=== PATIENT | male | born 1940 | race Caucasian/White ===

== ENCOUNTER 2019-07-12 07:34 | Inpatient (IN) ==
[2019-07-12] MEDS ORDERED: MoRPHine SULFATE 2 MG/ML CARP IV PRN (07:50)
[2019-07-12] MEDS ORDERED: SODIUM CHLORIDE 0.9% 1000ML 1,000 ML IV SCH (08:00)
--- NOTE | 2019-07-12 08:15 | XRay Report ---
SINGLE VIEW CHEST CLINICAL HISTORY: Fall. Hip pain. FINDINGS: An AP, portable, semierect chest radiograph is compared to study dated 10/28/2011. The exam ination is degraded by portable technique, apical lordotic positioning, and patient rotation. The p atient is status post midline sternotomy. The heart is enlarged and there is atherosclerotic calcific ation of the thoracic aorta. There is mild to moderate vascular congestion. Trace pleural effusions a re noted and there is bibasilar atelectasis. No pneumothorax is seen. The skeletal structures are ost eopenic. The bony thorax is grossly intact. IMPRESSION: 1. Cardiomegaly with mild pulmonary vascular congestion. 2. There are trace pleural effusions. Electronically signed by: Bradley Albert M.D. 07/12/2019 8:14 AM
[2019-07-12 08:16] LABS: Basophils # (auto) 0.02 K/uL (0-0.2); Basophils % (auto) 0.2 %; Eosinophils # (auto) 0.23 K/uL (0-0.5); Eosinophils % (auto) 2.5 %; Hematocrit (blood only) 38.7 % (42-52); Hemoglobin 12.8 g/dL (14.0-18.0); Immature Granulocytes # (auto) 0.02 K/uL (0.00-0.02); Immature Granulocytes % (auto) 0.2 %; Lymphocytes # (auto) 1.44 K/uL (1.2-3.4); Mean Corpuscular Hgb Conc 33.1 g/dL (32-36); Mean Corpuscular Volume 90.6 fL (80-100); Mean Platelet Volume 11.7 fL (7.4-10.4); Monocytes # (auto) 0.98 K/uL (0.11-0.59); Monocytes % (auto) 10.9 %; Neutrophils # (auto) 6.33 K/uL (1.4-6.5); Neutrophils % (auto) 70.2 %; Platelet Count 139 K/uL (130-400); RDW Standard Deviation 46.7 fL (36.4-46.3); Red Blood Count 4.27 M/uL (4.7-6.1); White Blood Count 9.02 K/uL (4.8-10.8)
--- NOTE | 2019-07-12 08:16 | XRay Report ---
XR hip LT min 2V CLINICAL HISTORY: Left hip pain status post trauma COMPARISON: None. DISCUSSION: The examination is somewhat limited from a technical standpoint. No fractures or dislocat ions are visualized. IMPRESSION: No fractures or dislocations identified. Electronically signed by: Ravindra Petty M.D. 07/12/2019 8:15 AM
[2019-07-12 08:27] LABS: INR 2.3 (0.9-1.1); Partial Thromboplastin Ratio 1.6; Partial Thromboplastin Time 42.6 Seconds (21.0-31.0); Prothrombin Time 22.5 Seconds (9.0-12.0)
[2019-07-12 08:29] LABS: BUN Creatinine Ratio 12.2 (10-20); Calcium 8.7 mg/dl (8.5-10.1); Creatinine Clr Calc Pharmacy 65.4 ml/min; Est GFR (African American) 74.1; Potassium 3.7 mmol/L (3.5-5.1)
[2019-07-12 08:36] LABS: Appearance Urine Clear (Clear); Bilirubin Urine Negative (Negative); Blood Urine Negative (Negative); Color Urine Dark Yellow; Glucose Urine UA Negative (Negative); Ketones Urine Trace (Negative); Leukocyte Esterase Urine Negative (Negative); Nitrite Urine Negative (Negative); Protein Urine Negative (Negative); Specific Gravity Urine 1.025 (1.000-1.030); Urobilinogen Urine Negative (Negative)
--- NOTE | 2019-07-12 09:38 | XRay Report ---
LEFT KNEE 2 VIEWS CLINICAL HISTORY: Fall with left leg pain. FINDINGS: AP and crosstable lateral views of the left knee are obtained. No prior studies are availab le for comparison at the time of dictation. The skeletal structures are osteopenic. There is a minima lly distracted spiral fracture through the distal shaft and metaphysis of the left femur. There is mi ld overriding of the fragments. The distal fragment is distracted medially by 1.2 cm, and dorsally by 0.5 cm. Fracture extends to the femoral component of a left knee arthroplasty. The proximal tibia an d fibula appear intact. There has been undersurface remodeling of the patella. Soft tissue edema is p resent around the fracture, and there is a joint effusion. Advanced atherosclerotic calcification is noted in the popliteal artery. IMPRESSION: 1. There is a mildly distracted and overriding spiral fracture through the distal femoral shaft and m etaphysis as above. This extends to the femoral component of a left knee arthroplasty. 2. No additional fracture is seen. 3. Joint effusion and soft tissue edema. Electronically signed by: Bradley Albert M.D. 07/12/2019 9:37 AM
--- NOTE | 2019-07-12 09:55 | Emergency Department Note ---
Entered by Genoveva Sexton acting as a scribe for Saulo Ivan DO History of Present Illness General Chief complaint: Fall Time Seen by Provider: 07/12/19 07:46 Source: patient and family History of Present Illness Provider complaint: fall Onset (ago): hour(s) (1.5) Pain Consistency: + other (episode) Maximum Pain Intensity: 10 Quality: + other (fall) Associated symptoms: + denies other symptoms (hitting head, neck pain, back pain) and + other (fell backwards and heard a snap, has been falling a lot recently) Treatments prior to arrival: NSAID (Tylenol) The patient is a 78 year old male who presents to the ED with complaints of an episode of a fall that occurred 1.5 hours ago. The patients son states that he has been falling a lot recently. The patient states that he fell backwards during this encounter but denies hitting his head. The patient also denies neck pain and back pain. The patient notes that he heard a snap when he fell. The patient states that he took Tylenol prior to arrival. Home Medications Home Medications Medication Instructions Recorded Confirmed Type acetaminophen [Tylenol Extra 500 mg PO QAM 07/12/19 07/12/19 History Strength] aspirin 81 mg PO QAM 07/12/19 07/12/19 History atorvastatin 80 mg PO DAILY 07/12/19 07/12/19 History clonazepam 0.5 mg PO DAILY 07/12/19 07/12/19 History fluticasone propion-salmeterol 1 inh INHALATION BID 07/12/19 07/12/19 History [Wixela Inhub] fluticasone propionate [Flonase 2 spray INTRANASAL DAILY 07/12/19 07/12/19 History Allergy Relief] furosemide 40 mg PO Q2D 07/12/19 07/12/19 History isosorbide mononitrate 30 mg PO DAILY 07/12/19 07/12/19 History levothyroxine 150 mcg PO QAM 07/12/19 07/12/19 History metoprolol succinate 200 mg PO DAILY 07/12/19 07/12/19 History npbnlxjo-eyh-GD-lycopen-lutein 1 tab PO QAM 07/12/19 07/12/19 History [Centrum Silver] nitroglycerin [Nitrostat] 0.4 mg SUBLINGUAL UD 07/12/19 07/12/19 History omeprazole 40 mg PO QAM 07/12/19 07/12/19 History ramipril 10 mg PO DAILY 07/12/19 07/12/19 History trazodone 50 mg PO HS 07/12/19 07/12/19 History warfarin 2.5 mg PO DAILY 07/12/19 07/12/19 History Allergies Allergy/AdvReac Type Severity Reaction Status Date / Time atorvastatin Allergy Unknown Unknown Verified 07/12/19 07:51 iodine Allergy Unknown CONTRAST Verified 07/12/19 07:51 MEDIA ALLERGY NOTED adhesive AdvReac Unknown Verified 07/12/19 07:51 Past Med/Surg History Medical History Frequent falls Social History Preferred Language: Citizen Of [place] Feels Safe at Home: Yes Smoking Status: Former smoker Review of Systems See HPI for pertinent positives & negatives. and A total of 10 systems reviewed and were otherwise negative Physical Exam Vital Signs Vital Signs - 24 hr 07/12/19 07:40 07/12/19 08:26 07/12/19 08:30 Temperature 37.1 C Temperature Source Oral Sepsis Recent Fever Within 48 Hours No Sepsis New/Unexplained Change in Mental Status No Sepsis Action Taken by Nursing No Action Required Pulse Rate 65 67 69 Pulse Rate from SpO2 Sensor 68 69 Pulse Rhythm Regular Pulse Strength Normal Respiratory Rate 20 18 15 Respiratory Effort / Characteristics Non-Labored Spontaneous Respiratory Depth Normal Respiratory Pattern Regular Blood Pressure 147/85 H 135/66 129/69 Blood Pressure Mean 105 89 89 Blood Pressure Position Sitting Pulse Oximetry 94 94 95 Oxygen Delivery Method Room Air 07/12/19 08:40 07/12/19 08:50 07/12/19 09:00 Temperature Temperature Source Sepsis Recent Fever Within 48 Hours Sepsis New/Unexplained Change in Mental Status Sepsis Action Taken by Nursing Pulse Rate 70 68 71 Pulse Rate from SpO2 Sensor 70 68 71 Pulse Rhythm Pulse Strength Respiratory Rate 19 17 14 Respiratory Effort / Characteristics Respiratory Depth Respiratory Pattern Blood Pressure 132/69 Blood Pressure Mean 90 Blood Pressure Position Pulse Oximetry 92 97 93 Oxygen Delivery Method 07/12/19 09:10 Temperature Temperature Source Sepsis Recent Fever Within 48 Hours Sepsis New/Unexplained Change in Mental Status Sepsis Action Taken by Nursing Pulse Rate 74 Pulse Rate from SpO2 Sensor 75 Pulse Rhythm Pulse Strength Respiratory Rate 14 Respiratory Effort / Characteristics Respiratory Depth Respiratory Pattern Blood Pressure Blood Pressure Mean Blood Pressure Position Pulse Oximetry 94 Oxygen Delivery Method CONSTITUTIONAL/VITAL SIGNS: Reviewed / noted above. GENERAL: Non-toxic in appearance. INTEGUMENTARY: Warm, dry, and [place]. HEAD: Normocephalic. EYES: without scleral icterus or trauma. ENT/OROPHARYNX: clear and moist. LYMPHADENOPATHY/NECK: Is supple without lymphadenopathy or meningismus. RESPIRATORY: Lungs clear and equal. CARDIOVASCULAR: Regular rate and rhythm. GI/ABDOMEN: Soft and nontender. No organomegaly or pulsatile mass. No rebound or guarding. Normal bowel sounds. EXTREMITIES: Warm and well perfused. BACK: No CVA tenderness. NEUROLOGICAL: Intact without focal deficits. PSYCHIATRIC: normal affect. MUSCULOSKELETAL: Shortening of left leg. Tenderness of left hip. Normally developed with good muscle tone. Course 0747: Past medical records reviewed. The patient was evaluated in room A10. A complete history and physical exam was performed. 0854: I reevaluated the patient and updated him on the test results. The patient states that he is still in pain so we will do a femur CT. 0940: I updated the patient on the test results. 0946: I discussed the patient's case with Kami Ribera PA-C. She will evaluate the patient for further management. Consultations Consultation #1: I discussed the patient's case with Kami Ribera PA-C. She will evaluate the patient for further management. Time: 09:46 Administered Medications Sodium Chloride (Nss 1000ml) 1,000 mls @ 150 mls/hr IV .[id number] FOR[facility]LY [facility], 1928–1983 Stop: 07/12/19 14:39 Last Admin: 07/12/19 08:05 Dose: 150 mls/hr Documented by: [id number] Morphine Sulfate (Morphine Sulfate) 2 mg IV Q1H PRN PRN Reason: Moderate Pain (Rating 3,4,5,6) Stop: 07/26/19 07:49 Last Admin: 07/12/19 08:12 Dose: 2 mg Documented by: [id number] Medical Decision Making Differential Diagnosis Differential includes close head injury, intracranial bleed, facial trauma, cervical spine trauma, chest and thoracic trauma, abdominal and intra-abdominal trauma, spine neurologic trauma, extremity trauma. Medical Records Attestation: I reviewed the patient's medical records. Home Medications Current Medication List: was personally reviewed by me Laboratory Data Attestation: I reviewed the patient's lab results. Result diagrams: 07/12/19 08:01 07/12/19 08:01 Lab Results 07/12/19 07/12/19 07/12/19 Range/Units 08:01 08:01 08:01 WBC 9.02 (4.8-10.8) K/uL RBC 4.27 L (4.7-6.1) M/uL Hgb 12.8 L (14.0-18.0) g/dL Hct 38.7 L (42-52) % MCV 90.6 (80-100) fL MCH 30.0 (25-34) pg MCHC 33.1 (32-36) g/dL RDW Std Deviation 46.7 H (36.4-46.3) fL RDW Coeff of Cory 14.0 (11.5-14.5) % Plt Count 139 (130-400) K/uL MPV 11.7 H (7.4-10.4) fL Immature Gran % (Auto) 0.2 % Neut % (Auto) 70.2 % Lymph % (Auto) 16.0 % [place] % (Auto) 10.9 % Eos % (Auto) 2.5 % Baso % (Auto) 0.2 % Immature Gran # (Auto) 0.02 (0.00-0.02) K/uL Neut # (Auto) 6.33 (1.4-6.5) K/uL Lymph # (Auto) 1.44 (1.2-3.4) K/uL [place] # (Auto) 0.98 H (0.11-0.59) K/uL Eos # (Auto) 0.23 (0-0.5) K/uL Baso # (Auto) 0.02 (0-0.2) K/uL PT 22.5 H (9.0-12.0) Seconds INR 2.3 H (0.9-1.1) APTT 42.6 H (21.0-31.0) Seconds PTT Ratio 1.6 Sodium 142 (136-145) mmol/L Potassium 3.7 (3.5-5.1) mmol/L Chloride 107 (98-107) mmol/L Carbon Dioxide 29 (21-32) mmol/L Anion Gap 6.0 (3-11) BUN 13 (7-18) mg/dl Creatinine 1.10 (0.6-1.4) mg/dl Est Cr Clr Drug Dosing 65.4 ml/min Est GFR ( Amer) 74.1 Est GFR (Non-Af Amer) 64.0 BUN/Creatinine Ratio 12.2 (10-20) Glucose 129 H (70-99) mg/dl Calcium 8.7 (8.5-10.1) mg/dl Urine Color Urine Appearance (Clear) Urine pH (4.5-7.5) Ur Specific [place] (1.000-1.030) Urine Protein (Negative) Urine Glucose (UA) (Negative) Urine Ketones (Negative) Urine Blood (Negative) Urine Nitrite (Negative) Urine Bilirubin (Negative) Urine Urobilinogen (Negative) Ur Leukocyte Esterase (Negative) Blood Type Antibody Screen 07/12/19 07/12/19 Range/Units 08:01 08:28 WBC (4.8-10.8) K/uL RBC (4.7-6.1) M/uL Hgb (14.0-18.0) g/dL Hct (42-52) % MCV (80-100) fL MCH (25-34) pg MCHC (32-36) g/dL RDW Std Deviation (36.4-46.3) fL RDW Coeff of Cory (11.5-14.5) % Plt Count (130-400) K/uL MPV (7.4-10.4) fL Immature Gran % (Auto) % Neut % (Auto) % Lymph % (Auto) % [place] % (Auto) % Eos % (Auto) % Baso % (Auto) % Immature Gran # (Auto) (0.00-0.02) K/uL Neut # (Auto) (1.4-6.5) K/uL Lymph # (Auto) (1.2-3.4) K/uL [place] # (Auto) (0.11-0.59) K/uL Eos # (Auto) (0-0.5) K/uL Baso # (Auto) (0-0.2) K/uL PT (9.0-12.0) Seconds INR (0.9-1.1) APTT (21.0-31.0) Seconds PTT Ratio Sodium (136-145) mmol/L Potassium (3.5-5.1) mmol/L Chloride (98-107) mmol/L Carbon Dioxide (21-32) mmol/L Anion Gap (3-11) BUN (7-18) mg/dl Creatinine (0.6-1.4) mg/dl Est Cr Clr Drug Dosing ml/min Est GFR ( Amer) Est GFR (Non-Af Amer) BUN/Creatinine Ratio (10-20) Glucose (70-99) mg/dl Calcium (8.5-10.1) mg/dl Urine Color Dark Yellow Urine Appearance Clear (Clear) Urine pH 5.0 (4.5-7.5) Ur Specific [place] 1.025 (1.000-1.030) Urine Protein Negative (Negative) Urine Glucose (UA) Negative (Negative) Urine Ketones Trace H (Negative) Urine Blood Negative (Negative) Urine Nitrite Negative (Negative) Urine Bilirubin Negative (Negative) Urine Urobilinogen Negative (Negative) Ur Leukocyte Esterase Negative (Negative) Blood Type A Positive Antibody Screen NEGATIVE Imaging Data Radiologist's Impression: Radiology results as stated below per my review and the radiologist's interpretation: SINGLE VIEW CHEST CLINICAL HISTORY: Fall. Hip pain. FINDINGS: An AP, portable, semierect chest radiograph is compared to study dated 10/28/2011. The examination is degraded by portable technique, apical lordotic positioning, and patient rotation. The patient is status post midline st ernotomy. The heart is enlarged and there is atherosclerotic calcification of the thoracic aorta. There is mild to moderate vascular congestion. Trace pleural effusions are noted and there is bibasilar atelectasis. No pneumothorax is seen. The skeletal structures are osteopenic. The bony thorax is grossly intact. IMPRESSION: 1. Cardiomegaly with mild pulmonary vascular congestion. 2. There are trace pleural effusions. Electronically signed by: Bradley Albert M.D. 07/12/2019 8:14 AM XR hip LT min 2V CLINICAL HISTORY: Left hip pain status post trauma COMPARISON: None. DISCUSSION: The examination is somewhat limited from a technical standpoint. No fractures or dislocations are visualized. IMPRESSION: No fractures or dislocations identified. Electronically signed by: Ravindra Petty M.D. 07/12/2019 8:15 AM LEFT KNEE 2 VIEWS CLINICAL HISTORY: Fall with left leg pain. FINDINGS: AP and crosstable lateral views of the left knee are obtained. No prior studies are available for comparison at the time of dictation. The skeletal structures are osteopenic. There is a minimally distracted spiral f racture through the distal shaft and metaphysis of the left femur. There is mild overriding of the fragments. The distal fragment is distracted medially by 1.2 cm, and dorsally by 0.5 cm. Fracture extends to the femoral component of a left knee arthroplasty. The proximal tibia and fibula appear intact. There has been undersurface remodeling of the patella. Soft tissue edema is present around the fracture, and there is a joint effusion. Advanced atherosclerotic calcification is noted in the popliteal artery. IMPRESSION: 1. There is a mildly distracted and overriding spiral fracture through the distal femoral shaft and metaphysis as above. This extends to the femoral component of a left knee arthroplasty. 2. No additional fracture is seen. 3. Joint effusion and soft tissue edema. Electronically signed by: Bradley Albert M.D. 07/12/2019 9:37 AM ECG Data Attestation: I personally reviewed and interpreted this ECG as follows: Indication: other (femur fracture) Rate (beats per minute): 70 Rhythm: normal sinus Findings: no PAC, no PVC, no ST elevation and no ectopy Blood Pressure Blood Pressure Findings: Elevated blood pressure Blood Pressure Disposition: further management by hospitalist HEATHER Gaspar This is a 78-year-old male who presents to the ED with a chief complaint of left leg pain after a fall. He originally complained of pain in the left hip but on exam his pain seems to be lower towards his left knee. The patient denies striking his head or headaches. He is on Coumadin. The patient has had bilate ral knee replacements by Dr. Mckeon in the past. His fall occurred at 6 AM. His blood pressure is slightly elevated. Without movement, his pain is tolerable. His physical exam reveals some tenderness to palpation of the left hip and discomfort in the left knee area with movement. There is also noted to be some mild crepitus. The patient has no complaints of pain elsewhere. No headache, no chest pains, no shortness of breath. No other extremity injuries on exam or complaint. X-ray of the pelvis and knee reveal a spiral fracture of the distal femur on the left. CBC is normal. INR is 2.3. Complete metabolic panel was unremarkable. EKG shows a sinus rhythm at a rate of 70. Urine did not show infection. I spoke with Dr. Capone about the patient. The patient will be seen by medicine services for his medical issues and orthopedics will plan on fixing the femur. The patient will be admitted to the hospital by the [facility]. Impression & Plan Femur fracture, Fall, Elevated INR The scribe's documentation has been prepared under my direction and personally reviewed by me in its entirety. I confirm that the note above accurately reflects all work, treatment, procedures, and medical decision making performed by me.
--- NOTE | 2019-07-12 11:28 | History & Physical Report ---
Date of Service July 12, 2019 Assessment & Plan (1) Fall: (2) Femur fracture: Pt is 78 y/o M with PMH HTN, dyslipidemia, CAD s/p CABG x5 in 2001, ischemic cardiomyopathy, h/o DVT on chronic Coumadin, CKD III, obesity, prediabetes, COPD, ascending aortic dilation, sleep apnea, hypothyroidism, chronic back pain, presented to ER with complaint of fall and left leg pain occurred prior to arrival. Mechanical fall when attempting to put socks on this morning. In ER vitals stable. L KNEE XRAY: There is a mildly distracted and overriding spiral fracture through the distal femoral shaft and metaphysis as above. This extends to the femoral component of a left knee arthroplasty. Joint effusion and soft tissue edema. -In ER pt given morphine 2mg IV, NSS at 150ml/hr -Moderate cardiac surgical risk with hx CAD, ischemic cardiomyopathy, also with hx COPD, obesity. Pt without acute CP or SOB. No acute EKG changes -Pain control with oxycodone, morphine prn -Ortho consult -Spoke with ortho industrial/organizational psychologist and recommended posterior long leg splint and if pt could not tolerate recommended immobilizer to left leg. Ortho placed order. Also recommended Vitamin K and reports if INR 1.5 or less will consider taking pt to OR this weekend or if pt wants surgery to be completed by Dr Hawkins he is in OR on monday. -Will make pt NPO tonight in case INR decreases -SCD to uninjured leg (3) History of DVT (deep vein thrombosis): H/O RLE DVT in 2010 and on Coumadin INR: 2.3 today. Pt Reports took Coumadin this morning -Hold Coumadin -Vitamin K 5mg po -Monitor INR (4) Ischemic cardiomyopathy: (5) CAD (coronary artery disease): S/P CABG x 5 reported in 2001 Echo on 02/22/19 with improved EF. EF: 55%, mild aortic regurgitation, aortic root 4.5 cm which is stable from previous study CXR: Cardiomegaly with mild pulmonary vascular congestion. There are trace pleural effusions. Pt without acute CP or SOB. No acute EKG changes. Clinically pt appears euvolemic -Continue aspirin, metoprolol, statin, isosorbide -Will continue Lasix every other day dosing tomorrow and monitor fluid status (6) HTN (hypertension): Stable -Continue metoprolol, ramipril -Would consider holding ramipril morning of planned surgical procedure (7) Prediabetes: A1c: 6.0 on 03/06/2019 Diet-controlled -Diabetic diet, monitor BSG's -NovoLog sliding scale per protocol (8) COPD (chronic obstructive pulmonary disease): Reports chronic SOB/wheezing with ambulating approx 50 feet and uses home Combivent inhaler 1-2 times a day -Continue home inhalers -Duoneb prn SOB/wheezing (9) Dyslipidemia: -Continue statin (10) IRLANDA (obstructive sleep apnea): -CPAP with 2L oxygen HS (11) Hypothyroidism: TSH: 0.8 in 02/2019 -Continue levothyroxine (12) Obesity: BMI: 37.9 -Would recommend lifestyle modifications (13) GERD (gastroesophageal reflux disease): -Continue PPI DVT Prophylaxis -SCDs Full Code as per discussion with pt, however reports would not want maintained on life support if poor prognosis Follows with Dr Gtz for routine care Pt was seen and care coordinated with Dr Carlin. See addendum History of Present Illness Chief Complaint: Fall, Left leg pain Primary Care Provider: Terrence Gtz, DO Pt is 78 y/o M with PMH HTN, dyslipidemia, CAD s/p CABG x5 in 2001, ischemic cardiomyopathy, h/o DVT on chronic Coumadin, CKD III, obesity, prediabetes, COPD, ascending aortic dilation, sleep apnea, hypothyroidism, chronic back pain, presented to ER with complaint of fall and left leg pain. Patient states was tr kristel to put on his socks this morning when he fell over onto his left leg and reports felt a pop and had instant pain. Patient denies hitting head, LOC, dizziness, denies CP or SOB prior to fall. Denies any other known injuries from fall. Reports taking Tylenol prior to ER arrival. Patient with history bilateral TKA by Dr. Hawkins around year 2004. Reports chronic back pain and denies any increased pain since fall. Patient reports history unstable gait and reports had a fall last week while working outside. Denies any injuries with previous fall. Patient with history of DVT to right leg in 2010 and has been on Coumadin since. Patient reports chronic shortness of breath and wheezing with ambulating approximately 50 feet. Patient denies any recent chest pain denies any chest pain on exertion. Patient denies any increased lower extremity edema. Denies history of TIA/stroke. Denies fever/chills, diaphoresis, N/V/D/C, WIN, dizziness, syncope, vision changes, neck pain, CP, SOB, orthopnea, palpitations, cough, sore throat, choking, otalgia, rhinorrhea, abdominal pain, leg/foot paresthesias, weakness, rashes, urinary symptoms. Allergies Allergy/AdvReac Type Severity Reaction Status Date / Time atorvastatin Allergy Unknown Unknown Verified 07/12/19 07:51 iodine Allergy Unknown CONTRAST Verified 07/12/19 07:51 MEDIA ALLERGY NOTED adhesive AdvReac Unknown Verified 07/12/19 07:51 Home Medications Home Medications Medication Instructions Recorded Confirmed Type acetaminophen [Tylenol Extra 500 mg PO QAM 07/12/19 07/12/19 History Strength] aspirin 81 mg PO QAM 07/12/19 07/12/19 History atorvastatin 80 mg PO DAILY 07/12/19 07/12/19 History clonazepam 0.5 mg PO DAILY 07/12/19 07/12/19 History fluticasone propion-salmeterol 1 inh INHALATION BID 07/12/19 07/12/19 History [Wixela Inhub] fluticasone propionate [Flonase 2 spray INTRANASAL DAILY 07/12/19 07/12/19 History Allergy Relief] furosemide 40 mg PO Q2D 07/12/19 07/12/19 History isosorbide mononitrate 30 mg PO DAILY 07/12/19 07/12/19 History levothyroxine 150 mcg PO QAM 07/12/19 07/12/19 History metoprolol succinate 200 mg PO DAILY 07/12/19 07/12/19 History jvqvppeh-vuc-FZ-lycopen-lutein 1 tab PO QAM 07/12/19 07/12/19 History [Centrum Silver] nitroglycerin [Nitrostat] 0.4 mg SUBLINGUAL UD 07/12/19 07/12/19 History omeprazole 40 mg PO QAM 07/12/19 07/12/19 History ramipril 10 mg PO DAILY 07/12/19 07/12/19 History trazodone 50 mg PO HS 07/12/19 07/12/19 History warfarin 2.5 mg PO DAILY 07/12/19 07/12/19 History Past Med/Surg History Medical History History of DVT (deep vein thrombosis) (Chronic) Hypothyroidism (Chronic) CAD (coronary artery disease) (Chronic) Ischemic cardiomyopathy (Chronic) Obesity (Chronic) IRLANDA (obstructive sleep apnea) (Chronic) Prediabetes (Chronic) HTN (hypertension) (Chronic) GERD (gastroesophageal reflux disease) (Chronic) Dyslipidemia (Chronic) COPD (chronic obstructive pulmonary disease) (Chronic) CKD (chronic kidney disease), stage III (Chronic) Frequent falls Surgical History History of coronary artery bypass graft (Chronic) History of total knee arthroplasty (Chronic) Social History Preferred Language: Sammarinese Feels Safe at Home: Yes Smoking Status: Former smoker Hx Alcohol Use: Yes Alcohol Intake Frequency: Rarely Hx Substance Use: No Review of Systems Review of Systems: All systems reviewed & are unremarkable except as noted in HPI & below Physical Exam Physical Exam: General: no acute distress, obese Head: normocephalic, atraumatic Eyes: PERRL, EOM's intact, conjunctiva non-injected, anicteric ENT: normal inspection external ears, nose, mucous membranes moist Neck: supple, trachea midline, non-tender Lungs: clear, no respiratory distress, no wheezing/rhonchi/rales CV: RRR, no murmur, no pretibial edema Abd: normal BS, soft, protuberant, non-tender Ext: no calf tenderness, L leg: +edema to thigh and knee, +tenderness to palpation distal thigh and anterior knee, no ROM attempted, sensation to light touch intact, able to wiggle toes, palpable pedal pulse Neuro: A&O x 3, no focal deficits noted, normal affect Skin: warm, dry Results & Data Vital Signs (Past 12 Hours) Vital Signs Temp Pulse Resp BP Pulse Ox 07/12/19 10:50 77 15 93 07/12/19 10:40 75 19 96 07/12/19 10:30 71 16 105/67 96 07/12/19 10:20 80 19 96 07/12/19 10:10 78 18 95 07/12/19 10:00 73 16 113/62 95 07/12/19 09:50 75 20 96 07/12/19 09:40 77 21 96 07/12/19 09:34 79 17 111/68 97 07/12/19 09:33 77 16 97 07/12/19 09:10 74 14 94 07/12/19 09:00 71 14 132/69 93 07/12/19 08:50 68 17 97 07/12/19 08:40 70 19 92 07/12/19 08:30 69 15 129/69 95 07/12/19 08:26 67 18 135/66 94 07/12/19 07:40 37.1 C 65 20 147/85 H 94 Laboratory Results Short CBC 07/12/19 Range/Units 08:01 WBC 9.02 (4.8-10.8) K/uL Hgb 12.8 L (14.0-18.0) g/dL Hct 38.7 L (42-52) % Plt Count 139 (130-400) K/uL BMP 07/12/19 08:01 Sodium 142 Potassium 3.7 Chloride 107 Carbon Dioxide 29 BUN 13 Creatinine 1.10 Glucose 129 H Calcium 8.7 Urine 07/12/19 Range/Units 08:28 Urine Color Dark Yellow Urine Appearance Clear (Clear) Urine pH 5.0 (4.5-7.5) Ur Specific [place] 1.025 (1.000-1.030) Urine Protein Negative (Negative) Urine Glucose (UA) Negative (Negative) Diagnostic Findings KNEE XRAY: IMPRESSION: 1. There is a mildly distracted and overriding spiral fracture through the distal femoral shaft and metaphysis as above. This extends to the femoral component of a left knee arthroplasty. 2. No additional fracture is seen. 3. Joint effusion and soft tissue edema. HIP XRAY: IMPRESSION: No fractures or dislocations identified. CXR: IMPRESSION: 1. Cardiomegaly with mild pulmonary vascular congestion. 2. There are trace pleural effusions. ECG Rate (beats per minute): 71 Rhythm: sinus rhythm Findings: + T-wave inversion (Inferior) Additional Comments: T wave inversion inferior leads seen on prior EKG in 2010 Code Status & VTE Plan VTE Prophylaxis Plan VTE Prophylaxis will be ordered: Yes Supervising Physician Co-Signing Physician Notes I, Dr. Ganesh Carlin, have seen and examined the patient with physician teacher's assistant and agree with the assessment and plan and would like to comment This is a patient with acute left femoral spiral fracture On X ray: There is a mildly distracted and overriding spiral fracture through the distal femoral shaft and metaphysis as above. This extends to the femoral component of a left knee arthroplasty. On exam: General; no acute distress Heart: regular rate Lungs: clear to auscultation bilaterally, no wheezing Abdomen: soft, nontender, bowel sounds present, truncal obesity Extremities: right leg in SCDs, left leg in splint, able to move the feet and toes bilaterally Patient is anticoagulated on Coumadin at home with INR of 2.3. Given that orthopedic service may eventually need to operate, would hold off further Coumadin. Orthopedics recommending giving vitamin K and 5 mg oral to be ordered for 07/12/19. Aspirin 81 mg as per home dose medication may be okay for now but would not place patient on chemical DVT prophylaxis while awaiting for surgery. Patient may have SCDs placed on unaffected right leg. Would avoid any SCD placement on left leg. Would have patient on bed rest in the meanwhile. Further orthopedic recommendations appreciated Obesity with BMI 37.9 Agree with other assessment and plan of medical issues as documented by physician teacher's assistant My colleague Dr. Gaspar will be following the patient starting on 07/13/19 (1) Femur fracture Encounter type: initial encounter Femur location: unspecified portion of femur Fracture morphology: unspecified fracture morphology Fracture type: closed Laterality: left Qualified Code(s): S72.92XA - Unspecified fracture of left femur, initial encounter for closed fracture (2) Fall Encounter type: initial encounter Qualified Code(s): W19.XXXA - Unspecified fall, initial encounter
[2019-07-12] MEDS ORDERED: BISACODYL 10 MG SUPP PR PRN (12:07)
[2019-07-12] MEDS ORDERED: MAGNESIUM HYDROXIDE SUSP 30 ML UDC PO PRN (12:07)
[2019-07-12] MEDS ORDERED: NITROGLYCERIN SL 0.4 MG/TAB TAB SL PRN (12:07)
[2019-07-12] MEDS ORDERED: NALOXONE HCL 0.4 MG/1 ML VIAL/CARP IV PRN (12:07)
[2019-07-12] MEDS ORDERED: PHYTONADIONE 5 MG TAB PO STA (12:31)
[2019-07-12] MEDS ORDERED: ONDANSETRON INJ 2 MG/ML 2 ML VIAL IV PRN (12:31)
[2019-07-12] MEDS ORDERED: CARBOHYDRATES FOR HYPOGLYCEMIA PO PRN (12:35)
[2019-07-12] MEDS ORDERED: GLUCOSE 10 TABS/TUBE PO PRN (12:35)
[2019-07-12] MEDS ORDERED: GLUCOSE 40% GEL 15 GM TUBE PO PRN (12:35)
[2019-07-12] MEDS ORDERED: GLUCAGON FOR INJ 1 MG VIAL SQ PRN (12:35)
[2019-07-12] MEDS ORDERED: DEXTROSE 50% 50 ML SYRINGE IV PRN (12:35)
[2019-07-12] MEDS ORDERED: ALBUT/IPRATROP 3MG/0.5MG NEB 3 ML VIAL NEB PRN (12:41)
--- NOTE | 2019-07-12 12:42 | Orthopedic Consultation ---
Date of Consultation July 12, 2019 Assessment & Plan (1) Femur fracture: Spiral fracture left distal femur. Patient is currently on Coumadin and INR was above 2. This will need to be brought down to 1.5 or less for surgery and likely around 1.2 or 1.3 for spinal anesthesia if needed. Patient will likely require ORIF with plate and screw device. Patient initially requesting Dr. Hawkins to do the surgery if possible. He states that if he is not available then the physician on-call, Dr. Capone, can do the surgery. Plan for OR when INR is acceptable and patient remains medically stable. Supervising Physician Co-Signing Physician Notes Patient was seen and examined. I agree with JOSE Bowman's assessment as above. He has a left periprosthetic femur fracture that will require ORIF his current INR is 2.3. Will need to let this trending down until we can safely do his surgery, preferably in the range of 1.3-1.4. He has swelling in his thigh, but no evidence of compartment syndrome. Motor and sensory function is intact distally, and he is resting comfortably in the knee immobilizer. He was consented for surgery today. We will plan for surgery as soon as his INR allows. History of Present Illness Reason for Consultation: Left distal femur fracture Attending Physician: Astrid Gaspar MD History of Present Illness Patient is a 78-year-old white male known to our practice. He is status post bilateral total knee [place] [address] Hawkins. Patient states that he was trying to put on his socks and ended up losing his balance and falling onto his left side. He had immediate pain in his left thigh and hip. He was unable to ambulate. He denies loss of consciousness. He denies chest pain, shortness of breath, lightheadedness prior to falling. He was brought to the emergency room and x-rays were taken. It was found that he had a distal spiral fracture of the femur on the left side. [facility] the patient and asked us to take care of his femur fracture. Patient is currently sitting up in bed eating lunch. He looks comfortable. He has no other complaints at this time other than discomfort in his left lower extremity. Allergies Allergy/AdvReac Type Severity Reaction Status Date / Time atorvastatin Allergy Unknown Unknown Verified 07/12/19 07:51 iodine Allergy Unknown CONTRAST Verified 07/12/19 07:51 MEDIA ALLERGY NOTED adhesive AdvReac Unknown Verified 07/12/19 07:51 Home Medications Home Medications Medication Instructions Recorded Confirmed Type acetaminophen [Tylenol Extra 500 mg PO QAM 07/12/19 07/12/19 History Strength] aspirin 81 mg PO QAM 07/12/19 07/12/19 History atorvastatin 80 mg PO DAILY 07/12/19 07/12/19 History clonazepam 0.5 mg PO DAILY 07/12/19 07/12/19 History fluticasone propion-salmeterol 1 inh INHALATION BID 07/12/19 07/12/19 History [Wixela Inhub] fluticasone propionate [Flonase 2 spray INTRANASAL DAILY 07/12/19 07/12/19 History Allergy Relief] furosemide 40 mg PO Q2D 07/12/19 07/12/19 History isosorbide mononitrate 30 mg PO DAILY 07/12/19 07/12/19 History levothyroxine 150 mcg PO QAM 07/12/19 07/12/19 History metoprolol succinate 200 mg PO DAILY 07/12/19 07/12/19 History pldunxeq-baj-BX-lycopen-lutein 1 tab PO QAM 07/12/19 07/12/19 History [Centrum Silver] nitroglycerin [Nitrostat] 0.4 mg SUBLINGUAL UD 07/12/19 07/12/19 History omeprazole 40 mg PO QAM 07/12/19 07/12/19 History ramipril 10 mg PO DAILY 07/12/19 07/12/19 History trazodone 50 mg PO HS 07/12/19 07/12/19 History warfarin 2.5 mg PO DAILY 07/12/19 07/12/19 History Patient History Medical History History of DVT (deep vein thrombosis) (Chronic) Hypothyroidism (Chronic) CAD (coronary artery disease) (Chronic) Ischemic cardiomyopathy (Chronic) Obesity (Chronic) IRLANDA (obstructive sleep apnea) (Chronic) Prediabetes (Chronic) HTN (hypertension) (Chronic) GERD (gastroesophageal reflux disease) (Chronic) Dyslipidemia (Chronic) COPD (chronic obstructive pulmonary disease) (Chronic) CKD (chronic kidney disease), stage III (Chronic) Frequent falls Surgical History History of coronary artery bypass graft (Chronic) History of total knee arthroplasty (Chronic) Social History Preferred Language: Tamazight Communication Ability: Effective Print Production Coordinator Required: No Beliefs That Will Affect Care: None Current Living Situation: Family Current Living Situation Comment: grandson lives with him Other Information That Helps Us Care for You: Yes Feels Safe at Home: Yes Smoking Status: Former smoker Tobacco Type: cigars ; Do You Dip or Chew Tobacco: No ; Second Hand Exposure: No ; Tobacco Cessation Education Requested by Patient: No Hx Alcohol Use: Yes Alcohol type: hard liquor Alcohol Intake Frequency: Rarely Hx Substance Use: No Physical Exam Physical Exam: Focusing exam in his left lower extremity, immobilizer is loosened on the left knee and he has noted swelling of the left thigh. The knee is nontender to palpation at this time. No attempts are done at range of motion due to fracture of the knee or hip. He does point to his lateral hip and buttock and stating he was having some discomfort. No abrasions noted at this time. He denies any pain of the left ankle or toes and has good range of motion of the left ankle and toes at this time. Sensation is intact. Capillary refill is less than 2 seconds. Right lower extremity is unaffected and he has good range of motion of the hip knee and ankle. Distal pulses are equal bi laterally. Upper extremities are unaffected and he has good range of motion at the shoulders, elbows, and wrists. Pulses are equal bilaterally of the upper extremities. Denies any neck pain at this time. Denies thoracic or lumbar pain. No gross motor or sensory loss seen at this time other than due to fracture. Results & Data Vital Signs (Past 12 Hours) Vital Signs Temp Pulse Pulse Resp BP BP Pulse Ox 07/12/19 12:06 37 C 78 18 138/72 97 07/12/19 10:50 77 15 93 07/12/19 10:40 75 19 96 07/12/19 10:30 71 16 105/67 96 07/12/19 10:20 80 19 96 07/12/19 10:10 78 18 95 07/12/19 10:00 73 16 113/62 95 07/12/19 09:50 75 20 96 07/12/19 09:40 77 21 96 07/12/19 09:34 79 17 111/68 97 07/12/19 09:33 77 16 97 07/12/19 09:10 74 14 94 07/12/19 09:00 71 14 132/69 93 07/12/19 08:50 68 17 97 07/12/19 08:40 70 19 92 07/12/19 08:30 69 15 129/69 95 07/12/19 08:26 67 18 135/66 94 07/12/19 07:40 37.1 C 65 20 147/85 H 94 Diagnostic Findings [place] [phone] XRay Report Patient: ALIA JOSHUAAdmit Date: 07/12/19 MR#: [id number]: [id number] [facility] Acct ID:[id number]: Date: 1940[facility] Zip: [place] [address] Age: 78Location: ED Sex: M Room/Bed: Att Phy:Diagnosis: FALL Aranza Phy: Terrence Gtz, DOService Date: 07/12/19 Fam Phy:Interpreting Phy: Bradley Albert MD Admit Phy: Ordering Phy: Saulo Ivan D.O. cc: ~ LEFT KNEE 2 VIEWS CLINICAL HISTORY: Fall with left leg pain. FINDINGS: AP and crosstable lateral views of the left knee are obtained. No prior studies are available for comparison at the time of dictation. The skeletal structures are osteopenic. There is a minimally distracted spiral fracture through the distal shaft and metaphysis of the left femur. There is mild overriding of the fragments. The distal fragment is distracted medially by 1.2 cm, and dorsally by 0.5 cm. Fracture extends to the femoral component of a left knee arthroplasty. The proximal tibia and fibula appear intact. There has been undersurface remodeling of the patella. Soft tissue edema is present around the fracture, and there is a joint effusion. Advanced atherosclerotic calcification is noted in the popliteal artery. IMPRESSION: 1. There is a mildly distracted and overriding spiral fracture through the distal femoral shaft and metaphysis as above. This extends to the femoral component of a left knee arthroplasty. 2. No additional fracture is seen. 3. Joint effusion and soft tissue edema. (1) Femur fracture Encounter type: initial encounter Femur location: unspecified portion of femur Fracture morphology: unspecified fracture morphology Fracture type: closed Laterality: left Qualified Code(s): S72.92XA - Unspecified fracture of left femur, initial encounter for closed fracture
[2019-07-12] MEDS: INSULIN ASPART 100 UNITS/ML 3 ML PEN SC SCH ×3 (14:18→21:56)
[2019-07-12] MEDS: ACETAMINOPHEN 325 MG TAB PO PRN (19:38)
[2019-07-12] MEDS: OXYCODONE HCL IR 5 MG TAB (IMMEDIATE RELEASE) PO PRN (19:38)
[2019-07-12] MEDS: DOCUSATE SODIUM/SENNA 50/8.6MG TAB PO SCH (21:31)
[2019-07-12] MEDS: TRAZODONE HCL 50 MG TAB PO SCH (21:31)
[2019-07-12] MEDS: FLUTICASONE/SALMETEROL 250/50 (ADVAIR) 14 PUFF/1 INHALER INH SCH (21:31)
[2019-07-13] MEDS: LEVOTHYROXINE SODIUM 150 MCG TABLET PO SCH (05:23)
[2019-07-13] MEDS ORDERED: CEFAZOLIN 2000MG 2,000 MG/15 ML SYR IV SCH (06:00)
[2019-07-13 06:22] LABS: Hematocrit (blood only) 35.9 % (42-52); Hemoglobin 11.8 g/dL (14.0-18.0); Mean Corpuscular Hemoglobin 29.7 pg (25-34); Mean Corpuscular Hgb Conc 32.9 g/dL (32-36); Mean Corpuscular Volume 90.4 fL (80-100); Mean Platelet Volume 11.3 fL (7.4-10.4); Platelet Count 129 K/uL (130-400); RDW Coefficient of Variation 13.8 % (11.5-14.5); RDW Standard Deviation 46.2 fL (36.4-46.3); Red Blood Count 3.97 M/uL (4.7-6.1); White Blood Count 8.44 K/uL (4.8-10.8)
[2019-07-13 06:32] LABS: INR 1.7 (0.9-1.1); Prothrombin Time 16.6 Seconds (9.0-12.0)
[2019-07-13 06:45] LABS: BUN Creatinine Ratio 12.5 (10-20); Calcium 8.7 mg/dl (8.5-10.1); Creatinine Clr Calc Pharmacy 57.3 ml/min; Est GFR (African American) 68.1; Est GFR (Non-African American) 58.8; Potassium 3.7 mmol/L (3.5-5.1)
[2019-07-13] MEDS: OXYCODONE HCL IR 5 MG TAB (IMMEDIATE RELEASE) PO PRN ×2 (07:38→17:12)
[2019-07-13] MEDS: ACETAMINOPHEN 325 MG TAB PO PRN ×2 (07:38→17:11)
[2019-07-13] MEDS: INSULIN ASPART 100 UNITS/ML 3 ML PEN SC SCH ×4 (08:40→21:00)
[2019-07-13] MEDS: FLUTICASONE/SALMETEROL 250/50 (ADVAIR) 14 PUFF/1 INHALER INH SCH ×2 (09:04→21:17)
[2019-07-13] MEDS: FLUTICASONE PROPIONATE NA SPR 16 GM BTL NAE SCH (09:05)
[2019-07-13] MEDS: ASPIRIN 81 MG ECTAB PO SCH (09:05)
[2019-07-13] MEDS: ISOSORBIDE MONO EXTENDED REL 30 MG TABCR PO SCH (09:06)
[2019-07-13] MEDS: FUROSEMIDE 40 MG TAB PO SCH (09:07)
[2019-07-13] MEDS: clonazePAM 0.5 MG TAB PO SCH (09:07)
[2019-07-13] MEDS: METOPROLOL SUCC 50MG EXT REL TAB PO SCH (09:08)
[2019-07-13] MEDS: PANTOprazole 40 MG TAB PO SCH (09:08)
[2019-07-13] MEDS: ATORVASTATIN 40 MG TAB PO SCH (09:08)
[2019-07-13] MEDS: MULTIVITAMIN TAB PO SCH (09:08)
[2019-07-13] MEDS: ENALAPRIL MALEATE 10 MG TAB PO SCH (09:09)
--- NOTE | 2019-07-13 09:21 | Orthopedic Progress Note ---
Date of Service July 13, 2019 Assessment & Plan (1) Femur fracture: left TKA Left distal femur fracture Awaiting INR (currently 1.7) to be less than 1.5 to proceed with surgery for left ORIF distal femur fracture. Will plan to keep NPO tonight for possible surgery in the a.m. Supervising Physician Co-Signing Physician Notes Patient was seen and examined this morning. I agree with JOSE Skinner's assessment and plan above. His thigh is still swollen, but no evidence of compartment syndrome. He is resting comfortably and has well-controlled pain. His INR came down surprisingly fast, and is currently at 1.7. I anticipate he might be ready for surgery tomorrow. I had a discussion with him today, and he stated that he would prefer to wait for surgery until Monday. His son is working tomorrow, but is off on Monday, and both the patient and his son really want him to be present on the day of surgery. He would also prefer that Dr. Hawkins fix the fracture, as Dr. Hwakins had previously done his knee replacement. We will therefore hold off on surgery planning for now, and shoot for surgery on Monday. I told him to let us know right away if he changes his mind and wants it done tomorrow. Subjective patient resting comfortably in bed, eating breakfast He notes very mild pain. Denies CP, SOB Physical Exam Physical Exam: Toes mobile, NVI. Calves soft, non tender. Results & Data Vital Signs (Past 12 Hours) Vital Signs Temp Pulse Pulse Pulse Resp BP BP 07/13/19 07:09 36.8 C 95 H 18 146/78 H 07/13/19 02:26 36.9 C 94 H 16 132/71 07/12/19 23:09 37.4 C 95 H 16 121/68 07/12/19 23:01 100 H 16 Pulse Ox 07/13/19 07:09 94 07/13/19 02:26 93 07/12/19 23:09 95 07/12/19 23:01 96 (1) Femur fracture Encounter type: initial encounter Femur location: unspecified portion of femur Fracture morphology: unspecified fracture morphology Fracture type: closed Laterality: left Qualified Code(s): S72.92XA - Unspecified fracture of left femur, initial encounter for closed fracture
--- NOTE | 2019-07-13 15:21 | Hospitalist Progress Note ---
Date of Service July 13, 2019 Assessment & Plan (1) Fall: (2) Femur fracture: Brought to the ER after mechanical fall L KNEE XRAY showed mildly distracted and overriding spiral fracture through the distal femoral shaft and metaphysis Ortho on board plan for surgical to proceed with left ORIF distal femur fracture. Continue leg splint for now to keep LLE stable As per patient and family at bedside, before the LLE fracture, he was able to walk his steep drive way with no distress He denies any episodes of chest pain or SOB Has a functional capacity with a METS greater than 4 as per family before the injury EKG showed no ischemic changes Coumadin has been on hold, waiting for INR to be less than 1.5 to procced for surgery Pt without acute CP or SOB. No acute EKG changes Pain control with oxycodone, morphine prn Moderate cardiac surgical risk with hx CAD, ischemic cardiomyopathy, also with hx COPD, obesity. Currently asymptomatic. Stable to proceed with the procedure Pt is waiting for decision from his son if to proceed with the procedure for tomorrow or Monday Will make NPO after midnight (3) History of DVT (deep vein thrombosis): H/O RLE DVT in 2010 and on Coumadin Continue to hold coumadin INR 1.7 today Continue monitor PT/INR (4) Ischemic cardiomyopathy: (5) CAD (coronary artery disease): S/P CABG x 5 reported in 2001 Echo on 02/22/19 with improved EF. EF: 55%, mild aortic regurgitation, aortic root 4.5 cm which is stable from previous study CXR: Cardiomegaly with mild pulmonary vascular congestion. There are trace pleural effusions. Continue aspirin, metoprolol, statin, isosorbide and lasix every other day (6) HTN (hypertension): Stable On metoprolol, ramipril Monitor BP (7) Prediabetes: A1c: 6.0 on 03/06/2019 Diet-controlled On NovoLog sliding scale per protocol Stable (8) COPD (chronic obstructive pulmonary disease): Continue home inhalers Duoneb prn SOB/wheezing Stable (9) Dyslipidemia: Continue statin (10) IRLANDA (obstructive sleep apnea): CPAP with 2L oxygen HS (11) Hypothyroidism: TSH: 0.8 in 02/2019 Continue levothyroxine (12) Obesity: BMI: 37.9 Counseling on lifestyle modifications (13) GERD (gastroesophageal reflux disease): Continue PPI DVT Prophylaxis SCDs (Anticipate surgical procedure CODE STATUS Full Code Subjective Pt was seen and examined Lying in bed with no distress watching the football game Pt said that he feels fine He said that pain is stable now, but whenever he moves his LLE is worsening Patient said that the he is waiting on his son decision rather to do the surgery tomorrow or Monday He said that his son will be off on Monday Denies any chest pain, palpitation, dizziness and SOB Physical Exam Physical Exam: General- No acute distress Head- atraumatic Eyes- PERRL, EOMI, ENT- oropharynx clear Neck- supple, no JVD Lungs- clear to auscultation Heart- regular rhythm; no murmur Abdomen- normal bowel sounds, soft, nontender Extremities- no calf tenderness, + LLE tenderness Neuro- alert, oriented x 3; PERRL, EOMI; no facial palsy; no dysarthria Skin- warm & dry Results & Data Vital Signs (Past 12 Hours) Vital Signs Temp Pulse Resp BP Pulse Ox 07/13/19 15:03 36.7 C 90 18 100/60 92 07/13/19 07:09 36.8 C 95 H 18 146/78 H 94 (1) Femur fracture Encounter type: initial encounter Femur location: unspecified portion of femur Fracture morphology: unspecified fracture morphology Fracture type: closed Laterality: left Qualified Code(s): S72.92XA - Unspecified fracture of left femur, initial encounter for closed fracture (2) Fall Encounter type: initial encounter Qualified Code(s): W19.XXXA - Unspecified fall, initial encounter
[2019-07-13] MEDS: TRAZODONE HCL 50 MG TAB PO SCH (21:15)
[2019-07-13] MEDS: DOCUSATE SODIUM/SENNA 50/8.6MG TAB PO SCH (21:15)
[2019-07-14] MEDS: LEVOTHYROXINE SODIUM 150 MCG TABLET PO SCH (06:57)
[2019-07-14] MEDS: OXYCODONE HCL IR 5 MG TAB (IMMEDIATE RELEASE) PO PRN ×2 (07:17→12:36)
[2019-07-14 07:24] LABS: INR 1.2 (0.9-1.1); Prothrombin Time 11.8 Seconds (9.0-12.0)
--- NOTE | 2019-07-14 07:46 | Orthopedic Progress Note ---
Date of Service July 14, 2019 Assessment & Plan (1) Femur fracture: He has a left periprosthetic distal femur fracture above a total knee arthroplasty. This will require surgical intervention. His INR came down to an acceptable range for surgery, and I again offered him ORIF of this fracture today. However, he declined, again stating that he would prefer to wait until tomorrow when his son can come and be with him. He again would also prefer that Dr. Hawkins do his surgery since Dr. Hawkins did his knee replacement a few years ago. We will make him n.p.o. after midnight, and get him set up for surgery tomorrow. Subjective He is resting comfortably this morning. No acute events overnight. He again desires to wait for surgery until tomorrow so his son can be here. He also would prefer Dr. Hawkins do his surgery since he did his total knee replacement a few years ago. Physical Exam Physical Exam: Right thigh is still swollen, but appears improved since yesterday. Compartments are soft and compressible. Motor and sensory function is intact distally. Foot is warm and well-perfused. Knee immobilizer is in place. No open wounds. Results & Data Vital Signs (Past 12 Hours) Vital Signs Temp Pulse Pulse Resp BP Pulse Ox 07/14/19 00:59 87 16 94 07/13/19 23:33 37.5 C 91 H 16 108/66 94 07/13/19 22:13 82 18 93 INR now 1.2 (down from 1.7 yesterday) (1) Femur fracture Encounter type: initial encounter Femur location: unspecified portion of femur Fracture morphology: unspecified fracture morphology Fracture type: closed Laterality: left Qualified Code(s): S72.92XA - Unspecified fracture of left femur, initial encounter for closed fracture
[2019-07-14] MEDS: ACETAMINOPHEN 325 MG TAB PO PRN ×2 (08:11→12:36)
[2019-07-14] MEDS: INSULIN ASPART 100 UNITS/ML 3 ML PEN SC SCH ×4 (08:41→22:22)
[2019-07-14] MEDS: ASPIRIN 81 MG ECTAB PO SCH (08:43)
[2019-07-14] MEDS: ISOSORBIDE MONO EXTENDED REL 30 MG TABCR PO SCH (08:43)
[2019-07-14] MEDS: FLUTICASONE PROPIONATE NA SPR 16 GM BTL NAE SCH (08:43)
[2019-07-14] MEDS: FLUTICASONE/SALMETEROL 250/50 (ADVAIR) 14 PUFF/1 INHALER INH SCH ×2 (08:43→22:21)
[2019-07-14] MEDS: PANTOprazole 40 MG TAB PO SCH (08:44)
[2019-07-14] MEDS: MULTIVITAMIN TAB PO SCH (08:44)
[2019-07-14] MEDS: ATORVASTATIN 40 MG TAB PO SCH (08:45)
[2019-07-14] MEDS: METOPROLOL SUCC 50MG EXT REL TAB PO SCH (08:45)
[2019-07-14] MEDS: ENALAPRIL MALEATE 10 MG TAB PO SCH (08:45)
[2019-07-14] MEDS: clonazePAM 0.5 MG TAB PO SCH (08:52)
--- NOTE | 2019-07-14 16:30 | Hospitalist Progress Note ---
Date of Service July 14, 2019 Assessment & Plan (1) Fall: (2) Femur fracture: Brought to the ER after mechanical fall L KNEE XRAY showed mildly distracted and overriding spiral fracture through the distal femoral shaft and metaphysis Ortho on board plan for surgical to proceed with left ORIF distal femur fracture. Continue leg splint for now to keep LLE stable As per patient and family at bedside, before the LLE fracture, he was able to walk his steep drive way with no distress He denies any episodes of chest pain or SOB Has a functional capacity with a METS greater than 4 as per family before the injury EKG showed no ischemic changes Coumadin has been on hold, waiting for INR to be less than 1.5 to procced for surgery Pt without acute CP or SOB. No acute EKG changes Pain control with oxycodone, morphine prn Moderate cardiac surgical risk with hx CAD, ischemic cardiomyopathy, also with hx COPD, obesity. Currently asymptomatic. Stable to proceed with the procedure He refused to get the procedure done today. He wants to get it done tomorrow since his son will be off from work tomorrow so that his son can be there for the procedure Also He wants Dr. Hawkins to do the procedure Will make NPO after midnight Plan for ORIF of this fracture Tomorrow (3) History of DVT (deep vein thrombosis): H/O RLE DVT in 2010 and on Coumadin Continue to hold coumadin INR 1.2 today Continue monitor PT/INR (4) Ischemic cardiomyopathy: (5) CAD (coronary artery disease): S/P CABG x 5 reported in 2001 Echo on 02/22/19 with improved EF. EF: 55%, mild aortic regurgitation, aortic root 4.5 cm which is stable from previous study CXR: Cardiomegaly with mild pulmonary vascular congestion. There are trace pleural effusions. Continue aspirin, metoprolol, statin, isosorbide and lasix every other day (6) HTN (hypertension): Stable On metoprolol, ramipril Monitor BP (7) Prediabetes: A1c: 6.0 on 03/06/2019 Diet-controlled On NovoLog sliding scale per protocol Stable (8) COPD (chronic obstructive pulmonary disease): Continue home inhalers Duoneb prn SOB/wheezing Stable (9) Dyslipidemia: Continue statin (10) IRLANDA (obstructive sleep apnea): CPAP with 2L oxygen HS (11) Hypothyroidism: TSH: 0.8 in 02/2019 Continue levothyroxine (12) Obesity: BMI: 37.9 Counseling on lifestyle modifications (13) GERD (gastroesophageal reflux disease): Continue PPI DVT Prophylaxis SCDs (Anticipate surgical procedure tomorrow) If procedure continue to delay, will start on heparin subq for DVT px CODE STATUS Full Code Subjective Pt was seen and examined Lying in bed with no distress watching football game He said that he only has pain when moving his leg Denies any chest pain, palpitation and SOB Physical Exam Physical Exam: General- No acute distress Head- atraumatic Eyes- PERRL, EOMI, ENT- oropharynx clear Neck- supple, no JVD Lungs- clear to auscultation Heart- regular rhythm; no murmur Abdomen- normal bowel sounds, soft, nontender Extremities- no calf tenderness, + LLE tenderness Neuro- alert, oriented x 3; PERRL, EOMI; no facial palsy; no dysarthria Skin- warm & dry Results & Data Vital Signs (Past 12 Hours) Vital Signs Temp Pulse Resp BP BP Pulse Ox 07/14/19 15:00 36.9 C 96 H 18 114/84 93 07/14/19 08:37 36.4 C L 60 15 113/55 L 96 07/14/19 07:28 37.0 C 96 H 18 131/77 95 (1) Femur fracture Encounter type: initial encounter Femur location: unspecified portion of femur Fracture morphology: unspecified fracture morphology Fracture type: closed Laterality: left Qualified Code(s): S72.92XA - Unspecified fracture of left femur, initial encounter for closed fracture (2) Fall Encounter type: initial encounter Qualified Code(s): W19.XXXA - Unspecified fall, initial encounter
[2019-07-14] MEDS: TRAZODONE HCL 50 MG TAB PO SCH (22:21)
[2019-07-14] MEDS: DOCUSATE SODIUM/SENNA 50/8.6MG TAB PO SCH (22:22)
[2019-07-15] MEDS: INSULIN ASPART 100 UNITS/ML 3 ML PEN SC SCH ×4 (06:16→22:15)
[2019-07-15] MEDS: LEVOTHYROXINE SODIUM 150 MCG TABLET PO SCH (06:17)
[2019-07-15] MEDS: ISOSORBIDE MONO EXTENDED REL 30 MG TABCR PO SCH (08:31)
[2019-07-15] MEDS: clonazePAM 0.5 MG TAB PO SCH (08:31)
[2019-07-15] MEDS: ASPIRIN 81 MG ECTAB PO SCH (08:31)
[2019-07-15] MEDS: METOPROLOL SUCC 50MG EXT REL TAB PO SCH (08:32)
[2019-07-15] MEDS: FUROSEMIDE 40 MG TAB PO SCH (08:32)
[2019-07-15] MEDS: ATORVASTATIN 40 MG TAB PO SCH (08:32)
[2019-07-15] MEDS: PANTOprazole 40 MG TAB PO SCH (08:32)
[2019-07-15] MEDS: MULTIVITAMIN TAB PO SCH (08:32)
[2019-07-15] MEDS: ENALAPRIL MALEATE 10 MG TAB PO SCH (08:32)
[2019-07-15] MEDS: MoRPHine SULFATE 2 MG/ML CARP IV PRN (08:55)
[2019-07-15] MEDS: FLUTICASONE PROPIONATE NA SPR 16 GM BTL NAE SCH (08:58)
[2019-07-15] MEDS: FLUTICASONE/SALMETEROL 250/50 (ADVAIR) 14 PUFF/1 INHALER INH SCH ×2 (08:58→21:56)
--- NOTE | 2019-07-15 09:58 | Orthopedic Progress Note ---
Date of Service July 15, 2019 Assessment & Plan (1) Femur fracture: Left distal periarticular femur fracture. INR has dropped down to 1.2. Recheck hemoglobin. Planning for ORIF of the left femur fracture today. Subjective Hospital day 3. Patient with distal periprosthetic femur fracture. Patient requesting who is here today. No new complaints from the patient other than he is having a little bit of shoulder pain this morning which he feels was due to sleeping in the same position last night. Denies any shortness of breath, chest pain, lightheadedness. Denies calf pain. Physical Exam Physical Exam: No overt changes. Swelling remains in the left thigh. Calves are soft and nontender. Patient relates a burning pain in the right calf secondary to previous DVT years ago that he has had since that time. This has not worsened since his admission. Good range of motion of the left ankle and toes. Sensation is intact. Capillary refill is less than 2 seconds. Results & Data Vital Signs (Past 12 Hours) Vital Signs Temp Pulse Pulse Pulse Resp BP BP 07/15/19 07:38 36.9 C 90 18 106/65 07/14/19 23:14 36.9 C 86 16 111/66 07/14/19 22:32 86 20 Pulse Ox 07/15/19 07:38 95 07/14/19 23:14 93 07/14/19 22:32 96 (1) Femur fracture Encounter type: initial encounter Femur location: unspecified portion of femur Fracture morphology: unspecified fracture morphology Fracture type: closed Laterality: left Qualified Code(s): S72.92XA - Unspecified fracture of left femur, initial encounter for closed fracture
[2019-07-15 10:25] LABS: INR 1.1 (0.9-1.1); Prothrombin Time 11.6 Seconds (9.0-12.0)
[2019-07-15 10:30] LABS: Basophils # (auto) 0.04 K/uL (0-0.2); Basophils % (auto) 0.4 %; Eosinophils # (auto) 0.16 K/uL (0-0.5); Eosinophils % (auto) 1.8 %; Hematocrit (blood only) 34.4 % (42-52); Hemoglobin 11.2 g/dL (14.0-18.0); Immature Granulocytes # (auto) 0.04 K/uL (0.00-0.02); Immature Granulocytes % (auto) 0.4 %; Lymphocytes # (auto) 1.86 K/uL (1.2-3.4); Lymphocytes % (auto) 20.6 %; Mean Corpuscular Hemoglobin 29.2 pg (25-34); Mean Corpuscular Hgb Conc 32.6 g/dL (32-36); Mean Corpuscular Volume 89.6 fL (80-100); Mean Platelet Volume 11.4 fL (7.4-10.4); Monocytes # (auto) 1.26 K/uL (0.11-0.59); Neutrophils # (auto) 5.67 K/uL (1.4-6.5); Neutrophils % (auto) 62.8 %; Platelet Count 150 K/uL (130-400); RDW Coefficient of Variation 13.9 % (11.5-14.5); RDW Standard Deviation 45.3 fL (36.4-46.3); Red Blood Count 3.84 M/uL (4.7-6.1); White Blood Count 9.03 K/uL (4.8-10.8)
--- NOTE | 2019-07-15 12:18 | Hospitalist Progress Note ---
Date of Service July 15, 2019 Assessment & Plan (1) Fall: (2) Femur fracture: Brought to the ER after mechanical fall L KNEE XRAY showed mildly distracted and overriding spiral fracture through the distal femoral shaft and metaphysis Ortho on board plan for surgical to proceed with left ORIF distal femur fracture. Continue leg splint for now to keep LLE stable As per patient and family at bedside, before the LLE fracture, he was able to walk his steep drive way with no distress He denies any episodes of chest pain or SOB Has a functional capacity with a METS greater than 4 as per family before the injury EKG showed no ischemic changes Coumadin has been on hold, waiting for INR to be less than 1.5 to procced for surgery Pt without acute CP or SOB. No acute EKG changes Pain control with oxycodone, morphine prn Moderate cardiac surgical risk with hx CAD, ischemic cardiomyopathy, also with hx COPD, obesity. Currently asymptomatic. Stable to proceed with the procedure He refused to get the procedure done today. He wants to get it done tomorrow since his son will be off from work tomorrow so that his son can be there for the procedure Also He wants Dr. Hawkins to do the procedure Plan for ORIF of this fracture today Keep NPO for now (3) History of DVT (deep vein thrombosis): H/O RLE DVT in 2010 and on Coumadin Continue to hold coumadin INR 1.2 today Continue monitor PT/INR (4) Ischemic cardiomyopathy: (5) CAD (coronary artery disease): S/P CABG x 5 reported in 2001 Echo on 02/22/19 with improved EF. EF: 55%, mild aortic regurgitation, aortic root 4.5 cm which is stable from previous study CXR: Cardiomegaly with mild pulmonary vascular congestion. There are trace pleural effusions. Continue aspirin, metoprolol, statin, isosorbide and lasix every other day (6) HTN (hypertension): Stable On metoprolol, ramipril Monitor BP (7) Prediabetes: A1c: 6.0 on 03/06/2019 Diet-controlled On NovoLog sliding scale per protocol Stable (8) COPD (chronic obstructive pulmonary disease): Continue home inhalers Duoneb prn SOB/wheezing Stable (9) Dyslipidemia: Continue statin (10) IRLANDA (obstructive sleep apnea): CPAP with 2L oxygen HS (11) Hypothyroidism: TSH: 0.8 in 02/2019 Continue levothyroxine (12) Obesity: BMI: 37.9 Counseling on lifestyle modifications (13) GERD (gastroesophageal reflux disease): Continue PPI DVT Prophylaxis SCDs (Anticipate surgical procedure tomorrow) If procedure continue to delay, will start on heparin subq for DVT px CODE STATUS Full Code Subjective Pt was seen and examined. Lying in bed with no distress. Pt said he feels fine He said that he is hungry since he has been NPO for the procedure Denies any chest pain, palpitation, dizziness and SOB Physical Exam Physical Exam: General- No acute distress Head- atraumatic Eyes- PERRL, EOMI, ENT- oropharynx clear Neck- supple, no JVD Lungs- clear to auscultation Heart- regular rhythm; no murmur Abdomen- normal bowel sounds, soft, nontender Extremities- no calf tenderness, + LLE tenderness Neuro- alert, oriented x 3; PERRL, EOMI; no facial palsy; no dysarthria Skin- warm & dry Results & Data Vital Signs (Past 12 Hours) Vital Signs Temp Pulse Resp BP Pulse Ox 07/15/19 07:38 36.9 C 90 18 106/65 95 (1) Femur fracture Encounter type: initial encounter Femur location: unspecified portion of femur Fracture morphology: unspecified fracture morphology Fracture type: closed Laterality: left Qualified Code(s): S72.92XA - Unspecified fracture of left femur, initial encounter for closed fracture (2) Fall Encounter type: initial encounter Qualified Code(s): W19.XXXA - Unspecified fall, initial encounter
--- NOTE | 2019-07-15 13:02 | Anesthesiology Consultation ---
Date of Service July 15, 2019 Assessment & Plan (1) Encounter for pre-operative examination: Chart Review Chart Review: Acceptable Risk for Surgery Consults Requested none ASA ASA4 Proposed Anesthesia Anesthesia Type: General Anesthesia Line Insertion: Arterial line Risk / Benefits Reviewed With: PT / POA / Parent / Guardian, Accepts Plan and Informed Consent Obtained History Surgery Operation Date: 07/15/19 07:05 Proposed Procedures p Left Open Reduction Internal Fixation Periprosthetic Femur Fracture - Steven Hawkins MD Height/Weight Height: 5 ft 5 in Weight: 103.9 kg Allergies Allergy/AdvReac Type Severity Reaction Status Date / Time atorvastatin Allergy Unknown Unknown Verified 07/12/19 07:51 iodine Allergy Unknown CONTRAST Verified 07/12/19 07:51 MEDIA ALLERGY NOTED adhesive AdvReac Unknown Verified 07/12/19 07:51 Medications Home Medications Medication Instructions Recorded Confirmed Last Taken acetaminophen [Tylenol Extra 500 mg PO QAM 07/12/19 07/12/19 07/12/19 Strength] aspirin 81 mg PO QAM 07/12/19 07/12/19 07/12/19 atorvastatin 80 mg PO DAILY 07/12/19 07/12/19 Unknown clonazepam 0.5 mg PO DAILY 07/12/19 07/12/19 Unknown fluticasone propion-salmeterol 1 inh INHALATION BID 07/12/19 07/12/19 07/12/19 [Wixela Inhub] fluticasone propionate [Flonase 2 spray INTRANASAL DAILY 07/12/19 07/12/19 Unknown Allergy Relief] furosemide 40 mg PO Q2D 07/12/19 07/12/19 Unknown isosorbide mononitrate 30 mg PO DAILY 07/12/19 07/12/19 Unknown levothyroxine 150 mcg PO QAM 07/12/19 07/12/19 07/12/19 metoprolol succinate 200 mg PO DAILY 07/12/19 07/12/19 Unknown [id number]-ND-lycopen-lutein 1 tab PO QAM 07/12/19 07/12/19 07/12/19 [Centrum Silver] nitroglycerin [Nitrostat] 0.4 mg SUBLINGUAL UD 07/12/19 07/12/19 Unknown omeprazole 40 mg PO QAM 07/12/19 07/12/19 07/12/19 ramipril 10 mg PO DAILY 07/12/19 07/12/19 Unknown trazodone 50 mg PO HS 07/12/19 07/12/19 07/11/19 warfarin 2.5 mg PO DAILY 07/12/19 07/12/19 07/12/19 Active Medications Generic Name Dose Route Start Last Admin Trade Name Freq PRN Reason Stop Dose Admin Acetaminophen 650 mg 07/12/19 12:07 07/14/19 12:36 Tylenol PO 08/11/19 12:06 650 mg Q4H PRN Administration pain/fever Aspirin 81 mg 07/13/19 09:00 07/15/19 08:31 Ecotrin Ectab PO 08/12/19 08:59 Not Given QAM [facility] Atorvastatin Calcium 80 mg 07/13/19 09:00 07/15/19 08:32 Lipitor PO 08/12/19 08:59 Not Given DAILY ALIREZA Clonazepam 0.5 mg 07/13/19 09:00 07/15/19 08:31 Klonopin PO 08/12/19 08:59 Not Given DAILY [facility] Enalapril Maleate 40 mg 07/13/19 09:00 07/15/19 08:32 Vasotec PO 08/12/19 08:59 Not Given DAILY [facility] Fluticasone Propionate 2 sprays 07/13/19 09:00 07/15/19 08:58 Flonase BENITEZ 08/12/19 08:59 2 sprays DAILY [facility] Administration Furosemide 40 mg 07/13/19 09:00 07/15/19 08:32 Lasix PO 08/12/19 08:59 Not Given Q2D [facility] Insulin Aspart 0 units 07/15/19 06:00 07/15/19 12:30 Novolog Flexpen SC 08/14/19 05:59 Not Given Q6 [facility] Isosorbide Mononitrate 30 mg 07/13/19 09:00 07/15/19 08:31 Imdur Extended Rel PO 08/12/19 08:59 Not Given DAILY [facility] Levothyroxine Sodium 150 mcg 07/13/19 06:30 07/15/19 06:17 Synthroid PO 08/12/19 [facility]oprol[facility] Succinate 200 mg 07/13/19 09:00 07/15/19 08:32 Toprol Xl PO 08/12/19 08:59 Not Given DAILY ALIREZA Morphine Sulfate 2 mg 07/12/19 12:07 07/15/19 08:55 Morphine Sulfate IV 07/26/19 12:06 2 mg Q3H PRN Administration MODERATE Pain (Scale 4,5,6) Multivitamins 1 tab 07/13/19 09:00 07/15/19 08:32 Multivitamin Tab PO 08/12/19 08:59 Not Given QAM ALIREZA Oxycodone HCl 5 mg 07/12/19 12:07 07/14/19 12:36 Roxicodone Immediate Rel PO 07/26/19 12:06 5 mg Q6H PRN Administration MODERATE Pain (Scale 4,5,6) Pantoprazole Sodium 40 mg 07/13/19 09:00 07/15/19 08:32 Protonix PO 08/12/19 08:59 Not Given DAILY ALIREZA Fluticasone/Salmeterol 1 puffs 07/12/19 21:00 07/15/19 08:58 Advair Diskus 250/50 INH 08/11/19 20:59 1 puffs BID ALIREZA Administration Senna/Docusate Sodium 2 tab 07/12/19 21:00 07/14/19 22:22 Senokot S PO 08/11/19 20:59 2 tab HS ALIREZA Administration Trazodone HCl 50 mg 07/12/19 21:00 07/14/19 22:21 Desyrel PO 08/11/19 20:59 50 mg HS ALIREZA Administration NPO Date Last Intake of Fluids: 07/15/19 Time Last Intake of Fluids: 00:00 Date Last Intake of Solids: 07/15/19 Time Last Intake of Solids: 00:00 Past Medical History Medical History History of DVT (deep vein thrombosis) (Chronic) Hypothyroidism (Chronic) CAD (coronary artery disease) (Chronic) Ischemic cardiomyopathy (Chronic) Obesity (Chronic) IRLANDA (obstructive sleep apnea) (Chronic) Prediabetes (Chronic) HTN (hypertension) (Chronic) GERD (gastroesophageal reflux disease) (Chronic) Dyslipidemia (Chronic) COPD (chronic obstructive pulmonary disease) (Chronic) CKD (chronic kidney disease), stage III (Chronic) Frequent falls Exercise / Class Metabolic Activity III < 4 Walking/Shop/Light housework Past Surgical History Surgical History History of coronary artery bypass graft (Chronic) History of total knee arthroplasty (Chronic) Past Anesthesia History No Hx of Anesthesia Complications and No Family Hx of Anesthesia Complications History of PONV No Hx of PONV and No Hx of Motion Sickness Social History Smoking Status: Former smoker tobacco type: cigars Do You Dip or Chew Tobacco: No Hx Alcohol Use: Yes Alcohol type: hard liquor Alcohol Intake Frequency Comment: a shot of whiskey every day in the winter Hx Substance Use: No Physical Exam Vital Signs Last Vital Signs Temp 98.8 F 07/15/19 13:20 Pulse 104 H 07/15/19 13:20 Resp 20 07/15/19 13:20 BP 115/77 07/15/19 13:20 Pulse Ox 97 07/15/19 13:20 ENMT Mouth: + edentulous Thyromental Distance: > or= 3.5 Finger Breadths Mallampati Class: III Neck normal visual inspection Respiratory normal respiratory effort Auscultation: + diminished lung sounds Cardiovascular Rate/Rhythm: regular rate and regular rhythm Testing Laboratory Results 07/15/19 10:05 07/13/19 05:52 PT 11.6 Seconds (9.0-12.0) 07/15/19 10:03 INR 1.1 (0.9-1.1) 07/15/19 10:03 APTT 42.6 Seconds (21.0-31.0) H 07/12/19 08:01 Urine Color Dark Yellow 07/12/19 08:28 Urine Appearance Clear (Clear) 07/12/19 08:28 Urine pH 5.0 (4.5-7.5) 07/12/19 08:28 Ur Specific Banner 1.025 (1.000-1.030) 07/12/19 08:28 Urine Protein Negative (Negative) 07/12/19 08:28 Urine Glucose (UA) Negative (Negative) 07/12/19 08:28 Urine Ketones Trace (Negative) H 07/12/19 08:28 Urine Nitrite Negative (Negative) 07/12/19 08:28 Ur Leukocyte Esterase Negative (Negative) 07/12/19 08:28 Blood Type A Positive 07/12/19 08:01 Antibody Screen NEGATIVE 07/12/19 08:01 09/16/19 09/16/19 12:21 06:02 POC Glucose 106 H 102 H Electrocardiogram Date: 07/12/19 Normal sinus rhythm, rate 71 bpm T wave abnormality, consider inferior ischemia Abnormal ECG When compared with ECG of 28-OCT-2011 11:04, Premature ventricular complexes are no longer Present Vent. rate has decreased BY 51 BPM Borderline criteria for Inferior infarct are no longer Present Confirmed by Neil Pendleton ([id number]) on 07/12/2019 9:38:58 PM Chest X-Ray Date: 07/12/19 IMPRESSION: 1. Cardiomegaly with mild pulmonary vascular congestion. 2. There are trace pleural effusions. Echocardiogram Date: 02/22/19 EF: 55-59% LV wall thickness is mildly increased Base inferior wall is hypokinetic Regional LV wall motion is otherwise normal LA mildly enlarged Grade 1 diastolic dysfunction Mild AV sclerosis Mild AV regurgitation Aortic root is mildly enlarged, 4.5 cm Ascending aorta is moderately enlarged, 4.7 cm
[2019-07-15] MEDS ORDERED: ePHEDrine sulfate 50 MG/ML AMP IV PRN (13:35)
[2019-07-15] MEDS ORDERED: SODIUM CHLORIDE 0.9% 250 ML IV PRN (13:35)
[2019-07-15] MEDS ORDERED: ONDANSETRON INJ 2 MG/ML 2 ML VIAL IV PRN ×2 (13:35→20:12)
[2019-07-15] MEDS ORDERED: ATROPINE SULFATE 0.1 MG/ML 10ML SYR IV PRN (13:35)
[2019-07-15] MEDS ORDERED: LIDOCAINE HCL 2% MPF (LOCAL) 5 ML VIAL INFIL ONE (13:38)
[2019-07-15] MEDS ORDERED: CEFAZOLIN 2000MG 2,000 MG/15 ML SYR IV ONE (13:45)
[2019-07-15] MEDS ORDERED: BACITRACIN INJ 50,000 UNIT VIAL ONE (13:46)
[2019-07-15] MEDS ORDERED: CEFAZOLIN 2,000 MG/15 ML IV PUSH IV ONE (13:47)
[2019-07-15] MEDS ORDERED: LARYING-O-JET KIT (LTA) ONE (13:49)
[2019-07-15] MEDS ORDERED: GLYCOPYRROLATE 0.2 MG/ML VIAL ONE (13:49)
[2019-07-15] MEDS ORDERED: ROCURONIUM BROMIDE 10 MG/ML 5 ML VIAL ONE ×4 (13:49→16:58)
[2019-07-15] MEDS ORDERED: LIDOCAINE HCL 2% 2 ML VIAL/AMP(20MG/ML) INFIL ONE (13:49)
[2019-07-15] MEDS ORDERED: NEOSTIGMINE METHYLSULFATE 5 MG/5 ML SYR ONE (13:49)
[2019-07-15] MEDS ORDERED: PROPOFOL IV EMULSION 10 MG/ML 20 ML VIAL IV ONE (13:49)
[2019-07-15] MEDS ORDERED: ONDANSETRON INJ 2 MG/ML 2 ML VIAL ONE (13:49)
[2019-07-15] MEDS ORDERED: PHENYLEPHRINE 100MCG/ML 5ML SYR ONE ×2 (13:49→17:04)
[2019-07-15] MEDS ORDERED: DEXAMETHASONE SOD INJ 4 MG/ML VIAL ONE (13:49)
[2019-07-15] MEDS ORDERED: ePHEDrine sulfate 50 MG/ML SYR ONE (13:49)
[2019-07-15] MEDS ORDERED: fentaNYL citrate 100 MCG/2 ML VIAL ONE ×2 (13:50→19:38)
[2019-07-15] MEDS ORDERED: MIDAZOLAM HCL 1 MG/ML 2ML VIAL ONE (13:50)
[2019-07-15] MEDS ORDERED: ALBUMIN HUMAN 5% 12.5 GM/250 ML VIAL IV ONE (15:27)
[2019-07-15] MEDS ORDERED: HYDROmorphone INJ 2 MG/ML SYR/VIAL ONE (15:48)
[2019-07-15] MEDS ORDERED: LABETALOL HCL IV 5 MG/ML 20ML IV ONE (16:12)
[2019-07-15] MEDS ORDERED: PHENYLEPHRINE HCL 10 MG/ML VIAL ONE (17:59)
[2019-07-15 19:18] LABS: iSTAT Creatinine 0.9 mg/dl (0.6-1.3); iSTAT Hemoglobin 10.5 g/dl (14.0-18.0); iSTAT Ionized Calcium 1.13 mmol/l (1.12-1.32); iSTAT Potassium 4.5 mEq/L (3.3-5.0)
--- NOTE | 2019-07-15 19:27 | Fluoroscopy Report ---
FL femur LT 2V CLINICAL HISTORY: LT ORIF PERIPROSTHETIC FEMUR FX COMPARISON STUDY: 06/11/2019 FLUOROSCOPY TIME: 21 seconds. NUMBER OF FLUOROSCOPIC IMAGES: 8 FINDINGS: There are postsurgical changes of a total left knee arthroplasty. The periprosthetic fractu re has been fixated with a metallic plate and multiple transverse screws. There is also an additional screw which traverses the fracture. IMPRESSION: Intraoperative fluoroscopic spot images demonstrating an internally fixated periprosthet ic fracture of the distal left femur Electronically signed by: Ravindra Petty M.D. 07/15/2019 7:25 PM
--- NOTE | 2019-07-15 19:32 | Post Operative Brief Note ---
Immediate Post Op Note v1 Date of Surgery July 15, 2019 Pre & Post Diagnosis Operation Date: 07/15/19 07:05 Pre-Op Diagnosis: LEFT SHARI-PROSTHETIC SPIRAL FEMUR FRACTURE, Post-Op Diagnosis: LEFT SHARI-PROSTHETIC SPIRAL FEMUR FRACTURE, Procedure Operation Date: 07/15/19 07:05 Actual Procedures p Left Open Reduction Internal Fixation Periprosthetic Femur Fracture(Left) - Steven Hawkins MD Surgeon Steven Hawkins MD Nutrition Tech Robert GARCIA Estimated Blood Loss 550 Findings Consistent with Post-Op Diagnosis Drains Hemovac Drain (dual ) Anesthesia Type General Complications none Disposition Accompanied Patient To Recovery: No Disposition: Recovery Room Overlapping Procedure I was immediately available: during the entire case.
[2019-07-15] MEDS: fentaNYL citrate 100 MCG/2 ML VIAL IV PRN ×4 (19:39→19:54)
--- NOTE | 2019-07-15 19:54 | Anesthesiology Progress Note ---
Date of Service July 15, 2019 Anesthesia Post Procedure Vital Signs Vital Signs: Temp Pulse Pulse Pulse Pulse Resp BP 07/15/19 19:50 110 H 18 07/15/19 19:40 110 H 18 07/15/19 19:32 37.0 C 112 H 16 07/15/19 13:20 37.1 C 104 H 20 115/77 07/15/19 07:38 36.9 C 90 18 106/65 07/14/19 23:14 36.9 C 86 16 07/14/19 22:32 86 20 BP Pulse Ox 07/15/19 19:50 162/80 H 94 07/15/19 19:40 142/86 H 96 07/15/19 19:32 138/91 100 07/15/19 13:20 97 07/15/19 07:38 95 07/14/19 23:14 111/66 93 07/14/19 22:32 96 Pain Intensity Left Leg: Pain Intensity: 4 Transfer of Care Handoff Completed per policy Notes Mental Status: alert / awake / arousable and participated in evaluation Patient Amnestic to Procedure: Yes Nausea / Vomiting: adequately controlled Pain: adequately controlled Airway Patency, RR, SpO2: stable & adequate BP & HR: stable & adequate Hydration State: stable & adequate Anesthetic Complications: no major complications apparent
[2019-07-15] MEDS ORDERED: BISACODYL 10 MG SUPP PR PRN (20:12)
[2019-07-15] MEDS ORDERED: MAGNESIUM HYDROXIDE SUSP 30 ML UDC PO PRN (20:12)
[2019-07-15] MEDS ORDERED: METOCLOPRAMIDE HCL INJ 5 MG/ML 2 ML VIAL IV PRN (20:12)
[2019-07-15] MEDS ORDERED: NALOXONE HCL 0.4 MG/1 ML VIAL/CARP IV PRN (20:12)
[2019-07-15] MEDS ORDERED: SODIUM CHLORIDE 0.9% 1000ML 1,000 ML IV SCH (21:00)
[2019-07-15] MEDS ORDERED: Nursing to Pharmacy Communication ONE (21:08)
[2019-07-15] MEDS: SENNA 8.6 MG TAB PO SCH (21:56)
[2019-07-15] MEDS: DOCUSATE SODIUM 100 MG CAP PO SCH (21:56)
[2019-07-15] MEDS: TRAZODONE HCL 50 MG TAB PO SCH (21:56)
--- NOTE | 2019-07-15 22:15 | Operative Report ---
DATE OF OPERATION: 07/15/2019 INDICATION FOR PROCEDURE: The patient is a 78-year-old male who was on anticoagulants. He slipped, fell and fractured his left femur. He had a history of total knee replacement years ago by myself. Total knee replacement was on the ipsilateral left leg. He has a well-fixed, well-aligned knee replacement. He has a long spiral periprosthetic fracture with substantial shortening with lateral displacement of the shaft fracture with regard to the knee. He had his anticoagulants reversed. Now, he is cleared for surgery. PREOPERATIVE DIAGNOSIS: Periprosthetic femur fracture, metaphysis and diaphysis, spiral type fracture proximal to a well-fixed left total knee replacement. POSTOPERATIVE DIAGNOSIS: Periprosthetic femur fracture, metaphysis and diaphysis, spiral type fracture proximal to a well-fixed left total knee replacement. PROCEDURE: Open reduction and internal fixation, left periprosthetic femur fracture with Synthes locking plate fixation. SURGEON: Steven Hawkins M.D. LACE PINNER: Robert Amezquita PA-C ANESTHESIA: General. DRAINS: Two Hemovac. COMPLICATIONS: None. ESTIMATED BLOOD LOSS: 550 mL. OPERATIVE PROCEDURE: The patient was taken to the operating room, anesthetized under general anesthetic, transferred to the operating room table, placed supine on the operating room table. The knee immobilizer was removed. He had a large thigh clearly with internal bleeding from the Coumadin and substantial fracture of the femur. He had no open wounds. There was some moderate ecchymosis. The opposite lower extremity was well padded. The patient already had a catheter in place. He was placed on the operating room table, so we could use fluoroscopy during the procedure as necessary. His left lower extremity was prepped up to the hip area. We used DuraPrep. His fracture was approached through a lateral approach starting at the IT band, at Gerdy tubercle extending along the thigh about [address] up the thigh with a long lateral incision. Skin was incised sharply and subcutaneous bleeders were cauterized. We did use Aquamantis and regular electrocautery. The IT band was split down from Gerdy tubercle up the lateral thigh through the fascia joanne. The hematoma was evacuated. The vastus lateralis was reflected and a subvastus type approach reflecting anteriorly off the femur in the fracture. The spike of the lateral fracture was way distal down to the metal of the joint. It looks like there was further displacement from the initial x-rays with days waiting for him to have surgery reversing his anticoagulants. The lateral spike was identified and then we freed up some of the periosteum off the spike, so we could reduce it to the distal femur and the prosthetic. We noted that the spike distally was right at the level of the flange of the prosthesis anteriorly. It just went under the flange by about 3-4 mm where the fracture actually initiated. The distal fragment had the prosthesis in place and there was a posterior spike that spiralled posteriorly and went very proximal as well. It was difficult to reduce the fracture despite him being muscle relaxed. We used several bone holding clamps to help reduce the fracture, levered the fracture fragments in place with Eller elevator and rotated the femur and knee area distally in an externally rotated fashion and the proximal femur internally to set the spiral together, placed clamps and placed using both a [place] clamp and a lion-jaw type clamp and then lagged the shaft fracture to the distal fracture fragment from anterior superior to posterior inferior through a small percutaneous stab wound penetrating the anterior quad. We were able to visualize the drilling and placing the screw laterally, but the angle was such that we needed to place this percutaneously. Accomplished this lag screw, then we chose plate to transfix the fracture. Carefully loosened the clamps while the plate was placed on and the fracture was rotationally unstable despite lagging this with some loss of reduction with rotation. We had to re-reduce when the plate was replaced over the femur and the [place] clamps were placed around the plate as well as the lion-jaw around the distal fracture fragment to hold the reduction. With the plate in place appropriately viewed on AP and lateral views by fluoroscopy and the reduction satisfactory, a 10.0 plate was transfixed, first setting the proximal end of the plate with a 4.5-mm cortical screw with bicortical fixation. Then, distally the 7.3 cannulated central screw was placed into the metaphysis just above the metal of the prosthesis. After assessing this fluoroscopically, we went ahead and placed the 6 distal cannulated 5-mm locking screws and then placed the 4 more cortical screws lagging the spiral in different angles and 5 locking screws to lock the plate to the shaft. The fixation was stable. One of the cortical screws thread loosened, then we exchanged it for a locking screw. The wound was copiously irrigated. Two Hemovac drains were placed deep. The fascia joanne and IT band were closed with [id number] #1 Vicryl sutures. The subcutaneous tissue was closed with interrupted 2-0 Vicryl sutures. Skin was closed with cale and sterile dressings were applied, double Pipo wrap and a knee immobilizer. JOSE Nuñez was my television production assistant and functioned as television production assistant for the entire procedure. He assisted in traction, manipulation, placement of some of the retractors and assisted in the reduction. He also assisted in the closure of the IT band and fascia joanne and the subcutaneous tissues and skin closure and will participate in postoperative care of the patient. I attest to the content of the Intraoperative Record and any orders documented therein. Any exceptions are noted below. FOSTER
[2019-07-15] MEDS: CEFAZOLIN 2000MG 2,000 MG/15 ML SYR IV SCH (23:09)
[2019-07-16] MEDS: LEVOTHYROXINE SODIUM 150 MCG TABLET PO SCH (06:11)
[2019-07-16] MEDS: OXYCODONE HCL IR 5 MG TAB (IMMEDIATE RELEASE) PO PRN ×3 (06:21→21:55)
[2019-07-16] MEDS: ACETAMINOPHEN 325 MG TAB PO PRN ×2 (06:22→16:15)
[2019-07-16 07:07] LABS: Hematocrit (blood only) 28.1 % (42-52); Hemoglobin 9.4 g/dL (14.0-18.0); Mean Corpuscular Hemoglobin 30.1 pg (25-34); Mean Corpuscular Hgb Conc 33.5 g/dL (32-36); Mean Corpuscular Volume 90.1 fL (80-100); Mean Platelet Volume 10.7 fL (7.4-10.4); Platelet Count 188 K/uL (130-400); RDW Coefficient of Variation 13.8 % (11.5-14.5); RDW Standard Deviation 46.1 fL (36.4-46.3); Red Blood Count 3.12 M/uL (4.7-6.1); White Blood Count 13.25 K/uL (4.8-10.8)
--- NOTE | 2019-07-16 07:32 | Anesthesiology Progress Note ---
Date of Service July 16, 2019 Anesthesia Post Procedure Vital Signs Vital Signs: Temp Pulse Pulse Pulse Resp BP BP 07/16/19 03:53 37.0 C 106 H 16 152/68 H 07/15/19 23:15 36.9 C 108 H 16 138/76 07/15/19 22:30 36.7 C 99 H 18 145/71 H 07/15/19 21:12 36.9 C 99 H 16 144/80 H 07/15/19 20:45 36.8 C 94 H 18 152/94 H 07/15/19 20:15 37.0 C 97 H 18 147/73 H 07/15/19 20:00 36.7 C 96 H 18 162/85 H 07/15/19 19:50 110 H 18 162/80 H 07/15/19 19:40 110 H 18 142/86 H 07/15/19 19:32 37.0 C 112 H 16 138/91 07/15/19 13:20 37.1 C 104 H 20 115/77 07/15/19 07:38 36.9 C 90 18 106/65 Pulse Ox 07/16/19 03:53 94 07/15/19 23:15 92 07/15/19 22:30 96 07/15/19 21:12 98 07/15/19 20:45 98 07/15/19 20:15 96 07/15/19 20:00 96 07/15/19 19:50 94 07/15/19 19:40 96 07/15/19 19:32 100 07/15/19 13:20 97 07/15/19 07:38 95 Pain Intensity Left Leg: Pain Intensity: 4 Notes Mental Status: alert / awake / arousable and participated in evaluation Nausea / Vomiting: adequately controlled Pain: adequately controlled Airway Patency, RR, SpO2: stable & adequate BP & HR: stable & adequate Hydration State: stable & adequate
[2019-07-16 07:47] LABS: BUN Creatinine Ratio 22.1 (10-20); Calcium 8.1 mg/dl (8.5-10.1); Creatinine Clr Calc Pharmacy 81.4 ml/min; Est GFR (African American) 97.7; Est GFR (Non-African American) 84.3; Potassium 4.2 mmol/L (3.5-5.1)
[2019-07-16] MEDS: ATORVASTATIN 40 MG TAB PO SCH (08:00)
[2019-07-16] MEDS: ISOSORBIDE MONO EXTENDED REL 30 MG TABCR PO SCH (08:01)
[2019-07-16] MEDS: ENALAPRIL MALEATE 10 MG TAB PO SCH (08:01)
[2019-07-16] MEDS: METOPROLOL SUCC 50MG EXT REL TAB PO SCH (08:01)
[2019-07-16] MEDS: MULTIVITAMIN TAB PO SCH (08:02)
[2019-07-16] MEDS: PANTOprazole 40 MG TAB PO SCH (08:02)
[2019-07-16] MEDS: FLUTICASONE/SALMETEROL 250/50 (ADVAIR) 14 PUFF/1 INHALER INH SCH ×2 (08:03→20:37)
[2019-07-16] MEDS: ASPIRIN 81 MG ECTAB PO SCH (08:03)
[2019-07-16] MEDS: DOCUSATE SODIUM 100 MG CAP PO SCH ×2 (08:03→20:37)
[2019-07-16] MEDS: FLUTICASONE PROPIONATE NA SPR 16 GM BTL NAE SCH (08:04)
[2019-07-16] MEDS: clonazePAM 0.5 MG TAB PO SCH (08:06)
[2019-07-16] MEDS: CEFAZOLIN 2000MG 2,000 MG/15 ML SYR IV SCH (08:06)
[2019-07-16] MEDS: INSULIN ASPART 100 UNITS/ML 3 ML PEN SC SCH ×4 (09:08→21:21)
--- NOTE | 2019-07-16 11:20 | Orthopedic Progress Note ---
Date of Service July 16, 2019 Assessment & Plan (1) Periprosthetic fracture of shaft of femur: Postop day 1 status post ORIF left distal periprosthetic femur fracture Acute blood loss anemia secondary to fracture and ORIF. Begin PT and OT protocols today. Nonweightbearing left lower extremity. DVT prophylaxis-patient was restarted on his warfarin and is on 1 daily aspirin, Lovenox 40 mg subcu daily. Pain management as written DC planning-patient will likely need a rehab facility post discharge. Plan for dressing change tomorrow. Follow hemoglobin for now. Subjective Postop day 1 status post ORIF left distal periprosthetic femur fracture Patient is lying in bed awake and alert. He states that he is having pain in the left lower extremity at this point in time. He is worried about getting up with physical therapy. He states that he has not had any chest pain. He states he is mildly short of breath which is normal for him and his history of asthma but it has not worsened. Denies lightheadedness. No other complaints at this time. Physical Exam Physical Exam: Dressings are clean, dry, and intact. Calves are soft nontende r. Left thigh is swollen but is soft. He is able to move his left ankle and toes well. He states that sensation is fully intact. 75 cc from the latest shift on his Hemovac. Results & Data Vital Signs (Past 12 Hours) Vital Signs Temp Pulse Pulse Resp BP Pulse Ox 07/16/19 11:04 36.8 C 101 H 15 122/80 91 07/16/19 07:31 36.9 C 103 H 15 110/70 93 07/16/19 03:53 37.0 C 106 H 16 152/68 H 94 Laboratory Results Laboratory Results WBC 13.25 K/uL (4.8-10.8) H 07/16/19 06:44 RBC 3.12 M/uL (4.7-6.1) L 07/16/19 06:44 Hgb 9.4 g/dL (14.0-18.0) L 07/16/19 06:44 POC Hgb 10.5 g/dl (14.0-18.0) L 07/15/19 18:06 Hct 28.1 % (42-52) L 07/16/19 06:44 POC Hct 31 % (42-52) L 07/15/19 18:06 MCV 90.1 fL (80-100) 07/16/19 06:44 MCH 30.1 pg (25-34) 07/16/19 06:44 MCHC 33.5 g/dL (32-36) 07/16/19 06:44 RDW Std Deviation 46.1 fL (36.4-46.3) 07/16/19 06:44 RDW Coeff of Cory 13.8 % (11.5-14.5) 07/16/19 06:44 Plt Count 188 K/uL (130-400) 07/16/19 06:44 MPV 10.7 fL (7.4-10.4) H 07/16/19 06:44 Immature Gran % (Auto) 0.4 % 07/15/19 10:05 Neut % (Auto) 62.8 % 07/15/19 10:05 Lymph % (Auto) 20.6 % 07/15/19 10:05 Kay % (Auto) 14.0 % 07/15/19 10:05 Eos % (Auto) 1.8 % 07/15/19 10:05 Baso % (Auto) 0.4 % 07/15/19 10:05 Immature Gran # (Auto) 0.04 K/uL (0.00-0.02) H 07/15/19 10:05 Neut # (Auto) 5.67 K/uL (1.4-6.5) 07/15/19 10:05 Lymph # (Auto) 1.86 K/uL (1.2-3.4) 07/15/19 10:05 Kay # (Auto) 1.26 K/uL (0.11-0.59) H 07/15/19 10:05 Eos # (Auto) 0.16 K/uL (0-0.5) 07/15/19 10:05 Baso # (Auto) 0.04 K/uL (0-0.2) 07/15/19 10:05 PT 11.6 Seconds (9.0-12.0) 07/15/19 10:03 INR 1.1 (0.9-1.1) 07/15/19 10:03 APTT 42.6 Seconds (21.0-31.0) H 07/12/19 08:01 PTT Ratio 1.6 07/12/19 08:01 POC Sodium 136 mEq/L (135-144) 07/15/19 18:06 Sodium 139 mmol/L (136-145) 07/16/19 06:44 POC Potassium 4.5 mEq/L (3.3-5.0) 07/15/19 18:06 Potassium 4.2 mmol/L (3.5-5.1) 07/16/19 06:44 POC Chloride 101 mEq/L (101-112) 07/15/19 18:06 Chloride 104 mmol/L (98-107) 07/16/19 06:44 Carbon Dioxide 28 mmol/L (21-32) 07/16/19 06:44 POC Total CO2 23 mEq/l (24-31) L 07/15/19 18:06 Anion Gap 7.0 (3-11) 07/16/19 06:44 POC Anion Gap 17.0 mmol/L (16-25) 07/15/19 18:06 POC BUN 20 mg/dl (7-18) H 07/15/19 18:06 BUN 18 mg/dl (7-18) 07/16/19 06:44 Creatinine 0.83 mg/dl (0.6-1.4) 07/16/19 06:44 POC Creatinine 0.9 mg/dl (0.6-1.3) 07/15/19 18:06 Est Cr Clr Drug Dosing 81.4 ml/min 07/16/19 06:44 Est GFR ( Amer) 97.7 07/16/19 06:44 Est GFR (Non-Af Amer) 84.3 07/16/19 06:44 BUN/Creatinine Ratio 22.1 (10-20) H 07/16/19 06:44 Glucose 117 mg/dl (70-99) H 07/16/19 06:44 POC Glucose 147 (70-99) H 07/16/19 08:06 POC Glucose (other) 143 mg/dl (70-99) H 07/15/19 18:06 Calcium 8.1 mg/dl (8.5-10.1) L 07/16/19 06:44 POC Ioniz Calcium Damir 1.13 mmol/l (1.12-1.32) 07/15/19 18:06 Urine Color Dark Yellow 07/12/19 08:28 Urine Appearance Clear (Clear) 07/12/19 08:28 Urine pH 5.0 (4.5-7.5) 07/12/19 08:28 Ur Specific [place] 1.025 (1.000-1.030) 07/12/19 08:28 Urine Protein Negative (Negative) 07/12/19 08:28 Urine Glucose (UA) Negative (Negative) 07/12/19 08:28 Urine Ketones Trace (Negative) H 07/12/19 08:28 Urine Blood Negative (Negative) 07/12/19 08:28 Urine Nitrite Negative (Negative) 07/12/19 08:28 Urine Bilirubin Negative (Negative) 07/12/19 08:28 Urine Urobilinogen Negative (Negative) 07/12/19 08:28 Ur Leukocyte Esterase Negative (Negative) 07/12/19 08:28 Blood Type A Positive 07/15/19 13:51 Antibody Screen NEGATIVE 07/15/19 13:51 Crossmatch See Detail 07/15/19 13:51
[2019-07-16] MEDS: MoRPHine SULFATE 2 MG/ML CARP IV PRN (12:02)
[2019-07-16] MEDS ORDERED: WARFARIN SOD 2.5 MG TAB PO SCH (16:00)
[2019-07-16] MEDS ORDERED: COUGH DROP (SUGAR FREE) LOZ 24 LOZ/1 BOX BUCCAL PRN (16:21)
[2019-07-16] MEDS ORDERED: ENOXAPARIN INJ 40 MG/0.4 ML SYR SQ SCH ×2 (19:00)
--- NOTE | 2019-07-16 20:01 | Hospitalist Progress Note ---
Date of Service July 16, 2019 Assessment & Plan (1) Fall: (2) Femur fracture: Brought to the ER after mechanical fall L KNEE XRAY showed mildly distracted and overriding spiral fracture through the distal femoral shaft and metaphysis Ortho on board plan for surgical to proceed with left ORIF distal femur fracture. Continue leg splint for now to keep LLE stable As per patient and family at bedside, before the LLE fracture, he was able to walk his steep drive way with no distress He denies any episodes of chest pain or SOB Has a functional capacity with a METS greater than 4 as per family before the injury EKG showed no ischemic changes Coumadin has been on hold, waiting for INR to be less than 1.5 to procced for surgery Pt without acute CP or SOB. No acute EKG changes Pain control with oxycodone, morphine prn Moderate cardiac surgical risk with hx CAD, ischemic cardiomyopathy, also with hx COPD, obesity. Currently asymptomatic. Stable to proceed with the procedure He refused to get the procedure done today. He wants to get it done tomorrow since his son will be off from work tomorrow so that his son can be there for the procedure Also He wants Dr. Hawkins to do the procedure 07/16 S/P Open reduction and internal fixation, left periprosthetic femur fracture with Synthes locking plate fixation by dr. Hawkins No postop complication Nonweightbearing left lower extremity. Incentive spirometry Pain control PT/OT Will need inpatient rehab (3) Acute blood loss anemia: Due to recent orthopedic procedure Hgb dropped to 9.4 Monitor CBC (4) History of DVT (deep vein thrombosis): H/O RLE DVT in 2010 and on Coumadin Continue was on hold, resumed Continue monitor PT/INR (5) Ischemic cardiomyopathy: (6) CAD (coronary artery disease): S/P CABG x 5 reported in 2001 Echo on 02/22/19 with improved EF. EF: 55%, mild aortic regurgitation, aortic root 4.5 cm which is stable from previous study CXR: Cardiomegaly with mild pulmonary vascular congestion. There are trace pleural effusions. Continue aspirin, metoprolol, statin, isosorbide and lasix every other day (7) HTN (hypertension): Stable On metoprolol, ramipril Monitor BP (8) Prediabetes: A1c: 6.0 on 03/06/2019 Diet-controlled On NovoLog sliding scale per protocol Stable (9) COPD (chronic obstructive pulmonary disease): Continue home inhalers Duoneb prn SOB/wheezing Stable (10) Dyslipidemia: Continue statin (11) IRLANDA (obstructive sleep apnea): CPAP with 2L oxygen HS (12) Hypothyroidism: TSH: 0.8 in 02/2019 Continue levothyroxine (13) Obesity: BMI: 37.9 Counseling on lifestyle modifications (14) GERD (gastroesophageal reflux disease): Continue PPI DVT Prophylaxis SCDs Coumadin resumed CODE STATUS Full Code Subjective Pt was seen and examined Lying in bed with no distress Pt said that he feels ok Denies any chest pain, palpitation and SOB Physical Exam Physical Exam: General- No acute distress Head- atraumatic Eyes- PERRL, EOMI, ENT- oropharynx clear Neck- supple, no JVD Lungs- clear to auscultation Heart- regular rhythm; no murmur Abdomen- normal bowel sounds, soft, nontender Extremities- no calf tenderness, + LLE tenderness Neuro- alert, oriented x 3; PERRL, EOMI; no facial palsy; no dysarthria Skin- warm & dry Results & Data Vital Signs (Past 12 Hours) Vital Signs Temp Pulse Pulse Resp BP Pulse Ox 07/16/19 15:46 37.4 C 100 H 19 89/55 L 93 07/16/19 15:19 92 07/16/19 11:04 36.8 C 101 H 15 122/80 91 (1) Fall Encounter type: initial encounter Qualified Code(s): W19.XXXA - Unspecified fall, initial encounter (2) Femur fracture Encounter type: initial encounter Femur location: unspecified portion of femur Fracture morphology: unspecified fracture morphology Fracture type: closed Laterality: left Qualified Code(s): S72.92XA - Unspecified fracture of left femur, initial encounter for closed fracture
[2019-07-16] MEDS: TRAZODONE HCL 50 MG TAB PO SCH (20:37)
[2019-07-16] MEDS: SENNA 8.6 MG TAB PO SCH (20:37)
[2019-07-17] MEDS: LEVOTHYROXINE SODIUM 150 MCG TABLET PO SCH (06:03)
[2019-07-17] MEDS: OXYCODONE HCL IR 5 MG TAB (IMMEDIATE RELEASE) PO PRN ×2 (07:15→14:02)
[2019-07-17 07:33] LABS: Hematocrit (blood only) 25.5 % (42-52); Hemoglobin 8.2 g/dL (14.0-18.0); Mean Corpuscular Hemoglobin 29.1 pg (25-34); Mean Corpuscular Hgb Conc 32.2 g/dL (32-36); Mean Corpuscular Volume 90.4 fL (80-100); Mean Platelet Volume 10.3 fL (7.4-10.4); Nucleated RBC # (auto) 0.02 K/uL (0-0); Nucleated RBC % (auto) 0.1 %; Platelet Count 222 K/uL (130-400); RDW Standard Deviation 46.3 fL (36.4-46.3); Red Blood Count 2.82 M/uL (4.7-6.1); White Blood Count 11.36 K/uL (4.8-10.8)
--- NOTE | 2019-07-17 08:30 | Orthopedic Progress Note ---
Date of Service July 17, 2019 Assessment & Plan (1) Periprosthetic fracture of shaft of femur: Postop day 2 status post ORIF left distal periprosthetic femur fracture Acute blood loss anemia secondary to fracture and ORIF. HGB 8.2- As per medicine. Nonweightbearing left lower extremity with brace locked at zero. DVT prophylaxis-patient was restarted on his warfarin and is on 1 daily aspirin, Lovenox 40 mg subcu daily. Pain management as written. Monitor INR, can likely stop Lovenox when therapeutic, as per medicine. DC planning-patient will likely need a rehab facility post discharge, states he thinks [facility]. Second drain pulled by me this AM with no difficulty or complication, dressings changed. Subjective POD #2 Lying in bed with no distress Pt said that he feels ok Denies any chest pain, palpitation and SOB Some left leg pain. Nurses unable to pull one of the drains this AM. Physical Exam Physical Exam: Left leg incision c/d/i, no drainage, no erythema. Toes and ankle mobile. [place] brace in tact. No calf tenderness. A&Ox3. Results & Data Vital Signs (Past 12 Hours) Vital Signs Temp Pulse Pulse Resp BP Pulse Ox 07/17/19 07:28 37.0 C 95 H 16 100/61 95 07/16/19 23:05 37.4 C 93 H 20 100/61 96 07/16/19 21:26 97 H 18 93/54 L 94
[2019-07-17] MEDS: PANTOprazole 40 MG TAB PO SCH (08:48)
[2019-07-17] MEDS: DOCUSATE SODIUM 100 MG CAP PO SCH (08:48)
[2019-07-17] MEDS: ATORVASTATIN 40 MG TAB PO SCH (08:48)
[2019-07-17] MEDS: ISOSORBIDE MONO EXTENDED REL 30 MG TABCR PO SCH (08:48)
[2019-07-17] MEDS: MULTIVITAMIN TAB PO SCH (08:48)
[2019-07-17] MEDS: ASPIRIN 81 MG ECTAB PO SCH (08:49)
[2019-07-17] MEDS: FLUTICASONE PROPIONATE NA SPR 16 GM BTL NAE SCH (08:49)
[2019-07-17] MEDS: FLUTICASONE/SALMETEROL 250/50 (ADVAIR) 14 PUFF/1 INHALER INH SCH (08:49)
[2019-07-17] MEDS: clonazePAM 0.5 MG TAB PO SCH (08:51)
[2019-07-17] MEDS: METOPROLOL SUCC 50MG EXT REL TAB PO SCH (08:52)
[2019-07-17] MEDS: INSULIN ASPART 100 UNITS/ML 3 ML PEN SC SCH ×2 (08:56→13:04)
--- NOTE | 2019-07-17 11:17 | Hospitalist Progress Note ---
Date of Service July 17, 2019 Assessment & Plan (1) Fall: Mechanical fall Present on Admission?: Yes (2) Femur fracture: L KNEE XRAY showed mildly distracted and overriding spiral fracture through the distal femoral shaft and metaphysis Has a functional capacity with a METS greater than 4 as per family before the injury EKG showed no ischemic changes Pt without acute CP or SOB. No acute EKG changes Pain control with oxycodone, morphine prn Appreciate Ortho input and recommendation 07/16 :S/P Open reduction and internal fixation, left periprosthetic femur fracture with Synthes locking plate fixation by dr. Hawkins POD #2::Nonweightbearing left lower extremity with brace locked at zero. Cleared by Ortho to be discharged Has been getting PT and OT Medically stable to be discharged today to rehab (3) Acute blood loss anemia: Due to recent orthopedic procedure Hgb dropped to 9.4 and today is 8.2 Does not require any blood transfusion and does not have any symptoms (4) History of DVT (deep vein thrombosis): H/O RLE DVT in 2010 and on Coumadin Continue was on hold, resumed Continue monitor PT/I Will check INR today and continue Lovenox and Coumadin until INR is therapeutic (5) Ischemic cardiomyopathy: (6) CAD (coronary artery disease): S/P CABG x 5 reported in 2001 Echo on 02/22/19 with improved EF. EF: 55%, mild aortic regurgitation, aortic root 4.5 cm which is stable from previous study CXR: Cardiomegaly with mild pulmonary vascular congestion. There are trace pleural effusions. Continue aspirin, metoprolol, statin, isosorbide and lasix every other day No acute cardiac symptoms (7) HTN (hypertension): Stable On metoprolol, ramipril Monitor BP (8) Prediabetes: A1c: 6.0 on 03/06/2019 Diet-controlled On NovoLog sliding scale per protocol Stable (9) COPD (chronic obstructive pulmonary disease): Continue home inhalers Duoneb prn SOB/wheezing Stable (10) Dyslipidemia: Continue statin (11) IRLANDA (obstructive sleep apnea): CPAP with 2L oxygen HS (12) Hypothyroidism: TSH: 0.8 in 02/2019 Continue levothyroxine (13) Obesity: BMI: 37.9 Counseling on lifestyle modifications (14) GERD (gastroesophageal reflux disease): Continue PPI DVT Prophylaxis SCDs Coumadin resumed CODE STATUS Full Code Will be discharged today Subjective 07/17 Patient was seen and examined in medical floor He has been complaining of pain in the left hip He denies any other symptoms of shortness of breath, chest pain, palpitation, abdominal pain, nausea and/or vomiting Has been getting physical therapy Remains medically stable to be discharged today Review of Systems Review of Systems: All systems reviewed and are unremarkable except as mentioned Musculoskeletal: + joint pain (Left hip pain status post surgery) Neurologic: + generalized weakness Physical Exam Physical Exam: Lying in bed comfortably Constitutional: well developed, well nourished and + obese; no acute distress Eyes: PERRL, conjunctivae normal, anicteric sclerae ENMT: external ear and nose normal, oropharynx normal Mouth: + edentulous Mallampati Class: III Neck: normal visual inspection Respiratory: normal respiratory effort Auscultation: + diminished lung sounds Cardiovascular: Rate/Rhythm: regular rate and regular rhythm Gastrointestinal (Abdomen): Inspection/Auscultation: abdomen normal to inspection and + abdomen distended Percussion/Palpation: abdomen soft; abdomen nontender Neurologic: moves all extremities Lymphatic: no cervical or axillary lymphadenopathy Results & Data Vital Signs (Past 12 Hours) Vital Signs Temp Pulse Resp BP Pulse Ox 07/17/19 07:28 37.0 C 95 H 16 100/61 95 Laboratory Results Short CBC 07/17/19 Range/Units 07:14 WBC 11.36 H (4.8-10.8) K/uL Hgb 8.2 L (14.0-18.0) g/dL Hct 25.5 L (42-52) % Plt Count 222 (130-400) K/uL Medications Administered Current Inpatient Medications Acetaminophen (Tylenol) 650 mg PO Q4H PRN PRN Reason: pain/fever Stop: 08/11/19 12:06 Last Admin: 07/16/19 16:15 Dose: 650 mg Documented by: Albuterol (Duoneb) 3 ml NEB Q4R PRN PRN Reason: Shortness Of Breath Or Wheezing Stop: 08/11/19 14:59 Aspirin (Ecotrin Ectab) 81 mg PO QAM [facility] Stop: 08/12/19 08:59 Last Admin: 07/17/19 08:49 Dose: 81 mg Documented by: Atorvastatin Calcium (Lipitor) 80 mg PO DAILY [facility] Stop: 08/12/19 08:59 Last Admin: 07/17/19 08:48 Dose: 80 mg Documented by: Bisacodyl (Dulcolax) [address] DAILY PRN PRN Reason: Constipation Stop: 08/14/19 20:11 Clonazepam (Klonopin) 0.5 mg PO DAILY [facility] Stop: 08/12/19 08:59 Last Admin: 07/17/19 08:51 Dose: 0.5 mg Documented by: Dextrose (Dextrose 50%) 25 - 50 ml IV UD PRN; Protocol PRN Reason: Hypoglycemia Protocol Stop: 08/11/19 12:34 Docusate Sodium (Colace) 100 mg PO BID [facility] Stop: 08/14/19 20:59 Last Admin: 07/17/19 08:48 Dose: 100 mg Documented by: Enalapril Maleate (Vasotec) 40 mg PO DAILY [facility] Stop: 08/12/19 08:59 Last Admin: 07/16/19 08:01 Dose: 40 mg Documented by: Enoxaparin Sodium (Lovenox) 40 mg SQ Q24H [facility] Stop: 08/15/19 18:59 Last Admin: 07/16/19 20:37 Dose: 40 mg Documented by: Fluticasone Propionate (Flonase) 2 sprays BENITEZ DAILY [facility] Stop: 08/12/19 08:59 Last Admin: 07/17/19 08:49 Dose: 2 sprays Documented by: Furosemide (Lasix) 40 mg PO Q2D [facility] Stop: 08/12/19 08:59 Last Admin: 07/15/19 08:32 Dose: Not Given Documented by: Glucagon (Glucagen) 1 mg SQ UD PRN; Protocol PRN Reason: Hypoglycemia Protocol Stop: 08/11/19 12:34 Glucose (Glucose 40%) 15 - 30 gm PO UD PRN; Protocol PRN Reason: Hypoglycemia Protocol Stop: 08/11/19 12:34 Glucose (Dex4 Glucose) 4 - 8 tabs PO UD PRN; Protocol PRN Reason: Hypoglycemia Protocol Stop: 08/11/19 12:34 Sodium Chloride (Nss) 250 mls @ 15 mls/hr IV .[id number] PRN PRN Reason: For Transfusion Stop: 08/14/19 13:34 Insulin Aspart (Novolog Flexpen) 0 units SC ACHS [facility] Stop: 08/14/19 20:59 Last Admin: 07/17/19 08:56 Dose: Not Given Documented by: Isosorbide Mononitrate (Imdur Extended Rel) 30 mg PO DAILY [facility] Stop: 08/12/19 08:59 Last Admin: 07/17/19 08:48 Dose: 30 mg Documented by: Levothyroxine Sodium (Synthroid) 150 mcg PO DAILYBB [facility] Stop: 08/12/19 06:29 Last Admin: 07/17/19 06:03 Dose: 150 mcg Documented by: Magnesium Hydroxide (Milk Of Magnesia) 30 ml PO Q6H PRN PRN Reason: Constipation Stop: 08/14/19 20:11 Menthol (Nice) 1 fransisca BUCCAL UD PRN PRN Reason: Sore Throat Stop: 08/15/19 16:20 Last Admin: 07/16/19 16:47 Dose: 1 fransisca Documented by: Metoclopramide HCl (Reglan) 10 mg IV Q6H PRN PRN Reason: Nausea And Vomiting Stop: 08/14/19 20:11 Metoprolol Succinate (Toprol Xl) 200 mg PO DAILY [facility] Stop: 08/12/19 08:59 Last Admin: 07/17/19 08:52 Dose: Not Given Documented by: Miscellaneous (Carbohydrates For Hypoglycemia) 15 - 30 gm PO UD PRN PRN Reason: Hypoglycemia Treatment Stop: 08/11/19 12:34 Morphine Sulfate (Morphine Sulfate) 2 mg IV Q3H PRN PRN Reason: MODERATE Pain (Scale 4,5,6) Stop: 07/26/19 12:06 Last Admin: 07/16/19 12:02 Dose: 2 mg Documented by: Multivitamins (Multivitamin Tab) 1 tab PO QAM [facility] Stop: 08/15/19 08:59 Last Admin: 07/17/19 08:48 Dose: 1 tab Documented by: Naloxone HCl (Narcan) 0.1 mg IV Q5M PRN PRN Reason: Oversedation/Resp Depression Stop: 08/14/19 20:11 Nitroglycerin (Nitrostat) 0.4 mg SL UD PRN PRN Reason: CHEST PAIN Stop: 08/11/19 12:06 Ondansetron HCl (Zofran) 4 mg IV Q6H PRN PRN Reason: Nausea And Vomiting Stop: 10/16/19 20:11 Oxycodone HCl (Roxicodone Immediate Rel) 5 mg PO Q6H PRN PRN Reason: MODERATE Pain (Scale 4,5,6) Stop: 07/26/19 12:06 Last Admin: 07/17/19 07:15 Dose: 5 mg Documented by: Pantoprazole Sodium (Protonix) 40 mg PO DAILY [facility] Stop: 08/12/19 08:59 Last Admin: 07/17/19 08:48 Dose: 40 mg Documented by: Fluticasone/Salmeterol (Advair Diskus 250/50) 1 puffs INH BID [facility] Stop: 08/11/19 20:59 Last Admin: 07/17/19 08:49 Dose: 1 puffs Documented by: Sennosides (Senokot) 17.2 mg PO HS [facility] Stop: 08/14/19 20:59 Last Admin: 07/16/19 20:37 Dose: 17.2 mg Documented by: Trazodone HCl (Desyrel) 50 mg PO [facility] Stop: 08/11/19 20:59 Last Admin: 07/16/19 20:37 Dose: 50 mg Documented by: Warfarin Sodium (Coumadin) 2.5 mg PO DAILY@1600 [facility] Stop: 08/15/19 15:59 Last Admin: 07/16/19 16:16 Dose: 2.5 mg Documented by: (1) Fall Encounter type: initial encounter Qualified Code(s): W19.XXXA - Unspecified fall, initial encounter (2) Femur fracture Encounter type: initial encounter Femur location: unspecified portion of femur Fracture morphology: unspecified fracture morphology Fracture type: closed Laterality: left Qualified Code(s): S72.92XA - Unspecified fracture of left femur, initial encounter for closed fracture
[2019-07-17 11:59] LABS: INR 1.4 (0.9-1.1); Prothrombin Time 13.6 Seconds (9.0-12.0)
--- NOTE | 2019-07-18 07:16 | Discharge Summary ---
Date of Service July 18, 2019 Admission HPI Per Admitting Provider Pt is 78 y/o M with PMH HTN, dyslipidemia, CAD s/p CABG x5 in 2001, ischemic cardiomyopathy, h/o DVT on chronic Coumadin, CKD III, obesity, prediabetes, COPD, ascending aortic dilation, sleep apnea, hypothyroidism, chronic back pain, presented to ER with complaint of fall and left leg pain. Patient states was trying to put on his socks this morning when he fell over onto his left leg and reports felt a pop and had instant pain. Patient denies hitting head, LOC, dizziness, denies CP or SOB prior to fall. Denies any other known injuries from fall. Reports taking Tylenol prior to ER arrival. Patient with history bilateral TKA by Dr. Hawkins around year 2004. Reports chronic back pain and denies any increased pain since fall. Patient reports history unstable gait and reports had a fall last week while working outside. Denies any injuries with previous fall. Patient with history of DVT to right leg in 2010 and has been on Coumadin since. Patient reports chronic shortness of breath and wheezing with ambulating approximately 50 feet. Patient denies any recent chest pain denies any chest pain on exertion. Patient denies any increased lower extremity edema. Denies history of TIA/stroke. Denies fever/chills, diaphoresis, N/V/D/C, WIN, dizziness, syncope, vision changes, neck pain, CP, SOB, orthopnea, palpitations, cough, sore throat, choking, otalgia, rhinorrhea, abdominal pain, leg/foot pare sthesias, weakness, rashes, urinary symptoms. Admission Exam Per Admitting Provider Physical Exam: General: no acute distress, obese Head: normocephalic, atraumatic Eyes: PERRL, EOM's intact, conjunctiva non-injected, anicteric ENT: normal inspection external ears, nose, mucous membranes moist Neck: supple, trachea midline, non-tender Lungs: clear, no respiratory distress, no wheezing/rhonchi/rales CV: RRR, no murmur, no pretibial edema Abd: normal BS, soft, protuberant, non-tender Ext: no calf tenderness, L leg: +edema to thigh and knee, +tenderness to palpation distal thigh and anterior knee, no ROM attempted, sensation to light touch intact, able to wiggle toes, palpable pedal pulse Neuro: A&O x 3, no focal deficits noted, normal affect Skin: warm, dry Principal Diagnosis Left femur fracture secondary to mechanical fall status post ORIF, acute blood loss anemia, history of DVT, ischemic cardiomyopathy, hypertension, COPD Discharge Exam Constitutional well developed, well nourished and + obese; no acute distress Eyes PERRL, conjunctivae normal, anicteric sclerae ENMT external ear and nose normal, oropharynx normal Mouth: + edentulous Mallampati Class: III Neck normal visual inspection Respiratory normal respiratory effort Auscultation: + diminished lung sounds Cardiovascular Rate/Rhythm: regular rate and regular rhythm Gastrointestinal (Abdomen) Inspection/Auscultation: abdomen normal to inspection and + abdomen distended Percussion/Palpation: abdomen soft; abdomen nontender Neurologic moves all extremities Lymphatic no cervical or axillary lymphadenopathy Discharge Data Allergies Allergy/AdvReac Type Severity Reaction Status Date / Time atorvastatin Allergy Unknown Unknown Verified 07/12/19 07:51 iodine Allergy Unknown CONTRAST Verified 07/12/19 07:51 MEDIA ALLERGY NOTED adhesive AdvReac Unknown Verified 07/12/19 07:51 Consultations 07/12/19 12:07 Consult Anesthesiology Routine Consult Case Management - Discharge Planning Routine Consult Orthopedic Surgery Routine 07/15/19 20:12 Consult Case Management - Discharge Planning Routine Procedures Performed Operation Date: 07/15/19 07:05 Actual Procedures p Left Open Reduction Internal Fixation Periprosthetic Femur Fracture(Left) - Steven Hawkins MD Ordered Studies 07/15/19 13:00 US guide vascular access Stat 07/15/19 14:00 FL femur LT 2V Routine FL fluoroscopy <1hr Routine Hospital Course (1) Fall: Mechanical fall (2) Femur fracture: L KNEE XRAY showed mildly distracted and overriding spiral fracture through the distal femoral shaft and metaphysis Has a functional capacity with a METS greater than 4 as per family before the injury EKG showed no ischemic changes Pt without acute CP or SOB. No acute EKG changes Pain control with oxycodone, morphine prn Appreciate Ortho input and recommendation 07/16 :S/P Open reduction and internal fixation, left periprosthetic femur fracture with Synthes locking plate fixation by dr. Hawkins POD #2::Nonweightbearing left lower extremity with brace locked at zero. Cleared by Ortho to be discharged Has been getting PT and OT Medically stable to be discharged today to rehab (3) Acute blood loss anemia: Due to recent orthopedic procedure Hgb dropped to 9.4 and today is 8.2 Does not require any blood transfusion and does not have any symptoms (4) History of DVT (deep vein thrombosis): H/O RLE DVT in 2010 and on Coumadin Continue was on hold, resumed Continue monitor PT/I Will check INR today and continue Lovenox and Coumadin until INR is therapeutic (5) Ischemic cardiomyopathy: (6) CAD (coronary artery disease): S/P CABG x 5 reported in 2001 Echo on 02/22/19 with improved EF. EF: 55%, mild aortic regurgitation, aortic root 4.5 cm which is stable from previous study CXR: Cardiomegaly with mild pulmonary vascular congestion. There are trace pleural effusions. Continue aspirin, metoprolol, statin, isosorbide and lasix every other day No acute cardiac symptoms (7) HTN (hypertension): Stable On metoprolol, ramipril Monitor BP (8) Prediabetes: A1c: 6.0 on 03/06/2019 Diet-controlled On NovoLog sliding scale per protocol Stable (9) COPD (chronic obstructive pulmonary disease): Continue home inhalers Duoneb prn SOB/wheezing Stable (10) Dyslipidemia: Continue statin (11) IRLANDA (obstructive sleep apnea): CPAP with 2L oxygen HS (12) Hypothyroidism: TSH: 0.8 in 02/2019 Continue levothyroxine (13) Obesity: BMI: 37.9 Counseling on lifestyle modifications (14) GERD (gastroesophageal reflux disease): Continue PPI DVT Prophylaxis SCDs Coumadin resumed CODE STATUS Full Code Will be discharged today Total Time Total Time Spent Total Time Spent (In Minutes): 35 minutes Total Time Includes: Examination of the Patient, Discharge Planning, Medication Reconciliation and Communication With Other Providers Discharge Plan Discharge Items Patient Disposition: Transfer Inpatient Rehab Fac Reason For Visit: FEMUR FRACTURE Discharge Diagnosis: Left femur fracture secondary to mechanical fall status post ORIF, acute blood loss anemia, history of DVT, ischemic cardiomyopathy, hypertension, COPD Condition on Discharge: Good Activity: Resume your previous activity Non-emergency contact: Primary Care Provider Call non-emergency contact if: you have any medication questions and your symptoms worsen Follow-up/Referrals: Terrence Gtz DO [Primary Care Provider] - 07/24/19 10:55 am Diet: Carb Consistent or DM2 and Heart Healthy Addtl Attending Provider Instructions: Please take precaution to avoid fall. Continue physical therapy Will need to check INR daily and discontinue Lovenox when the INR is therapeutic that is 2-3 Pending Studies at Discharge: No Stand-Alone Forms: My [facility] Standard Media Index, Opioid Pain Management Skilled Items Patient informed of condition?: Yes DNR: No Discharge Level of Care: Skilled Communicable Disease: No Discharge Prognosis: Stable Lines: None Urinary Catheter: No Medications and DC Order Prescriptions: New enoxaparin 40 mg/0.4 mL Syringe 40 mg subcut Q24H 3 Days Qty: 3 RF: 0 oxycodone 5 mg Tablet 5 mg PO Q6H PRN (Reason: pain) 3 Days Qty: 10 RF: 0 Continued aspirin 81 mg Tablet,Delayed Release (Dr/Ec) 81 mg PO QAM RF: 0 furosemide 40 mg tablet 40 mg PO Q2D RF: 0 fluticasone propion-salmeterol [Wixela Inhub] 250-50 mcg/dose blister with device 1 inh inhalation BID RF: 0 atorvastatin 80 mg tablet 80 mg PO DAILY RF: 0 trazodone 50 mg tablet 50 mg PO HS RF: 0 metoprolol succinate 200 mg tablet extended release 24 hr 200 mg PO DAILY RF: 0 isosorbide mononitrate 30 mg tablet extended release 24 hr 30 mg PO DAILY RF: 0 clonazepam 0.5 mg tablet 0.5 mg PO DAILY RF: 0 omeprazole 40 mg capsule,delayed release(DR/EC) 40 mg PO QAM RF: 0 acetaminophen [Tylenol Extra Strength] 500 mg Tablet 500 mg PO QAM RF: 0 levothyroxine 150 mcg tablet 150 mcg PO QAM RF: 0 nitroglycerin [Nitrostat] 0.4 mg Tablet, Sublingual 0.4 mg sublingual UD RF: 0 ramipril 10 mg capsule 10 mg PO DAILY RF: 0 Centrum Silver 0.4-300-250 mg-mcg-mcg Tablet 1 tab PO QAM RF: 0 fluticasone propionate [Flonase Allergy Relief] 50 mcg/actuation [place],Suspension 2 spray INTRANASAL DAILY RF: 0 warfarin 2.5 mg tablet 2.5 mg PO DAILY RF: 0 Discharge Orders: Discharge Order (Routine); Ordered 07/17/19 Ordered By: Ernie Weber/Other Patient Handouts: Fx Femur ORIF Admission Data Admit Date/Time: 07/12/19 12:03 Attending Provider: Ernie Foss Admit Provider: Astrid Gaspar Primary Care Provider: Terrence Gtz Other Providers: Mart Beltran ; René Capone ; Astrid Gaspar ; [facility] Other Interventions: Discharge Summary Assessment (RN) Last Done: 07/17/19 13:24 DC Date/Time DO NOT enter until pt leaves facility: 07/17/19 16:36
== END 2019-07-17 16:36 | DRG 481 ==
LOC: ED 07:34 → 3W 11:39 → SUATTDRO 12:03 → 3W 12:03

== ENCOUNTER 2021-07-14 11:20 | Inpatient (IN) ==
--- NOTE | 2021-07-14 12:13 | Emergency Department Note ---
Impression & Plan COVID-19, Hypoxia, Cellulitis of right leg ED Provider Note Provider: Oniel Infante MD DATE OF SERVICE: 07/14/2021 CHIEF COMPLAINT: Cough, shortness of breath HISTORY OF PRESENT ILLNESS: Patient is a 80-year-old gentleman history of DVT, CAD with bypass, stay with CPAP at night, hypertension, GERD, CKD, COPD presenting referred from [facility] today after presenting there for evaluation for possible Covid. Lives with her grandson is evidently positive for Covid. Patient was evidently found to be hypoxic and febrile there and presents here today via ambulance. Patient states he has had a chronic 6 months cough has been persistent. States a little bit of fatigue and some pain and slight swelling of his right leg. He reports this has been a bit of an ongoing issue. Denies significant nausea, vomiting, diarrhea, abdominal pain. Denies significant chest pain to me. Patient is quite hard of hearing and it is difficult to get a clear history from him at times. He denies any significant trauma. There were reports that the patient seemed a little bit off at the clinic today and that he parked his car there by driving over the curb. REVIEW OF SYSTEMS: A total of 10 review of systems was obtained and negative except as stated above in the HPI. PAST MEDICAL HISTORY: As noted above MEDICATIONS: Reviewed home medications includes Coumadin SOCIAL HISTORY: Former smoker, not on home oxygen, lives with grandson PHYSICAL EXAM: GENERAL: alert and oriented in no acute distress on stretcher although not the best historian and very hard of hearing Head: normocephalic and atraumatic EYES: No injection, discharge or icterus. PERRL NECK: Trachea midline. Supple. ENT: Mucous membranes pink and moist. LUNGS: Airway patent. No retractions without tachypnea with some expiratory wheeze HEART: Regular tachycardic rate and rhythm. No chest wall tenderness ABDOMEN: Soft and non-tender, without guarding or rebound. SKIN: Acyanotic, warm, dry, without rashes EXTREMITIES: Without swelling, tenderness or deformity except for 2+ edema of the right lower extremity with some occasional areas of erythema here. The few small blisters are noted without large wound otherwise. 1+ DP pulse on the right. NEUROLOGICAL: No focal deficits. No aphasia. No facial droop or slurred speech. Normal strength and tone in the extremities. Sensation to gross touch normal. Patient however is a poor historian and difficulty to clear history from. EK bpm sinus tachycardia. No PVC or PAC. No acute ST segment elevation with some inferior lateral T wave inversions. QTC 435. CONTINUOUS CARDIAC MONITORING: was ordered and showed a heart rate of 90s to 110s bpm in sinus rhythm to sinus tachycardia Patient's laboratory studies and imaging reviewed. Differential includes Infection, dehydration, metabolic abnormality, hypo/hyperglycemia, electrolyte disturbance, anemia, hypoxia, cardiac sources, intracerebral event, toxicologic, neurologic, as well as other pathologies. IMPRESSION/MEDICAL DECISION MAKING: Patient presents reportedly exposed to Covid with hypoxia and fevers. States he took some Tylenol this morning. Not febrile upon arrival here reportedly in the outpatient clinic. Oxygen saturations on room air are in the high 80s. Not normally on oxygen. Placed on some supplemental oxygen. IV dexamethasone ordered. Some evidence of some erythema and some swelling of the right leg. Is on Coumadin and INR was checked. If therapeutic this lowers the risk of acute DVT or PE. EKG and troponin were sent. Basic blood work, lactate, and cultures. Patient with a fairly benign abdomen on exam. No focal neurological deficit this time although the patient is quite hard of hearing. Her son reports that he may be acting a bit often question at this more related to his underlying illness. Low suspicion at this time for acute stroke or intracranial bleed. There is no evidence significant trauma on the patient. Blood work here shows INR is therapeutic at 2.7. No severe electrolyte abnormality. Stable renal function. Slight AST elevation but normal ALT and total bilirubin. proBNP is not significantly elevated. Lactate is normal. Chest x-ray questions left basilar consolidation as well as some pulmonary edema. Did apparently give the patient a dose of steroids given concern for possible Covid and hypoxia as well as with his underlying history of COPD. Covered here with ceftriaxone given concern for possible basilar pneumonia on the x-ray as well as some concern for possible cellulitis in the right lower leg. Considered obtaining a CT of the chest for further evaluation of lung parenchyma as well as a CT of the head given some question of a little bit of confusion. Patient on reevaluation of her states he does not want this and signed claustrophobic. Patient appears to be moving all extremities and I doubt a significant intracranial abnormality at this time. He states that he often drives poorly and hits curbs. This is not new for him he reports. Given the fact that he is refusing the scans and will not pursue at this point. Also question how well he will do laying flat for the scan with his respiratory status. Patient was agreeable to stay. The hospitalist team was contacted and aware of the above. DIAGNOSIS: COVID-19, hypoxia, right lower extremity cellulitis DISPOSITION: Hospitalist will evaluate Patient was agreeable with this plan. Past Med/Surg History Medical History (Updated 07/14/21 @ 15:38 by Oniel Infante M.D.) CAD (coronary artery disease) CKD (chronic kidney disease), stage III COPD (chronic obstructive pulmonary disease) Dyslipidemia Frequent falls GERD (gastroesophageal reflux disease) History of DVT (deep vein thrombosis) HTN (hypertension) Hypothyroidism Ischemic cardiomyopathy Obesity IRLANDA (obstructive sleep apnea) Prediabetes Surgical History History of coronary artery bypass graft History of total knee arthroplasty Social History Smoking Status: Never smoker Second Hand Exposure: No; Hx Alcohol Use: Yes Alcohol type: hard liquor Hx Substance Use: No Preferred Language: Welsh Communication Ability: Effective Coating Technician Required: No Beliefs That Will Affect Care: None Current Living Situation: Family Current Living Situation Comment: grandson lives with him Feels Safe at Home: Yes Assistive Devices: Brace/Splint/Immobilizer Allergies Allergies Allergy/AdvReac Type Severity Reaction Status Date / Time atorvastatin Allergy Unknown Unknown Verified 07/14/21 14:07 iodine Allergy Unknown CONTRAST Verified 07/14/21 14:07 MEDIA ALLERGY NOTED adhesive AdvReac Unknown Verified 07/14/21 14:07 Home Meds Home Medications Medication Instructions Recorded Confirmed acetaminophen 500 mg tablet 500 mg PO QAM 07/12/19 07/14/21 (Tylenol Extra Strength) aspirin 81 mg tablet,delayed 81 mg PO QAM 07/12/19 07/14/21 release clonazepam 0.5 mg tablet 0.5 mg PO BID 07/12/19 07/14/21 fluticasone 250 mcg-salmeterol 50 1 inh INHALATION BID 07/12/19 07/14/21 mcg/dose blistr powdr for inhalation (Wixela Inhub) fluticasone propionate 50 2 spray INTRANASAL DAILY PRN 07/12/19 07/14/21 mcg/actuation nasal spray,suspension (Flonase Allergy Relief) furosemide 40 mg tablet 40 mg PO Q2D 07/12/19 07/14/21 isosorbide mononitrate 30 mg 30 mg PO DAILY 07/12/19 07/14/21 tablet,extended release 24 hr levothyroxine 150 mcg tablet 150 mcg PO QAM 07/12/19 07/14/21 [id number] acid 0.4 1 tab PO QAM 07/12/19 07/14/21 mg-lycopene 300 mcg-lutein 250 mcg tablet (Centrum Silver) nitroglycerin 0.4 mg sublingual 0.4 mg SUBLINGUAL UD 07/12/19 07/14/21 tablet (Nitrostat) omeprazole 40 mg capsule,delayed 40 mg PO QAM 07/12/19 07/14/21 release trazodone 50 mg tablet 50 mg PO HS 07/12/19 07/14/21 warfarin 2.5 mg tablet 2.5 mg PO .DAILY.OR.ASDIRECTED 07/12/19 07/14/21 lisinopril 5 mg tablet 5 mg PO DAILY 07/14/21 07/14/21 metoprolol succinate 50 mg 150 mg PO DAILY 07/14/21 07/14/21 tablet,extended release 24 hr rosuvastatin 40 mg tablet 40 mg PO DAILY 07/14/21 07/14/21 Results & Data (ED) Vital Signs Vital Signs - 24 hr 07/14/21 11:25 07/14/21 12:43 07/14/21 13:27 Temperature 37.6 C Temperature Source Oral Pulse Rate 101 H 104 H 104 H Pulse Rate from SpO2 Sensor 99 H 104 H Respiratory Rate 23 24 21 Respiratory Effort / Characteristics Non-Labored Respiratory Depth Normal Blood Pressure 110/58 L 110/51 L 118/86 Blood Pressure Mean 75 70 96 Blood Pressure Position Lying Pulse Oximetry 88 L 88 L 97 Oxygen Delivery Method Room Air Sepsis Recent Fever Within 48 Hours Yes Sepsis New/Unexplained Change in Mental Status No Sepsis Action Taken by Nursing MD Previously Notified 07/14/21 13:30 07/14/21 13:45 07/14/21 14:06 Temperature Temperature Source Pulse Rate 101 H 110 H 109 H Pulse Rate from SpO2 Sensor 101 H 108 H Respiratory Rate 22 29 H 27 H Respiratory Effort / Characteristics Respiratory Depth Blood Pressure 113/69 106/66 Blood Pressure Mean 83 79 Blood Pressure Position Pulse Oximetry 99 100 Oxygen Delivery Method Sepsis Recent Fever Within 48 Hours Sepsis New/Unexplained Change in Mental Status Sepsis Action Taken by Nursing 07/14/21 14:10 07/14/21 14:30 07/14/21 14:46 Temperature Temperature Source Pulse Rate 106 H 102 H 101 H Pulse Rate from SpO2 Sensor 106 H 99 H 100 H Respiratory Rate 27 H 26 H 21 Respiratory Effort / Characteristics Respiratory Depth Blood Pressure 130/78 118/84 Blood Pressure Mean 95 95 Blood Pressure Position Pulse Oximetry 98 96 91 Oxygen Delivery Method Sepsis Recent Fever Within 48 Hours Sepsis New/Unexplained Change in Mental Status Sepsis Action Taken by Nursing 07/14/21 15:00 Temperature Temperature Source Pulse Rate 97 H Pulse Rate from SpO2 Sensor Respiratory Rate 31 H Respiratory Effort / Characteristics Respiratory Depth Blood Pressure 132/75 Blood Pressure Mean 94 Blood Pressure Position Pulse Oximetry Oxygen Delivery Method Sepsis Recent Fever Within 48 Hours Sepsis New/Unexplained Change in Mental Status Sepsis Action Taken by Nursing Laboratory Data Result diagrams: 07/14/21 12:25 07/14/21 12:05 Lab Results 07/14/21 07/14/21 07/14/21 Range/Units 12:05 12:05 12:05 WBC (4.8-10.8) K/uL RBC (4.7-6.1) M/uL Hgb (14.0-18.0) g/dL Hct (42-52) % MCV (80-100) fL MCH (25-34) pg MCHC (32-36) g/dL RDW Std Deviation (36.4-46.3) fL RDW Coeff of Cory (11.5-14.5) % Plt Count (130-400) K/uL MPV (7.4-10.4) fL Immature Gran % (Auto) % Neut % (Auto) % Lymph % (Auto) % [place] % (Auto) % Eos % (Auto) % Baso % (Auto) % Neut # (Auto) (1.4-6.5) K/uL Lymph # (Auto) (1.2-3.4) K/uL [place] # (Auto) (0.11-0.59) K/uL Eos # (Auto) (0-0.5) K/uL Baso # (Auto) (0-0.2) K/uL Immature Gran # (Auto) (0.00-0.02) K/uL Platelet Estimate (Normal) PT 25.4 H (9.0-12.0) Seconds INR 2.7 H (0.9-1.1) Sodium 142 (136-145) mmol/L Potassium 3.7 (3.5-5.1) mmol/L Chloride 105 (98-107) mmol/L Carbon Dioxide 33 H (21-32) mmol/L Anion Gap 4.0 (3-11) BUN 19 H (7-18) mg/dl Creatinine 1.17 (0.6-1.4) mg/dl Est Cr Clr Drug Dosing Not Reportable Est GFR ( Amer) 67.8 ml/min Est GFR (Non-Af Amer) 58.5 ml/min BUN/Creatinine Ratio 16.0 (10-20) Glucose 103 H (70-99) mg/dl Lactate (0.4-2.0) mmol/L Calcium 8.2 L (8.5-10.1) mg/dl Total Bilirubin 0.4 (0.2-1) mg/dl AST 64 H (15-37) U/L ALT 50 (12-78) U/L Alkaline Phosphatase 92 (45-117) U/L Troponin I 0.042 (0-0.045) ng/ml C-Reactive Protein 5.46 H (0-0.29) mg/dl NT-Pro-B Natriuret Pep 578 (0-1800) pg/ml Total Protein 6.5 (6.4-8.2) gm/dl Albumin 2.9 L (3.4-5.0) gm/dl Globulin 3.6 (2.5-4.0) gm/dl Albumin/Globulin Ratio 0.8 L (0.9-2) Procalcitonin 0.12 (0-0.5) ng/ml Anaplasma Smear Lyme Disease IgG Ab (Negative) Lyme Disease IgM Ab (Negative) COVID-19 Eval Order SARS-CoV-2 (PCR) (Negative) 07/14/21 07/14/21 07/14/21 Range/Units 12:05 12:05 12:05 WBC (4.8-10.8) K/uL RBC (4.7-6.1) M/uL Hgb (14.0-18.0) g/dL Hct (42-52) % MCV (80-100) fL MCH (25-34) pg MCHC (32-36) g/dL RDW Std Deviation (36.4-46.3) fL RDW Coeff of Cory (11.5-14.5) % Plt Count (130-400) K/uL MPV (7.4-10.4) fL Immature Gran % (Auto) % Neut % (Auto) % Lymph % (Auto) % [place] % (Auto) % Eos % (Auto) % Baso % (Auto) % Neut # (Auto) (1.4-6.5) K/uL Lymph # (Auto) (1.2-3.4) K/uL [place] # (Auto) (0.11-0.59) K/uL Eos # (Auto) (0-0.5) K/uL Baso # (Auto) (0-0.2) K/uL Immature Gran # (Auto) (0.00-0.02) K/uL Platelet Estimate (Normal) PT (9.0-12.0) Seconds INR (0.9-1.1) Sodium (136-145) mmol/L Potassium (3.5-5.1) mmol/L Chloride (98-107) mmol/L Carbon Dioxide (21-32) mmol/L Anion Gap (3-11) BUN (7-18) mg/dl Creatinine (0.6-1.4) mg/dl Est Cr Clr Drug Dosing Est GFR ( Amer) ml/min Est GFR (Non-Af Amer) ml/min BUN/Creatinine Ratio (10-20) Glucose (70-99) mg/dl Lactate 1.0 (0.4-2.0) mmol/L Calcium (8.5-10.1) mg/dl Total Bilirubin (0.2-1) mg/dl AST (15-37) U/L ALT (12-78) U/L Alkaline Phosphatase (45-117) U/L Troponin I (0-0.045) ng/ml C-Reactive Protein (0-0.29) mg/dl NT-Pro-B Natriuret Pep (0-1800) pg/ml Total Protein (6.4-8.2) gm/dl Albumin (3.4-5.0) gm/dl Globulin (2.5-4.0) gm/dl Albumin/Globulin Ratio (0.9-2) Procalcitonin (0-0.5) ng/ml Anaplasma Smear Lyme Disease IgG Ab (Negative) Lyme Disease IgM Ab (Negative) COVID-19 Eval [address] Covid[address] at [facility] SARS-CoV-2 (PCR) POSITIVE A* (Negative) 07/14/21 07/14/21 Range/Units 12:05 12:25 WBC 3.83 L (4.8-10.8) K/uL RBC 4.15 L (4.7-6.1) M/uL Hgb 12.0 L (14.0-18.0) g/dL Hct 38.3 L (42-52) % MCV 92.3 (80-100) fL MCH 28.9 (25-34) pg MCHC 31.3 L (32-36) g/dL RDW Std Deviation 50.1 H (36.4-46.3) fL RDW Coeff of Cory 14.7 H (11.5-14.5) % Plt Count 99 L (130-400) K/uL MPV 11.8 H (7.4-10.4) fL Immature Gran % (Auto) 0.3 % Neut % (Auto) 48.7 % Lymph % (Auto) 29.0 % [place] % (Auto) 20.4 % Eos % (Auto) 1.3 % Baso % (Auto) 0.3 % Neut # (Auto) 1.87 (1.4-6.5) K/uL Lymph # (Auto) 1.11 L (1.2-3.4) K/uL [place] # (Auto) 0.78 H (0.11-0.59) K/uL Eos # (Auto) 0.05 (0-0.5) K/uL Baso # (Auto) 0.01 (0-0.2) K/uL Immature Gran # (Auto) 0.01 (0.00-0.02) K/uL Platelet Estimate Decreased L (Normal) PT (9.0-12.0) Seconds INR (0.9-1.1) Sodium (136-145) mmol/L Potassium (3.5-5.1) mmol/L Chloride (98-107) mmol/L Carbon Dioxide (21-32) mmol/L Anion Gap (3-11) BUN (7-18) mg/dl Creatinine (0.6-1.4) mg/dl Est Cr Clr Drug Dosing Est GFR ( Amer) ml/min Est GFR (Non-Af Amer) ml/min BUN/Creatinine Ratio (10-20) Glucose (70-99) mg/dl Lactate (0.4-2.0) mmol/L Calcium (8.5-10.1) mg/dl Total Bilirubin (0.2-1) mg/dl AST (15-37) U/L ALT (12-78) U/L Alkaline Phosphatase (45-117) U/L Troponin I (0-0.045) ng/ml C-Reactive Protein (0-0.29) mg/dl NT-Pro-B Natriuret Pep (0-1800) pg/ml Total Protein (6.4-8.2) gm/dl Albumin (3.4-5.0) gm/dl Globulin (2.5-4.0) gm/dl Albumin/Globulin Ratio (0.9-2) Procalcitonin (0-0.5) ng/ml Anaplasma Smear See Comment Lyme Disease IgG Ab Negative (Negative) Lyme Disease IgM Ab Negative (Negative) COVID-19 Eval Order SARS-CoV-2 (PCR) (Negative) Administered Medications Discontinued Medications Dexamethasone Sodium Phosphate (DexamethasonePf 10 Mg/Ml Vial) 10 mg IV NOW ONE Stop: 07/14/21 12:22 Last Admin: 07/14/21 13:31 Dose: 10 mg Documented by: [id number] Ceftriaxone Sodium (Rocephin) 2,000 mg in 70 mls @ 140 mls/hr IV NOW STA Stop: 07/14/21 13:33 Last Infusion: 07/14/21 14:03 Dose: 0 mls/hr Documented by: [id number] Admin: 07/14/21 13:31 Dose: 140 mls/hr Documented by: [id number] Imaging Data Radiologist's Impression: Chest X-Ray 07/14/21 12:02 XR chest 1V portable CLINICAL HISTORY: Fever, sob, hypoxia COMPARISON STUDY: Chest radiograph July 18, 2019. FINDINGS: Median sternotomy wires are noted. Lung volumes are diminished. This is unchanged. There is no pneumothorax thorax or pleural effusion. There is pulmonary vascular congestion. Mild left basilar opacity is present. There is no lobar consolidation. Cardiomegaly is unchanged. IMPRESSION: 1. Cardiomegaly with pulmonary vascular congestion. 2. Left basilar opacity which favors an infectious process. Radiographic follow- up is recommended to ensure resolution. ACT 112: Negative or not required by law. Electronically signed by: Teddy Ly M.D. 07/14/2021 12:24 PM Discharge Plan Visit Data Chief Complaint: Illness Stated Complaint: ILLNESS ED Provider: Oniel Infante Discharge Problem: COVID-19, Hypoxia, Cellulitis of right leg Patient Disposition: Being Evaluated by Hospitalist Forms Stand Alone Forms: My [facility] Prescriptions Prescriptions: No Action aspirin 81 mg Tablet,Delayed Release (Dr/Ec) 81 mg PO QAM RF: 0 furosemide 40 mg tablet 40 mg PO Q2D RF: 0 fluticasone propion-salmeterol [Wixela Inhub] 250-50 mcg/dose blister with device 1 inh inhalation BID RF: 0 trazodone 50 mg tablet 50 mg PO HS RF: 0 isosorbide mononitrate 30 mg tablet extended release 24 hr 30 mg PO DAILY RF: 0 clonazepam 0.5 mg tablet 0.5 mg PO BID RF: 0 omeprazole 40 mg capsule,delayed release(DR/EC) 40 mg PO QAM RF: 0 acetaminophen [Tylenol Extra Strength] 500 mg Tablet 500 mg PO QAM RF: 0 levothyroxine 150 mcg tablet 150 mcg PO QAM RF: 0 nitroglycerin [Nitrostat] 0.4 mg Tablet, Sublingual 0.4 mg sublingual UD RF: 0 Centrum Silver 0.4-300-250 mg-mcg-mcg Tablet 1 tab PO QAM RF: 0 fluticasone propionate [Flonase Allergy Relief] 50 mcg/actuation [place],Suspension 2 spray INTRANASAL DAILY PRN (Reason: Allergy Symptoms) RF: 0 warfarin 2.5 mg tablet 2.5 mg PO .DAILY.OR.ASDIRECTED RF: 0 metoprolol succinate 50 mg tablet extended release 24 hr 150 mg PO DAILY RF: 0 lisinopril 5 mg tablet 5 mg PO DAILY RF: 0 rosuvastatin 40 mg tablet 40 mg PO DAILY RF: 0 Referrals Referrals: [facility] [Non-Staff] -
[2021-07-14] MEDS ORDERED: dexAMETHasone**PF** 10 MG/ML VIAL IV ONE (12:21)
--- NOTE | 2021-07-14 12:25 | XRay Report ---
XR chest 1V portable CLINICAL HISTORY: Fever, sob, hypoxia COMPARISON STUDY: Chest radiograph July 18, 2019. FINDINGS: Median sternotomy wires are noted. Lung volumes are diminished. This is unchanged. There is no pneumothorax thorax or pleural effusion. There is pulmonary vascular congestion. Mild left basila r opacity is present. There is no lobar consolidation. Cardiomegaly is unchanged. IMPRESSION: 1. Cardiomegaly with pulmonary vascular congestion. 2. Left basilar opacity which favors an infectious process. Radiographic follow-up is recommended to ensure resolution. ACT 112: Negative or not required by law. Electronically signed by: Teddy Ly M.D. 07/14/2021 12:24 PM
[2021-07-14 12:31] LABS: INR 2.7 (0.9-1.1); Prothrombin Time 25.4 Seconds (9.0-12.0)
[2021-07-14 12:39] LABS: Alanine Aminotransferase 50 U/L (12-78); Albumin Globulin Ratio 0.8 (0.9-2); Albumin Level 2.9 gm/dl (3.4-5.0); Alkaline Phosphatase 92 U/L (45-117); Aspartate Aminotransferase 64 U/L (15-37); Bilirubin,Total 0.4 mg/dl (0.2-1); Blood Urea Nitrogen 19 mg/dl (7-18); C Reactive Protein 5.46 mg/dl (0-0.29); Calcium 8.2 mg/dl (8.5-10.1); Carbon Dioxide 33 mmol/L (21-32); Chloride 105 mmol/L (98-107); Est GFR (African American) 67.8 ml/min; Est GFR (Non-African American) 58.5 ml/min; Globulin 3.6 gm/dl (2.5-4.0); Glucose 103 mg/dl (70-99); NT Pro B Type Natriuretic Pept 578 pg/ml (0-1800); Potassium 3.7 mmol/L (3.5-5.1); Sodium 142 mmol/L (136-145); Total Protein 6.5 gm/dl (6.4-8.2); Troponin I 0.042 ng/ml (0-0.045)
[2021-07-14] MEDS ORDERED: cefTRIAXone SODIUM 2,000 MG/70 ML BAG IV STA (13:04)
[2021-07-14 13:08] LABS: Basophils # (auto) 0.01 K/uL (0-0.2); Basophils % (auto) 0.3 %; Eosinophils # (auto) 0.05 K/uL (0-0.5); Eosinophils % (auto) 1.3 %; Hematocrit (blood only) 38.3 % (42-52); Immature Granulocytes # (auto) 0.01 K/uL (0.00-0.02); Immature Granulocytes % (auto) 0.3 %; Lymphocytes # (auto) 1.11 K/uL (1.2-3.4); Mean Corpuscular Hemoglobin 28.9 pg (25-34); Mean Corpuscular Hgb Conc 31.3 g/dL (32-36); Mean Corpuscular Volume 92.3 fL (80-100); Mean Platelet Volume 11.8 fL (7.4-10.4); Monocytes # (auto) 0.78 K/uL (0.11-0.59); Monocytes % (auto) 20.4 %; Neutrophils # (auto) 1.87 K/uL (1.4-6.5); Neutrophils % (auto) 48.7 %; Platelet Count 99 K/uL (130-400); Platelet Estimate Decreased (Normal); RDW Coefficient of Variation 14.7 % (11.5-14.5); RDW Standard Deviation 50.1 fL (36.4-46.3); Red Blood Count 4.15 M/uL (4.7-6.1); White Blood Count 3.83 K/uL (4.8-10.8)
[2021-07-14 14:20] LABS: Lyme Ab IgG w/WB Rflx Negative (Negative); Lyme Ab IgM w/WB Rflx Negative (Negative)
--- NOTE | 2021-07-14 14:53 | History & Physical Report ---
Date of Service July 14, 2021 Assessment & Plan (1) Pneumonia due to COVID-19 virus: Plan: Patient living with family member also Covid positive presents after 1 week of symptoms with worsening dyspnea and hypoxia. Started on steroids in the ER. No evidence of sepsis. We will continue dexamethasone 6 mg IV daily and start him on a course of remdesivir daily. Will trend CRP early. Other chronic medical problems appear stable. (2) COPD (chronic obstructive pulmonary disease): Plan: No active wheezing, patient on fluticasone salmeterol at home. Continue him on Breo here daily. Oxygen supplementation per #1 (3) CAD (coronary artery disease): Plan: Status post CABG in 2004, chronic disease that appears stable with no chest pain. EKG without evidence of acute ischemia.Troponin is negative. Follows with [facility] cardiology. Has a history of ischemic cardiomyopathy however ejection fraction is now preserved per last echocardiogram. Patient appears compensated on exam for volume status. Continue medical therapy per home regimen with Imdur, lisinopril, Toprol-XL, Crestor. (4) Hypothyroidism: Plan: Chronic, continue home levothyroxine. (5) IRLANDA (obstructive sleep apnea): Plan: Sees [facility] pulmonology for IRLANDA with CPAP machine at home. Prior note in April 2021 reports panicking with fullface mask use. We can try CPAP nightly in the hospital. Patient reports being on a setting of 8 cm of water and per notes he gets nocturnal oxygen with 3.5 L/min. (6) CKD (chronic kidney disease), stage III: Plan: Chronic, stable and at goal. (7) Obesity: (8) terminal carman current use of anticoagulant: Plan: Therapeutic on chronic warfarin (9) DVT prophylaxis: Plan: Warfarin Full code as discussed with patient on admission Disposition-to Covid unit with close monitoring Cinthia Mckinley DO [facility] hospitalist History of Present Illness Chief Complaint: covid like illness x 1 week Primary Care Provider: Terrence Gtz DO 80 yo M presents via EMS transfer from clinic. He presented to the [facility] febrile with a temp 102F, cough, phlegm production, hypoxia. He was also agitated and was observed to drive over the curb in the parking lot outside of the clinic. His grandson who lives with him tested positive for covid 1 week ago. Patient reports his symptoms have also been ongoing for one week. He denies any headache, fevers, chills, diarrhea, nausea vomiting, chest pain or other symptoms. He is a confirmed full code. He denies tobacco use but does report nightly liquor, approximately 1 drink per night. Allergies Allergy/AdvReac Type Severity Reaction Status Date / Time atorvastatin Allergy Unknown Unknown Verified 07/14/21 14:07 iodine Allergy Unknown CONTRAST Verified 07/14/21 14:07 MEDIA ALLERGY NOTED adhesive AdvReac Unknown Verified 07/14/21 14:07 Home Medications Medication Instructions Recorded Confirmed Type acetaminophen 500 mg tablet 500 mg PO QAM 07/12/19 07/14/21 History (Tylenol Extra Strength) aspirin 81 mg tablet,delayed 81 mg PO QAM 07/12/19 07/14/21 History release clonazepam 0.5 mg tablet 0.5 mg PO BID PRN 07/12/19 07/14/21 History fluticasone 250 mcg-salmeterol 50 1 inh INHALATION BID 07/12/19 07/14/21 History mcg/dose blistr powdr for inhalation (Wixela Inhub) fluticasone propionate 50 2 spray INTRANASAL DAILY PRN 07/12/19 07/14/21 History mcg/actuation nasal spray,suspension (Flonase Allergy Relief) furosemide 40 mg tablet 40 mg PO Q2D 07/12/19 07/14/21 History isosorbide mononitrate 30 mg 30 mg PO DAILY 07/12/19 07/14/21 History tablet,extended release 24 hr levothyroxine 150 mcg tablet 150 mcg PO QAM 07/12/19 07/14/21 History lnppoevl-buf-onemm acid 0.4 1 tab PO QAM 07/12/19 07/14/21 History mg-lycopene 300 mcg-lutein 250 mcg tablet (Centrum Silver) nitroglycerin 0.4 mg sublingual 0.4 mg SUBLINGUAL UD 07/12/19 07/14/21 History tablet (Nitrostat) omeprazole 40 mg capsule,delayed 40 mg PO QAM 07/12/19 07/14/21 History release trazodone 50 mg tablet 50 mg PO HS 07/12/19 07/14/21 History warfarin 2.5 mg tablet 2.5 mg PO DAILY 07/12/19 07/14/21 History cholecalciferol (vitamin D3) 50 50 mcg PO DAILY 07/14/21 07/14/21 History mcg (2,000 unit) tablet lisinopril 5 mg tablet 5 mg PO DAILY 07/14/21 07/14/21 History metoprolol succinate 50 mg 150 mg PO DAILY 07/14/21 07/14/21 History tablet,extended release 24 hr rosuvastatin 40 mg tablet 40 mg PO DAILY 07/14/21 07/14/21 History Past Med/Surg History Medical History CAD (coronary artery disease) 2005 - CABG Chronic anticoagulation CKD (chronic kidney disease), stage III COPD (chronic obstructive pulmonary disease) Dyslipidemia Frequent falls GERD (gastroesophageal reflux disease) History of DVT (deep vein thrombosis) HTN (hypertension) Hypothyroidism Ischemic cardiomyopathy Obesity IRLANDA (obstructive sleep apnea) Periprosthetic fracture of shaft of femur Prediabetes Surgical History History of coronary artery bypass graft History of total knee arthroplasty Family History Other Family history non-contributory Social History Smoking Status: Former smoker Second Hand Exposure: No; Hx Alcohol Use: Yes Alcohol type: hard liquor Hx Substance Use: No Preferred Language: Yi Communication Ability: Effective Deputy [employer] Required: No Beliefs That Will Affect Care: None Current Living Situation: Family Current Living Situation Comment: grandson lives with him Other Information That Helps Us Care for You: No Feels Safe at Home: Yes Safety Concerns: Feels Safe At This Time Assistive Devices: Oxygen - Continuous Review of Systems Review of Systems: At least ten systems were reviewed and negative except as indicated in HPI above. Physical Exam Physical Exam: CONSTITUTIONAL: obese, vitals as above, generally ill-appear ing, weak, NAD EYES: PERRL, normal conjunctivae, no scleral icterus ENT: external ear and nose normal, oropharynx clear, MMM NECK: trachea midline RESPIRATORY: coarse breath sounds throughout all lung jain. normal respiratory effort CARDIOVASCULAR: regular rate and rhythm, S1 and 2 heard without murmurs, gallops or rubs, no JVD, no peripheral edema GASTROINTESTINAL: soft, protuberant, nontender, no guarding MUSCULOSKELETAL: Generalized weakness, cannot sit up in bed on his own, head is normocephalic and atraumatic SKIN: warm and dry NEUROLOGIC: CN 2-12 grossly intact, normal cognition, normal speech, no tremor, [employer] [place] [facility]: alert cooperative and oriented to person, place and time. Results & Data Results & Data ([facility]) Vital Signs (Past 12 Hours) Vital Signs Temp Pulse Resp BP Pulse Ox 07/14/21 12:43 37.6 C 104 H 24 110/51 L 88 L 07/14/21 11:25 101 H 23 110/58 L 88 L Laboratory Results Short CBC 07/14/21 Range/Units 12:25 WBC 3.83 L (4.8-10.8) K/uL Hgb 12.0 L (14.0-18.0) g/dL Hct 38.3 L (42-52) % Plt Count 99 L (130-400) K/uL BMP 07/14/21 12:05 Sodium 142 Potassium 3.7 Chloride 105 Carbon Dioxide 33 H BUN 19 H Creatinine 1.17 Glucose 103 H Calcium 8.2 L Cardiac Enzymes 07/14/21 Range/Units 12:05 Troponin I 0.042 (0-0.045) ng/ml Liver Function 07/14/21 Range/Units 12:05 Total Bilirubin 0.4 (0.2-1) mg/dl AST 64 H (15-37) U/L ALT 50 (12-78) U/L Alkaline Phosphatase 92 (45-117) U/L Albumin 2.9 L (3.4-5.0) gm/dl Urine 07/14/21 Range/Units Unknown Urine Color Dark Yellow Urine Appearance Cloudy A (Clear) Urine pH 5.0 (4.5-7.5) Ur Specific [place] 1.029 (1.000-1.030) Urine Protein 2+ H (Negative) Urine Glucose (UA) Negative (Negative) Medications Administered Current Inpatient Medications Acetaminophen (Acetaminophen 325 Mg Tab) 650 mg PO Q4H PRN PRN Reason: Pain or Fever Stop: 08/13/21 16:09 Al Hydrox/Mg Hydrox/Simethicone (Aluminum/Magnesium Susp 30 Ml Udc) 15 ml PO Q4H PRN PRN Reason: Dyspepsia Stop: 08/13/21 16:09 Aspirin (Aspirin 81 Mg Ectab) 81 mg PO QAM [facility] Stop: 08/14/21 08:59 Clonazepam (Clonazepam 0.5 Mg Tab) 0.5 mg PO BID PRN PRN Reason: Anxiety Stop: 08/13/21 16:32 Fluticasone/Vilanterol (Fluticasone/Vilanterol 100/25mcg 14 Puffs/Inhaler) 1 puffs INH DAILY [facility]; Protocol Stop: 08/14/21 08:59 Remdesivir 100 mg/ Sodium (Chloride) 250 mls @ 250 mls/hr IV Q24H [facility]; Protocol Stop: 07/18/21 12:59 Dexamethasone 6 mg/ Syringe 1.5 mls @ 1 mls/min IV DAILY [facility] Stop: 07/25/21 08:59 Isosorbide Mononitrate (Isosorbide [place] Extended Rel 30 Mg Tabcr) 30 mg PO DAILY [facility] Stop: 08/14/21 08:59 Levothyroxine Sodium (Levothyroxine Sodium 150 Mcg Tablet) 150 mcg PO DAILYBB [facility] Stop: 08/14/21 06:29 Lisinopril (Lisinopril 5 Mg Tab) 5 mg PO DAILY [facility] Stop: 08/14/21 08:59 Magnesium Hydroxide (Magnesium Hydroxide Susp 30 Ml Udc) 30 ml PO Q12H PRN PRN Reason: Constipation Stop: 08/13/21 16:09 Metoprolol Succinate (Metoprolol Succ 50mg Ext Rel Tab) 150 mg PO DAILY [facility] Stop: 08/14/21 08:59 Ondansetron HCl (Ondansetron Inj 2 Mg/Ml 2 Ml Vial) 4 mg IV Q6H PRN PRN Reason: Nausea Stop: 08/13/21 16:09 Pantoprazole Sodium (Pantoprazole 40 Mg Tab) 40 mg PO QAM [facility]; Protocol Stop: 08/14/21 08:59 Polyethylene Glycol (Polyethylene (Miralax) 17 Gm Pack) 17 gm PO DAILY PRN PRN Reason: Constipation Stop: 08/13/21 16:09 Rosuvastatin Calcium (Rosuvastatin Calcium 20 Mg Tab) 40 mg PO DAILY [facility] Stop: 08/14/21 08:59 Sodium Chloride (Sodium Chloride 0.9% 10ml Flush) 30 ml IV Q24H [facility] Stop: 07/18/21 16:46 Last Admin: 07/14/21 20:33 Dose: 30 ml Documented by: Trazodone HCl (Trazodone Hcl 50 Mg Tab) 50 mg PO HS PRN PRN Reason: insomina Stop: 08/13/21 20:59 Vitamin D (Cholecalciferol 1,000 Units 25 Mcg Tab) 2,000 units PO DAILY [facility] Stop: 08/14/21 08:59 Warfarin Sodium (Warfarin Sod 2.5 Mg Tab) 2.5 mg PO DAILY@1600 [facility] Stop: 08/14/21 15:59 Code Status & VTE Plan VTE Prophylaxis Plan VTE Prophylaxis will be ordered: Yes
[2021-07-14] MEDS ORDERED: ONDANSETRON INJ 2 MG/ML 2 ML VIAL IV PRN (16:10)
[2021-07-14] MEDS ORDERED: ALUMINUM/MAGNESIUM SUSP 30 ML UDC PO PRN (16:10)
[2021-07-14] MEDS ORDERED: MAGNESIUM HYDROXIDE SUSP 30 ML UDC PO PRN (16:10)
[2021-07-14] MEDS ORDERED: ACETAMINOPHEN 325 MG TAB PO PRN (16:10)
[2021-07-14] MEDS ORDERED: POLYETHYLENE (MIRALAX) 17 GM PACK PO PRN (16:10)
[2021-07-14] MEDS ORDERED: REMDESIVIR 200 MG in SODIUM CHLORIDE 0.9% 210 ML IV STA (16:35)
[2021-07-14] MEDS ORDERED: FUROSEMIDE 40 MG TAB PO SCH (17:00)
[2021-07-14 17:27] LABS: Appearance Urine Cloudy (Clear); Bacteria Urine Automated Negative (Negative); Bilirubin Urine Negative (Negative); Blood Urine Trace (Negative); Color Urine Dark Yellow; Epithelial Cell Urine Auto >30 /lpf (0-5); Glucose Urine UA Negative (Negative); Ketones Urine Trace (Negative); Leukocyte Esterase Urine Trace (Negative); Nitrite Urine Negative (Negative); Protein Urine 2+ (Negative); Specific Gravity Urine 1.029 (1.000-1.030); Urobilinogen Urine Negative (Negative)
[2021-07-14] MEDS ORDERED: FUROSEMIDE 40 MG/4 ML VIAL IV ONE (17:46)
[2021-07-14] MEDS: SODIUM CHLORIDE 0.9% 10ML FLUSH IV SCH (20:33)
[2021-07-15] MEDS: LEVOTHYROXINE SODIUM 150 MCG TABLET PO SCH (05:11)
[2021-07-15 07:01] LABS: Hematocrit (blood only) 44.2 % (42-52); Hemoglobin 13.7 g/dL (14.0-18.0); Mean Corpuscular Hemoglobin 29.7 pg (25-34); Mean Corpuscular Volume 95.7 fL (80-100); Mean Platelet Volume 11.6 fL (7.4-10.4); Platelet Count 113 K/uL (130-400); RDW Coefficient of Variation 14.7 % (11.5-14.5); RDW Standard Deviation 51.8 fL (36.4-46.3); Red Blood Count 4.62 M/uL (4.7-6.1); White Blood Count 4.17 K/uL (4.8-10.8)
[2021-07-15 07:09] LABS: Prothrombin Time 28.2 Seconds (9.0-12.0)
[2021-07-15 07:34] LABS: Albumin Level 2.8 gm/dl (3.4-5.0); BUN Creatinine Ratio 18.2 (10-20); Calcium 8.2 mg/dl (8.5-10.1); Creatinine Clr Calc Pharmacy 53.7 ml/min; Est GFR (African American) 66.5 ml/min; Est GFR (Non-African American) 57.3 ml/min; Magnesium 2.1 mg/dl (1.8-2.4)
[2021-07-15 07:37] LABS: Albumin Globulin Ratio 0.7 (0.9-2); Bilirubin,Total 0.3 mg/dl (0.2-1); Total Protein 6.8 gm/dl (6.4-8.2)
[2021-07-15] MEDS: ISOSORBIDE MONO EXTENDED REL 30 MG TABCR PO SCH (08:07)
[2021-07-15] MEDS: METOPROLOL SUCC 50MG EXT REL TAB PO SCH (08:07)
[2021-07-15] MEDS: ROSUVASTATIN CALCIUM 20 MG TAB PO SCH (08:08)
[2021-07-15] MEDS: lisinopril 5 MG TAB PO SCH (08:08)
[2021-07-15] MEDS: FLUTICASONE/VILANTEROL 100/25MCG 14 PUFFS/INHALER INH SCH (08:09)
[2021-07-15] MEDS: ASPIRIN 81 MG ECTAB PO SCH (08:09)
[2021-07-15] MEDS: PANTOprazole 40 MG TAB PO SCH (08:09)
[2021-07-15] MEDS: dexAMETHasone 6 MG in SYRINGE 0 ML IV SCH (08:10)
[2021-07-15] MEDS: CHOLECALCIFEROL 1,000 UNITS 25 MCG TAB PO SCH (08:10)
[2021-07-15] MEDS: REMDESIVIR 100 MG in SODIUM CHLORIDE 0.9% 230 ML IV SCH (12:10)
[2021-07-15] MEDS: ALBUT/IPRATROP 3MG/0.5MG NEB 3 ML VIAL NEB SCH ×2 (14:23→19:19)
[2021-07-15] MEDS: WARFARIN SOD 2.5 MG TAB PO SCH (15:48)
[2021-07-15] MEDS: SODIUM CHLORIDE 0.9% 10ML FLUSH IV SCH (15:52)
--- NOTE | 2021-07-15 18:03 | Hospitalist Progress Note ---
Date of Service July 15, 2021 Assessment & Plan (1) Pneumonia due to COVID-19 virus: Plan: Patient living with family member also Covid positive presents after 1 week of symptoms with worsening dyspnea and hypoxia. Started on steroids in the ER. No evidence of sepsis. Cont dexamethasone and remdesivir daily (2) COPD exacerbation: Plan: Wheezing began on lung exam today. patient on fluticasone salmeterol at home. Continue him on Breo here daily. Oxygen supplementation per #1. Added scheduled bronchodilator therapy which he thinks is helping. (3) CAD (coronary artery disease): Plan: Status post CABG in 2004, chronic disease that appears stable with no chest pain. EKG without evidence of acute ischemia.Troponin is negative. Follows with [facility] cardiology. Has a history of ischemic cardiomyopathy however ejection fraction is now preserved per last echocardiogram. Patient appears compensated on exam for volume status. Continue medical therapy per home regimen with Imdur, lisinopril, Toprol-XL, Crestor. (4) Hypothyroidism: Plan: Chronic, continue home levothyroxine. (5) IRLANDA (obstructive sleep apnea): Plan: Sees [facility] pulmonology for IRLANDA with CPAP machine at home. Prior note in April 2021 reports panicking with fullface mask use. We can try CPAP nightly in the hospital. Patient reports being on a setting of 8 cm of water and per notes he gets nocturnal oxygen with 3.5 L/min. (6) CKD (chronic kidney disease), stage III: Plan: Chronic, stable and at goal. (7) Obesity: (8) intermediate current use of anticoagulant: Plan: Therapeutic on chronic warfarin (9) DVT prophylaxis: Plan: Warfarin Full code as discussed with patient on admission Disposition-[facility] with [facility] Ad[facility] and Anticipated Discharge Date Admission Date: July 14, 2021 Subjective 80 yo M admitted with covid pneumonia slightly increased oxygen needs overnight junky cough present states"I dont think I'm going to make it" concerned about moving rooms and if the new room is nice no chest pain, SOB, fever or other concerns Review of Systems Review of Systems: All systems were reviewed and negative except as indicated in HPI above. Physical Exam Physical Exam: CONSTITUTIONAL: obese, vitals as above, weak, NAD EYES: normal conjunctivae, no scleral icterus ENT: external ear and nose normal, oropharynx clear, MMM NECK: trachea midline RESPIRATORY: coarse breath sounds throughout all lung jain. +wheezing at bases, normal respiratory effort CARDIOVASCULAR: regular rate and rhythm, S1 and 2 heard without murmurs, gallops or rubs, no JVD, no peripheral edema GASTROINTESTINAL: soft, protuberant, nontender, no guarding MUSCULOSKELETAL: Generalized weakness, cannot sit up in bed on his own, head is normocephalic and atraumatic SKIN: warm and dry NEUROLOGIC: CN 2-12 grossly intact, normal cognition, normal speech, no tremor, [place] [facility]: alert cooperative and oriented to person, place and time. Results & Data Results & Data ([facility]) Vital Signs (Past 12 Hours) Vital Signs Temp Pulse Pulse Pulse Resp BP BP 07/15/21 17:17 82 07/15/21 16:33 36.8 C 88 22 99/62 L 07/15/21 15:45 37 C 91 H 21 120/73 07/15/21 14:25 80 20 07/15/21 11:11 37.1 C 93 H 22 102/58 L 07/15/21 08:03 36.8 C 98 H 22 147/72 H 07/15/21 07:32 86 Pulse Ox 07/15/21 17:17 07/15/21 16:33 94 07/15/21 15:45 94 07/15/21 14:25 96 07/15/21 11:11 96 07/15/21 08:03 91 07/15/21 07:32 Laboratory Results Short CBC 07/15/21 Range/Units 06:32 WBC 4.17 L (4.8-10.8) K/uL Hgb 13.7 L (14.0-18.0) g/dL Hct 44.2 (42-52) % Plt Count 113 L (130-400) K/uL BMP 07/15/21 06:32 Sodium 142 Potassium 4.0 Chloride 105 Carbon Dioxide 35 H BUN 22 H Creatinine 1.19 Glucose 124 H Calcium 8.2 L Liver Function 07/15/21 Range/Units 06:32 Total Bilirubin 0.3 (0.2-1) mg/dl AST 60 H (15-37) U/L ALT 52 (12-78) U/L Alkaline Phosphatase 93 (45-117) U/L Albumin 2.8 L (3.4-5.0) gm/dl Medications Administered Current Inpatient Medications Acetaminophen (Acetaminophen 325 Mg Tab) 650 mg PO Q4H PRN PRN Reason: Pain or Fever Stop: 08/13/21 16:09 Al Hydrox/Mg Hydrox/Simethicone (Aluminum/Magnesium Susp 30 Ml Udc) 15 ml PO Q4H PRN PRN Reason: Dyspepsia Stop: 08/13/21 16:09 Albuterol (Albut/Ipratrop 3mg/0.5mg Neb 3 Ml Vial) 3 ml NEB QIDR [facility] Stop: 08/14/21 14:59 Last Admin: 07/15/21 14:23 Dose: 3 ml Documented by: Aspirin (Aspirin 81 Mg Ectab) 81 mg PO QAM [facility] Stop: 08/14/21 08:59 Last Admin: 07/15/21 08:09 Dose: 81 mg Documented by: Clonazepam (Clonazepam 0.5 Mg Tab) 0.5 mg PO BID PRN PRN Reason: Anxiety Stop: 08/13/21 16:32 Fluticasone/Vilanterol (Fluticasone/Vilanterol 100/25mcg 14 Puffs/Inhaler) 1 puffs INH DAILY [facility]; Protocol Stop: 08/14/21 08:59 Last Admin: 07/15/21 08:09 Dose: 1 puffs Documented by: Remdesivir 100 mg/ Sodium (Chloride) 250 mls @ 250 mls/hr IV Q24H [facility]; Protocol Stop: 07/18/21 12:59 Last Infusion: 07/15/21 13:19 Dose: Infused Documented by: Dexamethasone 6 mg/ Syringe 1.5 mls @ 1 mls/min IV DAILY [facility] Stop: 07/25/21 08:59 Last Admin: 07/15/21 08:10 Dose: 1 mls/min Documented by: Isosorbide Mononitrate (Isosorbide [place] Extended Rel 30 Mg Tabcr) 30 mg PO DAILY [facility] Stop: 08/14/21 08:59 Last Admin: 07/15/21 08:07 Dose: 30 mg Documented by: Levothyroxine Sodium (Levothyroxine Sodium 150 Mcg Tablet) 150 mcg PO DAILYBB [facility] Stop: 08/14/21 06:29 Last Admin: 07/15/21 05:11 Dose: 150 mcg Documented by: Lisinopril (Lisinopril 5 Mg Tab) 5 mg PO DAILY [facility] Stop: 08/14/21 08:59 Last Admin: 07/15/21 08:08 Dose: 5 mg Documented by: Magnesium Hydroxide (Magnesium Hydroxide Susp 30 Ml Udc) 30 ml PO Q12H PRN PRN Reason: Constipation Stop: 08/13/21 16:09 Metoprolol Succinate (Metoprolol Succ 50mg Ext Rel Tab) 150 mg PO DAILY [facility] Stop: 08/14/21 08:59 Last Admin: 07/15/21 08:07 Dose: 150 mg Documented by: Ondansetron HCl (Ondansetron Inj 2 Mg/Ml 2 Ml Vial) 4 mg IV Q6H PRN PRN Reason: Nausea Stop: 08/13/21 16:09 Pantoprazole Sodium (Pantoprazole 40 Mg Tab) 40 mg PO QAM [facility]; Protocol Stop: 08/14/21 08:59 Last Admin: 07/15/21 08:09 Dose: 40 mg Documented by: Polyethylene Glycol (Polyethylene (Miralax) 17 Gm Pack) 17 gm PO DAILY PRN PRN Reason: Constipation Stop: 08/13/21 16:09 Rosuvastatin Calcium (Rosuvastatin Calcium 20 Mg Tab) 40 mg PO DAILY [facility] Stop: 08/14/21 08:59 Last Admin: 07/15/21 08:08 Dose: 40 mg Documented by: Sodium Chloride (Sodium Chloride 0.9% 10ml Flush) 30 ml IV Q24H [facility] Stop: 07/18/21 16:46 Last Admin: 07/15/21 15:52 Dose: 30 ml Documented by: Trazodone HCl (Trazodone Hcl 50 Mg Tab) 50 mg PO HS PRN PRN Reason: insomina Stop: 08/13/21 20:59 Vitamin D (Cholecalciferol 1,000 Units 25 Mcg Tab) 2,000 units PO DAILY [facility] Stop: 08/14/21 08:59 Last Admin: 07/15/21 08:10 Dose: 2,000 units Documented by: Warfarin Sodium (Warfarin Sod 2.5 Mg Tab) 2.5 mg PO DAILY@1600 [facility] Stop: 08/14/21 15:59 Last Admin: 07/15/21 15:48 Dose: 2.5 mg Documented by:
[2021-07-15] MEDS: traZODone HCL 50 MG TAB PO PRN (20:50)
[2021-07-15] MEDS: clonazePAM 0.5 MG TAB PO PRN (20:50)
[2021-07-15] MEDS: ASCORBIC ACID 500 MG TAB PO SCH (20:51)
--- NOTE | 2021-07-16 05:57 | Electrocardiogram Report ---
Test Reason : Blood Pressure : / mmHG Vent. Rate : 102 BPM Atrial Rate : 102 BPM P-R Int : 152 ms QRS Dur : 092 ms QT Int : 334 ms P-R-T Axes : 002 022 -36 degrees QTc Int : 435 ms Sinus tachycardia Possible Inferior infarct , age undetermined T wave abnormality, consider anterolateral ischemia Abnormal ECG When compared with ECG of 12-JUL-2019 07:57, Inverted T waves have replaced nonspecific T wave abnormality in Anterolateral leads Confirmed by Malachi Pimentel ([id number]) on 07/16/2021 5:57:14 AM Referred By: Terrence Gtz Confirmed By:Malachi Pimentel
[2021-07-16] MEDS: LEVOTHYROXINE SODIUM 150 MCG TABLET PO SCH (06:40)
[2021-07-16] MEDS: ALBUT/IPRATROP 3MG/0.5MG NEB 3 ML VIAL NEB SCH ×4 (07:13→19:18)
[2021-07-16 07:51] LABS: Hemoglobin 13.1 g/dL (14.0-18.0); Mean Corpuscular Hgb Conc 31.2 g/dL (32-36); Mean Corpuscular Volume 93.1 fL (80-100); Mean Platelet Volume 11.5 fL (7.4-10.4); Platelet Count 141 K/uL (130-400); RDW Coefficient of Variation 14.4 % (11.5-14.5); RDW Standard Deviation 48.8 fL (36.4-46.3); Red Blood Count 4.51 M/uL (4.7-6.1); White Blood Count 6.87 K/uL (4.8-10.8)
[2021-07-16 08:08] LABS: INR 3.6 (0.9-1.1); Prothrombin Time 33.3 Seconds (9.0-12.0)
[2021-07-16] MEDS: dexAMETHasone 6 MG in SYRINGE 0 ML IV SCH (08:17)
[2021-07-16] MEDS: ASCORBIC ACID 500 MG TAB PO SCH ×2 (08:17→21:34)
[2021-07-16] MEDS: FLUTICASONE/VILANTEROL 100/25MCG 14 PUFFS/INHALER INH SCH (08:17)
[2021-07-16] MEDS: ZINC SULFATE 220 MG CAPSULE PO SCH (08:17)
[2021-07-16 08:22] LABS: BUN Creatinine Ratio 20.9 (10-20); C Reactive Protein 3.85 mg/dl (0-0.29); Calcium 8.5 mg/dl (8.5-10.1); Est GFR (African American) 72.3 ml/min; Est GFR (Non-African American) 62.4 ml/min; Potassium 4.1 mmol/L (3.5-5.1)
[2021-07-16] MEDS: ASPIRIN 81 MG ECTAB PO SCH (09:03)
[2021-07-16] MEDS: lisinopril 5 MG TAB PO SCH (09:03)
[2021-07-16] MEDS: CHOLECALCIFEROL 1,000 UNITS 25 MCG TAB PO SCH (09:03)
[2021-07-16] MEDS: PANTOprazole 40 MG TAB PO SCH (09:03)
[2021-07-16] MEDS: METOPROLOL SUCC 50MG EXT REL TAB PO SCH (09:04)
[2021-07-16] MEDS: ISOSORBIDE MONO EXTENDED REL 30 MG TABCR PO SCH (09:04)
[2021-07-16] MEDS: ROSUVASTATIN CALCIUM 20 MG TAB PO SCH (09:04)
[2021-07-16] MEDS: REMDESIVIR 100 MG in SODIUM CHLORIDE 0.9% 230 ML IV SCH (12:01)
[2021-07-16] MEDS: SODIUM CHLORIDE 0.9% 10ML FLUSH IV SCH (13:04)
--- NOTE | 2021-07-16 19:57 | Hospitalist Progress Note ---
Date of Service July 16, 2021 Assessment & Plan (1) Pneumonia due to COVID-19 virus: Plan: Patient living with family member also Covid positive presents after 1 week of symptoms with worsening dyspnea and hypoxia. Started on steroids in the ER. No evidence of sepsis. Cont dexamethasone and remdesivir daily (2) COPD exacerbation: Plan: Patient on fluticasone salmeterol at home. Continue him on Breo here daily. Oxygen supplementation per #1. Added scheduled bronchodilator therapy which he thinks is helping. (3) CAD (coronary artery disease): Plan: Status post CABG in 2004, chronic disease that appears stable with no chest pain. EKG without evidence of acute ischemia.Troponin is negative. Follows with [facility] cardiology. Has a history of ischemic cardiomyopathy however ejection fraction is now preserved per last echocardiogram. Patient appears compensated on exam for volume status. Continue medical therapy per home regimen with Imdur, lisinopril, Toprol-XL, Crestor. (4) Hypothyroidism: Plan: Chronic, continue home levothyroxine. (5) IRLANDA (obstructive sleep apnea): Plan: Sees [facility] pulmonology for IRLANDA with CPAP machine at home. Prior note in April 2021 reports panicking with fullface mask use. We can try CPAP nightly in the hospital. Patient reports being on a setting of 8 cm of water and per notes he gets nocturnal oxygen with 3.5 L/min. (6) CKD (chronic kidney disease), stage III: Plan: Chronic, stable and at goal. (7) Obesity: Plan: weight loss recommended for general good health (8) skilled nursing current use of anticoagulant: Plan: Therapeutic on chronic warfarin (9) DVT prophylaxis: Plan: Warfarin Full code as discussed with patient on admission Disposition-to Covid unit with close [facility] (10) Transaminitis: Admission and Anticipated Discharge Date Admission Date: July 14, 2021 Subjective 80 yo M admitted with covid pneumonia Stable breathing and oxygen needs not increased some cough pt feels upset because nurses aren't responding quickly enough to his needs no other symptoms at this time. Review of Systems Review of Systems: All systems were reviewed and negative except as indicated in HPI above. Physical Exam Physical Exam: CONSTITUTIONAL: obese, vitals as above, NAD EYES: normal conjunctivae, no scleral icterus ENT: external ear and nose normal, oropharynx clear, MMM NECK: trachea midline RESPIRATORY: coarse breath sounds throughout all lung jain. +wheezing at bases-improved, normal respiratory effort CARDIOVASCULAR: regular rate and rhythm, S1 and 2 heard without murmurs, gallop s or rubs, no JVD, no peripheral edema GASTROINTESTINAL: soft, protuberant, nontender, no guarding MUSCULOSKELETAL: Generalized weakness, cannot sit up in bed on his own, head is normocephalic and atraumatic SKIN: warm and dry NEUROLOGIC: CN 2-12 grossly intact, normal cognition, normal speech, no tremor, [place] [facility]: alert cooperative and oriented to person, place and time. Results & Data Results & Data ([facility]) Vital Signs (Past 12 Hours) Vital Signs Temp Pulse Pulse Pulse Resp BP BP 07/16/21 19:18 89 18 07/16/21 19:07 36.5 C 89 20 108/65 07/16/21 16:00 100 H 07/16/21 15:25 100 H 20 07/16/21 15:15 36.7 C 97 H 20 112/66 07/16/21 14:33 07/16/21 11:52 36.6 C 93 H 20 121/65 07/16/21 11:49 101 H 18 07/16/21 09:00 68 07/16/21 08:00 36.9 C 87 20 118/70 Pulse Ox Pulse Ox Pulse Ox Pulse Ox 07/16/21 19:18 94 07/16/21 19:07 94 07/16/21 16:00 07/16/21 15:25 96 07/16/21 15:15 96 07/16/21 14:33 96 96 96 07/16/21 11:52 97 07/16/21 11:49 94 07/16/21 09:00 07/16/21 08:00 96 Laboratory Results Short CBC 07/16/21 Range/Units 07:21 WBC 6.87 (4.8-10.8) K/uL Hgb 13.1 L (14.0-18.0) g/dL Hct 42.0 (42-52) % Plt Count 141 (130-400) K/uL BMP 07/16/21 07:21 Sodium 143 Potassium 4.1 Chloride 103 Carbon Dioxide 36 H BUN 23 H Creatinine 1.11 Glucose 93 Calcium 8.5 Liver Function 07/16/21 Range/Units 07:21 AST 58 H (15-37) U/L ALT 48 (12-78) U/L Medications Administered Current Inpatient Medications Acetaminophen (Acetaminophen 325 Mg Tab) 650 mg PO Q4H PRN PRN Reason: Pain or Fever Stop: 08/13/21 16:09 Al Hydrox/Mg Hydrox/Simethicone (Aluminum/Magnesium Susp 30 Ml Udc) 15 ml PO Q4H PRN PRN Reason: Dyspepsia Stop: 08/13/21 16:09 Albuterol (Albut/Ipratrop 3mg/0.5mg Neb 3 Ml Vial) 3 ml NEB QIDR [facility] Stop: 08/14/21 14:59 Last Admin: 07/16/21 19:18 Dose: 3 ml Documented by: Ascorbic Acid (Ascorbic Acid 500 Mg Tab) 500 mg PO BID [facility] Stop: 08/14/21 20:59 Last Admin: 07/16/21 08:17 Dose: 500 mg Documented by: Aspirin (Aspirin 81 Mg Ectab) 81 mg PO QAM [facility] Stop: 08/14/21 08:59 Last Admin: 07/16/21 09:03 Dose: 81 mg Documented by: Clonazepam (Clonazepam 0.5 Mg Tab) 0.5 mg PO BID PRN PRN Reason: Anxiety Stop: 08/13/21 16:32 Last Admin: 07/15/21 20:50 Dose: 0.5 mg Documented by: Fluticasone/Vilanterol (Fluticasone/Vilanterol 100/25mcg 14 Puffs/Inhaler) 1 puffs INH DAILY [facility]; Protocol Stop: 08/14/21 08:59 Last Admin: 07/16/21 08:17 Dose: 1 puffs Documented by: Remdesivir 100 mg/ Sodium (Chloride) 250 mls @ 250 mls/hr IV Q24H [facility]; Protocol Stop: 07/18/21 12:59 Last Infusion: 07/16/21 13:02 Dose: Infused Documented by: Dexamethasone 6 mg/ Syringe 1.5 mls @ 1 mls/min IV DAILY [facility] Stop: 07/25/21 08:59 Last Admin: 07/16/21 08:17 Dose: 1 mls/min Documented by: Isosorbide Mononitrate (Isosorbide [place] Extended Rel 30 Mg Tabcr) 30 mg PO VERNA Y [facility] Stop: 08/14/21 08:59 Last Admin: 07/16/21 09:04 Dose: 30 mg Documented by: Levothyroxine Sodium (Levothyroxine Sodium 150 Mcg Tablet) 150 mcg PO DAILYBB [facility] Stop: 08/14/21 06:29 Last Admin: 07/16/21 06:40 Dose: 150 mcg Documented by: Lisinopril (Lisinopril 5 Mg Tab) 5 mg PO DAILY [facility] Stop: 08/14/21 08:59 Last Admin: 07/16/21 09:03 Dose: 5 mg Documented by: Magnesium Hydroxide (Magnesium Hydroxide Susp 30 Ml Udc) 30 ml PO Q12H PRN PRN Reason: Constipation Stop: 08/13/21 16:09 Metoprolol Succinate (Metoprolol Succ 50mg Ext Rel Tab) 150 mg PO DAILY [facility] Stop: 08/14/21 08:59 Last Admin: 07/16/21 09:04 Dose: 150 mg Documented by: Ondansetron HCl (Ondansetron Inj 2 Mg/Ml 2 Ml Vial) 4 mg IV Q6H PRN PRN Reason: Nausea Stop: 08/13/21 16:09 Pantoprazole Sodium (Pantoprazole 40 Mg Tab) [facility] Protocol Stop: 08/14/21 08:59 Last Admin: 07/16/21 09:03 Dose: 40 mg Documented by: Polyethylene Glycol (Polyethylene (Miralax) 17 Gm Pack) 17 gm PO DAILY PRN PRN Reason: Constipation Stop: 08/13/21 16:09 Rosuvastatin Calcium (Rosuvastatin Calcium 20 Mg Tab) 40 mg PO DAILY [facility] Stop: 08/14/21 08:59 Last Admin: 07/16/21 09:04 Dose: 40 mg Documented by: Sodium Chloride (Sodium Chloride 0.9% 10ml Flush) 30 ml IV Q24H [facility] Stop: 07/18/21 16:46 Last Admin: 07/16/21 13:04 Dose: 30 ml Documented by: Trazodone HCl (Trazodone Hcl 50 Mg Tab) 50 mg PO HS PRN PRN Reason: insomina Stop: 08/13/21 20:59 Last Admin: 07/15/21 20:50 Dose: 50 mg Documented by: Vitamin D (Cholecalciferol 1,000 Units 25 Mcg Tab) 2,000 units PO DAILY [facility] Stop: 08/14/21 08:59 Last Admin: 07/16/21 09:03 Dose: 2,000 units Documented by: Warfarin Sodium (Warfarin Sod 2.5 Mg Tab) 2.5 mg PO DAILY@1600 [facility] Stop: 08/14/21 15:59 Last Admin: 07/15/21 15:48 Dose: 2.5 mg Documented by: Zinc Sulfate (Zinc Sulfate 220 Mg Capsule) 220 mg PO QAM [facility] Stop: 08/15/21 08:59 Last Admin: 07/16/21 08:17 Dose: 220 mg Documented by:
[2021-07-16] MEDS: clonazePAM 0.5 MG TAB PO PRN (21:34)
[2021-07-16] MEDS: traZODone HCL 50 MG TAB PO PRN (21:34)
[2021-07-17] MEDS: LEVOTHYROXINE SODIUM 150 MCG TABLET PO SCH (05:42)
[2021-07-17] MEDS: ALBUT/IPRATROP 3MG/0.5MG NEB 3 ML VIAL NEB SCH ×4 (07:18→19:48)
[2021-07-17 07:54] LABS: Prothrombin Time 36.6 Seconds (9.0-12.0)
[2021-07-17 08:36] LABS: Creatinine Clr Calc Pharmacy 62.5 ml/min; Est GFR (African American) 78.2 ml/min; Est GFR (Non-African American) 67.5 ml/min
[2021-07-17] MEDS: ASCORBIC ACID 500 MG TAB PO SCH ×2 (08:47→20:47)
[2021-07-17] MEDS: CHOLECALCIFEROL 1,000 UNITS 25 MCG TAB PO SCH (08:47)
[2021-07-17] MEDS: ASPIRIN 81 MG ECTAB PO SCH (08:47)
[2021-07-17] MEDS: ISOSORBIDE MONO EXTENDED REL 30 MG TABCR PO SCH (08:48)
[2021-07-17] MEDS: lisinopril 5 MG TAB PO SCH (08:49)
[2021-07-17] MEDS: METOPROLOL SUCC 50MG EXT REL TAB PO SCH (08:50)
[2021-07-17] MEDS: ZINC SULFATE 220 MG CAPSULE PO SCH (08:51)
[2021-07-17] MEDS: ROSUVASTATIN CALCIUM 20 MG TAB PO SCH (08:51)
[2021-07-17] MEDS: PANTOprazole 40 MG TAB PO SCH (08:51)
[2021-07-17] MEDS: dexAMETHasone 6 MG in SYRINGE 0 ML IV SCH (08:56)
[2021-07-17] MEDS: FLUTICASONE/VILANTEROL 100/25MCG 14 PUFFS/INHALER INH SCH (10:39)
[2021-07-17] MEDS: REMDESIVIR 100 MG in SODIUM CHLORIDE 0.9% 230 ML IV SCH (12:09)
--- NOTE | 2021-07-17 14:44 | Hospitalist Progress Note ---
Date of Service July 17, 2021 Assessment & Plan (1) Pneumonia due to COVID-19 virus: Plan: Patient living with family member also Covid positive presents after one week of symptoms with worsening dyspnea and hypoxia. Started on steroids in the ER. No evidence of sepsis. Cont dexamethasone and remdesivir daily. He continues to improve. (2) COPD exacerbation: Plan: Patient on fluticasone salmeterol at home. Continue him on Breo here daily. Oxygen supplementation per #1. Added scheduled bronchodilator therapy which he thinks is helping. (3) CAD (coronary artery disease): Plan: Status post CABG in 2004, chronic disease that appears stable with no chest pain. EKG without evidence of acute ischemia. Troponin is negative. Follows with [facility] cardiology. Has a history of ischemic cardiomyopathy however ejection fraction is now preserved per last echocardiogram. Patient appears compensated on exam for volume status. Continue medical therapy per home regimen with Imdur, lisinopril, Toprol-XL, Crestor. (4) Hypothyroidism: Plan: Chronic, continue home levothyroxine. (5) IRLANDA (obstructive sleep apnea): Plan: Sees [facility] pulmonology for IRLANDA with CPAP machine at home. Prior note in April 2021 reports panicking with fullface mask use. Refused trt in the hospital. Cont nocturnal oxygen per home settings. (6) CKD (chronic kidney disease), stage III: Plan: Chronic, stable and at goal. (7) Obesity: Plan: weight loss recommended for general good health (8) jail current use of anticoagulant: Plan: Therapeutic on chronic warfarin, h/o DVT (9) DVT prophylaxis: Plan: Warfarin Full code as discussed with patient on admission Disposition-to Covid unit with close monitoring [facility] (10) Transaminitis: Admission and Anticipated Discharge Date Admission Date: July 14, 2021 Subjective 80 yo M admitted with covid pneumonia Stable breathing and oxygen needs not increased some cough No other symptoms at this time Patient is getting frustrated with having to be in the hospital despite oxygen needs He is having some frustration with proning position and moving around. Review of Systems Review of Systems: At least ten systems were reviewed and negative except as indicated in HPI above. Physical Exam Physical Exam: CONSTITUTIONAL: obese, vitals as above, NAD EYES: normal conjunctivae, no scleral icterus ENT: external ear and nose normal, oropharynx clear, MMM NECK: trachea midline RESPIRATORY: coarse breath sounds throughout all lung jain-improved, wheezing resolved, normal respiratory effort CARDIOVASCULAR: regular rate and rhythm, S1 and 2 heard without murmurs, gallops or rubs, no JVD, no peripheral edema GASTROINTESTINAL: soft, protuberant, nontender, no guarding MUSCULOSKELETAL: Generalized weakness, cannot sit up in bed on his own, head is normocephalic and atraumatic SKIN: warm and dry NEUROLOGIC: CN 2-12 grossly intact, normal cognition, normal speech, no tremor, [place] [facility]IATR[facility]: alert cooperative and oriented to person, place and time. Results & Data Results & Data ([facility]) Vital Signs (Past 12 Hours) Vital Signs Temp Pulse Pulse Resp BP Pulse Ox 07/17/21 11:32 86 18 94 07/17/21 08:18 36.6 C 80 21 113/70 90 07/17/21 07:51 64 07/17/21 07:18 84 22 95 07/17/21 04:04 36.8 C 91 H 18 134/77 94 Laboratory Results [facility] 07/17/21 07:00 Creatinine 1.04 Liver Function 07/17/21 Range/Units 07:00 AST 64 H (15-37) U/L ALT 50 (12-78) U/L Medications Administered Current Inpatient Medications Acetaminophen (Acetaminophen 325 Mg Tab) 650 mg PO Q4H PRN PRN Reason: Pain or Fever Stop: 08/13/21 16:09 Al Hydrox/Mg Hydrox/Simethicone (Aluminum/Magnesium Susp 30 Ml Udc) 15 ml PO Q4H PRN PRN Reason: Dyspepsia Stop: 08/13/21 16:09 Albuterol (Albut/Ipratrop 3mg/0.5mg Neb 3 Ml Vial) 3 ml NEB QIDR [facility] Stop: 08/14/21 14:59 Last Admin: 07/17/21 11:32 Dose: 3 ml Documented by: Ascorbic Acid (Ascorbic Acid 500 Mg Tab) 500 mg PO BID [facility] Stop: 08/14/21 20:59 Last Admin: 07/17/21 08:47 Dose: 500 mg Documented by: Aspirin (Aspirin 81 Mg Ectab) 81 mg PO QAM [facility] Stop: 08/14/21 08:59 Last Admin: 07/17/21 08:47 Dose: 81 mg Documented by: Clonazepam (Clonazepam 0.5 Mg Tab) 0.5 mg PO BID PRN PRN Reason: Anxiety Stop: 08/13/21 16:32 Last Admin: 07/16/21 21:34 Dose: 0.5 mg Documented by: Fluticasone/Vilanterol (Fluticasone/Vilanterol 100/25mcg 14 Puffs/Inhaler) 1 puffs INH DAILY [facility]; Protocol Stop: 08/14/21 08:59 Last Admin: 07/17/21 10:39 Dose: 1 puffs Documented by: Remdesivir 100 mg/ Sodium (Chloride) 250 mls @ 250 mls/hr IV Q24H [facility]; Protocol Stop: 07/18/21 12:59 Last Infusion: 07/17/21 13:10 Dose: Infused Documented by: Dexamethasone 6 mg/ Syringe 1.5 mls @ 1 mls/min IV DAILY [facility] Stop: 07/25/21 08:59 Last Admin: 07/17/21 08:56 Dose: 1 mls/min Documented by: Isosorbide Mononitrate (Isosorbide [place] Extended Rel 30 Mg Tabcr) 30 mg PO DAILY [facility] Stop: 08/14/21 08:59 Last Admin: 07/17/21 08:48 Dose: 30 mg Documented by: Levothyroxine Sodium (Levothyroxine Sodium 150 Mcg Tablet) 150 mcg PO DAILYBB [facility] Stop: 08/14/21 06:29 Last Admin: 07/17/21 05:42 Dose: 150 mcg Documented by: Lisinopril (Lisinopril 5 Mg Tab) 5 mg PO DAILY [facility] Stop: 08/14/21 08:59 Last Admin: 07/17/21 08:49 Dose: 5 mg Documented by: Magnesium Hydroxide (Magnesium Hydroxide Susp 30 Ml Udc) 30 ml PO Q12H PRN PRN Reason: Constipation Stop: 08/13/21 16:09 Metoprolol Succinate (Metoprolol Succ 50mg Ext Rel Tab) 150 mg PO DAILY [facility] Stop: 08/14/21 08:59 Last Admin: 07/17/21 08:50 Dose: 150 mg Documented by: Ondansetron HCl (Ondansetron Inj 2 Mg/Ml 2 Ml Vial) 4 mg IV Q6H PRN PRN Reason: Nausea Stop: 08/13/21 16:09 Pantoprazole Sodium (Pantoprazole 40 Mg Tab) 40 mg PO QAM [facility]; Protocol Stop: 08/14/21 08:59 Last Admin: 07/17/21 08:51 Dose: 40 mg Documented by: Polyethylene Glycol (Polyethylene (Miralax) 17 Gm Pack) 17 gm PO DAILY PRN PRN Reason: Constipation Stop: 08/13/21 16:09 Rosuvastatin Calcium (Rosuvastatin Calcium 20 Mg Tab) 40 mg PO DAILY [facility] Stop: 08/14/21 08:59 Last Admin: 07/17/21 08:51 Dose: 40 mg Documented by: Sodium Chloride (Sodium Chloride 0.9% 10ml Flush) 30 ml IV Q24H [facility] Stop: 07/18/21 16:46 Last Admin: 07/16/21 13:04 Dose: 30 ml Documented by: Trazodone HCl (Trazodone Hcl 50 Mg Tab) 50 mg PO HS PRN PRN Reason: insomina Stop: 08/13/21 20:59 Last Admin: 07/16/21 21:34 Dose: 50 mg Documented by: Vitamin D (Cholecalciferol 1,000 Units 25 Mcg Tab) 2,000 units PO DAILY [facility] Stop: 08/14/21 08:59 Last Admin: 07/17/21 08:47 Dose: 2,000 units Documented by: Warfarin Sodium (Warfarin Sod 2.5 Mg Tab) 2.5 mg PO DAILY@1600 [facility] Stop: 08/14/21 15:59 Last Admin: 07/15/21 15:48 Dose: 2.5 mg Documented by: Zinc Sulfate (Zinc Sulfate 220 Mg Capsule) 220 mg PO QAM [facility] Stop: 08/15/21 08:59 Last Admin: 07/17/21 08:51 Dose: 220 mg Documented by:
[2021-07-17] MEDS ORDERED: FUROSEMIDE 40 MG/4 ML VIAL IV ONE (15:15)
[2021-07-17] MEDS ORDERED: FUROSEMIDE 40 MG/4 ML VIAL IV SCH (17:45)
[2021-07-17] MEDS: SODIUM CHLORIDE 0.9% 10ML FLUSH IV SCH (19:27)
[2021-07-17] MEDS: clonazePAM 0.5 MG TAB PO PRN (20:47)
[2021-07-17] MEDS: traZODone HCL 50 MG TAB PO PRN (20:47)
[2021-07-18] MEDS: LEVOTHYROXINE SODIUM 150 MCG TABLET PO SCH (05:48)
[2021-07-18] MEDS: ALBUT/IPRATROP 3MG/0.5MG NEB 3 ML VIAL NEB SCH ×3 (07:19→15:23)
[2021-07-18 08:53] LABS: INR 4.2 (0.9-1.1); Prothrombin Time 37.7 Seconds (9.0-12.0)
[2021-07-18 08:55] LABS: BUN Creatinine Ratio 25.6 (10-20); Calcium 8.8 mg/dl (8.5-10.1); Creatinine Clr Calc Pharmacy 65.8 ml/min; Est GFR (Non-African American) 71.6 ml/min; Potassium 3.9 mmol/L (3.5-5.1)
[2021-07-18] MEDS: FUROSEMIDE 20 MG in SYRINGE 0 ML IV SCH (09:09)
[2021-07-18] MEDS: dexAMETHasone 6 MG in SYRINGE 0 ML IV SCH (09:10)
[2021-07-18] MEDS: ASCORBIC ACID 500 MG TAB PO SCH ×2 (09:11→20:58)
[2021-07-18] MEDS: lisinopril 5 MG TAB PO SCH (09:12)
[2021-07-18] MEDS: ISOSORBIDE MONO EXTENDED REL 30 MG TABCR PO SCH (09:12)
[2021-07-18] MEDS: ROSUVASTATIN CALCIUM 20 MG TAB PO SCH (09:12)
[2021-07-18] MEDS: PANTOprazole 40 MG TAB PO SCH (09:13)
[2021-07-18] MEDS: CHOLECALCIFEROL 1,000 UNITS 25 MCG TAB PO SCH (09:14)
[2021-07-18] MEDS: ASPIRIN 81 MG ECTAB PO SCH (09:15)
[2021-07-18] MEDS: METOPROLOL SUCC 50MG EXT REL TAB PO SCH (09:16)
[2021-07-18] MEDS: ZINC SULFATE 220 MG CAPSULE PO SCH (09:16)
[2021-07-18] MEDS: FLUTICASONE/VILANTEROL 100/25MCG 14 PUFFS/INHALER INH SCH (09:17)
--- NOTE | 2021-07-18 11:10 | Hospitalist Progress Note ---
Date of Service July 18, 2021 Assessment & Plan (1) Pneumonia due to COVID-19 virus: Plan: Patient living with family member also Covid positive presents after one week of symptoms with worsening dyspnea and hypoxia. Cont dexamethasone and remdesivir daily. He continues to improve with decreased oxygen needs. (2) COPD exacerbation: Plan: Patient on fluticasone salmeterol at home. Continue him on Breo here daily. Oxygen supplementation per #1. Added scheduled bronchodilator therapy which he thinks is helping. (3) CAD (coronary artery disease): Plan: Status post CABG in 2004, chronic disease that appears stable with no chest pain. EKG without evidence of acute ischemia. Troponin is negative. Follows with [facility] cardiology. Has a history of ischemic cardiomyopathy however ejection fraction is now preserved per last echocardiogram. Patient appears compensated on exam for volume status. Continue medical therapy per home regimen with Imdur, lisinopril, Toprol-XL, Crestor. (4) Hypothyroidism: Plan: Chronic, continue home levothyroxine. (5) IRLANDA (obstructive sleep apnea): Plan: Sees [facility] pulmonology for IRLANDA with CPAP machine at home. Prior note in April 2021 reports panicking with fullface mask use. Refused trt in the hospital. Cont nocturnal oxygen per home settings. (6) CKD (chronic kidney disease), stage III: Plan: Chronic, stable and at goal. (7) Obesity: Plan: weight loss recommended for general good health (8) [facility] current use of anticoagulant: Plan: Therapeutic on chronic warfarin, h/o DVT (9) Transaminitis: Plan: Likely related to covid and/or statins. Cont to monitor while on remdesivir. (10) DVT prophylaxis: Plan: Warfarin Full code as discussed with patient on admission Disposition-to Covid unit with close monitoring, patient is declining rehab at this time. Cinthia Mckinley DO [facility] Hospitalist Admission and Anticipated Discharge Date Admission Date: July 14, 2021 Subjective 80 yo M admitted with covid pneumonia Stable breathing and denies dyspnea some cough No other symptoms at this time Declines rehab and feels he can ambulate independently with walker States son, with whom he lives, is gone from 4-11 for work. He reports he makes himself dinner. He reports ambulating to and from the bathroom without issues. He is not able to do this here. Review of Systems Review of Systems: At least ten systems were reviewed and negative except as indicated in HPI above. Physical Exam Physical Exam: CONSTITUTIONAL: obese, vitals as above, NAD EYES: normal conjunctivae, no scleral icterus ENT: external ear and nose normal, oropharynx clear, MMM NECK: trachea midline RESPIRATORY: CTAB, normal respiratory effort CARDIOVASCULAR: regular rate and rhythm, S1 and 2 heard without murmurs, gallops or rubs, no JVD, no peripheral edema GASTROINTESTINAL: soft, protuberant, nontender, no guarding : condom cath in place MUSCULOSKELETAL: Generalized weakness, cannot sit up in bed on his own, head is normocephalic and atraumatic SKIN: warm and dry NEUROLOGIC: CN 2-12 grossly intact, normal cognition, normal speech, no tremor, [place] [facility]: alert cooperative and oriented to person, place and time. Results & Data Results & Data ([facility]) Vital Signs (Past 12 Hours) Vital Signs Temp Pulse Pulse Resp BP Pulse Ox 07/18/21 10:21 68 07/18/21 08:06 36.5 C 82 12 132/73 90 07/18/21 07:19 80 18 93 07/18/21 03:30 36.9 C 89 18 134/80 94 07/18/21 00:00 76 Laboratory Results BMP 07/18/21 07:38 Sodium 141 Potassium 3.9 Chloride 103 Carbon Dioxide 34 H BUN 25 H Creatinine 0.99 Glucose 90 Calcium 8.8 Liver Function 07/18/21 Range/Units 07:38 AST 70 H (15-37) U/L ALT 68 (12-78) U/L Medications Administered Current Inpatient Medications Acetaminophen (Acetaminophen 325 Mg Tab) 650 mg PO Q4H PRN PRN Reason: Pain or Fever Stop: 08/13/21 16:09 Al Hydrox/Mg Hydrox/Simethicone (Aluminum/Magnesium Susp 30 Ml Udc) 15 ml PO Q4H PRN PRN Reason: Dyspepsia Stop: 08/13/21 16:09 Albuterol (Albut/Ipratrop 3mg/0.5mg Neb 3 Ml Vial) 3 ml NEB QIDR [facility] Stop: 08/14/21 14:59 Last Admin: 07/18/21 07:19 Dose: 3 ml Documented by: Ascorbic Acid (Ascorbic Acid 500 Mg Tab) 500 mg PO BID [facility] Stop: 08/14/21 20:59 Last Admin: 07/18/21 09:11 Dose: 500 mg Documented by: Aspirin (Aspirin 81 Mg Ectab) 81 mg PO QAM [facility] Stop: 08/14/21 08:59 Last Admin: 07/18/21 09:15 Dose: 81 mg Documented by: Clonazepam (Clonazepam 0.5 Mg Tab) 0.5 mg PO BID PRN PRN Reason: Anxiety Stop: 08/13/21 16:32 Last Admin: 07/17/21 20:47 Dose: 0.5 mg Documented by: Fluticasone/Vilanterol (Fluticasone/Vilanterol 100/25mcg 14 Puffs/Inhaler) 1 puffs INH DAILY [facility]; Protocol Stop: 08/14/21 08:59 Last Admin: 07/18/21 09:17 Dose: 1 puffs Documented by: Remdesivir 100 mg/ Sodium (Chloride) 250 mls @ 250 mls/hr IV Q24H [facility]; Protocol Stop: 07/18/21 12:59 Last Infusion: 07/17/21 13:10 Dose: Infused Documented by: Dexamethasone 6 mg/ Syringe 1.5 mls @ 1 mls/min IV DAILY [facility] Stop: 07/25/21 08:59 Last Admin: 07/18/21 09:10 Dose: 1 mls/min Documented by: Furosemide 20 mg/ Syringe 2 mls @ 4 mls/min IV DAILY [facility] Stop: 08/17/21 08:59 Last Admin: 07/18/21 09:09 Dose: 4 mls/min Documented by: Isosorbide Mononitrate (Isosorbide [place] Extended Rel 30 Mg Tabcr) 30 mg PO DAILY [facility] Stop: 08/14/21 08:59 Last Admin: 07/18/21 09:12 Dose: 30 mg Documented by: Levothyroxine Sodium (Levothyroxine Sodium 150 Mcg Tablet) 150 mcg PO DAILYBB [facility] Stop: 08/14/21 06:29 Last Admin: 07/18/21 05:48 Dose: 150 mcg Documented by: Lisinopril (Lisinopril 5 Mg Tab) 5 mg PO DAILY [facility] Stop: 08/14/21 08:59 Last Admin: 07/18/21 09:12 Dose: 5 mg Documented by: Magnesium Hydroxide (Magnesium Hydroxide Susp 30 Ml Udc) 30 ml PO Q12H PRN PRN Reason: Constipation Stop: 08/13/21 16:09 Metoprolol Succinate (Metoprolol Succ 50mg Ext Rel Tab) 150 mg PO DAILY [facility] Stop: 08/14/21 08:59 Last Admin: 07/18/21 09:16 Dose: 150 mg Documented by: Ondansetron HCl (Ondansetron Inj 2 Mg/Ml 2 Ml Vial) 4 mg IV Q6H PRN PRN Reason: Nausea Stop: 08/13/21 16:09 Pantoprazole Sodium (Pantoprazole 40 Mg Tab) 40 mg PO QAM [facility]; Protocol Stop: 08/14/21 08:59 Last Admin: 07/18/21 09:13 Dose: 40 mg Documented by: Polyethylene Glycol (Polyethylene (Miralax) 17 Gm Pack) 17 gm PO DAILY PRN PRN Reason: Constipation Stop: 08/13/21 16:09 Rosuvastatin Calcium (Rosuvastatin Calcium 20 Mg Tab) 40 mg PO DAILY [facility] Stop: 08/14/21 08:59 Last Admin: 07/18/21 09:12 Dose: 40 mg Documented by: Sodium Chloride (Sodium Chloride 0.9% 10ml Flush) 30 ml IV Q24H [facility] Stop: 07/18/21 16:46 Last Admin: 07/17/21 19:27 Dose: Not Given Documented by: Trazodone HCl (Trazodone Hcl 50 Mg Tab) 50 mg PO HS PRN PRN Reason: insomina Stop: 08/13/21 20:59 Last Admin: 07/17/21 20:47 Dose: 50 mg Documented by: Vitamin D (Cholecalciferol 1,000 Units 25 Mcg Tab) 2,000 units PO DAILY [facility] Stop: 08/14/21 08:59 Last Admin: 07/18/21 09:14 Dose: 2,000 units Documented by: Warfarin Sodium (Warfarin Sod 2.5 Mg Tab) 2.5 mg PO DAILY@1600 [facility] Stop: 08/14/21 15:59 Last Admin: 07/15/21 15:48 Dose: 2.5 mg Documented by: Zinc Sulfate (Zinc Sulfate 220 Mg Capsule) 220 mg PO QAM [facility] Stop: 08/15/21 08:59 Last Admin: 07/18/21 09:16 Dose: 220 mg Documented by:
[2021-07-18] MEDS: REMDESIVIR 100 MG in SODIUM CHLORIDE 0.9% 230 ML IV SCH (12:01)
[2021-07-18] MEDS: SODIUM CHLORIDE 0.9% 10ML FLUSH IV SCH (13:12)
[2021-07-18] MEDS ORDERED: ALBUT/IPRATROP 3MG/0.5MG NEB 3 ML VIAL NEB PRN (17:33)
[2021-07-18] MEDS: clonazePAM 0.5 MG TAB PO SCH (20:58)
[2021-07-19] MEDS: LEVOTHYROXINE SODIUM 150 MCG TABLET PO SCH (05:56)
[2021-07-19 07:55] LABS: Hematocrit (blood only) 41.8 % (42-52); Hemoglobin 13.3 g/dL (14.0-18.0); Mean Corpuscular Hgb Conc 31.8 g/dL (32-36); Mean Corpuscular Volume 91.1 fL (80-100); Mean Platelet Volume 11.2 fL (7.4-10.4); Nucleated RBC # (auto) 0.02 K/uL (0-0); Nucleated RBC % (auto) 0.3 %; Platelet Count 221 K/uL (130-400); RDW Coefficient of Variation 14.4 % (11.5-14.5); RDW Standard Deviation 47.6 fL (36.4-46.3); Red Blood Count 4.59 M/uL (4.7-6.1); White Blood Count 7.55 K/uL (4.8-10.8)
[2021-07-19 08:04] LABS: INR 3.4 (0.9-1.1)
[2021-07-19 08:27] LABS: BUN Creatinine Ratio 25.9 (10-20); C Reactive Protein 0.87 mg/dl (0-0.29); Calcium 8.4 mg/dl (8.5-10.1); Creatinine Clr Calc Pharmacy 58.8 ml/min; Est GFR (African American) 73.1 ml/min; Est GFR (Non-African American) 63.1 ml/min; Potassium 3.9 mmol/L (3.5-5.1)
[2021-07-19] MEDS: FLUTICASONE/VILANTEROL 100/25MCG 14 PUFFS/INHALER INH SCH (09:01)
[2021-07-19] MEDS: FUROSEMIDE 20 MG in SYRINGE 0 ML IV SCH (09:01)
[2021-07-19] MEDS: dexAMETHasone 6 MG in SYRINGE 0 ML IV SCH (09:01)
[2021-07-19] MEDS: ASCORBIC ACID 500 MG TAB PO SCH ×2 (09:01→21:00)
[2021-07-19] MEDS: CHOLECALCIFEROL 1,000 UNITS 25 MCG TAB PO SCH (09:02)
[2021-07-19] MEDS: ASPIRIN 81 MG ECTAB PO SCH (09:02)
[2021-07-19] MEDS: ISOSORBIDE MONO EXTENDED REL 30 MG TABCR PO SCH (09:02)
[2021-07-19] MEDS: lisinopril 5 MG TAB PO SCH (09:02)
[2021-07-19] MEDS: PANTOprazole 40 MG TAB PO SCH (09:02)
[2021-07-19] MEDS: ZINC SULFATE 220 MG CAPSULE PO SCH (09:02)
[2021-07-19] MEDS: ROSUVASTATIN CALCIUM 20 MG TAB PO SCH (09:02)
[2021-07-19] MEDS: METOPROLOL SUCC 50MG EXT REL TAB PO SCH (09:02)
[2021-07-19] MEDS: clonazePAM 0.5 MG TAB PO SCH ×2 (09:10→21:00)
[2021-07-19] MEDS: WARFARIN SOD 2.5 MG TAB PO SCH (16:48)
--- NOTE | 2021-07-19 19:55 | Hospitalist Progress Note ---
Date of Service July 19, 2021 Assessment & Plan (1) Pneumonia due to COVID-19 virus: Plan: Patient living with family member also Covid positive presents after one week of symptoms with worsening dyspnea and hypoxia. Cont dexamethasone. Completed 5 days of remdesivir therapy. He continues to improve with decreased oxygen needs but still requiring oxygen at rest. Not able to prone. Cont to encourage ambulation. (2) COPD exacerbation: Plan: Patient on fluticasone salmeterol at home. Continue him on Breo here daily. Oxygen supplementation per #1. Bronchodilators as needed (3) CAD (coronary artery disease): Plan: Status post CABG in 2004, chronic disease that appears stable with no chest pain. EKG without evidence of acute ischemia. Troponin is negative. Follows with [facility] cardiology. Has a history of ischemic cardiomyopathy however ejection fraction is now preserved per last echocardiogram. Patient appears compensated on exam for volume status. Continue medical therapy per home regimen with Imdur, lisinopril, Toprol-XL, Crestor. (4) Hypothyroidism: Plan: Chronic, continue home levothyroxine. (5) IRLANDA (obstructive sleep apnea): Plan: Sees [facility] pulmonology for IRLANDA with CPAP machine at home. Prior note in April 2021 reports panicking with fullface mask use. Refused trt in the hospital. Cont nocturnal oxygen per home settings. (6) CKD (chronic kidney disease), stage III: Plan: Chronic, stable and at goal. (7) Obesity: Plan: weight loss recommended for general good health (8) rn long term care current use of anticoagulant: Plan: Therapeutic on chronic warfarin, h/o DVT (9) Transaminitis: Plan: Likely related to covid and/or statins. Completed 5 days remdesivir. (10) DVT prophylaxis: Plan: Warfarin Full code as discussed with patient on admission Disposition-to Covid unit with close monitoring, patient is declining rehab at this time. Cinthia Mckinley DO [facility] hospitalist Admission and Anticipated Discharge Date Admission Date: July 14, 2021 Subjective 80 yo M admitted with covid pneumonia Stable breathing and denies dyspnea some cough No other symptoms at this time Declines rehab and feels he can ambulate independently with walker eager for discharge Review of Systems Review of Systems: At least ten systems were reviewed and negative except as indicated in HPI above. Physical Exam Physical Exam: CONSTITUTIONAL: obese, vitals as above, NAD EYES: normal conjunctivae, no scleral icterus ENT: external ear and nose normal, oropharynx clear, MMM NECK: trachea midline RESPIRATORY: CTAB, normal respiratory effort CARDIOVASCULAR: regular rate and rhythm, S1 and 2 heard without murmurs, gallops or rubs, no JVD, no peripheral edema GASTROINTESTINAL: soft, protuberant, nontender, no guarding : condom cath in place MUSCULOSKELETAL: Generalized weakness, cannot sit up in bed on his own, head is normocephalic and atraumatic SKIN: warm and dry NEUROLOGIC: CN 2-12 grossly intact, normal cognition, normal speech, no tremor, [facility]: alert cooperative and oriented to person, place and time. Results & Data Results & Data ([facility]) Vital Signs (Past 12 Hours) Vital Signs Temp Pulse Pulse Resp BP BP Pulse Ox 07/19/21 19:26 36.4 C L 81 20 120/77 93 07/19/21 15:00 95 H 07/19/21 14:55 36.5 C 76 20 104/62 93 07/19/21 11:17 36.6 C 87 22 103/63 93 07/19/21 08:00 78 Laboratory Results Short CBC 07/19/21 Range/Units 07:13 WBC 7.55 (4.8-10.8) K/uL Hgb 13.3 L (14.0-18.0) g/dL Hct 41.8 L (42-52) % Plt Count 221 (130-400) K/uL BMP 07/19/21 07:13 Sodium 140 Potassium 3.9 Chloride 102 Carbon Dioxide 33 H BUN 29 H Creatinine 1.10 Glucose 93 Calcium 8.4 L Liver Function 07/19/21 Range/Units 07:13 AST 63 H (15-37) U/L ALT 68 (12-78) U/L Medications Administered Current Inpatient Medications Acetaminophen (Acetaminophen 325 Mg Tab) 650 mg PO Q4H PRN PRN Reason: Pain or Fever Stop: 08/13/21 16:09 Al Hydrox/Mg Hydrox/Simethicone (Aluminum/Magnesium Susp 30 Ml Udc) 15 ml PO Q4H PRN PRN Reason: Dyspepsia Stop: 08/13/21 16:09 Albuterol (Albut/Ipratrop 3mg/0.5mg Neb 3 Ml Vial) 3 ml NEB QIDR PRN PRN Reason: SOB/wheezing Stop: 08/14/21 14:59 Last Admin: 07/18/21 19:45 Dose: 3 ml Documented by: Ascorbic Acid (Ascorbic Acid 500 Mg Tab) 500 mg PO BID ALIREZA Stop: 08/14/21 20:59 Last Admin: 07/19/21 09:01 Dose: 500 mg Documented by: Aspirin (Aspirin 81 Mg Ectab) 81 mg PO QAM ALIREZA Stop: 08/14/21 08:59 Last Admin: 07/19/21 09:02 Dose: 81 mg Documented by: Clonazepam (Clonazepam 0.5 Mg Tab) 0.5 mg PO BID ALIREZA Stop: 08/17/21 20:59 Last Admin: 07/19/21 09:10 Dose: 0.5 mg Documented by: Fluticasone/Vilanterol (Fluticasone/Vilanterol 100/25mcg 14 Puffs/Inhaler) 1 puffs INH DAILY [facility]; Protocol Stop: 08/14/21 08:59 Last Admin: 07/19/21 09:01 Dose: 1 puffs Documented by: Furosemide 20 mg/ Syringe 2 mls @ 4 mls/min IV DAILY ALIREZA Stop: 08/17/21 08:59 Last Admin: 07/19/21 09:01 Dose: 4 mls/min Documented by: Isosorbide Mononitrate (Isosorbide [place] Extended Rel 30 Mg Tabcr) 30 mg PO DAILY ALIREZA Stop: 08/14/21 08:59 Last Admin: 07/19/21 09:02 Dose: 30 mg Documented by: Levothyroxine Sodium (Levothyroxine Sodium 150 Mcg Tablet) 150 mcg PO DAILYBB [facility] Stop: 08/14/21 06:29 Last Admin: 07/19/21 05:56 Dose: 150 mcg Documented by: Lisinopril (Lisinopril 5 Mg Tab) 5 mg PO DAILY ALIREZA Stop: 08/14/21 08:59 Last Admin: 07/19/21 09:02 Dose: 5 mg Documented by: Magnesium Hydroxide (Magnesium Hydroxide Susp 30 Ml Udc) 30 ml PO Q12H PRN PRN Reason: Constipation Stop: 08/13/21 16:09 Metoprolol Succinate (Metoprolol Succ 50mg Ext Rel Tab) 150 mg PO DAILY ALIREZA Stop: 08/14/21 08:59 Last Admin: 07/19/21 09:02 Dose: 150 mg Documented by: Ondansetron HCl (Ondansetron Inj 2 Mg/Ml 2 Ml Vial) 4 mg IV Q6H PRN PRN Reason: Nausea Stop: 08/13/21 16:09 Pantoprazole Sodium (Pantoprazole 40 Mg Tab) 40 mg PO QAM [facility]; Protocol Stop: 08/14/21 08:59 Last Admin: 07/19/21 09:02 Dose: 40 mg Documented by: Polyethylene Glycol (Polyethylene (Miralax) 17 Gm Pack) 17 gm PO DAILY PRN PRN Reason: Constipation Stop: 08/13/21 16:09 Rosuvastatin Calcium (Rosuvastatin Calcium 20 Mg Tab) 40 mg PO DAILY [facility] Stop: 08/14/21 08:59 Last Admin: 07/19/21 09:02 Dose: 40 mg Documented by: Trazodone HCl (Trazodone Hcl 50 Mg Tab) 50 mg PO HS PRN PRN Reason: insomina Stop: 08/13/21 20:59 Last Admin: 07/17/21 20:47 Dose: 50 mg Documented by: Vitamin D (Cholecalciferol 1,000 Units 25 Mcg Tab) 2,000 units PO DAILY [facility] Stop: 08/14/21 08:59 Last Admin: 07/19/21 09:02 Dose: 2,000 units Documented by: Warfarin Sodium (Warfarin Sod 2.5 Mg Tab) 2.5 mg PO DAILY@1600 [facility] Stop: 08/14/21 15:59 Last Admin: 07/19/21 16:48 Dose: 2.5 mg Documented by: Zinc Sulfate (Zinc Sulfate 220 Mg Capsule) 220 mg PO [facility] Stop: 08/15/21 08:59 Last Admin: 07/19/21 09:02 Dose: 220 mg Documented by:
[2021-07-20] MEDS: LEVOTHYROXINE SODIUM 150 MCG TABLET PO SCH (05:12)
[2021-07-20 07:56] LABS: Hematocrit (blood only) 44.3 % (42-52); Hemoglobin 14.1 g/dL (14.0-18.0); Mean Corpuscular Hemoglobin 29.4 pg (25-34); Mean Corpuscular Hgb Conc 31.8 g/dL (32-36); Mean Corpuscular Volume 92.5 fL (80-100); Platelet Count 275 K/uL (130-400); RDW Coefficient of Variation 14.2 % (11.5-14.5); Red Blood Count 4.79 M/uL (4.7-6.1)
[2021-07-20] MEDS: ROSUVASTATIN CALCIUM 20 MG TAB PO SCH (08:05)
[2021-07-20] MEDS: CHOLECALCIFEROL 1,000 UNITS 25 MCG TAB PO SCH (08:05)
[2021-07-20] MEDS: METOPROLOL SUCC 50MG EXT REL TAB PO SCH (08:05)
[2021-07-20] MEDS: ASCORBIC ACID 500 MG TAB PO SCH (08:05)
[2021-07-20] MEDS: ISOSORBIDE MONO EXTENDED REL 30 MG TABCR PO SCH (08:05)
[2021-07-20] MEDS: lisinopril 5 MG TAB PO SCH (08:06)
[2021-07-20] MEDS: ASPIRIN 81 MG ECTAB PO SCH (08:06)
[2021-07-20] MEDS: FUROSEMIDE 20 MG in SYRINGE 0 ML IV SCH (08:06)
[2021-07-20] MEDS: ZINC SULFATE 220 MG CAPSULE PO SCH (08:06)
[2021-07-20] MEDS: PANTOprazole 40 MG TAB PO SCH (08:06)
[2021-07-20] MEDS: FLUTICASONE/VILANTEROL 100/25MCG 14 PUFFS/INHALER INH SCH (08:07)
[2021-07-20] MEDS: clonazePAM 0.5 MG TAB PO SCH (08:16)
[2021-07-20 08:18] LABS: BUN Creatinine Ratio 28.6 (10-20); Calcium 8.8 mg/dl (8.5-10.1); Creatinine Clr Calc Pharmacy 60.1 ml/min; Est GFR (African American) 75.6 ml/min; Est GFR (Non-African American) 65.2 ml/min; Potassium 4.1 mmol/L (3.5-5.1)
[2021-07-20 15:15] VITALS: BP 103/63; PULSE 94; TEMP 98.1; O2SAT 92
[2021-07-20] MEDS: WARFARIN SOD 2.5 MG TAB PO SCH (15:32)
--- NOTE | 2021-07-20 15:46 | Discharge Summary ---
Date of Service July 20, 2021 Admission HPI Per Admitting Provider 80 yo M presents via EMS transfer from clinic. He presented to the [facility] febrile with a temp 102F, cough, phlegm production, hypoxia. He was also agitated and was observed to drive over the curb in the parking lot outside of the clinic. His grandson who lives with him tested positive for covid 1 week ago. Patient reports his symptoms have also been ongoing for one week. He denies any headache, fevers, chills, diarrhea, nausea vomiting, chest pain or other symptoms. He is a confirmed full code. He denies tobacco use but does report nightly liquor, approximately 1 drink per night. Admission Exam Per Admitting Provider 80 yo M presents via EMS transfer from clinic. He presented to the [facility] febrile with a temp 102F, cough, phlegm production, hypoxia. He was also agitated and was observed to drive over the curb in the parking lot outside of the clinic. His grandson who lives with him tested positive for covid 1 week ago. Patient reports his symptoms have also been ongoing for one week. He denies any headache, fevers, chills, diarrhea, nausea vomiting, chest pain or other symptoms. He is a confirmed full code. He denies tobacco use but does report nightly liquor, approximately 1 drink per night. Principal Diagnosis Pneumonia due to Covid virus COPD exacerbation Obstructive sleep apnea Obesity Transaminitis Discharge Exam CONSTITUTIONAL: obese, vitals as above, NAD EYES: normal conjunctivae, no scleral icterus ENT: external ear and nose normal, oropharynx clear, MMM NECK: trachea midline RESPIRATORY: CTAB, normal respiratory effort CARDIOVASCULAR: regular rate and rhythm, S1 and 2 heard without murmurs, gallops or rubs, no JVD, no peripheral edema GASTROINTESTINAL: soft, protuberant, nontender, no guarding : condom cath in place MUSCULOSKELETAL: Generalized weakness, cannot sit up in bed on his own, head is normocephalic and atraumatic SKIN: warm and dry NEUROLOGIC: CN 2-12 grossly intact, normal cognition, normal speech, no tremor, [facility]: alert cooperative and oriented to person, place and time. Discharge Data Allergies Allergy/AdvReac Type Severity Reaction Status Date / Time atorvastatin Allergy Unknown Unknown Verified 07/14/21 14:07 iodine Allergy Unknown CONTRAST Verified 07/14/21 14:07 MEDIA ALLERGY NOTED adhesive AdvReac Unknown Verified 07/14/21 14:07 Consultations 07/14/21 14:35 ED Decision to Admit Stat Ordered Studies Laboratory Results WBC 8.80 K/uL (4.8-10.8) 07/20/21 07:14 RBC 4.79 M/uL (4.7-6.1) 07/20/21 07:14 Hgb 14.1 g/dL (14.0-18.0) 07/20/21 07:14 Hct 44.3 % (42-52) 07/20/21 07:14 MCV 92.5 fL (80-100) 07/20/21 07:14 MCH 29.4 pg (25-34) 07/20/21 07:14 MCHC 31.8 g/dL (32-36) L 07/20/21 07:14 RDW Std Deviation 48.0 fL (36.4-46.3) H 07/20/21 07:14 RDW Coeff of Cory 14.2 % (11.5-14.5) 07/20/21 07:14 Plt Count 275 K/uL (130-400) 07/20/21 07:14 MPV 11.0 fL (7.4-10.4) H 07/20/21 07:14 Immature Gran % (Auto) 0.3 % 07/14/21 12:25 Neut % (Auto) 48.7 % 07/14/21 12:25 Lymph % (Auto) 29.0 % 07/14/21 12:25 [place]ie % (Auto) 20.4 % 07/14/21 12:25 Eos % (Auto) 1.3 % 07/14/21 12:25 Baso % (Auto) 0.3 % 07/14/21 12:25 Neut # (Auto) 1.87 K/uL (1.4-6.5) 07/14/21 12:25 Lymph # (Auto) 1.11 K/uL (1.2-3.4) L 07/14/21 12:25 Davie # (Auto) 0.78 K/uL (0.11-0.59) H 07/14/21 12:25 Eos # (Auto) 0.05 K/uL (0-0.5) 07/14/21 12:25 Baso # (Auto) 0.01 K/uL (0-0.2) 07/14/21 12:25 Immature Gran # (Auto) 0.01 K/uL (0.00-0.02) 07/14/21 12:25 Absolute Nucleated RBC 0.02 K/uL (0-0) H 07/19/21 07:13 Nucleated RBC % (auto) 0.3 % 07/19/21 07:13 Platelet Estimate Decreased (Normal) L 07/14/21 12:25 PT 28.0 Seconds (9.0-12.0) H 07/20/21 07:14 INR 3.0 (0.9-1.1) H 07/20/21 07:14 Sodium 139 mmol/L (136-145) 07/20/21 07:14 Potassium 4.1 mmol/L (3.5-5.1) 07/20/21 07:14 Chloride 100 mmol/L (98-107) 07/20/21 07:14 Carbon Dioxide 34 mmol/L (21-32) H 07/20/21 07:14 Anion Gap 5.0 (3-11) 07/20/21 07:14 BUN 31 mg/dl (7-18) H 07/20/21 07:14 Creatinine 1.07 mg/dl (0.6-1.4) 07/20/21 07:14 Est Cr Clr Drug Dosing 60.1 ml/min 07/20/21 07:14 Est GFR ( Amer) 75.6 ml/min 07/20/21 07:14 Est GFR (Non-Af Amer) 65.2 ml/min 07/20/21 07:14 BUN/Creatinine Ratio 28.6 (10-20) H 07/20/21 07:14 Glucose 90 mg/dl (70-99) 07/20/21 07:14 POC Glucose 120 mg/dl (70-99) H 07/14/21 16:04 Lactate 1.0 mmol/L (0.4-2.0) 07/14/21 12:05 Calcium 8.8 mg/dl (8.5-10.1) 07/20/21 07:14 Magnesium 2.1 mg/dl (1.8-2.4) 07/15/21 06:32 Total Bilirubin 0.3 mg/dl (0.2-1) 07/15/21 06:32 AST 63 U/L (15-37) H 07/19/21 07:13 ALT 68 U/L (12-78) 07/19/21 07:13 Alkaline Phosphatase 93 U/L (45-117) 07/15/21 06:32 Troponin I 0.042 ng/ml (0-0.045) 07/14/21 12:05 C-Reactive Protein 0.87 mg/dl (0-0.29) H 07/19/21 07:13 NT-Pro-B Natriuret Pep 578 pg/ml (0-1800) 07/14/21 12:05 Total Protein 6.8 gm/dl (6.4-8.2) 07/15/21 06:32 Albumin 2.8 gm/dl (3.4-5.0) L 07/15/21 06:32 Globulin 4.0 gm/dl (2.5-4.0) 07/15/21 06:32 Albumin/Globulin Ratio 0.7 (0.9-2) L 07/15/21 06:32 Procalcitonin 0.12 ng/ml (0-0.5) 07/14/21 12:05 Urine Color Dark Yellow 07/14/21 Unknown Urine Appearance Cloudy (Clear) A 07/14/21 Unknown Urine pH 5.0 (4.5-7.5) 07/14/21 Unknown Ur Specific [place] 1.029 (1.000-1.030) 07/14/21 Unknown Urine Protein 2+ (Negative) H 07/14/21 Unknown Urine Glucose (UA) Negative (Negative) 07/14/21 Unknown Urine Ketones Trace (Negative) H 07/14/21 Unknown Urine Blood Trace (Negative) H 07/14/21 Unknown Urine Nitrite Negative (Negative) 07/14/21 Unknown Urine Bilirubin Negative (Negative) 07/14/21 Unknown Urine Urobilinogen Negative (Negative) 07/14/21 Unknown Ur Leukocyte Esterase Trace (Negative) H 07/14/21 Unknown Urine WBC (Auto) 10-30 /hpf (0-5) H 07/14/21 Unknown Urine RBC (Auto) 5-10 /hpf (0-4) H 07/14/21 Unknown U Hyaline Cast (Auto) 1-5 /lpf (0-5) 07/14/21 Unknown U Epithel Cells (Auto) >30 /lpf (0-5) H 07/14/21 Unknown Urine Bacteria (Auto) Negative (Negative) 07/14/21 Unknown Ur Renal Epithelial Cell Not Reportable 07/14/21 Unknown Anaplasma Smear See Comment 07/14/21 12:25 Lyme Disease IgG Ab Negative (Negative) 07/14/21 12:05 Lyme Disease IgM Ab Negative (Negative) 07/14/21 12:05 COVID-19 Eval Order Covid19 at [facility] 07/14/21 12:05 SARS-CoV-2 (PCR) POSITIVE (Negative) A* 07/14/21 12:05 Impressions Chest X-Ray 07/14/21 12:02 XR chest 1V portable CLINICAL HISTORY: Fever, sob, hypoxia COMPARISON STUDY: Chest radiograph July 18, 2019. FINDINGS: Median sternotomy wires are noted. Lung volumes are diminished. This is unchanged. There is no pneumothorax thorax or pleural effusion. There is pulmonary vascular congestion. Mild left basilar opacity is present. There is no lobar consolidation. Cardiomegaly is unchanged. IMPRESSION: 1. Cardiomegaly with pulmonary vascular congestion. 2. Left basilar opacity which favors an infectious process. Radiographic follow- up is recommended to ensure resolution. ACT 112: Negative or not required by law. Electronically signed by: Teddy Ly M.D. 07/14/2021 12:24 PM Hospital Course (1) Pneumonia due to COVID-19 virus: Patient living with family member also Covid positive presents after one week of symptoms with worsening dyspnea and hypoxia. Given dexamethasone daily. Completed 5 days of remdesivir therapy. He continues to improve with decreased oxygen needs but still requiring oxygen with ambulation. Was very eager for discharge early in the hospital stay and declined rehab despite this being a recommendation by physical therapist. He also was unable to pron as it was too uncomfortable for him. Vaccination encouraged. (2) COPD exacerbation: Patient on fluticasone salmeterol at home. Continue him on Breo here daily. Oxygen supplementation per #1. Bronchodilators initially scheduled which improved wheezing present early during his stay. At time of discharge, all wheezing was resolved and he was doing well. (3) CAD (coronary artery disease): Status post CABG in 2004, chronic disease that appears stable with no chest pain. EKG without evidence of acute ischemia. Troponin is negative. Follows with [facility] cardiology. Has a history of ischemic cardiomyopathy however ejection fraction is now preserved per last echocardiogram. Appeared euvolemic this hospital stay. Continue medical therapy per home regimen with Imdur, lisinopril, Toprol-XL, Crestor. (4) Hypothyroidism: Chronic, continue home levothyroxine. (5) IRLANDA (obstructive sleep apnea): Sees [facility] pulmonology for IRLANDA with CPAP machine at home. Prior note in April 2021 reports panicking with fullface mask use. Refused trt in the hospital. Cont nocturnal oxygen per home settings. (6) CKD (chronic kidney disease), stage III: Chronic, stable and at goal. (7) Obesity: weight loss recommended for general good health (8) [facility] current use of anticoagulant: Therapeutic on chronic warfarin, h/o DVT. Followup with anticoagulation clinic within a few days. INR 3. (9) Transaminitis: Likely related to covid and/or statins. Completed 5 days remdesivir. Would recommend this be repeated in primary care clinic on followup. Total Time Total Time Spent Total Time Spent (In Minutes): 60 Discharge Plan Discharge Items Patient Disposition: Home - Home Health Services Reason For Visit: COVID PNEUMONIA Discharge Diagnosis: Covid pneumonia Hypoxia Condition on Discharge: Good Activity: Resume your previous activity Non-emergency contact: Primary Care Provider Call non-emergency contact if: you have any medication questions, your symptoms worsen, your pain is not controlled, your pain is worsening, your pain is unusual for you, your pain is concerning for you and you have a fever Follow-up/Referrals: Terrence Gtz DO [Primary Care Provider] - (Date & Time 07/29/2021 10:20 AM Provider Terrence Gtz DO Department Family [facility] ) Diet: Regular Diet Texture: Easy to Chew Addtl Attending Provider Instructions: Please take all medications as instructed on discharge list below. You are being sent home with oxygen to use with any activity (3LPM with any activity). Please follow-up with your primary care provider within one week to ensure you are still doing well since returning home, to reassess your supplemental oxygen needs, and to order a repeat chest xray in 4-6 weeks to ensure your pneumonia has completely resolved. You are being sent home with home health services for physical and occupational therapy and general nursing care as you are still deconditioned physically and are declining inpatient rehabilitation. Please consider covid vaccination when all your current symptoms resolve and you are feeling well again as this may prevent hospitalization or severe illness if reinfection occurs. It was a pleasure taking care of you! Please call if you have any questions or problems. You can reach a [facility] hospitalist on duty at [facility] 24 hours a day by calling [phone]. Take care of yourself. Cinthia Mckinley, DO [facility] Pending Studies at Discharge: No Stand-Alone Forms: My [facility] Medications and DC Order Prescriptions: New (DME) Oxygen Home Liters Per Minute See Rx Instructions .Route Qty: 1 RF: 0 Continued aspirin 81 mg Tablet,Delayed Release (Dr/Ec) 81 mg PO QAM RF: 0 furosemide 40 mg tablet 40 mg PO Q2D RF: 0 fluticasone propion-salmeterol [Wixela Inhub] 250-50 mcg/dose blister with device 1 inh inhalation BID RF: 0 trazodone 50 mg tablet 50 mg PO HS RF: 0 isosorbide mononitrate 30 mg tablet extended release 24 hr 30 mg PO DAILY RF: 0 clonazepam 0.5 mg tablet 0.5 mg PO BID PRN (Reason: Anxiety) RF: 0 omeprazole 40 mg capsule,delayed release(DR/EC) 40 mg PO QAM RF: 0 acetaminophen [Tylenol Extra Strength] 500 mg Tablet 500 mg PO QAM RF: 0 levothyroxine 150 mcg tablet 150 mcg PO QAM RF: 0 nitroglycerin [Nitrostat] 0.4 mg Tablet, Sublingual 0.4 mg sublingual UD RF: 0 Centrum Silver 0.4-300-250 mg-mcg-mcg Tablet 1 tab PO QAM RF: 0 fluticasone propionate [Flonase Allergy Relief] 50 mcg/actuation Unity,Suspension 2 spray INTRANASAL DAILY PRN (Reason: Allergy Symptoms) RF: 0 warfarin 2.5 mg tablet 2.5 mg PO DAILY RF: 0 metoprolol succinate 50 mg tablet extended release 24 hr 150 mg PO DAILY RF: 0 lisinopril 5 mg tablet 5 mg PO DAILY RF: 0 rosuvastatin 40 mg tablet 40 mg PO DAILY RF: 0 cholecalciferol (vitamin D3) 50 mcg (2,000 unit) Tablet 50 mcg PO DAILY RF: 0 Discharge Orders: Discharge Order (Routine); Ordered 07/20/21 Ordered By: Cinthia Mckinley Admission Data Admit Date/Time: 07/14/21 14:47 Attending Provider: Cinthia Mckinley Admit Provider: Cinthia Mckinley Primary Care Provider: Terrence Gtz Other Providers: Cinthia Mckinley ; [facility],Home Health Other Interventions: Discharge Summary Assessment (RN) Last Done: 07/20/21 13:55 Home Health Attestation I certify that this patient is under my care and that I, or a physicians boiler assistant operator working with me, had a face to-face encounter that meets the home health [id number] encounter requirements with this patient. The encounter with the patient was in whole, or in part, for the following medical condition, which is the primary reason for home health care (list medical condition): Walker I certify that, based on my findings, the following services are medically necessary home health services: My clinical findings support the need for the above services because: OT Assess ADL Status and Restore Function w ADLs PT Assessment for Endurance / Balance / Strength PT Eval for Safety and Mobility PT Eval for Safety, Gait Training, Assistive Devices PT Gait and Balance Training, Strengthening and Safety Skilled Nsg Assessment Further, I certify that my clinical findings support that this patient is homebound (i.e. absences from home require considerable and taxing effort and are for medical reasons or holiness services or infrequently or of short duration when for other reasons) because: Supportive Aid - Walker Certification for Home Health Services: Based on the above findings, I certify that this patient is confined to the home and needs intermittent half-way care, physical therapy and/or speech therapy or continues to need occupational therapy. The patient is under my care, and I have initiated the establishment of the plan of care. This patient will be followed by a physician who will periodically review the plan of care.
== END 2021-07-20 17:35 | disposition home health service (06) | DRG 177 ==
LOC: ED 11:20 → 2S 14:47

== ENCOUNTER 2022-01-04 12:49 | Inpatient (IN) ==
--- NOTE | 2022-01-04 13:27 | Emergency Department Note ---
Impression & Plan Fall, Fracture, humerus, Contusion of head ED Provider Note NAME: ALIA JOSHUA AGE: 81 SEX: M : 1940 ARRIVES VIA: Ambulance INFORMANT: Patient ED PROVIDER(S): Kade Faustin DO CHIEF COMPLAINT: fall HPI: Patient is an 81-year-old male who presents the ER following mechanical fall. He was getting into the left and tripped and fell forward. He was not dizzy or lightheaded. He did hit his head. Does take Coumadin. Planes of mild right-sided head pain. He also complains of left shoulder pain which is the majority of his pain is 7 out of 10. Worse with movement. Improves with rest. No tingling or numbness. Admits to scratching his knees but no significant pain. No other complaints at this time. ROS: See above HPI for pertinent positives & negatives. A total of 10 systems reviewed and were otherwise negative. PAST MEDICAL HISTORY:See Below PAST SURGICAL HISTORY:See Below FAMILY HISTORY:See Below SOCIAL HISTORY:See Below HOME MEDICATIONS:See Below ALLERGIES:See Below VITALS:See Below PHYSICAL EXAMINATION: GENERAL: alert, well appearing, well nourished, no distress, non-toxic HEAD: normal cephalic, contusion to right forehead EYE EXAM: normal conjunctiva, PERRL and EOM's grossly intact OROPHARYNX: no exudate, no erythema, lips, buccal mucosa, and tongue normal and mucous membranes are moist NECK: supple, no nuchal rigidity, no adenopathy, non-tender CHEST: stable to compression anteriorly and posteriorly LUNGS: clear to auscultation. Normal chest wall mechanics HEART: no murmurs, S1 normal and S2 normal ABDOMEN: abdomen soft, non-tender, normo-active bowel sounds, no masses, no rebound or guarding. PELVIS: stable to compression anteriorly and posteriorly BACK: Back is symmetrical on inspection and there is no deformity, no midline tenderness, no CVA tenderness. UPPER EXTREMITIES: No tenderness on palpation entire right upper extremity. No tenderness in the left hand wrist forearm or distal humerus. Tenderness in the mid to proximal humerus. No obvious deformity. Radial pulse 2 out of 4. Gross sensation intact. LOWER EXTREMITIES: full active and passive range of motion of all joints without tenderness to palpation NEURO EXAM: Normal sensorium, cranial nerves II-XII grossly intact, normal speech, no gross weakness of arms, no gross weakness of legs. GCS: 15. MEDICAL DECISION MAKING: Patient is an 81-year-old male who presents ER following a mechanical fall. IV was established blood work was obtained. Labs show no significant leukocytosis or anemia. INR was therapeutic at 3.7. BMP along with LFTs bilirubin was unremarkable. Covid was negative. CT head and cervical spine was unremarkable. X-rays of the left arm show a humeral fracture. This was reviewed by orthopedics JUSTIN and they recommend admission. Discussed with hospitalist for admission and further work-up. He was given IV morphine while in the ER. He rested comfortably. He was placed in a sling. Triage Nursing notes reviewed. Limited review of prior medical records performed Vital Signs: reviewed and remarkable for no significant abnormalities Differential diagnosis: Differential diagnoses include major intracranial, cervical, spinal, thoracic, abdominal, pelvic and neurologic injury. Fracture, contusion, sprain, strain, laceration, abrasions included as well. ER treatment provided: See below Diagnostics interpreted by me: ECG: none Cardiac Monitoring: An order was placed for continuous cardiac monitoring. The monitor shows a rate of 101 with sinus rhythm. Laboratory studies: As stated above and show below. Imaging studies: X-rays show left humerus fracture Consultation(s): Discussed with orthopedics Luis Enrique Bowman has stated above who recommended admission Discussed with the hospitalist for further evaluation Procedures: none Critical Care: None Past Med/Surg History Medical History CAD (coronary artery disease) 2004 - CABG Chronic anticoagulation CKD (chronic kidney disease), stage III COPD (chronic obstructive pulmonary disease) Dyslipidemia Frequent falls GERD (gastroesophageal reflux disease) History of DVT (deep vein thrombosis) HTN (hypertension) Hypothyroidism Ischemic cardiomyopathy Obesity IRLANDA (obstructive sleep apnea) Periprosthetic fracture of shaft of femur Prediabetes Surgical History History of coronary artery bypass graft History of total knee arthroplasty Family History Other Family history non-contributory Hypertension Social History Smoking Status: Never smoker Second Hand Exposure: No; Hx Alcohol Use: Yes Alcohol type: hard liquor Hx Substance Use: No Preferred Language: German Communication Ability: Effective Framing Mechanic Required: No Beliefs That Will Affect Care: None Current Living Situation: Family Current Living Situation Comment: grandson lives with him Feels Safe at Home: Yes Assistive Devices: Glasses and Oxygen - Continuous Allergies Allergies Allergy/AdvReac Type Severity Reaction Status Date / Time adhesive Allergy Intermediate BLISTERS Verified 01/04/22 16:14 amoxicillin [From Augmentin] Allergy Intermediate BURNING Verified 01/04/22 16:14 SENSATION OF TONGUE clavulanic acid Allergy Intermediate BURNING Verified 01/04/22 16:14 [From Augmentin] SENSATION OF TONGUE fish oil Allergy Intermediate ITCHY Verified 01/04/22 16:14 HIVES--IODINE Iodinated Contrast Media Allergy Intermediate ITCHY HIVES Verified 01/04/22 16:14 iodine Allergy Intermediate ANYTHING Verified 01/04/22 16:14 WITH IODINE--ITCHY HIVES niacin Allergy Intermediate Hives Verified 01/04/22 16:14 cat dander Allergy Unknown ON [facility] MED Verified 01/04/22 16:14 LIST atorvastatin AdvReac Intermediate MUSCLE Verified 01/04/22 16:14 ACHES CAT GUT AdvReac Intermediate INFLAMMATIO Uncoded 01/04/22 16:14 N Home Meds Home Medications Medication Instructions Recorded Confirmed aspirin 81 mg tablet,delayed 81 mg PO QAM 07/12/19 01/04/22 release clonazepam 0.5 mg tablet 0.5 mg PO BID PRN 07/12/19 01/04/22 fluticasone 250 mcg-salmeterol 50 1 inh INHALATION BID 07/12/19 01/04/22 mcg/dose blistr powdr for inhalation (Wixela Inhub) fluticasone propionate 50 2 spray INTRANASAL DAILY PRN 07/12/19 01/04/22 mcg/actuation nasal spray,suspension (Flonase Allergy Relief) furosemide 40 mg tablet 40 mg PO Q2D 07/12/19 01/04/22 isosorbide mononitrate 30 mg 30 mg PO DAILY 07/12/19 01/04/22 tablet,extended release 24 hr levothyroxine 150 mcg tablet 150 mcg PO QAM 07/12/19 01/04/22 puorcveb-wgy-cdznv acid 0.4 1 tab PO QAM 07/12/19 01/04/22 mg-lycopene 300 mcg-lutein 250 mcg tablet (Centrum Silver) nitroglycerin 0.4 mg sublingual 0.4 mg SUBLINGUAL DIRECTED PRN 07/12/19 01/04/22 tablet (Nitrostat) omeprazole 40 mg capsule,delayed 40 mg PO QAM 07/12/19 01/04/22 release trazodone 50 mg tablet 50 mg PO HS 07/12/19 01/04/22 warfarin 2.5 mg tablet 2.5 mg PO DAILY 07/12/19 01/04/22 cholecalciferol (vitamin D3) 50 50 mcg PO DAILY 07/14/21 01/04/22 mcg (2,000 unit) tablet lisinopril 5 mg tablet 5 mg PO DAILY 07/14/21 01/04/22 metoprolol succinate 50 mg 150 mg PO DAILY 07/14/21 01/04/22 tablet,extended release 24 hr rosuvastatin 40 mg tablet 40 mg PO DAILY 07/14/21 01/04/22 acetaminophen 325 mg tablet 650 mg PO Q6H PRN 01/04/22 01/04/22 (Tylenol) albuterol sulfate 90 mcg/actuation 2 puff INHALATION Q4H PRN 01/04/22 01/04/22 aerosol inhaler (Ventolin HFA) betamethasone, augmented 0.05 % 1 applic TOPICAL BID PRN 01/04/22 01/04/22 topical cream ipratropium 20 mcg-albuterol 100 2 puff INHALATION QID PRN 01/04/22 01/04/22 mcg/actuation mist for inhalation (Combivent Respimat) neomycin 3.5 mg-polymyxin 10,000 1 drp OPL BID 01/04/22 01/04/22 unit-hydrocort 10 mg/mL eye drop,susp Previous Rx's Medication Instructions Recorded Oxygen Home #1 ea 07/20/21 Results & Data (ED) Vital Signs Vital Signs - 24 hr 01/04/22 12:54 01/04/22 13:04 01/04/22 14:02 Temperature 36.7 C Temperature Source Oral Pulse Rate 89 89 91 H Pulse Rate [Right Finger] Pulse Rate from SpO2 Sensor 91 H Pulse Rhythm Regular Respiratory Rate 18 18 18 Respiratory Effort / Characteristics Non-Labored Spontaneous Respiratory Depth Normal Blood Pressure 115/80 136/74 Blood Pressure [Left Arm] Blood Pressure Mean 91 94 Blood Pressure Mean [Left Arm] Blood Pressure Position Lying Blood Pressure Position [Left Arm] Pulse Oximetry 94 94 97 Oxygen Delivery Method Room Air Room Air Sepsis New/Unexplained Change in Mental Status No Sepsis Action Taken by Nursing No Action Required 01/04/22 14:30 01/04/22 15:00 01/04/22 15:30 Temperature Temperature Source Pulse Rate 91 H 97 H 103 H Pulse Rate [Right Finger] 103 H Pulse Rate from SpO2 Sensor 100 H Pulse Rhythm Respiratory Rate 15 18 16 Respiratory Effort / Characteristics Respiratory Depth Normal Blood Pressure 127/76 117/68 104/62 Blood Pressure [Left Arm] 117/68 Blood Pressure Mean 93 84 76 Blood Pressure Mean [Left Arm] 84 Blood Pressure Position Blood Pressure Position [Left Arm] Lying Pulse Oximetry 95 96 Oxygen Delivery Method Room Air Sepsis New/Unexplained Change in Mental Status Sepsis Action Taken by Nursing 01/04/22 16:30 Temperature Temperature Source Pulse Rate 102 H Pulse Rate [Right Finger] Pulse Rate from SpO2 Sensor Pulse Rhythm Respiratory Rate 20 Respiratory Effort / Characteristics Respiratory Depth Blood Pressure 127/70 Blood Pressure [Left Arm] Blood Pressure Mean 89 Blood Pressure Mean [Left Arm] Blood Pressure Position Blood Pressure Position [Left Arm] Pulse Oximetry Oxygen Delivery Method Sepsis New/Unexplained Change in Mental Status Sepsis Action Taken by Nursing Laboratory Data Result diagrams: 01/04/22 13:10 01/04/22 13:10 Lab Results 01/04/22 01/04/22 01/04/22 Range/Units 13:10 13:10 13:10 WBC 8.07 (4.8-10.8) K/uL RBC 4.47 L (4.7-6.1) M/uL Hgb 13.6 L (14.0-18.0) g/dL Hct 40.6 L (42-52) % MCV 90.8 (80-100) fL MCH 30.4 (25-34) pg MCHC 33.5 (32-36) g/dL RDW Std Deviation 48.0 H (36.4-46.3) fL RDW Coeff of Cory 14.4 (11.5-14.5) % Plt Count 165 (130-400) K/uL MPV 12.1 H (7.4-10.4) fL Immature Gran % (Auto) 0.2 % Neut % (Auto) 61.4 % Lymph % (Auto) 23.0 % Marshall % (Auto) 11.9 % Eos % (Auto) 3.3 % Baso % (Auto) 0.2 % Neut # (Auto) 4.94 (1.4-6.5) K/uL Lymph # (Auto) 1.86 (1.2-3.4) K/uL Marshall # (Auto) 0.96 H (0.11-0.59) K/uL Eos # (Auto) 0.27 (0-0.5) K/uL Baso # (Auto) 0.02 (0-0.2) K/uL Immature Gran # (Auto) 0.02 (0.00-0.02) K/uL PT 37.1 H (9.0-12.0) Seconds INR 3.7 H (0.9-1.1) Sodium 142 (136-145) mmol/L Potassium 3.8 (3.5-5.1) mmol/L Chloride 104 (98-107) mmol/L Carbon Dioxide 31 (21-32) mmol/L Anion Gap 7 (3-11) BUN 17 (6-23) mg/dl Creatinine 0.90 (0.6-1.4) mg/dl Est Cr Clr Drug Dosing 68.4 ml/min Est GFR ( Amer) 92.5 ml/min Est GFR (Non-Af Amer) 79.8 ml/min BUN/Creatinine Ratio 18.9 (10-20) Glucose 98 (70-99(Fasting)) mg/dl Calcium 9.2 (8.5-10.1) mg/dl Total Bilirubin 0.5 (0.2-1.0) mg/dl AST 26 (13-39) U/L ALT 19 (7-52) U/L Alkaline Phosphatase 100 (34-104) U/L Total Protein 6.6 (6.0-8.3) gm/dl Albumin 4.0 (3.4-5.0) gm/dl Globulin 2.6 (2.5-4.0) gm/dl Albumin/Globulin Ratio 1.5 (0.9-2) SARS-CoV-2, RNA, NAAT (NEGATIVE) 01/04/22 Range/Units 15:24 WBC (4.8-10.8) K/uL RBC (4.7-6.1) M/uL Hgb (14.0-18.0) g/dL Hct (42-52) % MCV (80-100) fL MCH (25-34) pg MCHC (32-36) g/dL RDW Std Deviation (36.4-46.3) fL RDW Coeff of Cory (11.5-14.5) % Plt Count (130-400) K/uL MPV (7.4-10.4) fL Immature Gran % (Auto) % Neut % (Auto) % Lymph % (Auto) % Marshall % (Auto) % Eos % (Auto) % Baso % (Auto) % Neut # (Auto) (1.4-6.5) K/uL Lymph # (Auto) (1.2-3.4) K/uL Marshall # (Auto) (0.11-0.59) K/uL Eos # (Auto) (0-0.5) K/uL Baso # (Auto) (0-0.2) K/uL Immature Gran # (Auto) (0.00-0.02) K/uL PT (9.0-12.0) Seconds INR (0.9-1.1) Sodium (136-145) mmol/L Potassium (3.5-5.1) mmol/L Chloride (98-107) mmol/L Carbon Dioxide (21-32) mmol/L Anion Gap (3-11) BUN (6-23) mg/dl Creatinine (0.6-1.4) mg/dl Est Cr Clr Drug Dosing ml/min Est GFR ( Amer) ml/min Est GFR (Non-Af Amer) ml/min BUN/Creatinine Ratio (10-20) Glucose (70-99(Fasting)) mg/dl Calcium (8.5-10.1) mg/dl Total Bilirubin (0.2-1.0) mg/dl AST (13-39) U/L ALT (7-52) U/L Alkaline Phosphatase (34-104) U/L Total Protein (6.0-8.3) gm/dl Albumin (3.4-5.0) gm/dl Globulin (2.5-4.0) gm/dl Albumin/Globulin Ratio (0.9-2) SARS-CoV-2, RNA, NAAT NEGATIVE (NEGATIVE) Administered Medications Discontinued Medications Morphine Sulfate (Morphine Sulfate 4 Mg/Ml 1 Ml Carp\Vial) 4 mg IV NOW STA Stop: 01/04/22 15:15 Last Admin: 01/04/22 15:26 Dose: 4 mg Documented by: [id number] Imaging Data Radiologist's Impression: Cervical Spine CT 01/04/22 13:04 CT cervical spine wo con CLINICAL HISTORY: fall TECHNIQUE: Multidetector row helical CT of the cervical spine was performed without administration of intravenous contrast. Coronal and sagittal reformations were obtained. Automated dose lowering techniques and/or adjustment according to patient size were utilized for this exam. Comparison: None available at the time of this dictation. FINDINGS: No acute fractures or subluxations are identified. Degenerative changes are seen in the visualized spine. Calcification of the transverse ligament is seen at C1- C2. The alignment is normal. Soft tissues are unremarkable. IMPRESSION: Degenerative changes without evidence of acute bony injury. ACT 112: Negative or not required by law. Electronically signed by: Benny Blackburn M.D. 01/04/2022 2:[address] 01/04/22 13:04 CT head/brain wo con CLINICAL HISTORY: fall hit head COMPARISON STUDY: No previous studies for comparison. CT DOSE: 2825.75 mGy.cm TECHNIQUE: Standard CT of the Brain was performed without IV contrast. A dose lowering technique was utilized adhering to the principles of ALARA. FINDINGS: Extraaxial space: There is no evidence for subdural hematoma. There are no extra-axial fluid collections. Ventricles and cisterns: The ventricles are mildly dilated bilaterally. There is no evidence for midline shift or mass effect. Parenchyma: There is no subarachnoid or intraparenchymal hemorrhage. There is no evidence for an acute infarct or cerebral edema. There is mild cerebral cortical atrophy and decreased attenuation in the periventricular white matter representing remote small vessel disease. There are no gross mass lesions. Osseous structures: There is no evidence for an acute fracture. The visualized paranasal sinuses are clear. The mastoid air cells are clear bilaterally. Soft tissues: There is no evidence for focal soft tissue swelling. IMPRESSION: 1. No acute intracerebral pathology. 2. Cerebral cortical atrophy and remote small vessel disease. ACT 112: Negative or not required by law. Electronically signed by: Pedrito Carnes M.D. 01/04/2022 1:54 PM Humerus X-Ray 01/04/22 13:04 XR shoulder LT 1V, XR humerus LT 2V CLINICAL HISTORY: Injury with left shoulder pain. COMPARISON STUDY: No previous studies for comparison. TECHNIQUE: Single AP view of the shoulder and AP and lateral left humerus views FINDINGS: Bones: There is a comminuted, oblique fracture of the proximal third of the humeral shaft. The major distal fracture fragment is displaced laterally with overriding fracture fragments. There is oblique fracture fragment present between the proximal and distal fracture fragments. The remaining imaged portion of the shaft is intact. There is no lytic or blastic lesion. Joints: The humeral head maintains anatomic position within the glenoid. Elbow joint is not fully evaluated by this study. The bones are in anatomic alignment. Soft tissues: There is no focal soft tissue abnormality. There is no radiopaque foreign body. IMPRESSION: 1. Comminuted, oblique fracture of the proximal third of the humeral shaft with displacement of the fracture fragments as described. ACT 112: Negative or not required by law. Electronically signed by: Pedrito Carnes M.D. 01/04/2022 1:48 PM Shoulder X-Ray 01/04/22 13:04 XR shoulder LT 1V, XR humerus LT 2V CLINICAL HISTORY: Injury with left shoulder pain. COMPARISON STUDY: No previous studies for comparison. TECHNIQUE: Single AP view of the shoulder and AP and lateral left humerus views FINDINGS: Bones: There is a comminuted, oblique fracture of the proximal third of the humeral shaft. The major distal fracture fragment is displaced laterally with overriding fracture fragments. There is oblique fracture fragment present between the proximal and distal fracture fragments. The remaining imaged portion of the shaft is intact. There is no lytic or blastic lesion. Joints: The humeral head maintains anatomic position within the glenoid. Elbow joint is not fully evaluated by this study. The bones are in anatomic alignment. Soft tissues: There is no focal soft tissue abnormality. There is no radiopaque foreign body. IMPRESSION: 1. Comminuted, oblique fracture of the proximal third of the humeral shaft with displacement of the fracture fragments as described. ACT 112: Negative or not required by law. Electronically signed by: Pedrito Carnes M.D. 01/04/2022 1:48 PM Discharge Plan Visit Data Chief Complaint: Fall ED Provider: Kade Faustin Discharge Problem: Fall, Fracture, humerus, Contusion of head Forms Stand Alone Forms: [facility] Prescriptions Prescriptions: No Action aspirin 81 mg Tablet,Delayed Release (Dr/Ec) 81 mg PO QAM RF: 0 furosemide 40 mg tablet 40 mg PO Q2D RF: 0 fluticasone propion-salmeterol [Wixela Inhub] 250-50 mcg/dose blister with device 1 inh inhalation BID RF: 0 trazodone 50 mg tablet 50 mg PO HS RF: 0 isosorbide mononitrate 30 mg tablet extended release 24 hr 30 mg PO DAILY RF: 0 clonazepam 0.5 mg tablet 0.5 mg PO BID PRN (Reason: Anxiety) RF: 0 omeprazole 40 mg capsule,delayed release(DR/EC) 40 mg PO QAM RF: 0 levothyroxine 150 mcg tablet 150 mcg PO QAM RF: 0 nitroglycerin [Nitrostat] 0.4 mg Tablet, Sublingual 0.4 mg sublingual DIRECTED PRN (Reason: Chest Pain) RF: 0 Centrum Silver 0.4-300-250 mg-mcg-mcg Tablet 1 tab PO QAM RF: 0 fluticasone propionate [Flonase Allergy Relief] 50 mcg/actuation [place],Suspension 2 spray INTRANASAL DAILY PRN (Reason: Allergy Symptoms) RF: 0 warfarin 2.5 mg tablet 2.5 mg PO DAILY RF: 0 metoprolol succinate 50 mg tablet extended release 24 hr 150 mg PO DAILY RF: 0 lisinopril 5 mg tablet 5 mg PO DAILY RF: 0 rosuvastatin 40 mg tablet 40 mg PO DAILY RF: 0 cholecalciferol (vitamin D3) 50 mcg (2,000 unit) Tablet 50 mcg PO DAILY RF: 0 (DME) Oxygen Home Liters Per Minute See Rx Instructions .Route Qty: 1 RF: 0 acetaminophen [Tylenol] 325 mg Tablet 650 mg PO Q6H PRN (Reason: Pain) RF: 0 betamethasone, augmented 0.05 % cream 1 applic TOPICAL BID PRN (Reason: Pain) RF: 0 albuterol sulfate [Ventolin HFA] 90 mcg/actuation Hfa Aerosol Inhaler 2 puff INHALATION Q4H PRN (Reason: Shortness Of Breath Or Wheezing) RF: 0 wgacjlbi-cqkplyxye-HO 3.5-10,000-10 mg-unit-mg/mL drops,suspension 1 drp OPL BID RF: 0 Combivent Respimat 20-100 mcg/actuation Mist 2 puff INHALATION QID PRN (Reason: COUGH/WHEEZE) RF: 0 Referrals Referrals: Terrence Gtz DO [Primary Care Provider] - Discharge Problem: Fall Qualifiers: Encounter type: initial encounter Qualified Code(s): W19.XXXA - Unspecified fall, initial encounter Fracture, humerus Qualifiers: Encounter type: initial encounter Humerus Location: surgical neck Fracture type: closed Fracture morphology: unspecified fracture morphology Fracture alignment: displaced Laterality: left Qualified Code(s): S42.212A - Unspecified displaced fracture of surgical neck of left humerus, initial encounter for closed fracture Contusion of head Qualifiers: Encounter type: initial encounter Laterality: left
[2022-01-04 13:31] LABS: Basophils # (auto) 0.02 K/uL (0-0.2); Basophils % (auto) 0.2 %; Eosinophils # (auto) 0.27 K/uL (0-0.5); Eosinophils % (auto) 3.3 %; Hematocrit (blood only) 40.6 % (42-52); Hemoglobin 13.6 g/dL (14.0-18.0); Immature Granulocytes # (auto) 0.02 K/uL (0.00-0.02); Immature Granulocytes % (auto) 0.2 %; Lymphocytes # (auto) 1.86 K/uL (1.2-3.4); Mean Corpuscular Hemoglobin 30.4 pg (25-34); Mean Corpuscular Hgb Conc 33.5 g/dL (32-36); Mean Corpuscular Volume 90.8 fL (80-100); Mean Platelet Volume 12.1 fL (7.4-10.4); Monocytes # (auto) 0.96 K/uL (0.11-0.59); Monocytes % (auto) 11.9 %; Neutrophils # (auto) 4.94 K/uL (1.4-6.5); Neutrophils % (auto) 61.4 %; Platelet Count 165 K/uL (130-400); RDW Coefficient of Variation 14.4 % (11.5-14.5); Red Blood Count 4.47 M/uL (4.7-6.1); White Blood Count 8.07 K/uL (4.8-10.8)
[2022-01-04 13:45] LABS: INR 3.7 (0.9-1.1); Prothrombin Time 37.1 Seconds (9.0-12.0)
--- NOTE | 2022-01-04 13:49 | XRay Report ---
XR shoulder LT 1V, XR humerus LT 2V CLINICAL HISTORY: Injury with left shoulder pain. COMPARISON STUDY: No previous studies for comparison. TECHNIQUE: Single AP view of the shoulder and AP and lateral left humerus views FINDINGS: Bones: There is a comminuted, oblique fracture of the proximal third of the humeral shaft. The major distal fracture fragment is displaced laterally with overriding fracture fragments. There is oblique fracture fragment present between the proximal and distal fracture fragments. The remaining imaged po rtion of the shaft is intact. There is no lytic or blastic lesion. Joints: The humeral head maintains anatomic position within the glenoid. Elbow joint is not fully joaquin luated by this study. The bones are in anatomic alignment. Soft tissues: There is no focal soft tissue abnormality. There is no radiopaque foreign body. IMPRESSION: 1. Comminuted, oblique fracture of the proximal third of the humeral shaft with displacement of the f racture fragments as described. ACT 112: Negative or not required by law. Electronically signed by: Pedrito Carnes M.D. 01/04/2022 1:48 PM
[2022-01-04 13:56] LABS: Albumin Globulin Ratio 1.5 (0.9-2); BUN Creatinine Ratio 18.9 (10-20); Bilirubin,Total 0.5 mg/dl (0.2-1.0); Calcium 9.2 mg/dl (8.5-10.1); Creatinine Clr Calc Pharmacy 68.4 ml/min; Est GFR (African American) 92.5 ml/min; Est GFR (Non-African American) 79.8 ml/min; Globulin 2.6 gm/dl (2.5-4.0); Potassium 3.8 mmol/L (3.5-5.1); Total Protein 6.6 gm/dl (6.0-8.3)
--- NOTE | 2022-01-04 13:56 | CT Scan Report ---
CT head/brain wo con CLINICAL HISTORY: fall hit head COMPARISON STUDY: No previous studies for comparison. CT DOSE: 2825.75 mGy.cm TECHNIQUE: Standard CT of the Brain was performed without IV contrast. A dose lowering technique was utilized adhering to the principles of ALARA. FINDINGS: Extraaxial space: There is no evidence for subdural hematoma. There are no extra-axial fluid collecti ons. Ventricles and cisterns: The ventricles are mildly dilated bilaterally. There is no evidence for midl ine shift or mass effect. Parenchyma: There is no subarachnoid or intraparenchymal hemorrhage. There is no evidence for an acut e infarct or cerebral edema. There is mild cerebral cortical atrophy and decreased attenuation in the periventricular white matter representing remote small vessel disease. There are no gross mass lesio ns. Osseous structures: There is no evidence for an acute fracture. The visualized paranasal sinuses are clear. The mastoid air cells are clear bilaterally. Soft tissues: There is no evidence for focal soft tissue swelling. IMPRESSION: 1. No acute intracerebral pathology. 2. Cerebral cortical atrophy and remote small vessel disease. ACT 112: Negative or not required by law. Electronically signed by: Pedrito Carnes M.D. 01/04/2022 1:54 PM
--- NOTE | 2022-01-04 14:03 | CT Scan Report ---
CT cervical spine wo con CLINICAL HISTORY: fall TECHNIQUE: Multidetector row helical CT of the cervical spine was performed without administration of intravenous contrast. Coronal and sagittal reformations were obtained. Automated dose lowering techn iques and/or adjustment according to patient size were utilized for this exam. Comparison: None available at the time of this dictation. FINDINGS: No acute fractures or subluxations are identified. Degenerative changes are seen in the visualized sp ine. Calcification of the transverse ligament is seen at C1-C2. The alignment is normal. Soft tissues are unremarkable. IMPRESSION: Degenerative changes without evidence of acute bony injury. ACT 112: Negative or not required by law. Electronically signed by: Benny Blackburn M.D. 01/04/2022 2:02 PM
[2022-01-04] MEDS ORDERED: MoRPHine SULFATE 4 MG/ML 1 ML CARP\\VIAL IV STA (15:14)
--- NOTE | 2022-01-04 15:34 | History & Physical Report ---
Date of Service January 04, 2022 Assessment & Plan (1) Humerus fracture: Plan: This is an 81yo M with a PMH of CAD, COPD, CKD III, HTN, history of DVT on Coumadin and other medical problems listed below who presents with fall and was found to have comminuted humerus fracture. Humerus XR: comminuted, oblique fracture of the proximal 1/3 of the humeral shaft with displacement of fracture fragments Head CT without acute intracerebral pathology CXR without acute abnormality, ECG ordered [facility] ortho evaluating; will need ORIF. Goal INR 1.5 or below for surgery with Dr. 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 INR 3.7, last took coumadin today. Will hold and trend INR daily (5) CAD (coronary artery disease): Plan: H/o CABG in 2004, chronic disease that appears stable, no chest pain Has a history of ischemic cardiomyopathy however ejection fraction is now preserved per last echocardiogram Continue Imdur, lisinopril, Toprol XL with hold parameters, Crestor (6) HTN (hypertension): Plan: Continue lisinopril, Toprol XL (7) CKD (chronic kidney disease), stage III: Plan: Cr at baseline ~0.9-1. Continue to trend with daily BMP (8) COPD (chronic obstructive pulmonary disease): Plan: Stable. O2 saturation 96% on room air. Continue home inhalers ,supplemental O2 as needed (9) Hypothyroidism: Plan: Continue levothyroxine (10) Dyslipidemia: Plan: Continue statin (11) IRLANDA (obstructive sleep apnea): Plan: CPAP HS DVT Ppx: SCDs Code status: FULL PCP: Ulisses Dispo: Admitted to med/surg Patient seen in collaboration with Dr. Vines. Please see addendum. History of Present Illness Chief Complaint: fall Primary Care Provider: Terrence Gtz DO This is an 81yo M with a PMH of CAD, COPD, CKD III, HTN, history of DVT on Coumadin and other medical problems listed below who presents with fall. Tripped while walking outdoors and fell onto left side. Did hit his head but denies LOC. Endorsing 7/10 L shoulder pain but just received Morphine. No numbness or tinging. Pain exacerbated with movement, better with rest. Already took Coumadin today. No medication changes reported. No F/C, lightheadedness, CP, SOB, N/V, abdominal pain, dysuria, diarrhea or constipation. Allergies Allergy/AdvReac Type Severity Reaction Status Date / Time adhesive Allergy Intermediate BLISTERS Verified 01/04/22 16:14 amoxicillin [From Augmentin] Allergy Intermediate BURNING Verified 01/04/22 16:14 SENSATION OF TONGUE clavulanic acid Allergy Intermediate BURNING Verified 01/04/22 16:14 [From Augmentin] SENSATION OF TONGUE fish oil Allergy Intermediate ITCHY Verified 01/04/22 16:14 HIVES--IODINE Iodinated Contrast Media Allergy Intermediate ITCHY HIVES Verified 01/04/22 16:14 iodine Allergy Intermediate ANYTHING Verified 01/04/22 16:14 WITH IODINE--ITCHY HIVES niacin Allergy Intermediate Hives Verified 01/04/22 16:14 cat dander Allergy Unknown ON [facility] MED Verified 01/04/22 16:14 LIST atorvastatin AdvReac Intermediate MUSCLE Verified 01/04/22 16:14 ACHES CAT GUT AdvReac Intermediate INFLAMMATIO Uncoded 01/04/22 16:14 N Home Medications Medication Instructions Recorded Confirmed Type aspirin 81 mg tablet,delayed 81 mg PO QAM 07/12/19 01/04/22 History release clonazepam 0.5 mg tablet 0.5 mg PO BID PRN 07/12/19 01/04/22 History fluticasone 250 mcg-salmeterol 50 1 inh INHALATION BID 07/12/19 01/04/22 History mcg/dose blistr powdr for inhalation (Wixela Inhub) fluticasone propionate 50 2 spray INTRANASAL DAILY PRN 07/12/19 01/04/22 History mcg/actuation nasal spray,suspension (Flonase Allergy Relief) furosemide 40 mg tablet 40 mg PO Q2D 07/12/19 01/04/22 History isosorbide mononitrate 30 mg 30 mg PO DAILY 07/12/19 01/04/22 History tablet,extended release 24 hr levothyroxine 150 mcg tablet 150 mcg PO QAM 07/12/19 01/04/22 History zjdqfeil-pfa-koymv acid 0.4 1 tab PO QAM 07/12/19 01/04/22 History mg-lycopene 300 mcg-lutein 250 mcg tablet (Centrum Silver) nitroglycerin 0.4 mg sublingual 0.4 mg SUBLINGUAL DIRECTED PRN 07/12/19 01/04/22 History tablet (Nitrostat) omeprazole 40 mg capsule,delayed 40 mg PO QAM 07/12/19 01/04/22 History release trazodone 50 mg tablet 50 mg PO HS 07/12/19 01/04/22 History warfarin 2.5 mg tablet 2.5 mg PO DAILY 07/12/19 01/04/22 History cholecalciferol (vitamin D3) 50 50 mcg PO DAILY 07/14/21 01/04/22 History mcg (2,000 unit) tablet lisinopril 5 mg tablet 5 mg PO DAILY 07/14/21 01/04/22 History metoprolol succinate 50 mg 150 mg PO DAILY 07/14/21 01/04/22 History tablet,extended release 24 hr rosuvastatin 40 mg tablet 40 mg PO DAILY 07/14/21 01/04/22 History Oxygen Home #1 ea 07/20/21 Rx acetaminophen 325 mg tablet 650 mg PO Q6H PRN 01/04/22 01/04/22 History (Tylenol) albuterol sulfate 90 mcg/actuation 2 puff INHALATION Q4H PRN 01/04/22 01/04/22 History aerosol inhaler (Ventolin HFA) betamethasone, augmented 0.05 % 1 applic TOPICAL BID PRN 01/04/22 01/04/22 History topical cream ipratropium 20 mcg-albuterol 100 2 puff INHALATION QID PRN 01/04/22 01/04/22 History mcg/actuation mist for inhalation (Combivent Respimat) neomycin 3.5 mg-polymyxin 10,000 1 drp OPL BID 01/04/22 01/04/22 History unit-hydrocort 10 mg/mL eye drop,susp Past Med/Surg History Medical History CAD (coronary artery disease) 2004 - CABG Chronic anticoagulation CKD (chronic kidney disease), stage III COPD (chronic obstructive pulmonary disease) Dyslipidemia Frequent falls GERD (gastroesophageal reflux disease) History of DVT (deep vein thrombosis) HTN (hypertension) Hypothyroidism Ischemic cardiomyopathy Obesity IRLANDA (obstructive sleep apnea) Periprosthetic fracture of shaft of femur Prediabetes Surgical History History of coronary artery bypass graft History of total knee arthroplasty Family History Other Family history non-contributory Hypertension Social History Smoking Status: Never smoker Second Hand Exposure: No; Hx Alcohol Use: Yes Alcohol type: hard liquor Hx Substance Use: No Preferred Language: Palestinian Communication Ability: Effective Precipitate Washer Required: No Beliefs That Will Affect Care: None Current Living Situation: Family Current Living Situation Comment: grandson lives with him Feels Safe at Home: Yes Assistive Devices: Glasses and Oxygen - Continuous Review of Systems Review of Systems: At least ten systems reviewed and negative except as noted in the HPI. Physical Exam Physical Exam: Please see Dr. Vines's addendum for physical exam. Results & Data Results & Data ([facility]) Vital Signs (Past 12 Hours) Vital Signs Temp Pulse Pulse Resp BP BP Pulse Ox 01/04/22 15:00 103 H 18 117/68 95 01/04/22 14:02 91 H 18 136/74 97 01/04/22 13:04 89 18 94 01/04/22 12:54 36.7 C 89 18 115/80 94 Laboratory Results Short CBC 01/04/22 Range/Units 13:10 WBC 8.07 (4.8-10.8) K/uL Hgb 13.6 L (14.0-18.0) g/dL Hct 40.6 L (42-52) % Plt Count 165 (130-400) K/uL BMP 01/04/22 13:10 Sodium 142 Potassium 3.8 Chloride 104 Carbon Dioxide 31 BUN 17 Creatinine 0.90 Glucose 98 Calcium 9.2 Liver Function 01/04/22 Range/Units 13:10 Total Bilirubin 0.5 (0.2-1.0) mg/dl AST 26 (13-39) U/L ALT 19 (7-52) U/L Alkaline Phosphatase 100 (34-104) U/L Albumin 4.0 (3.4-5.0) gm/dl Diagnostic Findings Cervical Spine CT 01/04/22 13:04 CT cervical spine wo con CLINICAL HISTORY: fall TECHNIQUE: Multidetector row helical CT of the cervical spine was performed without administration of intravenous contrast. Coronal and sagittal reformations were obtained. Automated dose lowering techniques and/or adjustment according to patient size were utilized for this exam. Comparison: None available at the time of this dictation. FINDINGS: No acute fractures or subluxations are identified. Degenerative changes are seen in the visualized spine. Calcification of the transverse ligament is seen at C1- C2. The alignment is normal. Soft tissues are unremarkable. IMPRESSION: Degenerative changes without evidence of acute bony injury. ACT 112: Negative or not required by law. Electronically signed by: Benny Blackburn M.D. 01/04/2022 2:[address] 01/04/22 13:04 CT head/brain wo con CLINICAL HISTORY: fall hit head COMPARISON STUDY: No previous studies for comparison. CT DOSE: 2825.75 mGy.cm TECHNIQUE: Standard CT of the Brain was performed without IV contrast. A dose lowering technique was utilized adhering to the principles of ALARA. FINDINGS: Extraaxial space: There is no evidence for subdural hematoma. There are no extra-axial fluid collections. Ventricles and cisterns: The ventricles are mildly dilated bilaterally. There is no evidence for midline shift or mass effect. Parenchyma: There is no subarachnoid or intraparenchymal hemorrhage. There is no evidence for an acute infarct or cerebral edema. There is mild cerebral cortical atrophy and decreased attenuation in the periventricular white matter representing remote small vessel disease. There are no gross mass lesions. Osseous structures: There is no evidence for an acute fracture. The visualized paranasal sinuses are clear. The mastoid air cells are clear bilaterally. Soft tissues: There is no evidence for focal soft tissue swelling. IMPRESSION: 1. No acute intracerebral pathology. 2. Cerebral cortical atrophy and remote small vessel disease. ACT 112: Negative or not required by law. Electronically signed by: Pedrito Carnes M.D. 01/04/2022 1:54 PM Humerus X-Ray 01/04/22 13:04 XR shoulder LT 1V, XR humerus LT 2V CLINICAL HISTORY: Injury with left shoulder pain. COMPARISON STUDY: No previous studies for comparison. TECHNIQUE: Single AP view of the shoulder and AP and lateral left humerus views FINDINGS: Bones: There is a comminuted, oblique fracture of the proximal third of the humeral shaft. The major distal fracture fragment is displaced laterally with overriding fracture fragments. There is oblique fracture fragment present between the proximal and distal fracture fragments. The remaining imaged portion of the shaft is intact. There is no lytic or blastic lesion. Joints: The humeral head maintains anatomic position within the glenoid. Elbow joint is not fully evaluated by this study. The bones are in anatomic alignment. Soft tissues: There is no focal soft tissue abnormality. There is no radiopaque foreign body. IMPRESSION: 1. Comminuted, oblique fracture of the proximal third of the humeral shaft with displacement of the fracture fragments as described. ACT 112: Negative or not required by law. Electronically signed by: Pedrito Carnes M.D. 01/04/2022 1:48 PM Shoulder X-Ray 01/04/22 13:04 XR shoulder LT 1V, XR humerus LT 2V CLINICAL HISTORY: Injury with left shoulder pain. COMPARISON STUDY: No previous studies for comparison. TECHNIQUE: Single AP view of the shoulder and AP and lateral left humerus views FINDINGS: Bones: There is a comminuted, oblique fracture of the proximal third of the humeral shaft. The major distal fracture fragment is displaced laterally with overriding fracture fragments. There is oblique fracture fragment present between the proximal and distal fracture fragments. The remaining imaged portion of the shaft is intact. There is no lytic or blastic lesion. Joints: The humeral head maintains anatomic position within the glenoid. Elbow joint is not fully evaluated by this study. The bones are in anatomic alignment. Soft tissues: There is no focal soft tissue abnormality. There is no radiopaque foreign body. IMPRESSION: 1. Comminuted, oblique fracture of the proximal third of the humeral shaft with displacement of the fracture fragments as described. ACT 112: Negative or not required by law. Electronically signed by: Pedrito Carnes M.D. 01/04/2022 1:48 PM Supervising Physician Co-Signing Physician Notes I saw this patient with the physician assistant refinery operator, I participated in the history, physical, review of systems, and physical exam. I reviewed the medications with the patient and the physician assistant refinery operator and helped reconcile the medications. I helped take a detailed family and social history as well. I formulated the assessment and plan personally with the physician assistant refinery operator and went over it with the patient. ROS-No Headache, No Visual Changes, No Nausea, No Vomiting, No Fever, No Chills, No Neck Pain or Stiffness, No Chest Pain, No Palpitations, No SOB, No GU[place], No Cough, No Sputum, No Wheezing, No Abdominal Pain, No Diarrhea, No Hematemesis, No Hemoptysis, No Unexpected Weight Loss, No Flank pain, No Melena, No Hematochezia, No Frequency, No Urgency, No Burning, No Hematuria, No Rashes, No Diaphoresis. Appetite is Normal. +L Shoulder Pain Physical Exam Gen-AAO x 3, NAD, Afebrile, Obese Head-Facial and forehead bruises, EOMI, PERRLA, Anicteric Sclera, No Posterior Pharyngeal Erythema Neck-Supple, No JVD, No Thyromegaly, No Masses, No LAD, No Bruits Lungs-Clear to Auscultation Bilaterally, No Rales, No Rhonchi, No Wheezing, No Crepitus Chest-No S4, +S1, +S2, No S3, No Murmurs, No Rubs, No Gallops, No Ectopy Abdomen-Soft, Bowel Sounds Present, Non Tender, Non Distended, No Hepatomegaly, No Splenomegaly, No Palpable Masses, No Rebound, No Rigidity, No Guarding Musculoskeletal-Full Range of Motion Bilaterally, No CVAT Extremities-No Cyanosis, No Clubbing, No Edema Nuero-Cranial Nerves II-XII grossly intact, Motor WNL, DTRs WNL, Strength WNL, Non Focal Psych-Normal Mood
--- NOTE | 2022-01-04 15:51 | Orthopedic Consultation ---
Date of Consultation January 04, 2022 Assessment & Plan (1) Humerus fracture: Left proximal third humerus fracture. Case has been discussed with Dr. Hawkins. X-rays have been reviewed. Patient will require ORIF of his left proximal third humerus fracture. On admission, patient's INR was 3.7. This will have to be brought down to around 1.5 or less for surgery. This was discussed with Dr. Vines. Initial plans are to let his INR drift down slowly if possible for surgery on , 01/06/2022. If the INR is not coming down fast enough, use of vitamin K might need to be used if not detrimental to the patient. Plan to keep the arm in a sling at this time. Ice to left proximal humerus. History of Present Illness Reason for Consultation: Left Proximal Humerus Fracture History of Present Illness Patient is an 81yo male known to our practice with a PMH of CAD, COPD, CKD III, HTN, history of DVT on Coumadin and other medical problems listed below who pres ents with fall. Patient is mainly a household ambulator with wheelchair and walker. He states that he does go outside at times and does get his own mail. He uses a walker for this. He states that he was on his way back from getting the mail and ended up slipping on the pavement and fell onto his left side. He had immediate pain in his left upper extremity. He denies loss of consciousness. He denies any shortness of breath, chest pain, lightheadedness prior to or after the fall. He was brought to the emergency room and was seen by the staff. X-rays were taken and was found that he had a comminuted proximal left humerus fracture. [facility] we have been asked to take care of his left upper extremity fracture. Allergies Allergy/AdvReac Type Severity Reaction Status Date / Time adhesive Allergy Intermediate BLISTERS Verified 01/04/22 16:14 amoxicillin [From Augmentin] Allergy Intermediate BURNING Verified 01/04/22 16:14 SENSATION OF TONGUE clavulanic acid Allergy Intermediate BURNING Verified 01/04/22 16:14 [From Augmentin] SENSATION OF TONGUE fish oil Allergy Intermediate ITCHY Verified 01/04/22 16:14 HIVES--IODINE Iodinated Contrast Media Allergy Intermediate ITCHY HIVES Verified 01/04/22 16:14 iodine Allergy Intermediate ANYTHING Verified 01/04/22 16:14 WITH IODINE--ITCHY HIVES niacin Allergy Intermediate Hives Verified 01/04/22 16:14 cat dander Allergy Unknown ON GMG MED Verified 01/04/22 16:14 LIST atorvastatin AdvReac Intermediate MUSCLE Verified 01/04/22 16:14 ACHES CAT GUT AdvReac Intermediate INFLAMMATIO Uncoded 01/04/22 16:14 N Home Medications Medication Instructions Recorded Confirmed Type aspirin 81 mg tablet,delayed 81 mg PO QAM 07/12/19 01/04/22 History release clonazepam 0.5 mg tablet 0.5 mg PO BID PRN 07/12/19 01/04/22 History fluticasone 250 mcg-salmeterol 50 1 inh INHALATION BID 07/12/19 01/04/22 History mcg/dose blistr powdr for inhalation (Wixela Inhub) fluticasone propionate 50 2 spray INTRANASAL DAILY PRN 07/12/19 01/04/22 History mcg/actuation nasal spray,suspension (Flonase Allergy Relief) furosemide 40 mg tablet 40 mg PO Q2D 07/12/19 01/04/22 History isosorbide mononitrate 30 mg 30 mg PO DAILY 07/12/19 01/04/22 History tablet,extended release 24 hr levothyroxine 150 mcg tablet 150 mcg PO QAM 07/12/19 01/04/22 History [id number] acid 0.4 1 tab PO QAM 07/12/19 01/04/22 History mg-lycopene 300 mcg-lutein 250 mcg tablet (Centrum Silver) nitroglycerin 0.4 mg sublingual 0.4 mg SUBLINGUAL DIRECTED PRN 07/12/19 01/04/22 History tablet (Nitrostat) omeprazole 40 mg capsule,delayed 40 mg PO QAM 07/12/19 01/04/22 History release trazodone 50 mg tablet 50 mg PO HS 07/12/19 01/04/22 History warfarin 2.5 mg tablet 2.5 mg PO DAILY 07/12/19 01/04/22 History cholecalciferol (vitamin D3) 50 50 mcg PO DAILY 07/14/21 01/04/22 History mcg (2,000 unit) tablet lisinopril 5 mg tablet 5 mg PO DAILY 07/14/21 01/04/22 History metoprolol succinate 50 mg 150 mg PO DAILY 07/14/21 01/04/22 History tablet,extended release 24 hr rosuvastatin 40 mg tablet 40 mg PO DAILY 07/14/21 01/04/22 History Oxygen Home #1 ea 07/20/21 Rx acetaminophen 325 mg tablet 650 mg PO Q6H PRN 01/04/22 01/04/22 History (Tylenol) albuterol sulfate 90 mcg/actuation 2 puff INHALATION Q4H PRN 01/04/22 01/04/22 History aerosol inhaler (Ventolin HFA) betamethasone, augmented 0.05 % 1 applic TOPICAL BID PRN 01/04/22 01/04/22 History topical cream ipratropium 20 mcg-albuterol 100 2 puff INHALATION QID PRN 01/04/22 01/04/22 History mcg/actuation mist for inhalation (Combivent Respimat) neomycin 3.5 mg-polymyxin 10,000 1 drp OPL BID 01/04/22 01/04/22 History unit-hydrocort 10 mg/mL eye drop,susp Patient History Medical History CAD (coronary artery disease) 2005 - CABG Chronic anticoagulation CKD (chronic kidney disease), stage III COPD (chronic obstructive pulmonary disease) COVID-19 Dyslipidemia Frequent falls GERD (gastroesophageal reflux disease) History of DVT (deep vein thrombosis) HTN (hypertension) Hypothyroidism Ischemic cardiomyopathy Obesity IRLANDA (obstructive sleep apnea) Periprosthetic fracture of shaft of femur Prediabetes Surgical History History of coronary artery bypass graft History of total knee arthroplasty Family History Other Family history non-contributory Hypertension Social History Smoking Status: Unknown if ever smoked Second Hand Exposure: No; Do You Dip or Chew Tobacco: No; Hx Alcohol Use: Yes Alcohol type: hard liquor Hx Substance Use: No Preferred Language: Indonesian Communication Ability: Effective [employer] Field Coordinator Required: No Beliefs That Will Affect Care: None Current Living Situation: Family Current Living Situation Comment: with grandson Other Information That Helps Us Care for You: No Feels Safe at Home: Yes Safety Concerns: Feels Safe At This Time Assistive Devices: Cane, Walker and Wheelchair Physical Exam Physical Exam: Patient is an 81-year-old obese white male who appears his stated age. He is alert and oriented x3. Pleasant and cooperative. No acute distress. On examination of his left upper extremity, he is noted to have moderate swelling and some ecchymosis around the left upper arm just below the shoulder. He is painful on palpation and no attempts of range of motion were done secondary to fracture. He has no pain on palpation of his left elbow but states he does not like to move the left elbow secondary to pain in around the sh oulder. He has good range of motion of his left fingers and wrist without pain. No obvious discomfort on palpation of cervical spine. Right upper extremity is unaffected at the shoulder, elbow, and wrist. Distal pulses are equal bilaterally of the upper extremities. Patient denies any discomfort or pain in the lower extremities at this time. Patient is nontender on palpation at the hips, knees, ankles. Range of motion appears to be intact. There is no gross motor or sensory loss seen at this time. Results & Data ([facility]) Vital Signs (Past 12 Hours) Vital Signs Temp Pulse Pulse Resp BP BP Pulse Ox 01/04/22 15:30 103 H 16 104/62 96 01/04/22 15:00 97 H 103 H 18 117/68 117/68 95 01/04/22 14:30 91 H 15 127/76 01/04/22 14:02 91 H 18 136/74 97 01/04/22 13:04 89 18 94 01/04/22 12:54 36.7 C 89 18 115/80 94 Diagnostic Findings Laboratory Results WBC 8.07 K/uL (4.8-10.8) 01/04/22 13:10 RBC 4.47 M/uL (4.7-6.1) L 01/04/22 13:10 Hgb 13.6 g/dL (14.0-18.0) L 01/04/22 13:10 Hct 40.6 % (42-52) L 01/04/22 13:10 MCV 90.8 fL (80-100) 01/04/22 13:10 MCH 30.4 pg (25-34) 01/04/22 13:10 MCHC 33.5 g/dL (32-36) 01/04/22 13:10 RDW Std Deviation 48.0 fL (36.4-46.3) H 01/04/22 13:10 RDW Coeff of Cory 14.4 % (11.5-14.5) 01/04/22 13:10 Plt Count 165 K/uL (130-400) 01/04/22 13:10 MPV 12.1 fL (7.4-10.4) H 01/04/22 13:10 Immature Gran % (Auto) 0.2 % 01/04/22 13:10 Neut % (Auto) 61.4 % 01/04/22 13:10 Lymph % (Auto) 23.0 % 01/04/22 13:10 Chicot % (Auto) 11.9 % 01/04/22 13:10 Eos % (Auto) 3.3 % 01/04/22 13:10 Baso % (Auto) 0.2 % 01/04/22 13:10 Neut # (Auto) 4.94 K/uL (1.4-6.5) 01/04/22 13:10 Lymph # (Auto) 1.86 K/uL (1.2-3.4) 01/04/22 13:10 Chicot # (Auto) 0.96 K/uL (0.11-0.59) H 01/04/22 13:10 Eos # (Auto) 0.27 K/uL (0-0.5) 01/04/22 13:10 Baso # (Auto) 0.02 K/uL (0-0.2) 01/04/22 13:10 Immature Gran # (Auto) 0.02 K/uL (0.00-0.02) 01/04/22 13:10 PT 37.1 Seconds (9.0-12.0) H 01/04/22 13:10 INR 3.7 (0.9-1.1) H 01/04/22 13:10 Sodium 142 mmol/L (136-145) 01/04/22 13:10 Potassium 3.8 mmol/L (3.5-5.1) 01/04/22 13:10 Chloride 104 mmol/L (98-107) 01/04/22 13:10 Carbon Dioxide 31 mmol/L (21-32) 01/04/22 13:10 Anion Gap 7 (3-11) 01/04/22 13:10 BUN 17 mg/dl (6-23) 01/04/22 13:10 Creatinine 0.90 mg/dl (0.6-1.4) 01/04/22 13:10 Est Cr Clr Drug Dosing 68.4 ml/min 01/04/22 13:10 Est GFR ( Amer) 92.5 ml/min 01/04/22 13:10 Est GFR (Non-Af Amer) 79.8 ml/min 01/04/22 13:10 BUN/Creatinine Ratio 18.9 (10-20) 01/04/22 13:10 Glucose 98 mg/dl (70-99(Fasting)) 01/04/22 13:10 Calcium 9.2 mg/dl (8.5-10.1) 01/04/22 13:10 Total Bilirubin 0.5 mg/dl (0.2-1.0) 01/04/22 13:10 AST 26 U/L (13-39) 01/04/22 13:10 ALT 19 U/L (7-52) 01/04/22 13:10 Alkaline Phosphatase 100 U/L (34-104) 01/04/22 13:10 Total Protein 6.6 gm/dl (6.0-8.3) 01/04/22 13:10 Albumin 4.0 gm/dl (3.4-5.0) 01/04/22 13:10 Globulin 2.6 gm/dl (2.5-4.0) 01/04/22 13:10 Albumin/Globulin Ratio 1.5 (0.9-2) 01/04/22 13:[address] 01/04/22 13:04 CT cervical spine wo con CLINICAL HISTORY: fall TECHNIQUE: Multidetector row helical CT of the cervical spine was performed without administration of intravenous contrast. Coronal and sagittal reformations were obtained. Automated dose lowering techniques and/or adjustment according to patient size were utilized for this exam. Comparison: None available at the time of this dictation. FINDINGS: No acute fractures or subluxations are identified. Degenerative changes are seen in the visualized spine. Calcification of the transverse ligament is seen at C1- C2. The alignment is normal. Soft tissues are unremarkable. IMPRESSION: Degenerative changes without evidence of acute bony injury. ACT 112: Negative or not required by law. Electronically signed by: Benny Blackburn M.D. 01/04/2022 2:[address] 01/04/22 13:04 CT head/brain wo con CLINICAL HISTORY: fall hit head COMPARISON STUDY: No previous studies for comparison. CT DOSE: 2825.75 mGy.cm TECHNIQUE: Standard CT of the Brain was performed without IV contrast. A dose lowering technique was utilized adhering to the principles of ALARA. FINDINGS: Extraaxial space: There is no evidence for subdural hematoma. There are no extra-axial fluid collections. Ventricles and cisterns: The ventricles are mildly dilated bilaterally. There is no evidence for midline shift or mass effect. Parenchyma: There is no subarachnoid or intraparenchymal hemorrhage. There is no evidence for an acute infarct or cerebral edema. There is mild cerebral cortical atrophy and decreased attenuation in the periventricular white matter representing remote small vessel disease. There are no gross mass lesions. Osseous structures: There is no evidence for an acute fracture. The visualized paranasal sinuses are clear. The mastoid air cells are clear bilaterally. Soft tissues: There is no evidence for focal soft tissue swelling. IMPRESSION: 1. No acute intracerebral pathology. 2. Cerebral cortical atrophy and remote small vessel disease. ACT 112: Negative or not required by law. Electronically signed by: Pedrito Carnes M.D. 01/04/2022 1:54 PM Humerus X-Ray 01/04/22 13:04 XR shoulder LT 1V, XR humerus LT 2V CLINICAL HISTORY: Injury with left shoulder pain. COMPARISON STUDY: No previous studies for comparison. TECHNIQUE: Single AP view of the shoulder and AP and lateral left humerus views FINDINGS: Bones: There is a comminuted, oblique fracture of the proximal third of the humeral shaft. The major distal fracture fragment is displaced laterally with overriding fracture fragments. There is oblique fracture fragment present between the proximal and distal fracture fragments. The remaining imaged portion of the shaft is intact. There is no lytic or blastic lesion. Joints: The humeral head maintains anatomic position within the glenoid. Elbow joint is not fully evaluated by this study. The bones are in anatomic alignment. Soft tissues: There is no focal soft tissue abnormality. There is no radiopaque foreign body. IMPRESSION: 1. Comminuted, oblique fracture of the proximal third of the humeral shaft with displacement of the fracture fragments as described. ACT 112: Negative or not required by law. Electronically signed by: Pedrito Carnes M.D. 01/04/2022 1:48 PM Shoulder X-Ray 01/04/22 13:04 XR shoulder LT 1V, XR humerus LT 2V CLINICAL HISTORY: Injury with left shoulder pain. COMPARISON STUDY: No previous studies for comparison. TECHNIQUE: Single AP view of the shoulder and AP and lateral left humerus views FINDINGS: Bones: There is a comminuted, oblique fracture of the proximal third of the humeral shaft. The major distal fracture fragment is displaced laterally with overriding fracture fragments. There is oblique fracture fragment present between the proximal and distal fracture fragments. The remaining imaged portion of the shaft is intact. There is no lytic or blastic lesion. Joints: The humeral head maintains anatomic position within the glenoid. Elbow joint is not fully evaluated by this study. The bones are in anatomic alignment. Soft tissues: There is no focal soft tissue abnormality. There is no radiopaque foreign body.
[2022-01-04] MEDS ORDERED: POLYETHYLENE (MIRALAX) 17 GM PACK PO PRN (18:02)
[2022-01-04] MEDS ORDERED: ALBUTEROL HFA 8 GM INHALER INH PRN (18:02)
[2022-01-04] MEDS ORDERED: ONDANSETRON INJ 2 MG/ML 2 ML VIAL IV PRN (18:02)
[2022-01-04] MEDS ORDERED: IPRATROPIUM BROMIDE/ALBUTEROL respimat INH INH PRN (18:02)
[2022-01-04] MEDS ORDERED: clonazePAM 0.5 MG TAB PO PRN (18:02)
[2022-01-04] MEDS ORDERED: FLUTICASONE PROPIONATE NA SPR 16 GM BTL NAE PRN (18:02)
[2022-01-04] MEDS ORDERED: ACETAMINOPHEN 500 MG TAB PO PRN (18:02)
[2022-01-04] MEDS ORDERED: BETAMETHASONE DIP AUG (DIPROLENE) 0.05% CR 15 GM TUBE EXT PRN (18:26)
[2022-01-04] MEDS ORDERED: Albuterol HFA 8 GM Inhaler (Combivent Respimat P&T Subs) INH PRN (18:40)
[2022-01-04] MEDS ORDERED: Ipratropium HFA Inhaler (Combivent Respimat P&T Subs) INH PRN (18:40)
[2022-01-04] MEDS ORDERED: FLUTICASONE/SALMETEROL 250/50 (ADVAIR) 14 PUFF/1 INHALER INH SCH (21:00)
[2022-01-04] MEDS: traZODone HCL 50 MG TAB PO SCH (21:34)
[2022-01-04] MEDS: NEOMYCIN/POLYMYXIN/HYDROCORT OPH SUSP 7.5 ML BTL OPL SCH (21:34)
[2022-01-04] MEDS: MoRPHine SULFATE 2 MG/ML CARP IV PRN (23:49)
[2022-01-05] MEDS ORDERED: METOPROLOL TARTRATE 25 MG TAB PO STA ×2 (00:18→00:30)
[2022-01-05] MEDS ORDERED: SODIUM CHLORIDE 0.9% 500 ML IV SCH (00:45)
[2022-01-05] MEDS ORDERED: SODIUM CHLORIDE 0.9% 1000ML 1,000 ML IV SCH (01:45)
[2022-01-05] MEDS: LEVOTHYROXINE SODIUM 150 MCG TABLET PO SCH (05:58)
[2022-01-05] MEDS: PANTOprazole 40 MG TAB PO SCH (06:00)
[2022-01-05] MEDS: MoRPHine SULFATE 2 MG/ML CARP IV PRN (06:20)
[2022-01-05 07:25] LABS: Hemoglobin 10.9 g/dL (14.0-18.0); Mean Corpuscular Volume 90.9 fL (80-100); Mean Platelet Volume 11.6 fL (7.4-10.4); Platelet Count 154 K/uL (130-400); RDW Coefficient of Variation 14.5 % (11.5-14.5); RDW Standard Deviation 48.7 fL (36.4-46.3); Red Blood Count 3.63 M/uL (4.7-6.1); White Blood Count 8.65 K/uL (4.8-10.8)
[2022-01-05 07:49] LABS: BUN Creatinine Ratio 20.7 (10-20); Calcium 7.9 mg/dl (8.5-10.1); Creatinine Clr Calc Pharmacy 64.1 ml/min; Est GFR (African American) 90.1 ml/min; Est GFR (Non-African American) 77.7 ml/min; Potassium 3.9 mmol/L (3.5-5.1)
[2022-01-05 07:50] LABS: Prothrombin Time 39.2 Seconds (9.0-12.0)
--- NOTE | 2022-01-05 08:35 | Electrocardiogram Report ---
Test Reason : Blood Pressure : / mmHG Vent. Rate : 127 BPM Atrial Rate : 127 BPM P-R Int : 156 ms QRS Dur : 090 ms QT Int : 320 ms P-R-T Axes : 020 021 -55 degrees QTc Int : 465 ms Sinus tachycardia Possible Old Inferior infarct (cited on or before 28-OCT-2011) Anterolateral leads Abnormal ECG When compared with ECG of 04-JAN-2022 16:18, HR has increased by 21 bpm Otherwise no significant change Confirmed by Steve Montero ([id number]) on 01/05/2022 8:35:24 AM Referred By: REFERRED SELF Confirmed By:Steve Montero
--- NOTE | 2022-01-05 09:04 | Electrocardiogram Report ---
Test Reason : Blood Pressure : / mmHG Vent. Rate : 106 BPM Atrial Rate : 106 BPM P-R Int : 160 ms QRS Dur : 102 ms QT Int : 338 ms P-R-T Axes : 009 013 -27 degrees QTc Int : 448 ms Sinus tachycardia Possible Old Inferior infarct (cited on or before 28-OCT-2011) Diffuse Nonspecific T wave abnormality Abnormal ECG When compared with ECG of 14-JUL-2021 12:07, No significant change was found Confirmed by Steve Montero ([id number]) on 01/05/2022 9:04:30 AM Referred By: REFERRED SELF Confirmed By:Steve Montero
[2022-01-05] MEDS ORDERED: PHYTONADIONE 5 MG in DEXTROSE 5% 50 ML IV ONE (09:15)
[2022-01-05] MEDS: FLUTICASONE/VILANTEROL 100/25MCG 14 PUFFS/INHALER INH SCH (09:52)
[2022-01-05] MEDS: METOPROLOL SUCC 50MG EXT REL TAB PO SCH (09:53)
[2022-01-05] MEDS: ROSUVASTATIN CALCIUM 20 MG TAB PO SCH (09:53)
[2022-01-05] MEDS: NEOMYCIN/POLYMYXIN/HYDROCORT OPH SUSP 7.5 ML BTL OPL SCH ×2 (09:53→21:33)
[2022-01-05] MEDS: CEROVITE ADV FORMULA TAB PO SCH (09:53)
[2022-01-05] MEDS: CHOLECALCIFEROL 1,000 UNITS 25 MCG TAB PO SCH (09:54)
[2022-01-05] MEDS: ASPIRIN 81 MG ECTAB PO SCH (09:54)
[2022-01-05] MEDS: lisinopril 5 MG TAB PO SCH (09:54)
[2022-01-05] MEDS: ISOSORBIDE MONO EXTENDED REL 30 MG TABCR PO SCH (09:54)
--- NOTE | 2022-01-05 11:07 | Anesthesiology Consultation ---
Date of Service January 05, 2022 Assessment & Plan (1) Encounter for pre-operative examination: Chart Review Chart Review: Acceptable Risk for Surgery and Patient NOT seen in Pre Admission Testing Consults Requested none Additional Notes Pt's INR is currently too high to perform elective surgery. Will follow for n ow. History Surgery Operation Date: 01/06/22 07:50 Proposed Procedures p Open Reduction Internal Fixation Left Proximal Humerus - Steven Hawkins MD Height/Weight Height: 5 ft 1 in Weight: 101.5 kg Allergies Allergy/AdvReac Type Severity Reaction Status Date / Time adhesive Allergy Intermediate BLISTERS Verified 01/04/22 16:14 amoxicillin [From Augmentin] Allergy Intermediate BURNING Verified 01/04/22 16:14 SENSATION OF TONGUE clavulanic acid Allergy Intermediate BURNING Verified 01/04/22 16:14 [From Augmentin] SENSATION OF TONGUE fish oil Allergy Intermediate ITCHY Verified 01/04/22 16:14 HIVES--IODINE Iodinated Contrast Media Allergy Intermediate ITCHY HIVES Verified 01/04/22 16:14 iodine Allergy Intermediate ANYTHING Verified 01/04/22 16:14 WITH IODINE--ITCHY HIVES niacin Allergy Intermediate Hives Verified 01/04/22 16:14 cat dander Allergy Unknown ON GMG MED Verified 01/04/22 16:14 LIST atorvastatin AdvReac Intermediate MUSCLE Verified 01/04/22 16:14 ACHES CAT GUT AdvReac Intermediate INFLAMMATIO Uncoded 01/04/22 16:14 N Medications Home Medications Medication Instructions Recorded Confirmed Last Taken aspirin 81 mg tablet,delayed 81 mg PO QAM 07/12/19 01/04/22 07/12/19 release clonazepam 0.5 mg tablet 0.5 mg PO BID PRN 07/12/19 01/04/22 Unknown fluticasone 250 mcg-salmeterol 50 1 inh INHALATION BID 07/12/19 01/04/22 07/12/19 mcg/dose blistr powdr for inhalation (Wixela Inhub) fluticasone propionate 50 2 spray INTRANASAL DAILY PRN 07/12/19 01/04/22 Unknown mcg/actuation nasal spray,suspension (Flonase Allergy Relief) furosemide 40 mg tablet 40 mg PO Q2D 07/12/19 01/04/22 Unknown isosorbide mononitrate 30 mg 30 mg PO DAILY 07/12/19 01/04/22 Unknown tablet,extended release 24 hr levothyroxine 150 mcg tablet 150 mcg PO QAM 07/12/19 01/04/22 07/12/19 [id number]-bjc-[id number] acid 0.4 1 tab PO QAM 07/12/19 01/04/22 07/12/19 mg-lycopene 300 mcg-lutein 250 mcg tablet (Centrum Silver) nitroglycerin 0.4 mg sublingual 0.4 mg SUBLINGUAL DIRECTED PRN 07/12/19 01/04/22 Unknown tablet (Nitrostat) omeprazole 40 mg capsule,delayed 40 mg PO QAM 07/12/19 01/04/22 07/12/19 release trazodone 50 mg tablet 50 mg PO HS 07/12/19 01/04/22 07/11/19 warfarin 2.5 mg tablet 2.5 mg PO DAILY 07/12/19 01/04/22 07/12/19 cholecalciferol (vitamin D3) 50 50 mcg PO DAILY 07/14/21 01/04/22 Unknown mcg (2,000 unit) tablet lisinopril 5 mg tablet 5 mg PO DAILY 07/14/21 01/04/22 Unknown metoprolol succinate 50 mg 150 mg PO DAILY 07/14/21 01/04/22 Unknown tablet,extended release 24 hr rosuvastatin 40 mg tablet 40 mg PO DAILY 07/14/21 01/04/22 Unknown Oxygen Home #1 ea 07/20/21 Unknown acetaminophen 325 mg tablet 650 mg PO Q6H PRN 01/04/22 01/04/22 Unknown (Tylenol) albuterol sulfate 90 mcg/actuation 2 puff INHALATION Q4H PRN 01/04/22 01/04/22 Unknown aerosol inhaler (Ventolin HFA) betamethasone, augmented 0.05 % 1 applic TOPICAL BID PRN 01/04/22 01/04/22 Unknown topical cream ipratropium 20 mcg-albuterol 100 2 puff INHALATION QID PRN 01/04/22 01/04/22 Unknown mcg/actuation mist for inhalation (Combivent Respimat) neomycin 3.5 mg-polymyxin 10,000 1 drp OPL BID 01/04/22 01/04/22 Unknown unit-hydrocort 10 mg/mL eye drop,susp Active Medications Generic Name Dose Route Start Last Admin Trade Name Freq PRN Reason Stop Dose Admin Aspirin 81 mg 01/05/22 09:00 01/05/22 09:54 Aspirin 81 Mg Ectab PO 02/04/22 08:59 81 mg QAM ALIREZA Administration Fluticasone/Vilanterol 1 puffs 01/05/22 09:00 01/05/22 09:52 Fluticasone/Vilanterol 100/25mcg 14 Puffs/Inhaler INH 02/04/22 08:59 1 puffs DAILY ALIREZA Administration Sodium Chloride 1,000 mls @ 100 mls/hr 01/05/22 01:45 01/05/22 01:46 Nss 1000ml IV 01/05/22 11:44 100 mls/hr .Q10H ALIREZA Infusion Isosorbide Mononitrate 30 mg 01/05/22 09:00 01/05/22 09:54 Isosorbide Weld Extended Rel 30 Mg Tabcr PO 02/04/22 08:59 30 mg DAILY ALIREZA Administration Levothyroxine Sodium 150 mcg 01/05/22 06:30 01/05/22 05:58 Levothyroxine Sodium 150 Mcg Tablet PO 02/04/22 06:29 150 mcg DAILYBB ALIREZA Administration Lisinopril 5 mg 01/05/22 09:00 01/05/22 09:54 Lisinopril 5 Mg Tab PO 02/04/22 08:59 5 mg DAILY ALIREZA Administration Metoprolol Succinate 150 mg 01/05/22 09:00 01/05/22 09:53 Metoprolol Succ 50mg Ext Rel Tab PO 02/04/22 08:59 150 mg DAILY ALIREZA Administration Morphine Sulfate 2 mg 01/04/22 18:17 01/05/22 06:20 Morphine Sulfate 2 Mg/Ml Carp IV 01/18/22 18:16 2 mg Q4H PRN Administration Pain Multivitamins/Minerals 1 tab 01/05/22 09:00 01/05/22 09:53 Cerovite Adv Formula Tab PO 02/04/22 08:59 1 tab QAM ALIREZA Administration Neomycin/Polymyxin/Hydrocortisone 1 drops 01/04/22 21:00 01/05/22 09:53 Neomycin/Polymyxin/Hydrocort Oph Susp 7.5 Ml Btl OPL 02/03/22 20:59 1 drops BID ALIREZA Administration Pantoprazole Sodium 40 mg 01/05/22 07:00 01/05/22 06:00 Pantoprazole 40 Mg Tab PO 02/04/22 06:59 40 mg DAILY@0700 ALIREZA Administration Rosuvastatin Calcium 40 mg 01/05/22 09:00 01/05/22 09:53 Rosuvastatin Calcium 20 Mg Tab PO 02/04/22 08:59 40 mg DAILY ALIREZA Administration Trazodone HCl 50 mg 01/04/22 21:00 01/04/22 21:34 Trazodone Hcl 50 Mg Tab PO 02/03/22 20:59 50 mg HS ALIREZA Administration Vitamin D 2,000 units 01/05/22 09:00 01/05/22 09:54 Cholecalciferol 1,000 Units 25 Mcg Tab PO 02/04/22 08:59 2,000 units DAILY ALIREZA Administration Past Medical History Medical History CAD (coronary artery disease) 2005 - CABG Chronic anticoagulation CKD (chronic kidney disease), stage III COPD (chronic obstructive pulmonary disease) COVID-19 Dyslipidemia Frequent falls GERD (gastroesophageal reflux disease) History of DVT (deep vein thrombosis) HTN (hypertension) Hypothyroidism Ischemic cardiomyopathy Obesity IRLANDA (obstructive sleep apnea) Periprosthetic fracture of shaft of femur Prediabetes Past Family History Family History Other Family history non-contributory Hypertension Past Surgical History Surgical History History of coronary artery bypass graft History of total knee arthroplasty Social History Smoking Status: Unknown if ever smoked tobacco type: cigars Do You Dip or Chew Tobacco: No Hx Alcohol Use: Yes Alcohol type: hard liquor alcohol intake frequency: a few times a month Hx Substance Use: No Physical Exam Vital Signs Last Vital Signs Temp 36.3 C L 01/05/22 10:59 Pulse 122 H 01/05/22 10:59 Resp 18 01/05/22 10:59 BP 115/69 01/05/22 10:59 Pulse Ox 95 01/05/22 10:59 Testing Laboratory Results 01/05/22 07:07 01/05/22 07:07 PT 39.2 Seconds (9.0-12.0) H 01/05/22 07:07 INR 4.0 (0.9-1.1) H 01/05/22 07:07 Electrocardiogram Date: 01/04/22 Findings: + ST @ (106) Possible Old Inferior infarct (cited on or before 28-OCT-2011) Diffuse Nonspecific T wave abnormality Abnormal ECG When compared with ECG of 14-JUL-2021 12:07, No significant change was found
--- NOTE | 2022-01-05 11:34 | Hospitalist Progress Note ---
Date of Service January 05, 2022 Assessment & Plan (1) Humerus fracture: Plan: This is an 81yo M with a PMH of CAD, COPD, CKD III, HTN, history of DVT on Coumadin and other medical problems listed below who presents with fall and was found to have comminuted humerus fracture. Humerus XR: comminuted, oblique fracture of the proximal 1/3 of the humeral shaft with displacement of fracture fragments Head CT without acute intracerebral pathology CXR without acute abnormality, EKG was sinus tachycardia and diffuse T wave inversions which appears unchanged Admit to medical Orthopedics [facility] consulted -plan for OR in a.m., INR too high Cardiology consulted on admission for preop clearance N.p.o. after midnight Patient requesting Cotton catheter -agree to place in the perioperative period, remove as soon as able postoperatively Scheduled Tylenol, ice 3 times daily add bowel regimen obtain vit d level in a.m. Hypocalcemia ionized ca low give 1g calc gluconate x 1 now repeat in a.m. (2) Supratherapeutic INR: (3) History of DVT (deep vein thrombosis): (4) halfway current use of anticoagulant: Plan: History of D[place] on [place] agent anticoagulation. INR 4.0 today INR needs to be < 1.5 to operative Give IV Vit K 5mg x 1 now repeat INR @ 1700 to determine if additional dosing needed hold warfarin home regimen is 1.25mg on monday and 2.5mg all other days (5) CAD (coronary artery disease): Plan: H/o CABG in 2004, chronic disease that appears stable, no chest pain Has a history of ischemic cardiomyopathy however ejection fraction is now preserved per last echocardiogram Continue Imdur, lisinopril, Toprol XL with hold parameters, Crestor Previous evaluation by Dr. Coyne for cardiac complaints which is felt to be GI in nature he is on a PPI cardiology consulted by admitting team for clearance ekg reviewed, last echo 2018 EF 55%, mild avr, aortic root enlargement 4.5cm, ascending aorta moderately enlarged 4.7cm but stable Sinus Tachycardia present on admission on metoprolol succinate, received additional tartrate overnight no signs of dehydration, infection ? if pain related repeat cbc w/ INR in setting of elevated INR (6) HTN (hypertension): Plan: Continue lisinopril, Toprol XL (7) CKD (chronic kidney disease), stage III: Plan: Cr at baseline ~0.9-1. Continue to trend with daily BMP (8) COPD (chronic obstructive pulmonary disease): Plan: Stable. O2 saturation 96% on room air. Continue home inhalers ,supplemental O2 as needed no acute exac (9) Hypothyroidism: Plan: Continue levothyroxine (10) Dyslipidemia: Plan: Continue statin (11) Anemia: Plan: Hemoglobin and hematocrit 10.9 and 33.0 Possibly dilution, hemoglobin 13.6 on admission repeat h/h @ 1700 (12) IRLANDA (obstructive sleep apnea): Plan: CPAP HS DVT Ppx: SCDs Code status: FULL PCP: Ulisses Dispo: Admitted to med/surg, will need pt/ot post op, discussed with CM Patient seen in collaboration with Dr. Gaspar. Please see addendum. Admission and Anticipated Discharge Date Admission Date: January 04, 2022 Subjective Patient was seen and examined in room 379-2. Follow-up proximal left humeral fracture with displacement. Patient is status post fall with left humeral fracture as well as right forehead contusion. He is currently requesting if he is able to eat if he is not having surgery today. He denies fever, chills, sweats, lightheadedness, dizziness, chest pain, shortness of breath, nausea, vomiting, abdominal pain. He is not very ambulatory at baseline. He states ever since his femur fracture he ambulates with a cane, walker and utilizes a wheelchair. He wishes to return back to his baseline. He does admit to having uncontrolled indigestion at home. He also states he occasionally gets left-sided chest pain for which he takes nitro for. Review of Systems Review of Systems: All systems reviewed & are unremarkable except as noted in HPI & below Physical Exam Physical Exam: Gen: Elderly, male, sitting up in bed, WD/WN, NAD, A&O x3 HEENT: Normocephalic, atraumatic, conjunctivae moist, sclerae anicteric, mucous membranes moist. Lung: Clear to Auscultation bilaterally, no wheezes/rales/rhonchi Heart: Tachycardic rate, regular rhythm, no murmurs, rubs, or gallops Abdomen: Soft, NT, ND +BS x 4 Extremities: Left upper extremity in sling, no edema Skin: Warm, no rash, negative turgor. Results & Data Results & Data ([facility]) Vital Signs (Past 12 Hours) Vital Signs Temp Pulse Pulse Resp BP Pulse Ox 01/05/22 10:59 36.3 C L 122 H 18 115/69 95 01/05/22 07:00 36.7 C 109 H 18 119/75 91 01/05/22 00:40 36.6 C 130 H 17 109/68 99 01/04/22 23:34 37.4 C 120 H 17 104/69 99 Laboratory Results Short CBC 01/04/22 01/05/22 Range/Units 13:10 07:07 WBC 8.07 8.65 (4.8-10.8) K/uL Hgb 13.6 L 10.9 L (14.0-18.0) g/dL Hct 40.6 L 33.0 L (42-52) % Plt Count 165 154 (130-400) K/uL BMP 01/04/22 01/05/22 13:10 07:07 Sodium 142 139 Potassium 3.8 3.9 Chloride 104 104 Carbon Dioxide 31 29 BUN 17 19 Creatinine 0.90 0.92 Glucose 98 117 H Calcium 9.2 7.9 L Liver Function 01/04/22 Range/Units 13:10 Total Bilirubin 0.5 (0.2-1.0) mg/dl AST 26 (13-39) U/L ALT 19 (7-52) U/L Alkaline Phosphatase 100 (34-104) U/L Albumin 4.0 (3.4-5.0) gm/dl Medications Administered Current Inpatient Medications Acetaminophen (Acetaminophen 500 Mg Tab) 1,000 mg PO Q8H PRN PRN Reason: pain/fever Stop: 02/03/22 18:01 Albuterol (Albuterol Hfa 8 Gm Inhaler (Combivent Respimat P&T Subs)) 1 puffs INH QID PRN PRN Reason: COUGH/WHEEZING Stop: 02/03/22 18:39 Aspirin (Aspirin 81 Mg Ectab) 81 mg PO QAM ALIREZA Stop: 02/04/22 08:59 Last Admin: 01/05/22 09:54 Dose: 81 mg Documented by: Betamethasone Dipropion Augmented (Betamethasone Dip Aug (Diprolene) 0.05% Cr 15 Gm Tube) 1 appln EXT BID PRN PRN Reason: Pain Stop: 02/03/22 18:25 Clonazepam (Clonazepam 0.5 Mg Tab) 0.5 mg PO BID PRN PRN Reason: Anxiety Stop: 02/03/22 18:01 Fluticasone Propionate (Fluticasone Propionate Na Spr 16 Gm Btl) 2 sprays BENITEZ DAILY PRN PRN Reason: Allergy Symptoms Stop: 02/03/22 18:01 Fluticasone/Vilanterol (Fluticasone/Vilanterol 100/25mcg 14 Puffs/Inhaler) 1 puffs INH DAILY ALIREZA Stop: 02/04/22 08:59 Last Admin: 01/05/22 09:52 Dose: 1 puffs Documented by: Sodium Chloride (Nss 1000ml) 1,000 mls @ 100 mls/hr IV .Q10H ALIREZA Stop: 01/05/22 11:44 Last Infusion: 01/05/22 01:46 Dose: 100 mls/hr Documented by: Ipratropium [place] (Ipratropium Hfa Inhaler (Combivent Respimat P&T Subs)) 1 puffs INH QID PRN PRN Reason: COUGH/WHEEZE Stop: 02/03/22 18:39 Isosorbide Mononitrate (Isosorbide [place] Extended Rel 30 Mg Tabcr) 30 mg PO DAILY [facility] Stop: 02/04/22 08:59 Last Admin: 01/05/22 09:54 Dose: 30 mg Documented by: Levothyroxine Sodium (Levothyroxine Sodium 150 Mcg Tablet) 150 mcg PO DAILYBB [facility] Stop: 02/04/22 06:29 Last Admin: 01/05/22 05:58 Dose: 150 mcg Documented by: Lisinopril (Lisinopril 5 Mg Tab) 5 mg PO DAILY ALIREZA Stop: 02/04/22 08:59 Last Admin: 01/05/22 09:54 Dose: 5 mg Documented by: Metoprolol Succinate (Metoprolol Succ 50mg Ext Rel Tab) 150 mg PO DAILY [facility] Stop: 02/04/22 08:59 Last Admin: 01/05/22 09:53 Dose: 150 mg Documented by: Morphine Sulfate (Morphine Sulfate 2 Mg/Ml Carp) 2 mg IV Q4H PRN PRN Reason: Pain Stop: 01/18/22 18:16 Last Admin: 01/05/22 06:20 Dose: 2 mg Documented by: Multivitamins/Minerals (Cerovite Adv Formula Tab) 1 tab PO QAM ALIREZA Stop: 02/04/22 08:59 Last Admin: 01/05/22 09:53 Dose: 1 tab Documented by: Neomycin/Polymyxin/Hydrocortisone (Neomycin/Polymyxin/Hydrocort Oph Susp 7.5 Ml Btl) 1 drops OPL BID ALIREZA Stop: 02/03/22 20:59 Last Admin: 01/05/22 09:53 Dose: 1 drops Documented by: Ondansetron HCl (Ondansetron Inj 2 Mg/Ml 2 Ml Vial) 4 mg IV Q6H PRN PRN Reason: Nausea Stop: 02/03/22 18:01 Pantoprazole Sodium (Pantoprazole 40 Mg Tab) 40 mg PO DAILY@0700 ALIREZA Stop: 02/04/22 06:59 Last Admin: 01/05/22 06:00 Dose: 40 mg Documented by: Polyethylene Glycol (Polyethylene (Miralax) 17 Gm Pack) 17 gm PO DAILY PRN PRN Reason: Constipation Stop: 02/03/22 18:01 Rosuvastatin Calcium (Rosuvastatin Calcium 20 Mg Tab) 40 mg PO DAILY [facility]IRE[facility] Stop: 02/04/22 08:59 Last Admin: 01/05/22 09:53 Dose: 40 mg Documented by: Trazodone HCl (Trazodone Hcl 50 Mg Tab) 50 mg PO HS ALIRE[facility] Stop: 02/03/22 20:59 Last Admin: 01/04/22 21:34 Dose: 50 mg Documented by: Vitamin D (Cholecalciferol 1,000 Units 25 Mcg Tab) 2,000 units PO DAILY [facility]IRE[facility] Stop: 02/04/22 08:59 Last Admin: 01/05/22 09:54 Dose: 2,000 units Documented by: ECG Rate (beats per minute): 127 Rhythm: sinus tachycardia Findings: + T-wave inversion Additional Comments: Unchanged from prior
[2022-01-05] MEDS: ACETAMINOPHEN 500 MG TAB PO SCH ×4 (12:08→21:32)
[2022-01-05] MEDS ORDERED: STAT IV STA (14:00)
[2022-01-05] MEDS ORDERED: CALCIUM GLUCONATE 10% 1,000 MG in DEXTROSE 5% 50 ML IV ONE (14:00)
--- NOTE | 2022-01-05 15:04 | Orthopedic Progress Note ---
Date of Service January 05, 2022 Assessment & Plan (1) Fracture, humerus: Plan: Left Proximal third humerus fx INR 4 this AM. Vit K given this AM with recheck planned at 1700. Continue to lower INR suitable for surgery. (1.5 or less; less if nerve blocks planned) Plan for ORIF tomorrow. NPO after midnight. Admission and Anticipated Discharge Date Admission Date: January 04, 2022 Subjective HD 1 Pt sitting up in chair at bedside. States he felt a little nauseated secondary to the Xeroform gauze smell when they dressed his right hand wound. Feeling a bit better since getting antinausea medication. Pain in the proximal LUE with movement. No other complaints. Physical Exam Physical Exam: Sling in place. Left shoulder/upper arm with swelling. Some swelling in fingers today but still has good sensation and ROM of fingers. Cap refill < 2 seconds. Results & Data ([facility]) Vital Signs (Past 12 Hours) Vital Signs Temp Pulse Resp BP Pulse Ox 01/05/22 10:59 36.3 C L 122 H 18 115/69 95 01/05/22 07:00 36.7 C 109 H 18 119/75 91 (1) Fracture, humerus Encounter type: initial encounter Fracture alignment: displaced Fracture morphology: unspecified fracture morphology Fracture type: closed Humerus Location: surgical neck Laterality: left Qualified Code(s): S42.212A - Unspecified displaced fracture of surgical neck of left humerus, initial encounter for closed fracture
--- NOTE | 2022-01-05 16:13 | Cardiology Consultation ---
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 He is currently optimally medically managed. He will need an open repair of his humerus fracture and the surgery should proceed when his INR normalizes. We will follow along with you during his hospital stay. History of Present Illness Attending Physician: Astrid Gaspar MD History of Present Illness This is an 81-year-old male patient whom I follow in my clinic. He has a history of coronary artery disease and underwent coronary artery bypass surgery in 2004. He is chronically anticoagulated due to history of DVT. By echocardiography his most recent left ventricular ejection fraction is 55%. He has a history of diabetes, obesity, COPD and sleep apnea. He was in his usual state of health and then fell fracturing his left humerus. We have been asked to give preoperative risk assessment. His fall was mechanical and not do to syncope. He does have difficulty ambulating due to prior history of a left hip fracture. He has had no recent activity related chest pain or progressive s hortness of breath. Allergies Allergy/AdvReac Type Severity Reaction Status Date / Time adhesive Allergy Intermediate BLISTERS Verified 01/04/22 16:14 amoxicillin [From Augmentin] Allergy Intermediate BURNING Verified 01/04/22 16:14 SENSATION OF TONGUE clavulanic acid Allergy Intermediate BURNING Verified 01/04/22 16:14 [From Augmentin] SENSATION OF TONGUE fish oil Allergy Intermediate ITCHY Verified 01/04/22 16:14 HIVES--IODINE Iodinated Contrast Media Allergy Intermediate ITCHY HIVES Verified 01/04/22 16:14 iodine Allergy Intermediate ANYTHING Verified 01/04/22 16:14 WITH IODINE--ITCHY HIVES niacin Allergy Intermediate Hives Verified 01/04/22 16:14 cat dander Allergy Unknown ON GMG MED Verified 01/04/22 16:14 LIST atorvastatin AdvReac Intermediate MUSCLE Verified 01/04/22 16:14 ACHES CAT GUT AdvReac Intermediate INFLAMMATIO Uncoded 01/04/22 16:14 N Home Medications Medication Instructions Recorded Confirmed Type aspirin 81 mg tablet,delayed 81 mg PO QAM 07/12/19 01/04/22 History release clonazepam 0.5 mg tablet 0.5 mg PO BID PRN 07/12/19 01/04/22 History fluticasone 250 mcg-salmeterol 50 1 inh INHALATION BID 07/12/19 01/04/22 History mcg/dose blistr powdr for inhalation (Wixela Inhub) fluticasone propionate 50 2 spray INTRANASAL DAILY PRN 07/12/19 01/04/22 History mcg/actuation nasal spray,suspension (Flonase Allergy Relief) furosemide 40 mg tablet 40 mg PO Q2D 07/12/19 01/04/22 History isosorbide mononitrate 30 mg 30 mg PO DAILY 07/12/19 01/04/22 History tablet,extended release 24 hr levothyroxine 150 mcg tablet 150 mcg PO QAM 07/12/19 01/04/22 History fgyuobft-pko-gpadp acid 0.4 1 tab PO QAM 07/12/19 01/04/22 History mg-lycopene 300 mcg-lutein 250 mcg tablet (Centrum Silver) nitroglycerin 0.4 mg sublingual 0.4 mg SUBLINGUAL DIRECTED PRN 07/12/19 01/04/22 History tablet (Nitrostat) omeprazole 40 mg capsule,delayed 40 mg PO QAM 07/12/19 01/04/22 History release trazodone 50 mg tablet 50 mg PO HS 07/12/19 01/04/22 History warfarin 2.5 mg tablet 2.5 mg PO DAILY 07/12/19 01/04/22 History cholecalciferol (vitamin D3) 50 50 mcg PO DAILY 07/14/21 01/04/22 History mcg (2,000 unit) tablet lisinopril 5 mg tablet 5 mg PO DAILY 07/14/21 01/04/22 History metoprolol succinate 50 mg 150 mg PO DAILY 07/14/21 01/04/22 History tablet,extended release 24 hr rosuvastatin 40 mg tablet 40 mg PO DAILY 07/14/21 01/04/22 History Oxygen Home #1 ea 07/20/21 Rx acetaminophen 325 mg tablet 650 mg PO Q6H PRN 01/04/22 01/04/22 History (Tylenol) albuterol sulfate 90 mcg/actuation 2 puff INHALATION Q4H PRN 01/04/22 01/04/22 History aerosol inhaler (Ventolin HFA) betamethasone, augmented 0.05 % 1 applic TOPICAL BID PRN 01/04/22 01/04/22 History topical cream ipratropium 20 mcg-albuterol 100 2 puff INHALATION QID PRN 01/04/22 01/04/22 History mcg/actuation mist for inhalation (Combivent Respimat) neomycin 3.5 mg-polymyxin 10,000 1 drp OPL BID 01/04/22 01/04/22 History unit-hydrocort 10 mg/mL eye drop,susp Patient History Medical History CAD (coronary artery disease) 2005 - CABG Chronic anticoagulation CKD (chronic kidney disease), stage III COPD (chronic obstructive pulmonary disease) COVID-19 Dyslipidemia Frequent falls GERD (gastroesophageal reflux disease) History of DVT (deep vein thrombosis) HTN (hypertension) Hypothyroidism Ischemic cardiomyopathy Obesity IRLANDA (obstructive sleep apnea) Periprosthetic fracture of shaft of femur Prediabetes Surgical History History of coronary artery bypass graft History of total knee arthroplasty Family History Other Family history non-contributory Hypertension Social History Smoking Status: Unknown if ever smoked Second Hand Exposure: No; Do You Dip or Chew Tobacco: No; Hx Alcohol Use: Yes Alcohol type: hard liquor Hx Substance Use: No Preferred Language: Turkish Communication Ability: Effective Medical Videographer Required: No Beliefs That Will Affect Care: None Current Living Situation: Family Current Living Situation Comment: with grandson Other Information That Helps Us Care for You: No Feels Safe at Home: Yes Safety Concerns: Feels Safe At This Time Assistive Devices: Cane Review of Systems Review of Systems: Review of Systems: See HPI for pertinent positives. All other 10 point review of systems are negative. Physical Exam Physical Exam: General: no acute distress and stated age Head: The patient has a contusion above the right eye Eyes: conjunctiva are pink and non-injected, sclera clear Neck: supple, no adenopathy, no bruits, normal jugular venous pulse, no hepatojugular reflux Chest: normal shape and normal respiratory effort Lungs: clear to auscultation and percussion Cardiac Exam: - regular rate & rhythm, no murmurs gallops or rubs - normal S1, normal S2 Pulses: 2(+) throughout Abdomen: abdomen soft, non-tender, no abnormal masses and no hepatosplenomegaly Musculoskeletal: no gait disturbance, no joint inflammation, no deforming arthritis Extremities: Left arm is in a sling Neuro: grossly normal exam Results & Data ([facility]) Vital Signs (Past 12 Hours) Vital Signs Temp Pulse Resp BP Pulse Ox 01/05/22 10:59 36.3 C L 122 H 18 115/69 95 01/05/22 07:00 36.7 C 109 H 18 119/75 91 Laboratory Results Laboratory Results - last 24 hr 01/04/22 01/05/22 01/05/22 15:24 07:07 07:07 WBC 8.65 RBC 3.63 L Hgb 10.9 L Hct 33.0 L MCV 90.9 MCH 30.0 MCHC 33.0 RDW Std Deviation 48.7 H RDW Coeff of Cory 14.5 Plt Count 154 MPV 11.6 H PT 39.2 H INR 4.0 H Sodium Potassium Chloride Carbon Dioxide Anion Gap BUN Creatinine Est Cr Clr Drug Dosing Est GFR ( Amer) Est GFR (Non-Af Amer) BUN/Creatinine Ratio Glucose Calcium Ionized Calcium SARS-CoV-2, RNA, NAAT NEGATIVE 01/05/22 01/05/22 07:07 12:00 WBC RBC Hgb Hct MCV MCH MCHC RDW Std Deviation RDW Coeff of Cory Plt Count MPV PT INR Sodium 139 Potassium 3.9 Chloride 104 Carbon Dioxide 29 Anion Gap 6 BUN 19 Creatinine 0.92 Est Cr Clr Drug Dosing 64.1 Est GFR ( Amer) 90.1 Est GFR (Non-Af Amer) 77.7 BUN/Creatinine Ratio 20.7 H Glucose 117 H Calcium 7.9 L Ionized Calcium 1.11 L SARS-CoV-2, RNA, NAAT Medications Administered Current Inpatient Medications Acetaminophen (Acetaminophen 500 Mg Tab) 1,000 mg PO Q8H PRN PRN Reason: pain/fever Stop: 02/03/22 18:01 Acetaminophen (Acetaminophen 500 Mg Tab) 500 mg PO QID ALIREZA Stop: 02/04/22 11:34 Last Admin: 01/05/22 12:23 Dose: Not Given Documented by: Albuterol (Albuterol Hfa 8 Gm Inhaler (Combivent Respimat P&T Subs)) 1 puffs INH QID PRN PRN Reason: COUGH/WHEEZING Stop: 02/03/22 18:39 Aspirin (Aspirin 81 Mg Ectab) 81 mg PO QAM [facility] Stop: 02/04/22 08:59 Last Admin: 01/05/22 09:54 Dose: 81 mg Documented by: Betamethasone Dipropion Augmented (Betamethasone Dip Aug (Diprolene) 0.05% Cr 15 Gm Tube) 1 appln EXT BID PRN PRN Reason: Pain Stop: 02/03/22 18:25 Clonazepam (Clonazepam 0.5 Mg Tab) 0.5 mg PO BID PRN PRN Reason: Anxiety Stop: 02/03/22 18:01 Fluticasone Propionate (Fluticasone Propionate Na Spr 16 Gm Btl) 2 sprays BENITEZ DAILY PRN PRN Reason: Allergy Symptoms Stop: 02/03/22 18:01 Fluticasone/Vilanterol (Fluticasone/Vilanterol 100/25mcg 14 Puffs/Inhaler) 1 puffs INH DAILY ALIREZA Stop: 02/04/22 08:59 Last Admin: 01/05/22 09:52 Dose: 1 puffs Documented by: Ipratropium [place] (Ipratropium Hfa Inhaler (Combivent Respimat P&T Subs)) 1 puffs INH QID PRN PRN Reason: COUGH/WHEEZE Stop: 02/03/22 18:39 Isosorbide Mononitrate (Isosorbide [place] Extended Rel 30 Mg Tabcr) 30 mg PO DAILY ALIRE[facility] Stop: 02/04/22 08:59 Last Admin: 01/05/22 09:54 Dose: 30 mg Documented by: Levothyroxine Sodium (Levothyroxine Sodium 150 Mcg Tablet) 150 mcg PO DAILYBB [facility] Stop: 02/04/22 06:29 Last Admin: 01/05/22 05:58 Dose: 150 mcg Documented by: Lisinopril (Lisinopril 5 Mg Tab) 5 mg PO DAILY ALIREZA Stop: 02/04/22 08:59 Last Admin: 01/05/22 09:54 Dose: 5 mg Documented by: Metoprolol Succinate (Metoprolol Succ 50mg Ext Rel Tab) 150 mg PO DAILY ALIRE[facility] Stop: 02/04/22 08:59 Last Admin: 01/05/22 09:53 Dose: 150 mg Documented by: Morphine Sulfate (Morphine Sulfate 2 Mg/Ml Carp) 2 mg IV Q4H PRN PRN Reason: Pain Stop: 01/18/22 18:16 Last Admin: 01/05/22 06:20 Dose: 2 mg Documented by: Multivitamins/Minerals (Cerovite Adv Formula Tab) 1 tab PO QAM ALIREZA Stop: 02/04/22 08:59 Last Admin: 01/05/22 09:53 Dose: 1 tab Documented by: Neomycin/Polymyxin/Hydrocortisone (Neomycin/Polymyxin/Hydrocort Oph Susp 7.5 Ml Btl) 1 drops OPL BID ALIREZA Stop: 02/03/22 20:59 Last Admin: 01/05/22 09:53 Dose: 1 drops Documented by: Ondansetron HCl (Ondansetron Inj 2 Mg/Ml 2 Ml Vial) 4 mg IV Q6H PRN PRN Reason: Nausea Stop: 02/03/22 18:01 Last Admin: 01/05/22 14:26 Dose: 4 mg Documented by: Pantoprazole Sodium (Pantoprazole 40 Mg Tab) 40 mg PO DAILY@0700 [facility] Stop: 02/04/22 06:59 Last Admin: 01/05/22 06:00 Dose: 40 mg Documented by: Polyethylene Glycol (Polyethylene (Miralax) 17 Gm Pack) 17 gm PO DAILY PRN PRN Reason: Constipation Stop: 02/03/22 18:01 Rosuvastatin Calcium (Rosuvastatin Calcium 20 Mg Tab) 40 mg PO DAILY [facility] Stop: 02/04/22 08:59 Last Admin: 01/05/22 09:53 Dose: 40 mg Documented by: Senna/Docusate Sodium (Docusate Sodium/Senna 50/8.6mg Tab) 1 tab PO PM [facility]IRE[facility] Stop: 02/04/22 20:59 Trazodone HCl (Trazodone Hcl 50 Mg Tab) 50 mg PO HS [facility]IRE[facility] Stop: 02/03/22 20:59 Last Admin: 01/04/22 21:34 Dose: 50 mg Documented by: Vitamin D (Cholecalciferol 1,000 Units 25 Mcg Tab) 2,000 units PO DAILY [facility] Stop: 02/04/22 08:59 Last Admin: 01/05/22 09:54 Dose: 2,000 units Documented by: (1) Fracture, humerus Encounter type: initial encounter Fracture alignment: displaced Fracture morphology: unspecified fracture morphology Fracture type: closed Humerus Location: surgical neck Laterality: left Qualified Code(s): S42.212A - Unspecified displaced fracture of surgical neck of left humerus, initial encounter for closed fracture (2) Fall Encounter type: initial encounter Qualified Code(s): W19.XXXA - Unspecified fall, initial encounter (3) Contusion of head Encounter type: initial encounter Laterality: left
[2022-01-05 17:34] LABS: Hematocrit (blood only) 30.6 % (42-52)
[2022-01-05 17:45] LABS: INR 1.8 (0.9-1.1); Prothrombin Time 18.1 Seconds (9.0-12.0)
[2022-01-05] MEDS ORDERED: PHYTONADIONE 5 MG TAB PO ONE (19:00)
[2022-01-05] MEDS ORDERED: DOCUSATE SODIUM/SENNA 50/8.6MG TAB PO SCH (21:00)
[2022-01-05] MEDS: traZODone HCL 50 MG TAB PO SCH (21:33)
[2022-01-05] MEDS ORDERED: ALBUMIN 25% 100 mL 25 GM/100 ML VIAL IV ONE (23:23)
[2022-01-05] MEDS ORDERED: POTASSIUM CHLORIDE CRTAB 20 MEQ TABCR PO STA (23:25)
[2022-01-06] MEDS ORDERED: MAGNESIUM SULFATE / D5W 1 GM/100 ML BAG IV ONE ×2 (01:15→22:00)
[2022-01-06] MEDS: PANTOprazole 40 MG TAB PO SCH (06:04)
[2022-01-06] MEDS: LEVOTHYROXINE SODIUM 150 MCG TABLET PO SCH (06:04)
[2022-01-06 07:09] LABS: Hematocrit (blood only) 26.4 % (42-52); Hemoglobin 8.7 g/dL (14.0-18.0); Mean Corpuscular Hemoglobin 29.9 pg (25-34); Mean Corpuscular Volume 90.7 fL (80-100); Mean Platelet Volume 11.2 fL (7.4-10.4); Platelet Count 131 K/uL (130-400); RDW Coefficient of Variation 14.7 % (11.5-14.5); RDW Standard Deviation 48.7 fL (36.4-46.3); Red Blood Count 2.91 M/uL (4.7-6.1); White Blood Count 9.92 K/uL (4.8-10.8)
[2022-01-06 07:20] LABS: INR 1.2 (0.9-1.1); Prothrombin Time 12.4 Seconds (9.0-12.0)
[2022-01-06 07:38] LABS: BUN Creatinine Ratio 22.2 (10-20); Creatinine Clr Calc Pharmacy 59.6 ml/min; Est GFR (African American) 82.4 ml/min; Est GFR (Non-African American) 71.1 ml/min; Potassium 3.9 mmol/L (3.5-5.1)
[2022-01-06] MEDS: CHOLECALCIFEROL 1,000 UNITS 25 MCG TAB PO SCH (07:59)
[2022-01-06] MEDS: FLUTICASONE/VILANTEROL 100/25MCG 14 PUFFS/INHALER INH SCH (07:59)
[2022-01-06] MEDS: ASPIRIN 81 MG ECTAB PO SCH (07:59)
[2022-01-06] MEDS: CEROVITE ADV FORMULA TAB PO SCH (07:59)
[2022-01-06] MEDS: ROSUVASTATIN CALCIUM 20 MG TAB PO SCH (08:00)
[2022-01-06] MEDS: NEOMYCIN/POLYMYXIN/HYDROCORT OPH SUSP 7.5 ML BTL OPL SCH ×2 (08:00→21:42)
[2022-01-06] MEDS: ACETAMINOPHEN 500 MG TAB PO SCH ×4 (08:02→21:46)
[2022-01-06] MEDS ORDERED: SODIUM CHLORIDE 0.9% 250 ML IV PRN ×2 (08:08→16:09)
[2022-01-06] MEDS: lisinopril 5 MG TAB PO SCH (08:13)
[2022-01-06] MEDS: ISOSORBIDE MONO EXTENDED REL 30 MG TABCR PO SCH (08:13)
[2022-01-06] MEDS ORDERED: diphenhydrAMINE 50 MG/ML VIAL IV ONE (08:15)
[2022-01-06] MEDS: METOPROLOL SUCC 50MG EXT REL TAB PO SCH (08:51)
[2022-01-06 13:39] LABS: Appearance Urine Clear (Clear); Bacteria Urine Automated Negative (Negative); Bilirubin Urine Negative (Negative); Blood Urine Negative (Negative); Color Urine Dark Yellow; Glucose Urine UA Negative (Negative); Ketones Urine Negative (Negative); Leukocyte Esterase Urine 2+ (Negative); Nitrite Urine Negative (Negative); Protein Urine 1+ (Negative); RBC Urine Automated 0-4 /hpf (0-4); Specific Gravity Urine 1.024 (1.000-1.030); Urobilinogen Urine Positive (Negative); WBC Urine Automated >30 /hpf (0-5); pH Urine 5.5 (4.5-7.5)
[2022-01-06] MEDS ORDERED: MIDAZOLAM HCL 1 MG/ML 2ML VIAL ONE ×3 (13:43→15:28)
[2022-01-06] MEDS ORDERED: ROCURONIUM BROMIDE 10 MG/ML 5 ML VIAL IV ONE (13:44)
[2022-01-06] MEDS ORDERED: ONDANSETRON INJ 2 MG/ML 2 ML VIAL ONE (13:44)
[2022-01-06] MEDS ORDERED: LIDOCAINE 2% 2 ML VIAL/AMP(20MG/ML) INFIL ONE (13:44)
[2022-01-06] MEDS ORDERED: PROPOFOL IV EMULSION 10 MG/ML 20 ML VIAL IV ONE (13:44)
[2022-01-06] MEDS ORDERED: fentaNYL citrate 100 MCG/2 ML VIAL ONE ×2 (13:45→15:56)
--- NOTE | 2022-01-06 14:13 | Hospitalist Progress Note ---
Date of Service January 06, 2022 Assessment & Plan (1) Humerus fracture: Plan: This is an 81yo M with a PMH of CAD, COPD, CKD III, HTN, history of DVT on Coumadin who presented with fall and was found to have comminuted humerus fracture. Humerus XR: comminuted, oblique fracture of the proximal 1/3 of the humeral shaft with displacement of fracture fragments Head CT without acute intracerebral pathology CXR without acute abnormality, EKG was sinus tachycardia and diffuse T wave inversions which appears unchanged Orthopedics [facility] consulted Plan for ORIF left humerus today Cardiology consulted on admission for preop clearance Pain control with bowel regimen, scheduled Tylenol Vitamin D level 36.8 Acute blood loss anemia Hgb 13.6 --> 8.7 today Likely due to acute blood loss in the setting of coagulopathy and left humeral fracture, significant ecchymosis noted on exam S/p 1 unit PRBC 01/06/2022 Follow H&H Hypocalcemia Received calcium replacement Ionized calcium normalized (2) Supratherapeutic INR: (3) History of DVT (deep vein thrombosis): (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 INR 4.0 on 01/05 Received IV vitamin K INR 1.2 today Resume Coumadin at the discretion of orthopedics home regimen is 1.25mg on Monday and 2.5mg all other days (5) CAD (coronary artery disease): Plan: H/o CABG in 2004, chronic disease that appears stable, no chest pain Has a history of ischemic cardiomyopathy however ejection fraction is now preserved per last echocardiogram Continue Imdur, lisinopril, Toprol XL with hold parameters, Crestor Last echo 2018 EF 55%, mild avr, aortic root enlargement 4.5cm, ascending aorta moderately enlarged 4.7cm but stable Sinus Tachycardia present on admission, resolved ? Due to pain and/or anemia (6) HTN (hypertension): Plan: Continue lisinopril, Toprol XL, isosorbide BP intermittently borderline low, holding parameters in place (7) CKD (chronic kidney disease), stage III: Plan: Cr at baseline ~0.9-1 Monitor renal functions (8) COPD (chronic obstructive pulmonary disease): Plan: Stable. O2 saturation 96% on room air. Continue home inhalers ,supplemental O2 as needed (9) Hypothyroidism: Plan: Continue levothyroxine (10) Dyslipidemia: Plan: Continue statin (11) IRLANDA (obstructive sleep apnea): Plan: CPAP HS DVT prophylaxis SCDs for now Dispo -pending, evaluate needs postoperatively Admission and Anticipated Discharge Date Admission Date: January 04, 2022 Subjective Patient seen and examined. Follow-up for left humerus fracture. Patient reports ongoing pain, eager for surgical repair today. Reports some burning with urination. No fevers or chills. Denies chest pain or shortness of breath. No lightheadedness or dizziness. Review of Systems Review of Systems: ROS per HPI, all other systems reviewed and negative Physical Exam Constitutional: WD/WN, vitals as above Respiratory: normal respiratory effort, lungs clear to auscultation Cardiovascular: Rate/Rhythm: regular rate and regular rhythm Vessels: normal peripheral pulses Extremities: no edema Gastrointestinal (Abdomen): Percussion/Palpation: abdomen soft; abdomen nontender Musculoskeletal: LUE in sling, significant ecchymosis noted over left shoulder, left upper arm, left axilla Skin: no rashes, warm and dry Neurologic: no focal motor deficits Psychiatric: A+Ox3, euthymic affect Results & Data Results & Data ([facility]) Vital Signs (Past 12 Hours) Vital Signs Temp Pulse Pulse Pulse Resp BP BP 01/06/22 13:56 37.1 C 90 18 119/60 01/06/22 13:05 36.7 C 91 H 18 112/68 01/06/22 12:23 37.0 C 94 H 18 112/70 01/06/22 11:54 36.8 C 85 18 109/53 L 01/06/22 11:23 36.9 C 91 H 18 109/62 01/06/22 10:53 36.7 C 85 17 103/64 01/06/22 10:38 36.9 C 88 18 101/60 01/06/22 10:20 37.1 C 89 18 109/65 01/06/22 07:46 36.6 C 99 H 18 105/68 01/06/22 07:15 36.8 C 68 16 93/56 L 01/06/22 02:07 37 C 93 H 17 107/64 Pulse Ox 01/06/22 13:56 93 01/06/22 13:05 98 01/06/22 12:23 95 01/06/22 11:54 97 01/06/22 11:23 96 01/06/22 10:53 91 01/06/22 10:38 01/06/22 10:20 92 01/06/22 07:46 93 01/06/22 07:15 92 01/06/22 02:07 97 Laboratory Results Short CBC 01/05/22 01/06/22 Range/Units 17:20 06:51 WBC 9.92 (4.8-10.8) K/uL Hgb 10.0 L 8.7 L (14.0-18.0) g/dL Hct 30.6 L 26.4 L (42-52) % Plt Count 131 (130-400) K/uL BMP 01/06/22 06:51 Sodium 137 Potassium 3.9 Chloride 103 Carbon Dioxide 28 BUN 22 Creatinine 0.99 Glucose 113 H Calcium 8.0 L Urine 01/06/22 Range/Units 13:15 Urine Color Dark Yellow Urine Appearance Clear (Clear) Urine pH 5.5 (4.5-7.5) Ur Specific [place] 1.024 (1.000-1.030) Urine Protein 1+ H (Negative) Urine Glucose (UA) Negative (Negative)
[2022-01-06] MEDS ORDERED: ROPIVACAINE 0.5% 5 MG/ML 30 ML VIAL ONE (14:41)
[2022-01-06] MEDS ORDERED: EPINEPHrine INJ 1 MG/ML AMP ONE (14:41)
[2022-01-06] MEDS ORDERED: cefTRIAXone SODIUM 2,000 MG in DEXTROSE 5% 50 ML IV SCH (15:00)
[2022-01-06 15:52] LABS: Hematocrit (blood only) 27.5 % (42-52); Hemoglobin 8.8 g/dL (14.0-18.0)
[2022-01-06 16:13] LABS: iSTAT Creatinine 0.8 mg/dl (0.6-1.3); iSTAT Hemoglobin 8.8 g/dl (14.0-18.0); iSTAT Ionized Calcium 1.24 mmol/l (1.12-1.32); iSTAT Potassium 4.1 mmol/L (3.3-5.0)
[2022-01-06] MEDS ORDERED: ceFAZolin 330 MG/ML 1 GM VIAL ONE (16:26)
[2022-01-06] MEDS ORDERED: ceFAZolin 2000MG 2,000 MG/15 ML SYR IV ONE (16:28)
[2022-01-06] MEDS ORDERED: FUROSEMIDE 40 MG/4 ML VIAL IV ONE (18:13)
[2022-01-06] MEDS ORDERED: GLYCOPYRROLATE 0.2 MG/ML VIAL ONE (18:17)
[2022-01-06] MEDS ORDERED: NEOSTIGMINE METHYLSULFATE 1 MG/ML 10ML VIAL ONE (18:17)
--- NOTE | 2022-01-06 18:24 | Post Operative Brief Note ---
Immediate Post Op Note v1 Date of Surgery January 06, 2022 Pre & Post Diagnosis Operation Date: 01/06/22 14:45 Pre-Op Diagnosis: Left displaced segmental proximal Humerus Fracture Extending into Shaft Post-Op Diagnosis: Left displaced segmental proximal Humerus Fracture Extending into Shaft I identified the patient and participated in the time-out.: Yes Procedure Operation Date: 01/06/22 14:45 Actual Procedures p Open Reduction Internal Fixation Left Proximal Humerus Fracture(Left) - Steven Hawkins MD Surgeon Steven Hawkins MD Ergonomist Reginald GARCIA Estimated Blood Loss 800 Findings Consistent with Post-Op Diagnosis Specimens None Drains Cotton Catheter and Hemovac Drain Anesthesia Type General Regional Complications none Disposition Disposition: Recovery Room Overlapping Procedure I was immediately available: during the entire case.
[2022-01-06] MEDS ORDERED: NALOXONE HCL 0.4 MG/1 ML VIAL/CARP IV PRN ×2 (18:38→20:13)
[2022-01-06] MEDS ORDERED: FLUMAZENIL 0.1 MG/1 ML 10 ML VIAL IV PRN (18:38)
[2022-01-06] MEDS ORDERED: ePHEDrine sulfate 50 MG/ML AMP IV PRN (18:38)
[2022-01-06] MEDS ORDERED: PROMETHAZINE HCL 12.5 MG in SODIUM CHLORIDE 0.9% 50 ML IV PRN ×2 (18:38→20:50)
[2022-01-06] MEDS ORDERED: HYDROmorphone INJ 1 MG/ML SYRINGE IV PRN (18:38)
[2022-01-06] MEDS ORDERED: LABETALOL HCL IV 5 MG/ML 20ML IV PRN (18:38)
[2022-01-06] MEDS ORDERED: ATROPINE SULFATE 0.1 MG/ML 10ML SYR IV PRN (18:38)
[2022-01-06] MEDS ORDERED: ONDANSETRON INJ 2 MG/ML 2 ML VIAL IV PRN ×2 (18:38→20:13)
--- NOTE | 2022-01-06 18:39 | Fluoroscopy Report ---
FL humerus LT 2V CLINICAL HISTORY: LT ORIF PROX. Proximal humeral fracture. COMPARISON STUDY: Left humerus 01/04/2022. FLUOROSCOPY TIME: 17 seconds. FINDINGS: 5 fluoroscopic spot images of the left humerus demonstrate internal fixation of a left kayla ral fracture with cortical plate and screws. The hardware appears intact. Alignment is near-anatomic. IMPRESSION: Fluoroscopic assistance provided for internal fixation of a left humeral fracture. ACT 112: Negative or not required by law. Electronically signed by: Donovan Kiran M.D. 01/06/2022 6:38 PM
[2022-01-06 18:58] LABS: Hematocrit (blood only) 35.5 % (42-52); Hemoglobin 11.8 g/dL (14.0-18.0)
[2022-01-06] MEDS: fentaNYL citrate 100 MCG/2 ML VIAL IV PRN ×2 (19:00→19:05)
[2022-01-06] MEDS ORDERED: PROMETHAZINE HCL INJ 25 MG/ML 1 ML VIAL ONE (19:17)
[2022-01-06] MEDS ORDERED: SODIUM CHLORIDE 0.9% 50 ML BAG ONE (19:20)
--- NOTE | 2022-01-06 19:59 | Anesthesiology Progress Note ---
Date of Service January 06, 2022 Anesthesia Post Procedure Vital Signs Vital Signs: Temp Pulse Pulse Pulse Pulse Resp BP 01/06/22 19:35 100 H 17 01/06/22 19:20 110 H 17 01/06/22 19:10 36.4 C L 109 H 17 01/06/22 19:00 110 H 17 01/06/22 18:50 101 H 20 01/06/22 18:40 103 H 16 01/06/22 18:33 36.0 C L 99 H 12 01/06/22 13:56 37.1 C 90 18 01/06/22 13:05 36.7 C 91 H 18 112/68 01/06/22 12:23 37.0 C 94 H 18 112/70 01/06/22 11:54 36.8 C 85 18 109/53 L 01/06/22 11:23 36.9 C 91 H 18 109/62 01/06/22 10:53 36.7 C 85 17 103/64 01/06/22 10:38 36.9 C 88 18 101/60 01/06/22 10:20 37.1 C 89 18 109/65 01/06/22 07:46 36.6 C 99 H 18 01/06/22 07:15 36.8 C 68 16 01/06/22 02:07 37 C 93 H 17 01/05/22 23:57 37.1 C 88 18 01/05/22 23:00 36.7 C 101 H 24 01/05/22 22:50 102 H 16 BP Pulse Ox 01/06/22 19:35 171/74 H 94 01/06/22 19:20 128/89 94 01/06/22 19:10 151/73 H 94 01/06/22 19:00 151/73 H 94 01/06/22 18:50 161/89 H 100 01/06/22 18:40 150/85 H 100 01/06/22 18:33 143/89 H 98 01/06/22 13:56 119/60 93 01/06/22 13:05 98 01/06/22 12:23 95 01/06/22 11:54 97 01/06/22 11:23 96 01/06/22 10:53 91 01/06/22 10:38 01/06/22 10:20 92 01/06/22 07:46 105/68 93 03/10/22 07:15 93/56 L 92 01/06/22 02:07 107/64 97 01/05/22 23:57 93/52 L 94 01/05/22 23:00 90/50 L 92 01/05/22 22:50 93 Pain Intensity Left Shoulder: Pain Intensity: 5 Transfer of Care Handoff Completed per policy Notes Mental Status: alert / awake / arousable Patient Amnestic to Procedure: Yes Nausea / Vomiting: adequately controlled Pain: adequately controlled Airway Patency, RR, SpO2: stable & adequate BP & HR: stable & adequate Hydration State: stable & adequate Anesthetic Complications: no major complications apparent
[2022-01-06] MEDS ORDERED: MAGNESIUM HYDROXIDE SUSP 30 ML UDC PO PRN (20:13)
[2022-01-06] MEDS ORDERED: bisacodyL 10 MG SUPP PR PRN (20:13)
[2022-01-06] MEDS ORDERED: SODIUM CHLORIDE 0.9% 1000ML 1,000 ML IV SCH (20:13)
[2022-01-06] MEDS ORDERED: METOCLOPRAMIDE HCL INJ 5 MG/ML 2 ML VIAL IV PRN (20:13)
[2022-01-06] MEDS ORDERED: OLANZapine 10 MG/2.1 ML SDV IM STA (20:49)
[2022-01-06] MEDS ORDERED: ALBUMIN 25% 100 mL 25 GM/100 ML VIAL IV ONE (21:13)
--- NOTE | 2022-01-06 21:14 | Communication Note ---
Date of Service: January 06, 2022 Patient agitated and combative as per RN. Heart rate 130s, SBP 90s. Patient denies chest pain, S OB, cough, abdominal pain symptoms. " Leave me alone!" Chest x-ray as per my interpretation atelectasis, possible infiltrate left AP Postop delirium Multifactorial : Possible sepsis secondary to HCAP Hypovolemia, low BP Neuropsychotropic meds contributory PCU transfer CS, check lactic acid Change ceftriaxone for possible UTI to Ertapenem for now Hold [id number] Klonopin, trazodone for now until mentation back to baseline IVF, hold lisinopril for now decrease maintenance beta-lesli dose until BP stable Zyprexa as needed agitation Will relay to AM provider.
[2022-01-06] MEDS ORDERED: OLANZapine 10 MG/2.1 ML SDV IM PRN (21:31)
[2022-01-06] MEDS: SENNA 8.6 MG TAB PO SCH (21:43)
[2022-01-06] MEDS: DOCUSATE SODIUM 100 MG CAP PO SCH (21:46)
[2022-01-06] MEDS: traZODone HCL 50 MG TAB PO SCH (22:04)
--- NOTE | 2022-01-06 22:46 | Operative Report (OR) ---
INDICATIONS FOR PROCEDURE: The patient is an 81-year-old male who sustained a left humerus fracture. The patient was on aspirin and Coumadin and his INR was over 3 at the time of the incident. Radiog raphs demonstrate shaft fracture extending up into the proximal humerus with a segmental butterfly fr agment posteriorly with a spike of bone penetrating the deltoid laterally with marked distance betwee n the fragments with an unstable fracture pattern. PREOPERATIVE DIAGNOSIS: Left displaced segmental proximal humerus fracture extending into the shaft. 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 PROCEDURE: Open reduction and internal fixation of left proximal and shaft fracture of the humerus, left arm, and evacuation of hematoma. SURGEON: Steven Hawkins MD 1ST PRESSMAN: JOSE Forman ESTIMATED BLOOD LOSS: 800-900 mL. INTRAOPERATIVE FINDINGS: Consistent with postoperative diagnosis. SPECIMENS: None. DRAINS: Two Hemovacs and a Cotton catheter. ANESTHESIA: Regional block, general and A-line. COMPLICATIONS: None noted. DISPOSITION: Recovery room and non-overlapping procedure. DESCRIPTION OF PROCEDURE: The patient was taken to the operating room after A-line was placed and pl aced under general anesthetic and regional block anesthetic. His left upper extremity, shoulder to t he wrist were prepped and draped in sterile fashion after he was placed in about a 30-degree beachcha ir position with a towel roll under the medial border of his left scapula and head placed on a foam h eadrest and translated to left side of the bed, so we could use fluoroscopy throughout the case as ne eded. He had TEDs and SCDs. The patient had 2 grams Ancef preop. His shoulder was approached with a long deltopectoral approach, starting in deltopectoral interval extending down over the biceps to b elow the level of the fracture. The skin was incised sharply and subcutaneous tissues were dissected to identify an intact cephalic vein. One crossing branch at the lower aspect of the deltopectoral i nterval was tied off and divided. There was a significant amount of previous hemorrhage due to the p atient being on anticoagulants. When I opened up the deltopectoral interval, there was a large hemat adin that extended around the fracture fragment subdeltoid and in between the fracture fragments. Guerrero e of the pectoralis muscle was shredded. The biceps tendon was still intact. There was chronic burs itis over the rotator cuff when that portion of the humerus was exposed and this bursa was resected v isualizing a chronic rotator cuff tear. This involved the supraspinatus. This appeared to be a larg e retracted tear. Dissection was taken along the lateral aspect of the conjoined tendon, which was s ignificantly edematous from the trauma. Then I placed a self-retaining retractor between the deltoid laterally and the pectoralis medially. Some of the further exposure of the fragments required relea sing some of the deltoid and pectoralis further off the fragments. The biceps tendon was left intact . There was a shaft fracture with the large spike off the distal most fracture fragment extending in to the deltoid laterally where there was some deltoid muscle damage. This was disengaged from the mu scle and arm was placed in longitudinal traction and there was a large posterior butterfly fragment a s well. This was externally rotated and displaced posteriorly with regard to the main humeral head a nd proximal shaft fragment. There was lot of oozing and bleeding from within the bone fragments in t he canal area. There was no specific arterial bleeder identified anywhere. There was no bleeding me dially in the area of the brachial plexus or brachial artery. The large clots within the fragments w ere removed, some of the clot was preserved in order not to cause more bleeding. In order to reduce the fragments, we placed longitudinal traction and some internal rotation on the arm and placed a #5 FiberWire suture subperiosteally around the humerus between the areas of the radial nerve and the axi llary nerve and I made a Nice knot of the FiberWire and tied this reducing the fragments provisionall y well enough to maintain the length of the fracture and get proper rotational alignment of the main fragments. This was also required to control the active bleeding. Once we were able to get this cer clage around the fracture, the bleeding was better controlled. At this time, we placed an 8-hole Syn thes stainless steel proximal humerus locking plate over the fracture and used a lion jaw clamp to ho ld things lined up while the plate was provisionally fixed proximally with the K-wires in order to as sess by fluoroscopy that the height was appropriate. Then I placed a 3.5 cortical screw in the shaft to lag the plate to the shaft and then placed multiple locking screws distal to the fracture and mul tiple locking screws into the humeral head proximal to the fracture site. The angles of the spiral c omponents to the fracture with multiple fracture lines needed, not ideal to place any screws through the plate that could be lagged across the fracture site. The fracture was stable with rotation and w as out to length and all screws were noted to be within the head on fluoroscopic evaluation. Bleedin g was controlled at the time of closure. The wound was irrigated. Two Hemovac drains were brought o ut laterally and placed deep to the deltopectoral closure. The brachialis was first closed with some interrupted [id number] #1 Vicryl sutures and then the deltoid was approximated to the pectorali s with similar #1 [id number] Vicryl sutures and then the subcutaneous tissues were closed with m ultiple interrupted 2-0 Vicryl sutures and the skin was closed with cale and sterile dressings wer e applied and a sling immobilizer. The patient tolerated the procedure well and at the time of this dictation no complications were identified. JOSE Forman, was my information services assistant, he functione d as information services assistant through the entire procedure. He was an integral part in every aspect of the pr ocedure and assisted in soft tissue retraction, instrument management during the open reduction inter nal fixation, fracture stabilization, and now assisted in the closure and will participate in postope rative care of the patient. Job ID: [id number]
[2022-01-06] MEDS: MoRPHine SULFATE 2 MG/ML CARP IV PRN (23:16)
[2022-01-06] MEDS ORDERED: SODIUM CHLORIDE 0.9% 1000ML 1,000 ML IV ONE (23:48)
[2022-01-07] MEDS ORDERED: ERTAPENEM SODIUM 10 ML IV STA (00:56)
[2022-01-07] MEDS ORDERED: ERTAPENEM CONSULT ACTIVE PRN (01:11)
[2022-01-07] MEDS ORDERED: ERTAPENEM SODIUM 1,000 MG in SYRINGE 0 ML IV SCH (01:30)
[2022-01-07] MEDS ORDERED: METOPROLOL SUCC 25MG EXT REL TAB PO SCH (03:40)
[2022-01-07] MEDS: PANTOprazole 40 MG TAB PO SCH (05:52)
[2022-01-07] MEDS: LEVOTHYROXINE SODIUM 150 MCG TABLET PO SCH (05:52)
[2022-01-07 06:08] LABS: Basophils # (auto) 0.02 K/uL (0-0.2); Basophils % (auto) 0.2 %; Eosinophils # (auto) 0.07 K/uL (0-0.5); Eosinophils % (auto) 0.7 %; Hemoglobin 9.5 g/dL (14.0-18.0); Immature Granulocytes # (auto) 0.01 K/uL (0.00-0.02); Immature Granulocytes % (auto) 0.1 %; Lymphocytes # (auto) 1.45 K/uL (1.2-3.4); Lymphocytes % (auto) 14.8 %; Mean Corpuscular Hemoglobin 29.4 pg (25-34); Mean Corpuscular Hgb Conc 32.8 g/dL (32-36); Mean Corpuscular Volume 89.8 fL (80-100); Mean Platelet Volume 11.1 fL (7.4-10.4); Monocytes # (auto) 1.75 K/uL (0.11-0.59); Monocytes % (auto) 17.8 %; Neutrophils # (auto) 6.53 K/uL (1.4-6.5); Neutrophils % (auto) 66.4 %; Platelet Count 120 K/uL (130-400); RDW Coefficient of Variation 15.2 % (11.5-14.5); RDW Standard Deviation 49.6 fL (36.4-46.3); Red Blood Count 3.23 M/uL (4.7-6.1); White Blood Count 9.83 K/uL (4.8-10.8)
[2022-01-07 06:11] LABS: INR 1.1 (0.9-1.1); Prothrombin Time 11.9 Seconds (9.0-12.0)
[2022-01-07 07:16] LABS: BUN Creatinine Ratio 18.1 (10-20); Calcium 8.5 mg/dl (8.5-10.1); Creatinine Clr Calc Pharmacy 62.7 ml/min; Est GFR (African American) 87.8 ml/min; Est GFR (Non-African American) 75.7 ml/min; Potassium 4.1 mmol/L (3.5-5.1)
--- NOTE | 2022-01-07 07:52 | XRay Report ---
XR chest 1V portable CLINICAL HISTORY: sepsis TECHNIQUE: Single frontal radiograph of the chest was obtained. Comparison: Comparison is made to chest one view 07/14/2021 FINDINGS: Median sternotomy wires are unchanged. Calcified aortic knob is seen. Elevation of the left hemidiaph ragm with associated atelectasis. No evidence of pleural effusion or pneumothorax. IMPRESSION: No acute chest disease. Cardiomegaly is noted. ACT 112: Negative or not required by law. Electronically signed by: Benny Blackburn M.D. 01/07/2022 7:51 AM
[2022-01-07] MEDS ORDERED: MULTIVITAMIN TAB PO SCH (09:00)
--- NOTE | 2022-01-07 09:23 | Cardiology Progress Note ---
Date of Service January 07, 2022 Assessment & Plan (1) Fracture, humerus: (2) Contusion of head: (3) Fall: (4) History of coronary artery bypass graft: (5) History of DVT (deep vein thrombosis): (6) IRLANDA (obstructive sleep apnea): (7) MCC current use of anticoagulant: Plan: The patient is clinically stable postop. The patient will need to be restarted on his home medications including anticoagulation. Admission and Anticipated Discharge Date Admission Date: January 04, 2022 Subjective The patient completed surgery yesterday. He is sitting in a chair today and appears comfortable. Review of Systems Review of Systems: Review of Systems: See HPI for pertinent positives. All other 10 point review of systems are negative. Physical Exam Physical Exam: General: no acute distress and stated age Head: The patient has a contusion above the right eye Eyes: conjunctiva are pink and non-injected, sclera clear Neck: supple, no adenopathy, no bruits, normal jugular venous pulse, no hepatojugular reflux Chest: normal shape and normal respiratory effort Lungs: clear to auscultation and percussion Cardiac Exam: - regular rate & rhythm, no murmurs gallops or rubs - normal S1, normal S2 Pulses: 2(+) throughout Abdomen: abdomen soft, non-tender, no abnormal masses and no hepatosplenomegaly Musculoskeletal: no gait disturbance, no joint inflammation, no deforming arthritis Extremities: Left arm is in a sling Neuro: grossly normal exam Results & Data ([facility]) Vital Signs (Past 12 Hours) Vital Signs Temp Pulse Pulse Pulse Resp BP Pulse Ox 01/07/22 08:07 36.9 C 113 H 18 105/51 L 93 01/07/22 02:56 37.5 C 116 H 18 129/65 93 01/06/22 23:47 112 H 119/67 01/06/22 22:47 37.4 C 118 H 17 92/52 L 95 01/06/22 22:05 36.2 C L 127 H 18 96/62 L 94 Laboratory Results Laboratory Results - last 24 hr 01/06/22 01/06/22 01/06/22 06:51 06:51 13:15 WBC RBC Hgb POC Hgb Hct POC Hct MCV MCH MCHC RDW Std Deviation RDW Coeff of Cory Plt Count MPV Immature Gran % (Auto) Neut % (Auto) Lymph % (Auto) Collier % (Auto) Eos % (Auto) Baso % (Auto) Neut # (Auto) Lymph # (Auto) Collier # (Auto) Eos # (Auto) Baso # (Auto) Immature Gran # (Auto) PT INR POC Sodium Sodium POC Potassium Potassium POC Chloride Chloride Carbon Dioxide POC Total CO2 Anion Gap POC Anion Gap POC BUN BUN Creatinine POC Creatinine Est Cr Clr Drug Dosing Est GFR ( Amer) Est GFR (Non-Af Amer) BUN/Creatinine Ratio Glucose POC Glucose (other) Lactate Calcium POC Ioniz Calcium Damir Magnesium 1.9 Procalcitonin Urine Color Dark Yellow Urine Appearance Clear Urine pH 5.5 Ur Specific [place] 1.024 Urine Protein 1+ H Urine Glucose (UA) Negative Urine Ketones Negative Urine Blood Negative Urine Nitrite Negative Urine Bilirubin Negative Urine Urobilinogen Positive H Ur Leukocyte Esterase 2+ H Urine WBC (Auto) >30 H Urine RBC (Auto) 0-4 U Hyaline Cast (Auto) 1-5 U Epithel Cells (Auto) 10-20 H Urine Bacteria (Auto) Negative Blood Type A Positive Antibody Screen NEGATIVE Crossmatch See Detail 01/06/22 01/06/22 01/06/22 15:12 15:20 18:49 WBC RBC Hgb 8.8 L 11.8 L D POC Hgb 8.8 L Hct 27.5 L 35.5 L POC Hct 26 L MCV MCH MCHC RDW Std Deviation RDW Coeff of Cory Plt Count MPV Immature Gran % (Auto) Neut % (Auto) Lymph % (Auto) [place] % (Auto) Eos % (Auto) Baso % (Auto) Neut # (Auto) Lymph # (Auto) Collier # (Auto) Eos # (Auto) Baso # (Auto) Immature Gran # (Auto) PT INR POC Sodium 138 Sodium POC Potassium 4.1 Potassium POC Chloride 100 L Chloride Carbon Dioxide POC Total CO2 28 Anion Gap POC Anion Gap 16.0 POC BUN 17 BUN Creatinine POC Creatinine 0.8 Est Cr Clr Drug Dosing Est GFR ( Amer) Est GFR (Non-Af Amer) BUN/Creatinine Ratio Glucose POC Glucose (other) 110 H Lactate Calcium POC Ioniz Calcium Damir 1.24 Magnesium Procalcitonin Urine Color Urine Appearance Urine pH Ur Specific [place] Urine Protein Urine Glucose (UA) Urine Ketones Urine Blood Urine Nitrite Urine Bilirubin Urine Urobilinogen Ur Leukocyte Esterase Urine WBC (Auto) Urine RBC (Auto) U Hyaline Cast (Auto) U Epithel Cells (Auto) Urine Bacteria (Auto) Blood Type Antibody Screen Crossmatch 01/06/22 01/06/22 01/07/22 22:51 22:51 05:51 WBC 9.83 RBC 3.23 L Hgb 9.5 L POC Hgb Hct 29.0 L POC Hct MCV 89.8 MCH 29.4 MCHC 32.8 RDW Std Deviation 49.6 H RDW Coeff of Cory 15.2 H Plt Count 120 L MPV 11.1 H Immature Gran % (Auto) 0.1 Neut % (Auto) 66.4 Lymph % (Auto) 14.8 Collier % (Auto) 17.8 Eos % (Auto) 0.7 Baso % (Auto) 0.2 Neut # (Auto) 6.53 H Lymph # (Auto) 1.45 Collier # (Auto) 1.75 H Eos # (Auto) 0.07 Baso # (Auto) 0.02 Immature Gran # (Auto) 0.01 PT INR POC Sodium Sodium POC Potassium Potassium POC Chloride Chloride Carbon Dioxide POC Total CO2 Anion Gap POC Anion Gap POC BUN BUN Creatinine POC Creatinine Est Cr Clr Drug Dosing Est GFR ( Amer) Est GFR (Non-Af Amer) BUN/Creatinine Ratio Glucose POC Glucose (other) Lactate 1.9 Calcium POC Ioniz Calcium Damir Magnesium Procalcitonin 0.21 Urine Color Urine Appearance Urine pH Ur Specific [place] Urine Protein Urine Glucose (UA) Urine Ketones Urine Blood Urine Nitrite Urine Bilirubin Urine Urobilinogen Ur Leukocyte Esterase Urine WBC (Auto) Urine RBC (Auto) U Hyaline Cast (Auto) U Epithel Cells (Auto) Urine Bacteria (Auto) Blood Type Antibody Screen Crossmatch 01/07/22 01/07/22 05:51 05:51 WBC RBC Hgb POC Hgb Hct POC Hct MCV MCH MCHC RDW Std Deviation RDW Coeff of Cory Plt Count MPV Immature Gran % (Auto) Neut % (Auto) Lymph % (Auto) [place]lier % (Auto) Eos % (Auto) Baso % (Auto) Neut # (Auto) Lymph # (Auto) Collier # (Auto) Eos # (Auto) Baso # (Auto) Immature Gran # (Auto) PT 11.9 INR 1.1 POC Sodium Sodium 136 POC Potassium Potassium 4.1 POC Chloride Chloride 102 Carbon Dioxide 28 POC Total CO2 Anion Gap 6 POC Anion Gap POC BUN BUN 17 Creatinine 0.94 POC Creatinine Est Cr Clr Drug Dosing 62.7 Est GFR ( Amer) 87.8 Est GFR (Non-Af Amer) 75.7 BUN/Creatinine Ratio 18.1 Glucose 115 H POC Glucose (other) Lactate Calcium 8.5 POC Ioniz Calcium Damir Magnesium Procalcitonin Urine Color Urine Appearance Urine pH Ur Specific [place] Urine Protein Urine Glucose (UA) Urine Ketones Urine Blood Urine Nitrite Urine Bilirubin Urine Urobilinogen Ur Leukocyte Esterase Urine WBC (Auto) Urine RBC (Auto) U Hyaline Cast (Auto) U Epithel Cells (Auto) Urine Bacteria (Auto) Blood Type Antibody Screen Crossmatch (1) Fracture, humerus Encounter type: initial encounter Fracture alignment: displaced Fracture morphology: unspecified fracture morphology Fracture type: closed Humerus Location: surgical neck Laterality: left Qualified Code(s): S42.212A - Unspecified displaced fracture of surgical neck of left humerus, initial encounter for closed fracture (2) Fall Encounter type: initial encounter Qualified Code(s): W19.XXXA - Unspecified fall, initial encounter (3) Contusion of head Encounter type: initial encounter Laterality: left
[2022-01-07] MEDS: MoRPHine SULFATE 2 MG/ML CARP IV PRN ×2 (09:47→17:59)
--- NOTE | 2022-01-07 10:11 | Orthopedic Progress Note ---
Date of Service January 07, 2022 Assessment & Plan (1) Fracture, humerus: Plan: POD 1 s/p ORIF Left Proximal third humerus fx PT/OT protocol. JOJO SURESH DVT prophylaxis - SCD's, plan to restart Coumadin tonight if ok with Med service. Pain management as written. Watch for further confusion. Low dose morphine ordered. Admission and Anticipated Discharge Date Admission Date: January 04, 2022 Subjective POD 1 Pt sitting in chair at bedside. States he had a rough night last night. Pt became confused and combative. He seems to remember the incident. Feeling better now. More alert and oriented. Having some soreness of the left shoulder. No other complaints. Physical Exam Physical Exam: Dressings are C/D/I. Sling in place. Fingers swollen. Sensation intact and ROM intact with the fingers. HV drainage 100ml from the previous shift. Results & Data ([facility]) Vital Signs (Past 12 Hours) Vital Signs Temp Pulse Pulse Pulse Resp BP Pulse Ox 01/07/22 08:07 36.9 C 113 H 18 105/51 L 93 01/07/22 02:56 37.5 C 116 H 18 129/65 93 01/06/22 23:47 112 H 119/67 01/06/22 22:47 37.4 C 118 H 17 92/52 L 95 Laboratory Results Laboratory Results WBC 9.83 K/uL (4.8-10.8) 01/07/22 05:51 RBC 3.23 M/uL (4.7-6.1) L 01/07/22 05:51 Hgb 9.5 g/dL (14.0-18.0) L 01/07/22 05:51 POC Hgb 8.8 g/dl (14.0-18.0) L 01/06/22 15:12 Hct 29.0 % (42-52) L 01/07/22 05:51 POC Hct 26 % (42-52) L 01/06/22 15:12 MCV 89.8 fL (80-100) 01/07/22 05:51 MCH 29.4 pg (25-34) 01/07/22 05:51 MCHC 32.8 g/dL (32-36) 01/07/22 05:51 RDW Std Deviation 49.6 fL (36.4-46.3) H 01/07/22 05:51 RDW Coeff of Cory 15.2 % (11.5-14.5) H 01/07/22 05:51 Plt Count 120 K/uL (130-400) L 01/07/22 05:51 MPV 11.1 fL (7.4-10.4) H 01/07/22 05:51 Immature Gran % (Auto) 0.1 % 01/07/22 05:51 Neut % (Auto) 66.4 % 01/07/22 05:51 Lymph % (Auto) 14.8 % 01/07/22 05:51 [place] % (Auto) 17.8 % 01/07/22 05:51 Eos % (Auto) 0.7 % 01/07/22 05:51 Baso % (Auto) 0.2 % 01/07/22 05:51 Neut # (Auto) 6.53 K/uL (1.4-6.5) H 01/07/22 05:51 Lymph # (Auto) 1.45 K/uL (1.2-3.4) 01/07/22 05:51 [place] # (Auto) 1.75 K/uL (0.11-0.59) H 01/07/22 05:51 Eos # (Auto) 0.07 K/uL (0-0.5) 01/07/22 05:51 Baso # (Auto) 0.02 K/uL (0-0.2) 01/07/22 05:51 Immature Gran # (Auto) 0.01 K/uL (0.00-0.02) 01/07/22 05:51 PT 11.9 Seconds (9.0-12.0) 01/07/22 05:51 INR 1.1 (0.9-1.1) 01/07/22 05:51 POC Sodium 138 mmol/L (135-144) 01/06/22 15:12 Sodium 136 mmol/L (136-145) 01/07/22 05:51 POC Potassium 4.1 mmol/L (3.3-5.0) 01/06/22 15:12 Potassium 4.1 mmol/L (3.5-5.1) 01/07/22 05:51 POC Chloride 100 mmol/L (101-112) L 01/06/22 15:12 Chloride 102 mmol/L (98-107) 01/07/22 05:51 Carbon Dioxide 28 mmol/L (21-32) 01/07/22 05:51 POC Total CO2 28 mmol/L (24-31) 01/06/22 15:12 Anion Gap 6 (3-11) 01/07/22 05:51 POC Anion Gap 16.0 mmol/L (16-25) 01/06/22 15:12 POC BUN 17 mg/dl (7-18) 01/06/22 15:12 BUN 17 mg/dl (6-23) 01/07/22 05:51 Creatinine 0.94 mg/dl (0.6-1.4) 01/07/22 05:51 POC Creatinine 0.8 mg/dl (0.6-1.3) 01/06/22 15:12 Est Cr Clr Drug Dosing 62.7 ml/min 01/07/22 05:51 Est GFR ( Amer) 87.8 ml/min 01/07/22 05:51 Est GFR (Non-Af Amer) 75.7 ml/min 01/07/22 05:51 BUN/Creatinine Ratio 18.1 (10-20) 01/07/22 05:51 Glucose 115 mg/dl (70-99(Fasting)) H 01/07/22 05:51 POC Glucose (other) 110 mg/dl (70-99) H 01/06/22 15:12 Lactate 1.9 mmol/L (0.4-2.0) 01/06/22 22:51 Calcium 8.5 mg/dl (8.5-10.1) 01/07/22 05:51 POC Ioniz Calcium Dam[place] 1.24 mmol/l (1.12-1.32) 01/06/22 15:12 Ionized Calcium 1.12 mmol/L (1.12-1.32) 01/06/22 06:51 Magnesium 1.9 mg/dl (1.7-2.4) 01/06/22 06:51 Total Bilirubin 0.5 mg/dl (0.2-1.0) 01/04/22 13:10 AST 26 U/L (13-39) 01/04/22 13:10 ALT 19 U/L (7-52) 01/04/22 13:10 Alkaline Phosphatase 100 U/L (34-104) 01/04/22 13:10 Total Protein 6.6 gm/dl (6.0-8.3) 01/04/22 13:10 Albumin 4.0 gm/dl (3.4-5.0) 01/04/22 13:10 Globulin 2.6 gm/dl (2.5-4.0) 01/04/22 13:10 Albumin/Globulin Ratio 1.5 (0.9-2) 01/04/22 13:10 25-OH Vitamin D Total 36.8 ng/ml (30-100) 01/06/22 06:51 Procalcitonin 0.21 ng/ml (0-0.5) 01/06/22 22:51 Urine Color Dark Yellow 01/06/22 13:15 Urine Appearance Clear (Clear) 01/06/22 13:15 Urine pH 5.5 (4.5-7.5) 01/06/22 13:15 Ur Specific [place] 1.024 (1.000-1.030) 01/06/22 13:15 Urine Protein 1+ (Negative) H 01/06/22 13:15 Urine Glucose (UA) Negative (Negative) 01/06/22 13:15 Urine Ketones Negative (Negative) 01/06/22 13:15 Urine Blood Negative (Negative) 01/06/22 13:15 Urine Nitrite Negative (Negative) 01/06/22 13:15 Urine Bilirubin Negative (Negative) 01/06/22 13:15 Urine Urobilinogen Positive (Negative) H 01/06/22 13:15 Ur Leukocyte Esterase 2+ (Negative) H 01/06/22 13:15 Urine WBC (Auto) >30 /hpf (0-5) H 01/06/22 13:15 Urine RBC (Auto) 0-4 /hpf (0-4) 01/06/22 13:15 U Hyaline Cast (Auto) 1-5 /lpf (0-5) 01/06/22 13:15 U Epithel Cells (Auto) 10-20 /lpf (0-5) H 01/06/22 13:15 Urine Bacteria (Auto) Negative (Negative) 01/06/22 13:15 SARS-CoV-2, RNA, NAAT NEGATIVE (NEGATIVE) 01/04/22 15:24 Blood Type A Positive 01/06/22 06:51 Antibody Screen NEGATIVE 01/06/22 06:51 Crossmatch See Detail 01/06/22 06:51 Humerus X-Ray 01/06/22 14:45 FL humerus LT 2V CLINICAL HISTORY: LT ORIF PROX. Proximal humeral fracture. COMPARISON STUDY: Left humerus 01/04/2022. FLUOROSCOPY TIME: 17 seconds. FINDINGS: 5 fluoroscopic spot images of the left humerus demonstrate internal fixation of a left humeral fracture with cortical plate and screws. The hardware appears intact. Alignment is near-anatomic. IMPRESSION: Fluoroscopic assistance provided for internal fixation of a left humeral fracture. ACT 112: Negative or not required by law. Electronically signed by: Donovan Kiran M.D. 01/06/2022 6:38 PM (1) Fracture, humerus Encounter type: initial encounter Fracture alignment: displaced Fracture morphology: unspecified fracture morphology Fracture type: closed Humerus Location: surgical neck Laterality: left Qualified Code(s): S42.212A - Unspecified displaced fracture of surgical neck of left humerus, initial encounter for closed fracture
[2022-01-07] MEDS: ACETAMINOPHEN 500 MG TAB PO SCH ×4 (10:22→21:40)
[2022-01-07] MEDS: ISOSORBIDE MONO EXTENDED REL 30 MG TABCR PO SCH (10:23)
[2022-01-07] MEDS: CEROVITE ADV FORMULA TAB PO SCH (10:23)
[2022-01-07] MEDS: ROSUVASTATIN CALCIUM 20 MG TAB PO SCH (10:23)
[2022-01-07] MEDS: DOCUSATE SODIUM 100 MG CAP PO SCH ×2 (10:23→21:40)
[2022-01-07] MEDS: FLUTICASONE/VILANTEROL 100/25MCG 14 PUFFS/INHALER INH SCH (10:24)
[2022-01-07] MEDS: CHOLECALCIFEROL 1,000 UNITS 25 MCG TAB PO SCH (10:24)
[2022-01-07] MEDS: NEOMYCIN/POLYMYXIN/HYDROCORT OPH SUSP 7.5 ML BTL OPL SCH ×2 (10:24→21:41)
[2022-01-07] MEDS ORDERED: cefTRIAXone SODIUM 1,000 MG in DEXTROSE 5% 50 ML IV SCH (10:45)
--- NOTE | 2022-01-07 12:48 | Hospitalist Progress Note ---
Date of Service January 07, 2022 Assessment & Plan (1) Humerus fracture: Plan: This is an 81yo M with a PMH of CAD, COPD, CKD III, HTN, history of DVT on Coumadin who presented with fall and was found to have comminuted humerus fracture. Humerus XR: comminuted, oblique fracture of the proximal 1/3 of the humeral shaft with displacement of fracture fragments Head CT without acute intracerebral pathology CXR without acute abnormality, EKG was sinus tachycardia and diffuse T wave inversions which appears unchanged Orthopedics UOC consulted POD#1 ORIF left humerus by Dr. Hawkins Cardiology consulted on admission for preop clearance Pain control with bowel regimen, scheduled Tylenol Vitamin D level 36.8 Overnight: Transfer to telemetry overnight due to increased agitation, borderline low BP, tachycardia. Patient received Zyprexa 2.5 mg IM x 1 dose for agitation. Ceftriaxone changed to ertapenem for concerns for possible sepsis. Klonopin and trazodone held. Patient received IVF, lisinopril held and metoprolol decreased. Acute blood loss anemia Hgb 13.6 --> 8.7 01/06 --> 9.5 today Likely due to acute blood loss in the setting of coagulopathy and left humeral fracture, significant ecchymosis noted on exam S/p 1 unit PRBC 01/06/2022 Follow H&H Hypocalcemia Received calcium replacement Ionized calcium normalized (2) Metabolic encephalopathy: Plan: Had agitation overnight and received 1 dose of IM Zyprexa AMS likely due to postoperative state, anesthesia, pain medication AMS resolved, patient now back to baseline (3) Abnormal urinalysis: Plan: Patient complained of dysuria and UA was obtained suggesting possible UTI Urine culture showing pinpoint growth, reincubating Initially patient placed IV ceftriaxone, changed to IV ertapenem overnight due to concern for possible sepsis, patient currently hemodynamically stable, will change back to IV ceftriaxone (day 2) Follow urine culture (4) Supratherapeutic INR: (5) History of DVT (deep vein thrombosis): (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 INR 4.0 on 01/05 Received IV vitamin K in preparation for surgery Per Ortho, Coumadin can be resumed today Home regimen is 1.25mg on Monday and 2.5mg all other days (7) CAD (coronary artery disease): Plan: H/o CABG in 2004, chronic disease that appears stable, no chest pain Has a history of ischemic cardiomyopathy however ejection fraction is now preserved per last echocardiogram Continue Imdur, lisinopril, Toprol XL with hold parameters, Crestor Last echo 2018 EF 55%, mild avr, aortic root enlargement 4.5cm, ascending aorta moderately enlarged 4.7cm but stable Sinus Tachycardia present on admission, was resolved however tachycardia resumed overnight. Heart rate currently in the low 100s-110s Beta-lesli dose reduced due to concerns of hypotension. BP stable, will place patient back on home dose of metoprolol (8) HTN (hypertension): Plan: Continue Toprol XL, isosorbide Hold lisinopril due to intermittently borderline low BP (9) CKD (chronic kidney disease), stage III: Plan: Cr at baseline ~0.9-1 Monitor renal functions (10) COPD (chronic obstructive pulmonary disease): Plan: Stable. O2 saturation 96% on room air. Continue home inhalers ,supplemental O2 as needed (11) Hypothyroidism: Plan: Continue levothyroxine (12) Dyslipidemia: Plan: Continue statin (13) IRLANDA (obstructive sleep apnea): Plan: CPAP HS DVT prophylaxis SCDs while INR < 2.0, resuming Coumadin today Dispo -pending. May need rehab. Case management notified. Admission and Anticipated Discharge Date Admission Date: January 04, 2022 Subjective Patient seen and examined. Follow-up for left humerus fracture. Transfer to telemetry overnight due to increased agitation, borderline low BP, tachycardia. Patient received Zyprexa 2.5 mg IM x 1 dose for agitation. Ceftriaxone changed to ertapenem for concerns for possible sepsis. Klonopin and trazodone held. Patient received IVF, lisinopril held and metoprolol decreased. Patient now back to baseline mental status. Sitting up in the chair, having lunch. Reports left arm pain is controlled. No chest pain or shortness of breath. Denies abdominal pain or nausea. Review of Systems Review of Systems: ROS per HPI, all other systems reviewed and negative Physical Exam Constitutional: WD/WN, vitals as above no acute distress Respiratory: normal respiratory effort, lungs clear to auscultation Cardiovascular: Rate/Rhythm: regular rhythm and + tachycardic Vessels: normal peripheral pulses Extremities: no edema Gastrointestinal (Abdomen): Percussion/Palpation: abdomen soft; abdomen nontender Musculoskeletal: Sling/surgical dressing in place to LUE, edema noted to left hand, CSM checks intact, significant ecchymosis noted over left shoulder/axilla/chest Skin: no rashes, warm and dry Neurologic: no focal motor deficits Psychiatric: A+Ox3, euthymic affect Genitourinary: Cotton in place Results & Data Results & Data ([facility]) Vital Signs (Past 12 Hours) Vital Signs Temp Pulse Pulse Pulse Resp BP Pulse Ox 01/07/22 08:07 36.9 C 113 H 18 105/51 L 93 01/07/22 06:14 107 H 01/07/22 02:56 37.5 C 116 H 18 129/65 93 Laboratory Results Short CBC 01/06/22 01/06/22 01/07/22 Range/Units 15:20 18:49 05:51 WBC 9.83 (4.8-10.8) K/uL Hgb 8.8 L 11.8 L D 9.5 L (14.0-18.0) g/dL Hct 27.5 L 35.5 L 29.0 L (42-52) % Plt Count 120 L (130-400) K/uL BMP 01/07/22 05:51 Sodium 136 Potassium 4.1 Chloride 102 Carbon Dioxide 28 BUN 17 Creatinine 0.94 Glucose 115 H Calcium 8.5 Urine 01/06/22 Range/Units 13:15 Urine Color Dark Yellow Urine Appearance Clear (Clear) Urine pH 5.5 (4.5-7.5) Ur Specific [place] 1.024 (1.000-1.030) Urine Protein 1+ H (Negative) Urine Glucose (UA) Negative (Negative)
[2022-01-07] MEDS ORDERED: METOPROLOL SUCC 25MG EXT REL TAB PO ONE (13:00)
--- NOTE | 2022-01-07 13:04 | Electrocardiogram Report ---
Test Reason : Blood Pressure : / mmHG Vent. 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
[2022-01-07] MEDS: ASPIRIN 81 MG ECTAB PO SCH (13:35)
[2022-01-07] MEDS: WARFARIN SOD 2.5 MG TAB PO SCH (16:41)
[2022-01-07] MEDS ORDERED: SODIUM CHLORIDE 0.65% NA SOLN 45 ML (OCEAN) PRN (18:20)
[2022-01-07] MEDS: cefTRIAXone SODIUM 2,000 MG in DEXTROSE 5% 50 ML IV SCH (21:37)
[2022-01-07] MEDS: traZODone HCL 50 MG TAB PO SCH (21:41)
[2022-01-07] MEDS: SENNA 8.6 MG TAB PO SCH (21:41)
[2022-01-08] MEDS: LEVOTHYROXINE SODIUM 150 MCG TABLET PO SCH (06:10)
[2022-01-08] MEDS: PANTOprazole 40 MG TAB PO SCH (06:10)
[2022-01-08 06:36] LABS: Hematocrit (blood only) 26.8 % (42-52); Hemoglobin 8.8 g/dL (14.0-18.0); Mean Corpuscular Hemoglobin 29.6 pg (25-34); Mean Corpuscular Hgb Conc 32.8 g/dL (32-36); Mean Corpuscular Volume 90.2 fL (80-100); Mean Platelet Volume 11.2 fL (7.4-10.4); Nucleated RBC # (auto) 0.04 K/uL (0-0); Nucleated RBC % (auto) 0.4 %; Platelet Count 135 K/uL (130-400); RDW Coefficient of Variation 15.1 % (11.5-14.5); RDW Standard Deviation 49.2 fL (36.4-46.3); Red Blood Count 2.97 M/uL (4.7-6.1); White Blood Count 9.35 K/uL (4.8-10.8)
[2022-01-08 06:48] LABS: INR 1.1 (0.9-1.1); Prothrombin Time 11.5 Seconds (9.0-12.0)
[2022-01-08 06:59] LABS: Calcium 7.7 mg/dl (8.5-10.1); Creatinine Clr Calc Pharmacy 69.4 ml/min; Est GFR (African American) 94.7 ml/min; Est GFR (Non-African American) 81.7 ml/min; Potassium 3.8 mmol/L (3.5-5.1)
[2022-01-08] MEDS: FLUTICASONE/VILANTEROL 100/25MCG 14 PUFFS/INHALER INH SCH (08:07)
[2022-01-08] MEDS: ASPIRIN 81 MG ECTAB PO SCH (08:08)
[2022-01-08] MEDS: ACETAMINOPHEN 500 MG TAB PO SCH ×4 (08:08→21:55)
[2022-01-08] MEDS: DOCUSATE SODIUM 100 MG CAP PO SCH ×2 (08:08→21:55)
[2022-01-08] MEDS: NEOMYCIN/POLYMYXIN/HYDROCORT OPH SUSP 7.5 ML BTL OPL SCH ×2 (08:09→21:55)
[2022-01-08] MEDS: CEROVITE ADV FORMULA TAB PO SCH (08:09)
[2022-01-08] MEDS: CHOLECALCIFEROL 1,000 UNITS 25 MCG TAB PO SCH (08:09)
[2022-01-08] MEDS: ISOSORBIDE MONO EXTENDED REL 30 MG TABCR PO SCH (08:09)
[2022-01-08] MEDS: ROSUVASTATIN CALCIUM 20 MG TAB PO SCH (08:09)
--- NOTE | 2022-01-08 08:41 | Orthopedic Progress Note ---
Date of Service January 08, 2022 Assessment & Plan (1) Fracture, humerus: Plan: POD 2 s/p ORIF Left Proximal third humerus fx PT/OT protocol. JOJO SURESH DVT prophylaxis - Coumadin, SCD's Pain management as written. DC drain today DC planning - Plan for [facility] upon dc when medically stable. Ok per ortho for dc. Admission and Anticipated Discharge Date Admission Date: January 04, 2022 Subjective POD 2 Pt sitting up in chair at bedside. Having some discomfort in the left shoulder. Appears comfortable. No other complaints. States he is planning to go to [facility]. Physical Exam Physical Exam: Dressings C/D/I. NV intact. Moving fingers well. Sensation intact. Ecchymosis noted. Swelling down into fingers. Sling in place. HV with minimal drainage. Results & Data ([facility]) Vital Signs (Past 12 Hours) Vital Signs Temp Pulse Resp BP Pulse Ox 01/08/22 07:17 37.0 C 99 H 16 117/61 90 01/07/22 22:51 37.3 C 100 H 20 113/63 90 Laboratory Results Laboratory Results WBC 9.35 K/uL (4.8-10.8) 01/08/22 06:12 RBC 2.97 M/uL (4.7-6.1) L 01/08/22 06:12 Hgb 8.8 g/dL (14.0-18.0) L 01/08/22 06:12 POC Hgb 8.8 g/dl (14.0-18.0) L 01/06/22 15:12 Hct 26.8 % (42-52) L 01/08/22 06:12 POC Hct 26 % (42-52) L 01/06/22 15:12 MCV 90.2 fL (80-100) 01/08/22 06:12 MCH 29.6 pg (25-34) 01/08/22 06:12 MCHC 32.8 g/dL (32-36) 01/08/22 06:12 RDW Std Deviation 49.2 fL (36.4-46.3) H 01/08/22 06:12 RDW Coeff of [place] 15.1 % (11.5-14.5) H 01/08/22 06:12 Plt Count 135 K/uL (130-400) 01/08/22 06:12 MPV 11.2 fL (7.4-10.4) H 01/08/22 06:12 Immature Gran % (Auto) 0.1 % 01/07/22 05:51 Neut % (Auto) 66.4 % 01/07/22 05:51 Lymph % (Auto) 14.8 % 01/07/22 05:51 [place] % (Auto) 17.8 % 01/07/22 05:51 Eos % (Auto) 0.7 % 01/07/22 05:51 Baso % (Auto) 0.2 % 01/07/22 05:51 Neut # (Auto) 6.53 K/uL (1.4-6.5) H 01/07/22 05:51 Lymph # (Auto) 1.45 K/uL (1.2-3.4) 01/07/22 05:51 [place] # (Auto) 1.75 K/uL (0.11-0.59) H 01/07/22 05:51 Eos # (Auto) 0.07 K/uL (0-0.5) 01/07/22 05:51 Baso # (Auto) 0.02 K/uL (0-0.2) 01/07/22 05:51 Immature Gran # (Auto) 0.01 K/uL (0.00-0.02) 01/07/22 05:51 Absolute Nucleated RBC 0.04 K/uL (0-0) H 01/08/22 06:12 Nucleated RBC % (auto) 0.4 % 01/08/22 06:12 PT 11.5 Seconds (9.0-12.0) 01/08/22 06:12 INR 1.1 (0.9-1.1) 01/08/22 06:12 POC Sodium 138 mmol/L (135-144) 01/06/22 15:12 Sodium 135 mmol/L (136-145) L 01/08/22 06:12 POC Potassium 4.1 mmol/L (3.3-5.0) 01/06/22 15:12 Potassium 3.8 mmol/L (3.5-5.1) 01/08/22 06:12 POC Chloride 100 mmol/L (101-112) L 01/06/22 15:12 Chloride 103 mmol/L (98-107) 01/08/22 06:12 Carbon Dioxide 27 mmol/L (21-32) 01/08/22 06:12 POC Total CO2 28 mmol/L (24-31) 01/06/22 15:12 Anion Gap 5 (3-11) 01/08/22 06:12 POC Anion Gap 16.0 mmol/L (16-25) 01/06/22 15:12 POC BUN 17 mg/dl (7-18) 01/06/22 15:12 BUN 17 mg/dl (6-23) 01/08/22 06:12 Creatinine 0.85 mg/dl (0.6-1.4) 01/08/22 06:12 POC Creatinine 0.8 mg/dl (0.6-1.3) 01/06/22 15:12 Est Cr Clr Drug Dosing 69.4 ml/min 01/08/22 06:12 Est GFR ( Amer) 94.7 ml/min 01/08/22 06:12 Est GFR (Non-Af Amer) 81.7 ml/min 01/08/22 06:12 BUN/Creatinine Ratio 20.0 (10-20) 01/08/22 06:12 Glucose 105 mg/dl (70-99(Fasting)) H 01/08/22 06:12 POC Glucose (other) 110 mg/dl (70-99) H 01/06/22 15:12 Lactate 1.9 mmol/L (0.4-2.0) 01/06/22 22:51 Calcium 7.7 mg/dl (8.5-10.1) L 01/08/22 06:12 POC Ioniz Calcium [place] 1.24 mmol/l (1.12-1.32) 01/06/22 15:12 Ionized Calcium 1.12 mmol/L (1.12-1.32) 01/06/22 06:51 Magnesium 1.9 mg/dl (1.7-2.4) 01/06/22 06:51 Total Bilirubin 0.5 mg/dl (0.2-1.0) 01/04/22 13:10 AST 26 U/L (13-39) 01/04/22 13:10 ALT 19 U/L (7-52) 01/04/22 13:10 Alkaline Phosphatase 100 U/L (34-104) 01/04/22 13:10 Total Protein 6.6 gm/dl (6.0-8.3) 01/04/22 13:10 Albumin 4.0 gm/dl (3.4-5.0) 01/04/22 13:10 Globulin 2.6 gm/dl (2.5-4.0) 01/04/22 13:10 Albumin/Globulin Ratio 1.5 (0.9-2) 01/04/22 13:10 25-OH Vitamin D Total 36.8 ng/ml (30-100) 01/06/22 06:51 Procalcitonin 0.21 ng/ml (0-0.5) 01/06/22 22:51 Urine Color Dark Yellow 01/06/22 13:15 Urine Appearance Clear (Clear) 01/06/22 13:15 Urine pH 5.5 (4.5-7.5) 01/06/22 13:15 Ur Specific [place] 1.024 (1.000-1.030) 01/06/22 13:15 Urine Protein 1+ (Negative) H 01/06/22 13:15 Urine Glucose (UA) Negative (Negative) 01/06/22 13:15 Urine Ketones Negative (Negative) 01/06/22 13:15 Urine Blood Negative (Negative) 01/06/22 13:15 Urine Nitrite Negative (Negative) 01/06/22 13:15 Urine Bilirubin Negative (Negative) 01/06/22 13:15 Urine Urobilinogen Positive (Negative) H 01/06/22 13:15 Ur Leukocyte Esterase 2+ (Negative) H 01/06/22 13:15 Urine WBC (Auto) >30 /hpf (0-5) H 01/06/22 13:15 Urine RBC (Auto) 0-4 /hpf (0-4) 01/06/22 13:15 U Hyaline Cast (Auto) 1-5 /lpf (0-5) 01/06/22 13:15 U Epithel Cells (Auto) 10-20 /lpf (0-5) H 01/06/22 13:15 Urine Bacteria (Auto) Negative (Negative) 01/06/22 13:15 SARS-CoV-2, RNA, NAAT NEGATIVE (NEGATIVE) 01/04/22 15:24 Blood Type A Positive 01/06/22 06:51 Antibody Screen NEGATIVE 01/06/22 06:51 Crossmatch See Detail 01/06/22 06:51 Impressions . (1) Fracture, humerus Encounter type: initial encounter Fracture alignment: displaced Fracture morphology: unspecified fracture morphology Fracture type: closed Humerus Location: surgical neck Laterality: left Qualified Code(s): S42.212A - Unspecified displaced fracture of surgical neck of left humerus, initial encounter for closed fracture
[2022-01-08] MEDS: MoRPHine SULFATE 2 MG/ML CARP IV PRN ×3 (08:45→18:37)
[2022-01-08] MEDS: WARFARIN SOD 2.5 MG TAB PO SCH (16:59)
--- NOTE | 2022-01-08 17:10 | Hospitalist Progress Note ---
Date of Service January 08, 2022 Assessment & Plan (1) Humerus fracture: Plan: This is an 81yo M with a PMH of CAD, COPD, CKD III, HTN, history of DVT on Coumadin who presented with fall and was found to have comminuted humerus fracture. Humerus XR: comminuted, oblique fracture of the proximal 1/3 of the humeral shaft with displacement of fracture fragments Head CT without acute intracerebral pathology CXR without acute abnormality, EKG was sinus tachycardia and diffuse T wave inversions which appears unchanged Orthopedics UOC on board POD#2 ORIF left humerus performed by Dr. Hawkins Cardiology consulted on admission for preop clearance No postop complication Continue PT/OT eval Fall precaution Pain control with morphine IV, will transition to PO opioid Pain control with bowel regimen, scheduled Tylenol Vitamin D level 36.8 Ok from ortho standpoint to discharge Acute blood loss anemia Likely due to acute blood loss in the setting of coagulopathy and left humeral fracture, significant ecchymosis noted on exam Hgb 13.6 --> 8.7 01/06 --> 9.5 ->8.8 today S/p 1 unit PRBC 01/06/2022 Continue monitor CBC Hypocalcemia Received calcium replacement Ionized calcium normalized (2) Metabolic encephalopathy: Plan: Had agitation overnight and received 1 dose of IM Zyprexa AMS likely due to postoperative state, anesthesia, pain medication Patient now back to baseline Resolved (3) Abnormal urinalysis: Plan: Patient complained of dysuria and UA was obtained suggesting possible UTI Urine culture showing pinpoint growth, reincubating Initially patient placed IV ceftriaxone, changed to IV ertapenem overnight due to concern for possible sepsis, patient currently hemodynamically stable, will change back to IV ceftriaxone (day 2) Urine cx grew more than 3 organisms - Contamination Consider to d/c abx after completing 3 days course (4) Supratherapeutic INR: (5) History of DVT (deep vein thrombosis): (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 INR 4.0 on 01/05/22 Received IV vitamin K in preparation for surgery Per Ortho, Coumadin can be resumed today Home regimen is 1.25mg on Monday and 2.5mg all other days (7) CAD (coronary artery disease): Plan: H/o CABG in 2004, chronic disease that appears stable, no chest pain Has a history of ischemic cardiomyopathy however ejection fraction is now preserved per last echocardiogram Continue Imdur, lisinopril, Toprol XL with hold parameters, [place] Last echo 2018 EF 55%, mild avr, aortic root enlargement 4.5cm, ascending aorta moderately enlarged 4.7cm but stable Sinus Tachycardia present on admission, was resolved however tachycardia resumed overnight. Heart rate currently in the low 100s-110s Beta-lesli dose reduced due to concerns of hypotension. BP stable, will place patient back on home dose of metoprolol (8) HTN (hypertension): Plan: Continue Toprol XL, isosorbide Hold lisinopril due to intermittently borderline low BP (9) CKD (chronic kidney disease), stage III: Plan: Cr at baseline ~0.9-1 creatinine 0.85 - stable Monitor renal functions (10) COPD (chronic obstructive pulmonary disease): Plan: Stable. O2 saturation 96% on room air. Continue home inhalers ,supplemental O2 as needed (11) Hypothyroidism: Plan: Continue levothyroxine (12) Dyslipidemia: Plan: Continue statin (13) IRLANDA (obstructive sleep apnea): Plan: CPAP HS DVT prophylaxis SCDs while INR < 2.0, resuming Coumadin today Dispo - Plan to discharge to rehab tomorrow Admission and Anticipated Discharge Date Admission Date: January 04, 2022 Subjective Pt was seen and examined for post op follow up Sitting in chair with no distress Pt said that he feels ok He said that pain worsening when moving his left upper extremity Denies any chest pain, palpitation, dizziness and SOB Review of Systems Review of Systems: All systems reviewed & are unremarkable except as noted in Subjective Physical Exam Physical Exam: General- No acute distress Head- atraumatic Eyes- PERRL, EOMI, ENT- +decrease hearing function, +hearind aid Neck- supple, no JVD Lungs- clear to auscultation Heart- regular rhythm; no murmur Abdomen- normal bowel sounds, soft, nontender Extremities- Sling/surgical dressing in place to LUE, edema noted to left hand, + ecchymosis noted over left shoulder/axilla/deltoid area Neuro- alert, oriented x 3; PERRL, EOMI; no facial palsy; no dysarthria Skin- warm & dry Results & Data Results & Data ([facility]) Vital Signs (Past 12 Hours) Vital Signs Temp Pulse Resp BP Pulse Ox 01/08/22 14:30 36.5 C 102 H 16 108/63 94 01/08/22 07:17 37.0 C 99 H 16 117/61 90
[2022-01-08] MEDS ORDERED: STAT IV STA (17:22)
[2022-01-08] MEDS ORDERED: CALCIUM GLUCONATE 10% 1,000 MG in DEXTROSE 5% 50 ML IV ONE (17:45)
[2022-01-08] MEDS: traZODone HCL 50 MG TAB PO SCH (21:55)
[2022-01-08] MEDS: SENNA 8.6 MG TAB PO SCH (21:55)
[2022-01-08] MEDS: cefTRIAXone SODIUM 2,000 MG in DEXTROSE 5% 50 ML IV SCH (21:58)
[2022-01-09 06:05] LABS: Hematocrit (blood only) 24.4 % (42-52); Hemoglobin 7.8 g/dL (14.0-18.0); Mean Corpuscular Volume 90.7 fL (80-100); Mean Platelet Volume 10.8 fL (7.4-10.4); Nucleated RBC # (auto) 0.03 K/uL (0-0); Nucleated RBC % (auto) 0.5 %; Platelet Count 163 K/uL (130-400); RDW Coefficient of Variation 14.9 % (11.5-14.5); RDW Standard Deviation 48.9 fL (36.4-46.3); Red Blood Count 2.69 M/uL (4.7-6.1); White Blood Count 7.21 K/uL (4.8-10.8)
[2022-01-09 06:10] LABS: INR 1.1 (0.9-1.1); Prothrombin Time 11.8 Seconds (9.0-12.0)
[2022-01-09 06:30] LABS: Calcium 8.5 mg/dl (8.5-10.1); Creatinine Clr Calc Pharmacy 78.6 ml/min; Est GFR (African American) 99.7 ml/min; Potassium 3.9 mmol/L (3.5-5.1)
[2022-01-09] MEDS: LEVOTHYROXINE SODIUM 150 MCG TABLET PO SCH (06:35)
[2022-01-09] MEDS: PANTOprazole 40 MG TAB PO SCH (06:36)
[2022-01-09] MEDS: MoRPHine SULFATE 2 MG/ML CARP IV PRN (06:49)
[2022-01-09] MEDS ORDERED: METOPROLOL SUCC 50MG EXT REL TAB PO SCH (09:00)
[2022-01-09] MEDS: NEOMYCIN/POLYMYXIN/HYDROCORT OPH SUSP 7.5 ML BTL OPL SCH (09:23)
[2022-01-09] MEDS: DOCUSATE SODIUM 100 MG CAP PO SCH (09:24)
[2022-01-09] MEDS: FLUTICASONE/VILANTEROL 100/25MCG 14 PUFFS/INHALER INH SCH (09:24)
[2022-01-09] MEDS: ROSUVASTATIN CALCIUM 20 MG TAB PO SCH (09:25)
[2022-01-09] MEDS: ACETAMINOPHEN 500 MG TAB PO SCH ×2 (09:25→13:44)
[2022-01-09] MEDS: ISOSORBIDE MONO EXTENDED REL 30 MG TABCR PO SCH (09:25)
[2022-01-09] MEDS: ASPIRIN 81 MG ECTAB PO SCH (09:25)
[2022-01-09] MEDS: CHOLECALCIFEROL 1,000 UNITS 25 MCG TAB PO SCH (09:25)
[2022-01-09] MEDS: CEROVITE ADV FORMULA TAB PO SCH (09:25)
--- NOTE | 2022-01-09 11:44 | Orthopedic Progress Note ---
Date of Service January 09, 2022 Assessment & Plan (1) Fracture, humerus: Plan: POD 3 s/p ORIF Left Proximal third humerus fx PT/OT protocol. NWB LUElizabeth DVT prophylaxis - Coumadin, SCD's Pain management as written. DC drain today DC planning - Plan for [facility] upon dc when medically stable. Ok per ortho for dc. Admission and Anticipated Discharge Date Admission Date: January 04, 2022 Subjective Patient seen and examined, no acute events overnight. Pain is controlled. Hemovac was removed yesterday and dressing changed this morning. Tolerating p.o. intake and voiding spontaneously. Hemoglobin stable Physical Exam Constitutional: No acute distress, alert and oriented to person place and time Musculoskeletal: Left upper extremity -Dressing clean dry and intact -Diffuse ecchymosis on the left upper extremity -Sensation intact to light touch axillary/median/radial/ulnar nerve distributions -Fires wrist flexors/wrist extensors/EPL/FPL/dorsal interossei -Palpable radial pulse Results & Data ([facility]) Vital Signs (Past 12 Hours) Vital Signs Temp Pulse Resp BP Pulse Ox 01/09/22 06:23 36.8 C 100 H 19 128/70 95 (1) Fracture, humerus Encounter type: initial encounter Fracture alignment: displaced Fracture morphology: unspecified fracture morphology Fracture type: closed Humerus Location: surgical neck Laterality: left Qualified Code(s): S42.212A - Unspecified displaced fracture of surgical neck of left humerus, initial encounter for closed fracture
[2022-01-09 14:01] LABS: Hematocrit (blood only) 26.3 % (42-52); Hemoglobin 8.7 g/dL (14.0-18.0)
[2022-01-09] MEDS: WARFARIN SOD 2.5 MG TAB PO SCH (15:15)
--- NOTE | 2022-01-09 15:41 | Discharge Summary ---
Date of Service January 09, 2022 Discharge Exam General- No acute distress Head- atraumatic Eyes- PERRL, EOMI, ENT- +decrease hearing function, +hearind aid Neck- supple, no JVD Lungs- clear to auscultation Heart- regular rhythm; no murmur Abdomen- normal bowel sounds, soft, nontender Extremities- Sling/surgical dressing in place to LUE, edema noted to left hand, + ecchymosis noted over left shoulder/axilla/deltoid area Neuro- alert, oriented x 3; PERRL, EOMI; no facial palsy; no dysarthria Skin- warm & dry Discharge Data Allergies Allergy/AdvReac Type Severity Reaction Status Date / Time adhesive Allergy Intermediate BLISTERS Verified 01/04/22 16:14 amoxicillin [From Augmentin] Allergy Intermediate BURNING Verified 01/04/22 16:14 SENSATION OF TONGUE clavulanic acid Allergy Intermediate BURNING Verified 01/04/22 16:14 [From Augmentin] SENSATION OF TONGUE fish oil Allergy Intermediate ITCHY Verified 01/04/22 16:14 HIVES--IODINE Iodinated Contrast Media Allergy Intermediate ITCHY HIVES Verified 01/04/22 16:14 iodine Allergy Intermediate ANYTHING Verified 01/04/22 16:14 WITH IODINE--ITCHY HIVES niacin Allergy Intermediate Hives Verified 01/04/22 16:14 cat dander Allergy Unknown ON GMG MED Verified 01/04/22 16:14 LIST atorvastatin AdvReac Intermediate MUSCLE Verified 01/04/22 16:14 ACHES CAT GUT AdvReac Intermediate INFLAMMATIO Uncoded 01/04/22 16:14 N Consultations 01/04/22 16:18 Consult Orthopedic Surgery Routine 01/04/22 18:41 Consult Cardiology Routine Procedures Performed Operation Date: 01/06/22 14:45 Actual Procedures p Open Reduction Internal Fixation Left Proximal Humerus Fracture(Left) - Setven Hawkins MD Ordered Studies 01/04/22 13:04 CT cervical spine wo con Stat CT head/brain wo con Stat 01/06/22 14:45 FL humerus LT 2V Routine 01/06/22 15:50 US - OR guided needle placemen Stat Hospital Course (1) Humerus fracture: This is an 81yo M with a PMH of CAD, COPD, CKD III, HTN, history of DVT on Coumadin who presented with fall and was found to have comminuted humerus fracture. Humerus XR: comminuted, oblique fracture of the proximal 1/3 of the humeral shaft with displacement of fracture fragments Head CT without acute intracerebral pathology CXR without acute abnormality, EKG was sinus tachycardia and diffuse T wave inversions which appears unchanged Orthopedics UOC on board POD#2 ORIF left humerus performed by Dr. Hawkins Cardiology consulted on admission for preop clearance No postop complication Continue PT/OT eval Fall precaution Pain control with morphine IV, will transition to PO opioid Pain control with bowel regimen, scheduled Tylenol Vitamin D level 36.8 Ok from ortho standpoint to discharge Acute blood loss anemia Likely due to acute blood loss in the setting of coagulopathy and left humeral fracture, significant ecchymosis noted on exam Hgb 13.6 --> 8.7 01/06 --> 9.5 ->8.8 today S/p 1 unit PRBC 01/06/2022 Continue monitor CBC Hypocalcemia Received calcium replacement Ionized calcium normalized (2) Metabolic encephalopathy: Had agitation overnight and received 1 dose of IM Zyprexa AMS likely due to postoperative state, anesthesia, pain medication Patient now back to baseline Resolved (3) Abnormal urinalysis: Patient complained of dysuria and UA was obtained suggesting possible UTI Urine culture showing pinpoint growth, reincubating Initially patient placed IV ceftriaxone, changed to IV ertapenem overnight due to concern for possible sepsis, patient currently hemodynamically stable, will change back to IV ceftriaxone (day 2) Urine cx grew more than 3 organisms - Contamination Consider to d/c abx after completing 3 days course (4) Supratherapeutic INR: (5) History of DVT (deep vein thrombosis): (6) alf current use of anticoagulant: History of DVT on snf anticoagulation. INR 4.0 on 01/05/22 Received IV vitamin K in preparation for surgery Per Ortho, Coumadin can be resumed today Home regimen is 1.25mg on Monday and 2.5mg all other days (7) CAD (coronary artery disease): H/o CABG in 2004, chronic disease that appears stable, no chest pain Has a history of ischemic cardiomyopathy however ejection fraction is now preserved per last echocardiogram Continue Imdur, lisinopril, Toprol XL with hold parameters, Crestor Last echo 2018 EF 55%, mild avr, aortic root enlargement 4.5cm, ascending aorta moderately enlarged 4.7cm but stable Sinus Tachycardia present on admission, was resolved however tachycardia resumed overnight. Heart rate currently in the low 100s-110s Beta-lesli dose reduced due to concerns of hypotension. BP stable, will place patient back on home dose of metoprolol (8) HTN (hypertension): Continue Toprol XL, isosorbide Hold lisinopril due to intermittently borderline low BP (9) CKD (chronic kidney disease), stage III: Cr at baseline ~0.9-1 creatinine 0.85 - stable Monitor renal functions (10) COPD (chronic obstructive pulmonary disease): Stable. O2 saturation 96% on room air. Continue home inhalers ,supplemental O2 as needed (11) Hypothyroidism: Continue levothyroxine (12) Dyslipidemia: Continue statin (13) IRLANDA (obstructive sleep apnea): CPAP HS DVT prophylaxis SCDs while INR < 2.0, resuming Coumadin today Dispo - Plan to discharge to rehab tomorrow Discharge Plan Discharge Items Patient Disposition: Transfer Inpatient Rehab Fac Reason For Visit: HUMERUS FRACTURE, SUPRATHERAPEUTIC INR Discharge Diagnosis: LEFT PROXIMAL THIRD HUMERUS FRACTURE Acute blood loss anemia Hypocalcemia Metabolic encephalopathy: Abnormal urinalysis: Supratherapeutic INR: History of DVT (deep vein thrombosis): alf current use of anticoagulant: CAD (coronary artery disease): Sinus Tachycardia HTN (hypertension): CKD (chronic kidney disease), stage III: COPD (chronic obstructive pulmonary disease): Hypothyroidism: Dyslipidemia: IRLANDA (obstructive sleep apnea): Activity: Per Instructions section Non-emergency contact: Surgeon Call non-emergency contact if: your pain is not controlled, your wound has increased redness, your wound has increased drainage and your wound pain has increased Follow-up/Referrals: Steven Hawkins MD [Surgeon] - (FOLLOW UP IN 10-14 DAYS FROM THE DAY OF SURGERY FOR YOUR FIRST WOUND CHECK. ) Terrence Gtz, [Primary Care Provider] - Diet: Heart Healthy Addtl Attending Provider Instructions: folow up with your primary care provider once discharge from rehab Follow up with Orthopedic Dr. Hawkins or his PA in 10-14 days from the day of surgery for a wound check. Call for appointment. [phone] Follow up with the coumadin clinic to monitor your PT/INR Continue physical and occupational therapy Continue Nonweightbearing on the left upper extremity. Check CBC in 1 week to monitor your hemoglobin Fall precaution Continue Cpap at night Addtl Packager Machine Provider Instructions: Nonweightbearing on the left upper extremity. Use sling at all times except for bathing or changing clothes. May loosen sling for gentle range of motion of the elbow and wrist. Keep arm elevated when at rest to help with swelling down into hand. Daily dressing changes. If wound is remaining dry, you can change the dressing every other day. Keep the wound covered with dressing until seen back in the office. You may shower 72 hours after your surgery. No direct shower pressure to the wound. Do not soak the wound. No tub baths. Clean around the wound with mild soap. Pat dry and reapply dressing. Call the office if you have and increased temp of 101.5 or greater, increased pain, swelling, drainage, or redness of wound. [phone] Hawkins or his PA in 10-14 days from the day of surgery for a wound check. Call for appointment. [phone] Pending Studies at Discharge: No Stand-Alone Forms: My [facility] Skilled Items Patient informed of condition?: Yes DNR: No Discharge Level of Care: Acute rehab Communicable Disease: No Discharge Prognosis: Stable Lines: None Urinary Catheter: No Medications and DC Order Prescriptions: New hydrocodone-acetaminophen 5-325 mg tablet 1 tab PO Q8H PRN (Reason: pain) Qty: 10 RF: 0 sennosides [Senokot] 8.6 mg Tablet 17.2 mg PO HS Qty: 30 RF: 0 Continued aspirin 81 mg Tablet,Delayed Release (Dr/Ec) 81 mg PO QAM RF: 0 furosemide 40 mg tablet 40 mg PO Q2D RF: 0 fluticasone propion-salmeterol [Wixela Inhub] 250-50 mcg/dose blister with device 1 inh inhalation BID RF: 0 trazodone 50 mg tablet 50 mg PO HS RF: 0 isosorbide mononitrate 30 mg tablet extended release 24 hr 30 mg PO DAILY RF: 0 clonazepam 0.5 mg tablet 0.5 mg PO BID PRN (Reason: Anxiety) RF: 0 omeprazole 40 mg capsule,delayed release(DR/EC) 40 mg PO QAM RF: 0 levothyroxine 150 mcg tablet 150 mcg PO QAM RF: 0 nitroglycerin [Nitrostat] 0.4 mg Tablet, Sublingual 0.4 mg sublingual DIRECTED PRN (Reason: Chest Pain) RF: 0 Centrum Silver 0.4-300-250 mg-mcg-mcg Tablet 1 tab PO QAM RF: 0 fluticasone propionate [Flonase Allergy Relief] 50 mcg/actuation [place],Suspension 2 spray INTRANASAL DAILY PRN (Reason: Allergy Symptoms) RF: 0 warfarin 2.5 mg tablet 2.5 mg PO DAILY RF: 0 metoprolol succinate 50 mg tablet extended release 24 hr 150 mg PO DAILY RF: 0 lisinopril 5 mg tablet 5 mg PO DAILY RF: 0 rosuvastatin 40 mg tablet 40 mg PO DAILY RF: 0 cholecalciferol (vitamin D3) 50 mcg (2,000 unit) Tablet 50 mcg PO DAILY RF: 0 (DME) Oxygen Home Liters Per Minute See Rx Instructions .Route Qty: 1 RF: 0 acetaminophen [Tylenol] 325 mg Tablet 650 mg PO Q6H PRN (Reason: Pain) RF: 0 betamethasone, augmented 0.05 % cream 1 applic TOPICAL BID PRN (Reason: Pain) RF: 0 albuterol sulfate [Ventolin HFA] 90 mcg/actuation Hfa Aerosol Inhaler 2 puff INHALATION Q4H PRN (Reason: Shortness Of Breath Or Wheezing) RF: 0 omckcccb-vmsdvmakc-HO 3.5-10,000-10 mg-unit-mg/mL drops,suspension 1 drp OPL BID RF: 0 Combivent Respimat 20-100 mcg/actuation Mist 2 puff INHALATION QID PRN (Reason: COUGH/WHEEZE) RF: 0 Discharge Orders: Discharge Order (Routine); Ordered 01/09/22 Ordered By: Astrid Gaspar Admission Data Admit Date/Time: 01/04/22 16:18 Attending Provider: Astrid Gaspar Admit Provider: Ganesh Vines Primary Care Provider: Terrence Gtz Other Providers: Kate Crum ; Ganesh Vines ; [facility] ; Satish Ludwig ; Miguel Robins ; Jerrod Trujillo ; Jeet Terrazas ; Daryl Sunshine ; Tank Coyne ; Robert Salter ; Jenny Gant ; Ruth Wasserman ; Lauren Lopez. ; Virgilio Johnson Other Interventions: Discharge Summary Assessment (RN) Last Done: 01/09/22 15:24
== END 2022-01-09 16:46 | DRG 492 ==
LOC: ED 12:49 → 3N 16:18 → SUATTDRO 16:18 → 3N 17:29 → 2E 01-06 22:46 → 3N 01-07 17:43
DX: J44.9 Chronic obstructive pulmonary disease, unspecified; Y92.009 Unspecified place in unspecified non-institutional (private) residence as the place of occurrence of the external cause; G93.41 Metabolic encephalopathy; N18.30 Chronic kidney disease, stage 3 unspecified; I25.10 Atherosclerotic heart disease of native coronary artery without angina pectoris; I12.9 Hypertensive chronic kidney disease with stage 1 through stage 4 chronic kidney disease, or unspecified chronic kidney disease; E03.9 Hypothyroidism, unspecified; Z95.1 Presence of aortocoronary bypass graft; N39.0 Urinary tract infection, site not specified; I25.5 Ischemic cardiomyopathy; Z88.1 Allergy status to other antibiotic agents; G47.33 Obstructive sleep apnea (adult) (pediatric); E78.5 Hyperlipidemia, unspecified; Z91.041 Radiographic dye allergy status; R79.1 Abnormal coagulation profile; S00.93XA Contusion of unspecified part of head, initial encounter; Z79.82 Long term (current) use of aspirin; D62 Acute posthemorrhagic anemia; W22.8XXA Striking against or struck by other objects, initial encounter; R00.0 Tachycardia, unspecified; E83.52 Hypercalcemia; S42.332A Displaced oblique fracture of shaft of humerus, left arm, initial encounter for closed fracture; Z88.8 Allergy status to other drugs, medicaments and biological substances; K21.9 Gastro-esophageal reflux disease without esophagitis; Z95.5 Presence of coronary angioplasty implant and graft; Z86.718 Personal history of other venous thrombosis and embolism

== ENCOUNTER 2022-03-04 20:17 | Observation (INO) ==
[2022-03-04] MEDS ORDERED: cefTRIAXone SODIUM 2,000 MG/70 ML BAG IV STA (20:35)
[2022-03-04] MEDS ORDERED: SODIUM CHLORIDE 0.9% 1000ML 1,000 ML IV SCH (20:45)
--- NOTE | 2022-03-04 20:51 | Emergency Department Note ---
Impression & Plan Cellulitis, senior living current use of anticoagulant, Elevated troponin ED Provider Note NAME: ALIA JOSHUA AGE: 81 SEX: M : 1940 ARRIVES VIA: Walk-In INFORMANT: Patient ED PROVIDER(S): Kade Faustin DO CHIEF COMPLAINT: Fevers and elevated heart rate HPI: Patient is an 81-year-old gentleman who presents to the ER as he has not been feeling well since yesterday. He notes today he has been having fevers as high as 101-102. He admits to a chronic runny nose. Worsening shortness of breath over the past 24 hours. No headache or change in vision. No chest pain. He admits to increased frequency of urination. He has not been taking his water pill for the past 48 hours. He denies any belly pain, nausea, vomiting, or diarrhea. He notes that the redness on his right tran is new. ROS: See above HPI for pertinent positives & negatives. A total of 10 systems reviewed and were otherwise negative. PAST MEDICAL HISTORY:See Below PAST SURGICAL HISTORY:See Below FAMILY HISTORY:See Below SOCIAL HISTORY:See Below HOME MEDICATIONS:See Below ALLERGIES:See Below VITALS:See Below PHYSICAL EXAMINATION: GENERAL: Sitting up in bed, alert, slightly ill-appearing, disheveled EYE EXAM: normal conjunctiva. PERRL and EOM's grossly intact. OROPHARYNX: no exudate, no erythema, lips, buccal mucosa, and tongue normal and mucous membranes are moist NECK: supple, no nuchal rigidity, no adenopathy, non-tender LUNGS: Clear to auscultation. Normal chest wall mechanics HEART: no murmurs, S1 normal and S2 normal ABDOMEN: abdomen soft, non-tender, normo-active bowel sounds, no masses, no rebound or guarding. UPPER EXTREMITIES: upper extremities are grossly normal. LOWER EXTREMITIES: Mild pitting edema in the bilateral lower extremities with erythema on the right tran NEURO EXAM: Normal sensorium, cranial nerves II-XII grossly intact, normal speech, no gross weakness of arms, no gross weakness of legs. MEDICAL DECISION MAKING: Patient is an 81-year-old male who presents the ER for above-stated complaint. IV was established blood was obtained. Labs show no significant leukocytosis or anemia. INR was therapeutic at 2.8. BMP with mild hypokalemia 3.4. LFTs were unremarkable. Lactate was normal. Troponin was elevated at 31. proBNP was slightly elevated at 600. UA was unremarkable. COVID influenza and RSV were n egative. Chest x-ray with cephalization suggesting CHF. Patient was tachycardic with heart rate in 130s and EKG suggesting sinus tach. Patient was given initially IV fluids prior to resolving x-ray. Once chest x-ray was obtained and there was a delay as it was unable to be pulled up we stopped the fluids. Patient was given a dose of Lasix. He was given IV antibiotics. He was updated bedside and admitted for cellulitis of his lower and lower extremity and associated with tachycardia. Triage Nursing notes reviewed. Limited review of prior medical records performed Vital Signs: reviewed and remarkable for tachy Differential diagnosis: Differential diagnosis includes etiologies such as sepsis, UTI, pneumonia, metabolic, electrolyte abnormalities, cardiac sources, intracerebral event, toxicologic, neurological, as well as others were entertained. ER treatment provided: See below Diagnostics interpreted by me: ECG: Sinus tachycardia rate of 138 Normal axis T wave inversion in the inferior leads Nonspecific ST wave changes in the lateral leads QTC 451 Cardiac Monitoring: An order was placed for continuous cardiac monitoring. The monitor shows a rate of 122 with sinus rhythm. Laboratory studies: As stated above and show below. Imaging studies: Portable AP upright 1 view of the chest per my read shows no pneumothorax but cephalization consistent with CHF Consultation(s): Discussed with Dr. Painting for admission Procedures: none Critical Care: None Past Med/Surg History Medical History CAD (coronary artery disease) 2004 - CABG Chronic anticoagulation CKD (chronic kidney disease), stage III COPD (chronic obstructive pulmonary disease) COVID-19 Dyslipidemia Frequent falls GERD (gastroesophageal reflux disease) History of DVT (deep vein thrombosis) HTN (hypertension) Hypothyroidism Ischemic cardiomyopathy Obesity IRLANDA (obstructive sleep apnea) Periprosthetic fracture of shaft of femur Prediabetes Surgical History History of coronary artery bypass graft History of total knee arthroplasty Family History Other Family history non-contributory Hypertension Social History Smoking Status: Never smoker Second Hand Exposure: No; Hx Alcohol Use: Yes Alcohol type: hard liquor Hx Substance Use: No Preferred Language: Hungarian Communication Ability: Effective Balance Wheel 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 Tapper Required: No Beliefs That Will Affect Care: None Current Living Situation: Family Current Living Situation Comment: with grandson Feels Safe at Home: Yes Assistive Devices: Cane Allergies Allergies Allergy/AdvReac Type Severity Reaction Status Date / Time adhesive Allergy Intermediate BLISTERS Verified 03/04/22 21:11 amoxicillin [From Augmentin] Allergy Intermediate BURNING Verified 03/04/22 21:1 1 SENSATION OF TONGUE clavulanic acid Allergy Intermediate BURNING Verified 03/04/22 21:11 [From Augmentin] SENSATION OF TONGUE fish oil Allergy Intermediate ITCHY Verified 03/04/22 21:11 HIVES--IODINE Iodinated Contrast Media Allergy Intermediate ITCHY HIVES Verified 03/04/22 21:11 iodine Allergy Intermediate ANYTHING Verified 03/04/22 21:11 WITH IODINE--ITCHY HIVES niacin Allergy Intermediate Hives Verified 03/04/22 21:11 cat dander Allergy Unknown ON GMG MED Verified 03/04/22 21:11 LIST atorvastatin AdvReac Intermediate MUSCLE Verified 03/04/22 21:11 ACHES CAT GUT SUTURE AdvReac Intermediate INFLAMMATION Uncoded 03/04/22 21:12 OF AREA SUTURED Home Meds Home Medications Medication Instructions Recorded Confirmed aspirin 81 mg tablet,delayed 81 mg PO QAM 07/12/19 03/04/22 release clonazepam 0.5 mg tablet 0.5 mg PO BID PRN 07/12/19 03/04/22 fluticasone 250 mcg-salmeterol 50 1 inh INHALATION BID 07/12/19 03/04/22 mcg/dose blistr powdr for inhalation (Wixela Inhub) fluticasone propionate 50 2 spray INTRANASAL DAILY PRN 07/12/19 03/04/22 mcg/actuation nasal spray,suspension (Flonase Allergy Relief) furosemide 40 mg tablet 40 mg PO Q2D 07/12/19 03/04/22 isosorbide mononitrate 30 mg 30 mg PO DAILY 07/12/19 03/04/22 tablet,extended release 24 hr levothyroxine 150 mcg tablet 150 mcg PO QAM 07/12/19 03/04/22 znhiqzsj-eyt-hhprz acid 0.4 1 tab PO QAM 07/12/19 03/04/22 mg-lycopene 300 mcg-lutein 250 mcg tablet (Centrum Silver) nitroglycerin 0.4 mg sublingual 0.4 mg SUBLINGUAL DIRECTED PRN 07/12/19 03/04/22 tablet (Nitrostat) omeprazole 40 mg capsule,delayed 40 mg PO QAM 07/12/19 03/04/22 release trazodone 50 mg tablet 50 mg PO HS 07/12/19 03/04/22 warfarin 2.5 mg tablet See Rx Instructions .ROUTE .COMPLEX 07/12/19 03/04/22 cholecalciferol (vitamin D3) 50 50 mcg PO DAILY 07/14/21 03/04/22 mcg (2,000 unit) tablet lisinopril 5 mg tablet 5 mg PO DAILY 07/14/21 03/04/22 metoprolol succinate 50 mg 100 mg PO DAILY 07/14/21 03/04/22 tablet,extended release 24 hr rosuvastatin 40 mg tablet 40 mg PO DAILY 07/14/21 03/04/22 acetaminophen 325 mg tablet 650 mg PO Q6H PRN 01/04/22 03/04/22 (Tylenol) albuterol sulfate 90 mcg/actuation 2 puff INHALATION Q4H PRN 01/04/22 03/04/22 aerosol inhaler (Ventolin HFA) betamethasone, augmented 0.05 % 1 applic TOPICAL BID PRN 01/04/22 03/04/22 topical cream ipratropium 20 mcg-albuterol 100 2 puff INHALATION QID PRN 01/04/22 03/04/22 mcg/actuation mist for inhalation (Combivent Respimat) neomycin 3.5 mg-polymyxin 10,000 1 drp OPL BID 01/04/22 03/04/22 unit-hydrocort 10 mg/mL eye drop,susp Previous Rx's Medication Instructions Recorded Oxygen Home #1 ea 07/20/21 hydrocodone 5 mg-acetaminophen 325 1 tab PO Q8H PRN #10 tab 01/09/22 mg tablet sennosides 8.6 mg tablet (Senokot) 17.2 mg PO HS #30 tab 01/09/22 Results & Data (ED) Vital Signs Vital Signs - 24 hr 03/04/22 20:19 03/04/22 20:30 03/04/22 21:03 Temperature 37.4 C Temperature Source Temporal Artery Scan Pulse Rate 138 H Pulse Rate [Apical] Pulse Rhythm [Apical] Respiratory Rate 22 Respiratory Effort / Characteristics Spontaneous SOB on Exertion Respiratory Depth Normal Respiratory Pattern Blood Pressure 145/82 H Blood Pressure [Right Arm] Blood Pressure Mean 103 Blood Pressure Mean [Right Arm] Blood Pressure Position [Right Arm] Pulse Oximetry 90 87 L 98 Oxygen Delivery Method Room Air Room Air Nasal Cannula Nasal Cannula Oxygen Flow Rate 0 2 Sepsis Recent Fever Within 48 Hours Yes Sepsis New/Unexplained Change in Mental Status N/A Sepsis Action Taken by Nursing No Action Required Oxygen Flow Rate - Titration 2 Pulse Oximetry Post Tiitration 97 03/04/22 21:18 03/04/22 21:33 03/04/22 22:00 Temperature 36.7 C Temperature Source Oral Pulse Rate Pulse Rate [Apical] 120 H Pulse Rhythm [Apical] Respiratory Rate 20 26 H 26 H Respiratory Effort / Characteristics Short of Breath SOB on Exertion SOB on Exertion Non-Labored Spontaneous Respiratory Depth Respiratory Pattern Blood Pressure Blood Pressure [Right Arm] 125/77 Blood Pressure Mean Blood Pressure Mean [Right Arm] 93 Blood Pressure Position [Right Arm] Sitting Pulse Oximetry 97 97 96 Oxygen Delivery Method Nasal Cannula Nasal Cannula Oxygen Flow Rate 2 2 3 Sepsis Recent Fever Within 48 Hours Sepsis New/Unexplained Change in Mental Status Sepsis Action Taken by Nursing Oxygen Flow Rate - Titration Pulse Oximetry Post Tiitration 03/04/22 22:22 03/04/22 22:30 03/04/22 23:00 Temperature Temperature Source Pulse Rate Pulse Rate [Apical] 116 H Pulse Rhythm [Apical] Irregular Respiratory Rate 22 26 H 18 Respiratory Effort / Characteristics SOB on Exertion Non-Labored Spontaneous SOB on Exertion Non-Labored Spontaneous Respiratory Depth Normal Respiratory Pattern Regular Blood Pressure Blood Pressure [Right Arm] 146/83 H Blood Pressure Mean Blood Pressure Mean [Right Arm] 104 Blood Pressure Position [Right Arm] Pulse Oximetry 97 96 97 Oxygen Delivery Method Nasal Cannula Nasal Cannula Nasal Cannula Oxygen Flow Rate 3 3 3 Sepsis Recent Fever Within 48 Hours Sepsis New/Unexplained Change in Mental Status Sepsis Action Taken by Nursing Oxygen Flow Rate - Titration Pulse Oximetry Post Tiitration 03/04/22 23:30 03/05/22 00:00 03/05/22 00:05 Temperature 37.0 C Temperature Source Oral Pulse Rate Pulse Rate [Apical] 110 H Pulse Rhythm [Apical] Regular Respiratory Rate 22 20 Respiratory Effort / Characteristics Non-Labored Spontaneous SOB on Exertion Non-Labored Spontaneous SOB on Exertion Respiratory Depth Normal Respiratory Pattern Blood Pressure Blood Pressure [Right Arm] 125/73 Blood Pressure Mean Blood Pressure Mean [Right Arm] 90 Blood Pressure Position [Right Arm] Pulse Oximetry 97 97 97 Oxygen Delivery Method Nasal Cannula Nasal Cannula Nasal Cannula Oxygen Flow Rate 3 3 3 Sepsis Recent Fever Within 48 Hours Sepsis New/Unexplained Change in Mental Status Sepsis Action Taken by Nursing Oxygen Flow Rate - Titration Pulse Oximetry Post Tiitration 03/05/22 00:21 Temperature Temperature Source Pulse Rate 116 H Pulse Rate [Apical] Pulse Rhythm [Apical] Respiratory Rate Respiratory Effort / Characteristics Respiratory Depth Respiratory Pattern Blood Pressure 125/73 Blood Pressure [Right Arm] Blood Pressure Mean Blood Pressure Mean [Right Arm] Blood Pressure Position [Right Arm] Pulse Oximetry Oxygen Delivery Method Oxygen Flow Rate Sepsis Recent Fever Within 48 Hours Sepsis New/Unexplained Change in Mental Status Sepsis Action Taken by Nursing Oxygen Flow Rate - Titration Pulse Oximetry Post Tiitration Laboratory Data Result diagrams: 03/04/22 20:39 03/04/22 20:39 Lab Results 03/04/22 03/04/22 03/04/22 Range/Units 20:39 20:39 20:39 WBC 10.18 (4.8-10.8) K/uL RBC 4.44 L (4.7-6.1) M/uL Hgb 13.4 L (14.0-18.0) g/dL Hct 41.4 L (42-52) % MCV 93.2 (80-100) fL MCH 30.2 (25-34) pg MCHC 32.4 (32-36) g/dL RDW Std Deviation 49.7 H (36.4-46.3) fL RDW Coeff of Cory 14.5 (11.5-14.5) % Plt Count 152 (130-400) K/uL MPV 12.3 H (7.4-10.4) fL Immature Gran % (Auto) 0.2 % Neut % (Auto) 71.3 % Lymph % (Auto) 14.8 % [place] % (Auto) 12.5 % Eos % (Auto) 1.1 % Baso % (Auto) 0.1 % Neut # (Auto) 7.26 H (1.4-6.5) K/uL Lymph # (Auto) 1.51 (1.2-3.4) K/uL [place] # (Auto) 1.27 H (0.11-0.59) K/uL Eos # (Auto) 0.11 (0-0.5) K/uL Baso # (Auto) 0.01 (0-0.2) K/uL Immature Gran # (Auto) 0.02 (0.00-0.02) K/uL PT 28.3 H (9.0-12.0) Seconds INR 2.8 H (0.9-1.1) APTT 50.2 H* (21.0-31.0) Seconds PTT Ratio 1.8 Sodium (136-145) mmol/L Potassium (3.5-5.1) mmol/L Chloride (98-107) mmol/L Carbon Dioxide (21-32) mmol/L Anion Gap (3-11) BUN (6-23) mg/dl Creatinine (0.6-1.4) mg/dl Est Cr Clr Drug Dosing ml/min Est GFR ( Amer) ml/min Est GFR (Non-Af Amer) ml/min BUN/Creatinine Ratio (10-20) Glucose (70-99(Fasting)) mg/dl Lactate (0.4-2.0) mmol/L Calcium (8.5-10.1) mg/dl Magnesium (1.7-2.4) mg/dl Total Bilirubin (0.2-1.0) mg/dl AST (13-39) U/L ALT (7-52) U/L Alkaline Phosphatase (34-104) U/L Troponin I High Sens 31.0 H (0-20) pg/ml B-Natriuretic Peptide (0-100) pg/ml Total Protein (6.0-8.3) gm/dl Albumin (3.4-5.0) gm/dl Globulin (2.5-4.0) gm/dl Albumin/Globulin Ratio (0.9-2) Urine Color Urine Appearance (Clear) Urine pH (4.5-7.5) Ur Specific [place] (1.000-1.030) Urine Protein (Negative) Urine Glucose (UA) (Negative) Urine Ketones (Negative) Urine Blood (Negative) Urine Nitrite (Negative) Urine Bilirubin (Negative) Urine Urobilinogen (Negative) Ur Leukocyte Esterase (Negative) Urine WBC (Auto) (0-5) /hpf Urine RBC (Auto) (0-4) /hpf U Hyaline Cast (Auto) (0-5) /lpf U Epithel Cells (Auto) (0-5) /lpf Urine Bacteria (Auto) (Negative) SARS-CoV-2 (PCR) (Negative) Influenza Type A (PCR) (Neg) Influenza Type B (PCR) (Neg) RSV (RT-PCR) (Neg) 03/04/22 03/04/22 03/04/22 Range/Units 20:39 20:39 21:23 WBC (4.8-10.8) K/uL RBC (4.7-6.1) M/uL Hgb (14.0-18.0) g/dL Hct (42-52) % MCV (80-100) fL MCH (25-34) pg MCHC (32-36) g/dL RDW Std Deviation (36.4-46.3) fL RDW Coeff of [place] (11.5-14.5) % Plt Count (130-400) K/uL MPV (7.4-10.4) fL Immature Gran % (Auto) % Neut % (Auto) % Lymph % (Auto) % [place] % (Auto) % Eos % (Auto) % Baso % (Auto) % Neut # (Auto) (1.4-6.5) K/uL Lymph # (Auto) (1.2-3.4) K/uL [place] # (Auto) (0.11-0.59) K/uL Eos # (Auto) (0-0.5) K/uL Baso # (Auto) (0-0.2) K/uL Immature Gran # (Auto) (0.00-0.02) K/uL PT (9.0-12.0) Seconds INR (0.9-1.1) APTT (21.0-31.0) Seconds PTT Ratio Sodium 142 (136-145) mmol/L Potassium 3.4 L (3.5-5.1) mmol/L Chloride 103 (98-107) mmol/L Carbon Dioxide 29 (21-32) mmol/L Anion Gap 10 (3-11) BUN 15 (6-23) mg/dl Creatinine 0.93 (0.6-1.4) mg/dl Est Cr Clr Drug Dosing 63.9 ml/min Est GFR ( Amer) 88.9 ml/min Est GFR (Non-Af Amer) 76.7 ml/min BUN/Creatinine Ratio 16.1 (10-20) Glucose 138 H (70-99(Fasting)) mg/dl Lactate 1.1 (0.4-2.0) mmol/L Calcium 8.8 (8.5-10.1) mg/dl Magnesium 1.9 (1.7-2.4) mg/dl Total Bilirubin 0.8 (0.2-1.0) mg/dl AST 24 (13-39) U/L ALT 17 (7-52) U/L Alkaline Phosphatase 126 H (34-104) U/L Troponin I High Sens (0-20) pg/ml B-Natriuretic Peptide (0-100) pg/ml Total Protein 6.7 (6.0-8.3) gm/dl Albumin 3.9 (3.4-5.0) gm/dl Globulin 2.8 (2.5-4.0) gm/dl Albumin/Globulin Ratio 1.4 (0.9-2) Urine Color Dark Yellow Urine Appearance Clear (Clear) Urine pH 5.0 (4.5-7.5) Ur Specific [place] 1.028 (1.000-1.030) Urine Protein 2+ H (Negative) Urine Glucose (UA) Negative (Negative) Urine Ketones Trace H (Negative) Urine Blood Negative (Negative) Urine Nitrite Negative (Negative) Urine Bilirubin Negative (Negative) Urine Urobilinogen Negative (Negative) Ur Leukocyte Esterase Trace H (Negative) Urine WBC (Auto) 1-5 (0-5) /hpf Urine RBC (Auto) 0-4 (0-4) /hpf U Hyaline Cast (Auto) 1-5 (0-5) /lpf U Epithel Cells (Auto) >30 H (0-5) /lpf Urine Bacteria (Auto) Negative (Negative) SARS-CoV-2 (PCR) (Negative) Influenza Type A (PCR) (Neg) Influenza Type B (PCR) (Neg) RSV (RT-PCR) (Neg) 03/04/22 03/04/22 03/04/22 Range/Units 22:56 22:56 Unknown WBC (4.8-10.8) K/uL RBC (4.7-6.1) M/uL Hgb (14.0-18.0) g/dL Hct (42-52) % MCV (80-100) fL MCH (25-34) pg MCHC (32-36) g/dL RDW Std Deviation (36.4-46.3) fL RDW Coeff of [place] (11.5-14.5) % Plt Count (130-400) K/uL MPV (7.4-10.4) fL Immature Gran % (Auto) % Neut % (Auto) % Lymph % (Auto) % [place] % (Auto) % Eos % (Auto) % Baso % (Auto) % Neut # (Auto) (1.4-6.5) K/uL Lymph # (Auto) (1.2-3.4) K/uL [place] # (Auto) (0.11-0.59) K/uL Eos # (Auto) (0-0.5) K/uL Baso # (Auto) (0-0.2) K/uL Immature Gran # (Auto) (0.00-0.02) K/uL PT (9.0-12.0) Seconds INR (0.9-1.1) APTT (21.0-31.0) Seconds PTT Ratio Sodium (136-145) mmol/L Potassium (3.5-5.1) mmol/L Chloride (98-107) mmol/L Carbon Dioxide (21-32) mmol/L Anion Gap (3-11) BUN (6-23) mg/dl Creatinine (0.6-1.4) mg/dl Est Cr Clr Drug Dosing ml/min Est GFR ( Amer) ml/min Est GFR (Non-Af Amer) ml/min BUN/Creatinine Ratio (10-20) Glucose (70-99(Fasting)) mg/dl Lactate (0.4-2.0) mmol/L Calcium (8.5-10.1) mg/dl Magnesium (1.7-2.4) mg/dl Total Bilirubin (0.2-1.0) mg/dl AST (13-39) U/L ALT (7-52) U/L Alkaline Phosphatase (34-104) U/L Troponin I High Sens 45.0 H D (0-20) pg/ml B-Natriuretic Peptide 686 H (0-100) pg/ml Total Protein (6.0-8.3) gm/dl Albumin (3.4-5.0) gm/dl Globulin (2.5-4.0) gm/dl Albumin/Globulin Ratio (0.9-2) Urine Color Urine Appearance (Clear) Urine pH (4.5-7.5) Ur Specific [place] (1.000-1.030) Urine Protein (Negative) Urine Glucose (UA) (Negative) Urine Ketones (Negative) Urine Blood (Negative) Urine Nitrite (Negative) Urine Bilirubin (Negative) Urine Urobilinogen (Negative) Ur Leukocyte Esterase (Negative) Urine WBC (Auto) (0-5) /hpf Urine RBC (Auto) (0-4) /hpf U Hyaline Cast (Auto) (0-5) /lpf U Epithel Cells (Auto) (0-5) /lpf Urine Bacteria (Auto) (Negative) SARS-CoV-2 (PCR) NEGATIVE (Negative) Influenza Type A (PCR) Negative (Neg) Influenza Type B (PCR) Negative (Neg) RSV (RT-PCR) Negative (Neg) Administered Medications Magnesium Sulfate/Dextrose (Magnesium Sulfate / D5w) 1 gm in 100 mls @ 50 mls/hr IV Q2H ALIREZA Stop: 03/05/22 02:29 Last Admin: 03/04/22 23:19 Dose: 50 mls/hr Documented by: [id number] Discontinued Medications Clonazepam (Clonazepam 0.5 Mg Tab) 0.5 mg PO NOW STA Stop: 03/04/22 21:46 Last Admin: 03/04/22 21:55 Dose: 0.5 mg Documented by: [id number] Furosemide (Furosemide 40 Mg/4 Ml Vial) 40 mg IV NOW STA Stop: 03/04/22 21:57 Last Admin: 03/04/22 22:05 Dose: 40 mg Documented by: [id number] Sodium Chloride (Nss 1000ml) 1,000 mls @ 999 mls/hr IV .Q1H1M ALIREZA Stop: 03/04/22 21:34 Last Infusion: 03/04/22 22:20 Dose: 0 mls/hr Documented by: [id number] Admin: 03/04/22 21:01 Dose: 999 mls/hr Documented by: [id number] Ceftriaxone Sodium (Rocephin) 2,000 mg in 70 mls @ 140 mls/hr IV NOW STA Stop: 03/04/22 21:04 Last Infusion: 03/04/22 21:34 Dose: 0 mls/hr Documented by: [id number] Admin: 03/04/22 21:00 Dose: 140 mls/hr Documented by: [id number] Doxycycline Hyclate 100 mg/ (Dextrose) 110 mls @ 50 mls/hr IV NOW STA Stop: 03/05/22 00:30 Last Admin: 03/04/22 23:19 Dose: 50 mls/hr Documented by: [id number] Ipratropium [place] (Ipratropium [place] Neb Soln 0.02% 2.5 Ml Vial) 0.5 mg INH ONE STA Stop: 03/04/22 22:27 Last Admin: 03/04/22 23:21 Dose: 0.5 mg Documented by: [id number] Levalbuterol HCl (Levalbuterol 1.25mg/0.5ml Neb) 1.25 mg INH ONE STA Stop: 03/04/22 22:27 Last Admin: 03/04/22 23:21 Dose: 1.25 mg Documented by: [id number] Metoprolol Tartrate (Metoprolol Tartrate 1 Mg/Ml Vial) 2.5 mg IV NOW STA Stop: 03/05/22 00:11 Last Admin: 03/05/22 00:21 Dose: 2.5 mg Documented by: [id number] Potassium Chloride (Potassium Chloride Crtab 20 Meq Tabcr) 40 meq PO NOW STA Stop: 03/04/22 22:20 Last Admin: 03/04/22 23:21 Dose: 40 meq Documented by: [id number] Discharge Plan Visit Data Chief Complaint: Fever Stated Complaint: FEVER, HYPERTENSION ED Provider: Kade Faustin 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, 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, Elevated troponin Forms Stand Alone Forms: My [facility] [employer] Prescriptions Prescriptions: No Action aspirin 81 mg Tablet,Delayed Release (Dr/Ec) 81 mg PO QAM RF: 0 furosemide 40 mg tablet 40 mg PO Q2D RF: 0 fluticasone propion-salmeterol [Wixela Inhub] 250-50 mcg/dose blister with device 1 inh inhalation BID RF: 0 trazodone 50 mg tablet 50 mg PO HS RF: 0 isosorbide mononitrate 30 mg tablet extended release 24 hr 30 mg PO DAILY RF: 0 clonazepam 0.5 mg tablet 0.5 mg PO BID PRN (Reason: Anxiety) RF: 0 omeprazole 40 mg capsule,delayed release(DR/EC) 40 mg PO QAM RF: 0 levothyroxine 150 mcg tablet 150 mcg PO QAM RF: 0 nitroglycerin [Nitrostat] 0.4 mg Tablet, Sublingual 0.4 mg sublingual DIRECTED PRN (Reason: Chest Pain) RF: 0 Centrum Silver 0.4-300-250 mg-mcg-mcg Tablet 1 tab PO QAM RF: 0 fluticasone propionate [Flonase Allergy Relief] 50 mcg/actuation [place],Suspension 2 spray INTRANASAL DAILY PRN (Reason: Allergy Symptoms) RF: 0 warfarin 2.5 mg tablet See Rx Instructions .ROUTE .COMPLEX RF: 0 metoprolol succinate 50 mg tablet extended release 24 hr 100 mg PO DAILY RF: 0 lisinopril 5 mg tablet 5 mg PO DAILY RF: 0 rosuvastatin 40 mg tablet 40 mg PO DAILY RF: 0 cholecalciferol (vitamin D3) 50 mcg (2,000 unit) Tablet 50 mcg PO DAILY RF: 0 (DME) Oxygen Home Liters Per Minute See Rx Instructions .Route Qty: 1 RF: 0 acetaminophen [Tylenol] 325 mg Tablet 650 mg PO Q6H PRN (Reason: Pain) RF: 0 betamethasone, augmented 0.05 % cream 1 applic TOPICAL BID PRN (Reason: Pain) RF: 0 albuterol sulfate [Ventolin HFA] 90 mcg/actuation Hfa Aerosol Inhaler 2 puff INHALATION Q4H PRN (Reason: Shortness Of Breath Or Wheezing) RF: 0 skceindz-anlwznnjb-YF 3.5-10,000-10 mg-unit-mg/mL drops,suspension 1 drp OPL BID RF: 0 Combivent Respimat 20-100 mcg/actuation Mist 2 puff INHALATION QID PRN (Reason: COUGH/WHEEZE) RF: 0 hydrocodone-acetaminophen 5-325 mg tablet 1 tab PO Q8H PRN (Reason: pain) Qty: 10 RF: 0 sennosides [Senokot] 8.6 mg Tablet 17.2 mg PO HS Qty: 30 RF: 0 Referrals Referrals: Gtz,Terrence S., DO [Primary Care Provider] - 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 Qualifiers: Site of cellulitis: unspecified site Qualified Code(s): L03.90 - Cellulitis, unspecified
[2022-03-04 20:54] LABS: Basophils # (auto) 0.01 K/uL (0-0.2); Basophils % (auto) 0.1 %; Eosinophils # (auto) 0.11 K/uL (0-0.5); Eosinophils % (auto) 1.1 %; Hematocrit (blood only) 41.4 % (42-52); Hemoglobin 13.4 g/dL (14.0-18.0); Immature Granulocytes # (auto) 0.02 K/uL (0.00-0.02); Immature Granulocytes % (auto) 0.2 %; Lymphocytes # (auto) 1.51 K/uL (1.2-3.4); Lymphocytes % (auto) 14.8 %; Mean Corpuscular Hemoglobin 30.2 pg (25-34); Mean Corpuscular Hgb Conc 32.4 g/dL (32-36); Mean Corpuscular Volume 93.2 fL (80-100); Mean Platelet Volume 12.3 fL (7.4-10.4); Monocytes # (auto) 1.27 K/uL (0.11-0.59); Monocytes % (auto) 12.5 %; Neutrophils # (auto) 7.26 K/uL (1.4-6.5); Neutrophils % (auto) 71.3 %; Platelet Count 152 K/uL (130-400); RDW Coefficient of Variation 14.5 % (11.5-14.5); RDW Standard Deviation 49.7 fL (36.4-46.3); Red Blood Count 4.44 M/uL (4.7-6.1); White Blood Count 10.18 K/uL (4.8-10.8)
[2022-03-04 21:17] LABS: INR 2.8 (0.9-1.1); Partial Thromboplastin Ratio 1.8; Prothrombin Time 28.3 Seconds (9.0-12.0)
[2022-03-04 21:20] LABS: Albumin Globulin Ratio 1.4 (0.9-2); Albumin Level 3.9 gm/dl (3.4-5.0); BUN Creatinine Ratio 16.1 (10-20); Bilirubin,Total 0.8 mg/dl (0.2-1.0); Calcium 8.8 mg/dl (8.5-10.1); Creatinine Clr Calc Pharmacy 63.9 ml/min; Est GFR (African American) 88.9 ml/min; Est GFR (Non-African American) 76.7 ml/min; Globulin 2.8 gm/dl (2.5-4.0); Magnesium 1.9 mg/dl (1.7-2.4); Potassium 3.4 mmol/L (3.5-5.1); Total Protein 6.7 gm/dl (6.0-8.3)
[2022-03-04 21:30] LABS: Partial Thromboplastin Time 50.2 Seconds (21.0-31.0)
[2022-03-04] MEDS ORDERED: clonazePAM 0.5 MG TAB PO STA (21:45)
[2022-03-04] MEDS ORDERED: FUROSEMIDE 40 MG/4 ML VIAL IV STA (21:56)
[2022-03-04 22:06] LABS: Influenza A virus by PCR Negative (Neg); Influenza B virus by PCR Negative (Neg); RSV by PCR Negative (Neg); SARS CoV2 RNA(COVID-19) InHosp NEGATIVE (Negative)
[2022-03-04] MEDS ORDERED: POTASSIUM CHLORIDE CRTAB 20 MEQ TABCR PO STA (22:19)
[2022-03-04] MEDS ORDERED: DOXYCYCLINE HYCLATE 100 MG in DEXTROSE 5% 100 ML IV STA (22:19)
[2022-03-04] MEDS ORDERED: XOPENEX/ATROVENT 1.25mg/0.5MG NEB COMBO NEB STA (22:22)
[2022-03-04 22:25] LABS: Appearance Urine Clear (Clear); Bacteria Urine Automated Negative (Negative); Bilirubin Urine Negative (Negative); Blood Urine Negative (Negative); Color Urine Dark Yellow; Epithelial Cell Urine Auto >30 /lpf (0-5); Glucose Urine UA Negative (Negative); Ketones Urine Trace (Negative); Leukocyte Esterase Urine Trace (Negative); Nitrite Urine Negative (Negative); Protein Urine 2+ (Negative); RBC Urine Automated 0-4 /hpf (0-4); Specific Gravity Urine 1.028 (1.000-1.030); Urobilinogen Urine Negative (Negative)
[2022-03-04] MEDS ORDERED: IPRATROPIUM BROMIDE NEB SOLN 0.02% 2.5 ML VIAL INH STA (22:26)
[2022-03-04] MEDS ORDERED: LEVALBUTEROL 1.25MG/0.5ML NEB INH STA (22:26)
--- NOTE | 2022-03-04 22:42 | History & Physical Report ---
Date of Service March 04, 2022 History of Present Illness Primary Care Provider: Terrence Gtz DO Medical history significant for chronic systolic heart failure with EF 45 - 50% secondary to ischemic cardiomyopathy secondary to coronary artery disease status post CABG, hypertension, hyperlipidemia, obstructive sleep apnea recently started on C-PAP, chronic venous insufficiency on diuretic therapy, osteoarthritis, COPD, remote tobacco abuse, obesity, borderline diabetes, and hypothyroidism. MEDICAL HISTORY: As above. SURGICAL HISTORY: 1. CABG. 2. Knee surgery. 3. Cataract surgery. FAMILY HISTORY: Diabetes, hypertension, and heart disease. PERSONAL SOCIAL HISTORY: Remote smoking history. No chronic intake of alcoholic beverages. 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 He lives alone in a trailer but his family is close by. Allergies Allergy/AdvReac Type Severity Reaction Status Date / Time adhesive Allergy Intermediate BLISTERS Verified 03/04/22 21:11 amoxicillin [From Augmentin] Allergy Intermediate BURNING Verified 03/04/22 21:11 SENSATION OF TONGUE clavulanic acid Allergy Intermediate BURNING Verified 03/04/22 21:11 [From Augmentin] SENSATION OF TONGUE fish oil Allergy Intermediate ITCHY Verified 03/04/22 21:11 HIVES--IODINE Iodinated Contrast Media Allergy Intermediate ITCHY HIVES Verified 03/04/22 21:11 iodine Allergy Intermediate ANYTHING Verified 03/04/22 21:11 WITH IODINE--ITCHY HIVES niacin Allergy Intermediate Hives Verified 03/04/22 21:11 cat dander Allergy Unknown ON GMG MED Verified 03/04/22 21:11 LIST atorvastatin AdvReac Intermediate MUSCLE Verified 03/04/22 21:11 ACHES CAT GUT SUTURE AdvReac Intermediate INFLAMMATION Uncoded 03/04/22 21:12 OF AREA SUTURED Home Medications Medication Instructions Recorded Confirmed Type aspirin 81 mg tablet,delayed 81 mg PO QAM 07/12/19 03/04/22 History release clonazepam 0.5 mg tablet 0.5 mg PO BID PRN 07/12/19 03/04/22 History fluticasone 250 mcg-salmeterol 50 1 inh INHALATION BID 07/12/19 03/04/22 History mcg/dose blistr powdr for inhalation (Wixela Inhub) fluticasone propionate 50 2 spray INTRANASAL DAILY PRN 07/12/19 03/04/22 History mcg/actuation nasal spray,suspension (Flonase Allergy Relief) furosemide 40 mg tablet 40 mg PO Q2D 07/12/19 03/04/22 History isosorbide mononitrate 30 mg 30 mg PO DAILY 07/12/19 03/04/22 History tablet,extended release 24 hr levothyroxine 150 mcg tablet 150 mcg PO QAM 07/12/19 03/04/22 History ffwihaex-hup-mhlff acid 0.4 1 tab PO QAM 07/12/19 03/04/22 History mg-lycopene 300 mcg-lutein 250 mcg tablet (Centrum Silver) nitroglycerin 0.4 mg sublingual 0.4 mg SUBLINGUAL DIRECTED PRN 07/12/19 03/04/22 History tablet (Nitrostat) omeprazole 40 mg capsule,delayed 40 mg PO QAM 07/12/19 03/04/22 History release trazodone 50 mg tablet 50 mg PO HS 07/12/19 03/04/22 History warfarin 2.5 mg tablet See Rx Instructions .ROUTE .COMPLEX 07/12/19 03/04/22 History cholecalciferol (vitamin D3) 50 50 mcg PO DAILY 07/14/21 03/04/22 History mcg (2,000 unit) tablet lisinopril 5 mg tablet 5 mg PO DAILY 07/14/21 03/04/22 History metoprolol succinate 50 mg 100 mg PO DAILY 07/14/21 03/04/22 History tablet,extended release 24 hr rosuvastatin 40 mg tablet 40 mg PO DAILY 07/14/21 03/04/22 History Oxygen Home #1 ea 07/20/21 Rx acetaminophen 325 mg tablet 650 mg PO Q6H PRN 01/04/22 03/04/22 History (Tylenol) albuterol sulfate 90 mcg/actuation 2 puff INHALATION Q4H PRN 01/04/22 03/04/22 History aerosol inhaler (Ventolin HFA) betamethasone, augmented 0.05 % 1 applic TOPICAL BID PRN 01/04/22 03/04/22 History topical cream ipratropium 20 mcg-albuterol 100 2 puff INHALATION QID PRN 01/04/22 03/04/22 History mcg/actuation mist for inhalation (Combivent Respimat) neomycin 3.5 mg-polymyxin 10,000 1 drp OPL BID 01/04/22 03/04/22 History unit-hydrocort 10 mg/mL eye drop,susp hydrocodone 5 mg-acetaminophen 325 1 tab PO Q8H PRN #10 tab 01/09/22 03/04/22 Rx mg tablet sennosides 8.6 mg tablet (Senokot) 17.2 mg PO HS #30 tab 01/09/22 03/04/22 Rx Past Med/Surg History Medical History CAD (coronary artery disease) 2004 - CABG Chronic anticoagulation CKD (chronic kidney disease), stage III COPD (chronic obstructive pulmonary disease) COVID-19 Dyslipidemia Frequent falls GERD (gastroesophageal reflux disease) History of DVT (deep vein thrombosis) HTN (hypertension) Hypothyroidism Ischemic cardiomyopathy Obesity IRLANDA (obstructive sleep apnea) Periprosthetic fracture of shaft of femur Prediabetes Surgical History History of coronary artery bypass graft History of total knee arthroplasty Family History Other Family history non-contributory Hypertension Social History Smoking Status: Never smoker Second Hand Exposure: No; Hx Alcohol Use: Yes Alcohol type: hard liquor Hx Substance Use: No Preferred Language: Citizen Of [place] Communication Ability: Effective Horse Race Timer Required: No Beliefs That Will Affect Care: None Current Living Situation: Family Current Living Situation Comment: with grandson Feels Safe at Home: Yes Assistive Devices: Cane Results & Data Results & Data ([facility]) Vital Signs (Past 12 Hours) Vital Signs Temp Pulse Pulse Resp BP BP Pulse Ox 03/04/22 22:22 116 H 22 146/83 H 97 03/04/22 21:33 26 H 97 03/04/22 21:18 36.7 C 120 H 20 125/77 97 03/04/22 21:03 98 03/04/22 20:30 87 L 03/04/22 20:19 37.4 C 138 H 22 145/82 H 90
[2022-03-04] MEDS: MAGNESIUM SULFATE / D5W 1 GM/100 ML BAG IV SCH (23:19)
[2022-03-05] MEDS ORDERED: METOPROLOL TARTRATE 1 MG/ML VIAL IV STA (00:10)
--- NOTE | 2022-03-05 00:31 | History & Physical Report ---
Date of Service March 05, 2022 Assessment & Plan (1) Troponin level elevated: Plan: Secondary to tachycardia/fever at home RLE cellulitis, no overt sepsis for now chronic diastolic heart failure with EF 55 to 59%, TTE 2018, subacute congestion secondary to medication noncompliance hx CAD status post CABG/ PVD hypertension, slightly elevated hyperlipidemia on statin Rx COPD as per records, pulmonary status at baseline IRLANDA on C-PAP DM2 diet-controlled, well-controlled as of recent hemoglobin A1c of 6.01 December 2021 hypothyroidism, euthyroid as of recent outpatient TSH from November 2021 chronic anemia, hemoglobin better than last baseline past history DVT on Coumadin, INR therapeutic Possible functional disability past tobacco abuse OBS Follow troponin TTE if with progression Facilitate home beta-lesli now for rate control Doxycycline for RLE cellulitis Continue home diuretic Rx Basal bolus insulin, ISS BG goal 1 10-1 40, carb count coverage PT OT eval DVT prophylaxis. Coumadin INR goal between 2 and 3 Full code Patient requests for her grandson to be updated of developments. Mr. Satish Wheat, contact #[phone]. Text document was generated using [employer] voice recognition software. It may contain grammatical or spelling errors. Kindly contact undersigned for clarification of any documentation item in question. History of Present Illness Chief Complaint: Fever Primary Care Provider: Terrence Gtz DO History obtained from patient and records. Medical history significant forMedical history significant for chronic diastolic heart failure with EF 55 to 59%, TTE 2018, CAD status post CABG, PVD, hypertension, hyperlipidemia, COPD as per records, obstructive sleep apnea recently on C-PAP, DM2 diet-controlled, hypothyroidism, chronic anemia (baseline hemoglobin of 10 from December 2021), chronic venous insufficiency on diuretic therapy, past history DVT on Coumadin, past tobacco abuse Last confinement December 2021 for left humeral fracture status post surgery. Patient has not been feeling well since yesterday. Fever of 101 at home. Patient denies chest pain. Usual cough, runny nose, usual shortness of breath on exertion. Usual leg swelling as per patient. Not sure how long he has had bump on his right lower leg. Patient admits to not taking water pill regularly as prescribed due to inconvenience of having to pee. Patient brought to ER for evaluation. Received Lasix for CHF and ceftriaxone for possible cellulitis. MEDICAL HISTORY: As above. SURGICAL HISTORY: CABG, Knee surgery, left shoulder surgery, cataract surgery, thoracotomy with biopsy FAMILY HISTORY: Diabetes, hypertension, and heart disease. PERSONAL SOCIAL HISTORY: Remote smoking history. No chronic intake of alcoholic beverages. 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 Lives with her grandson Allergies Allergy/AdvReac Type Severity Reaction Status Date / Time adhesive Allergy Intermediate BLISTERS Verified 03/04/22 21:11 amoxicillin [From Augmentin] Allergy Intermediate BURNING Verified 03/04/22 21 :11 SENSATION OF TONGUE clavulanic acid Allergy Intermediate BURNING Verified 03/04/22 21:11 [From Augmentin] SENSATION OF TONGUE fish oil Allergy Intermediate ITCHY Verified 03/04/22 21:11 HIVES--IODINE Iodinated Contrast Media Allergy Intermediate ITCHY HIVES Verified 03/04/22 21:11 iodine Allergy Intermediate ANYTHING Verified 03/04/22 21:11 WITH IODINE--ITCHY HIVES niacin Allergy Intermediate Hives Verified 03/04/22 21:11 cat dander Allergy Unknown ON GMG MED Verified 03/04/22 21:11 LIST atorvastatin AdvReac Intermediate MUSCLE Verified 03/04/22 21:11 ACHES CAT GUT SUTURE AdvReac Intermediate INFLAMMATION Uncoded 03/04/22 21:12 OF AREA SUTURED Home Medications Medication Instructions Recorded Confirmed Type aspirin 81 mg tablet,delayed 81 mg PO QAM 07/12/19 03/04/22 History release clonazepam 0.5 mg tablet 0.5 mg PO BID PRN 07/12/19 03/04/22 History fluticasone 250 mcg-salmeterol 50 1 inh INHALATION BID 07/12/19 03/04/22 History mcg/dose blistr powdr for inhalation (Wixela Inhub) fluticasone propionate 50 2 spray INTRANASAL DAILY PRN 07/12/19 03/04/22 History mcg/actuation nasal spray,suspension (Flonase Allergy Relief) furosemide 40 mg tablet 40 mg PO Q2D 07/12/19 03/04/22 History isosorbide mononitrate 30 mg 30 mg PO DAILY 07/12/19 03/04/22 History tablet,extended release 24 hr levothyroxine 150 mcg tablet 150 mcg PO QAM 07/12/19 03/04/22 History haequiwj-nbj-ofcdk acid 0.4 1 tab PO QAM 07/12/19 03/04/22 History mg-lycopene 300 mcg-lutein 250 mcg tablet (Centrum Silver) nitroglycerin 0.4 mg sublingual 0.4 mg SUBLINGUAL DIRECTED PRN 07/12/19 03/04/22 History tablet (Nitrostat) omeprazole 40 mg capsule,delayed 40 mg PO QAM 07/12/19 03/04/22 History release trazodone 50 mg tablet 50 mg PO HS 07/12/19 03/04/22 History warfarin 2.5 mg tablet See Rx Instructions .ROUTE .COMPLEX 07/12/19 03/04/22 History cholecalciferol (vitamin D3) 50 50 mcg PO DAILY 07/14/21 03/04/22 History mcg (2,000 unit) tablet lisinopril 5 mg tablet 5 mg PO DAILY 07/14/21 03/04/22 History metoprolol succinate 50 mg 100 mg PO DAILY 07/14/21 03/04/22 History tablet,extended release 24 hr rosuvastatin 40 mg tablet 40 mg PO DAILY 07/14/21 03/04/22 History Oxygen Home #1 ea 07/20/21 Rx acetaminophen 325 mg tablet 650 mg PO Q6H PRN 01/04/22 03/04/22 History (Tylenol) albuterol sulfate 90 mcg/actuation 2 puff INHALATION Q4H PRN 01/04/22 03/04/22 History aerosol inhaler (Ventolin HFA) betamethasone, augmented 0.05 % 1 applic TOPICAL BID PRN 01/04/22 03/04/22 History topical cream ipratropium 20 mcg-albuterol 100 2 puff INHALATION QID PRN 01/04/22 03/04/22 History mcg/actuation mist for inhalation (Combivent Respimat) neomycin 3.5 mg-polymyxin 10,000 1 drp OPL BID 01/04/22 03/04/22 History unit-hydrocort 10 mg/mL eye drop,susp hydrocodone 5 mg-acetaminophen 325 1 tab PO Q8H PRN #10 tab 01/09/22 03/04/22 Rx mg tablet sennosides 8.6 mg tablet (Senokot) 17.2 mg PO HS #30 tab 01/09/22 03/04/22 Rx Past Med/Surg History Medical History CAD (coronary artery disease) 2005 - CABG Chronic anticoagulation CKD (chronic kidney disease), stage III COPD (chronic obstructive pulmonary disease) COVID-19 Dyslipidemia Frequent falls GERD (gastroesophageal reflux disease) History of DVT (deep vein thrombosis) HTN (hypertension) Hypothyroidism Ischemic cardiomyopathy Obesity IRLANDA (obstructive sleep apnea) Periprosthetic fracture of shaft of femur Prediabetes Surgical History History of coronary artery bypass graft History of total knee arthroplasty Family History Other Family history non-contributory Hypertension Social History Smoking Status: Former smoker Second Hand Exposure: No; Do You Dip or Chew Tobacco: No; Tobacco Cessation Education Requested by Patient: No Hx Alcohol Use: Yes Alcohol type: hard liquor Hx Substance Use: No Preferred Language: Bel[place]ian Communication Ability: Effective Contact Centre Supervisor Required: No Beliefs That Will Affect Care: None Current Living Situation: Family Current Living Situation Comment: Lives with grandson Other Information That Helps Us Care for You: No Feels Safe at Home: Yes Safety Concerns: Feels Safe At This Time Assistive Devices: CPAP, Denture - Upper, Denture - Lower, Glasses, Hearing Aid - Left, Oxygen - Continuous, Walker and Wheelchair Review of Systems Review of Systems: As per HPI, all other systems reviewed and negative Physical Exam Physical Exam: GENERAL: Comfortable, slightly hard of hearing, obese, no respiratory distress SKIN: Pallor, warm HEENT: Bespectacled, pale palpebral conjunctivae, no ptosis, dry buccal mucosa NECK : Supple, short neck, no tenderness CHEST : Decreased breath sounds, no tenderness HEART : Tachycardic, no obvious murmurs ABDOMEN: Marked distention, nontender EXTREMITIES : Focal right lower leg erythematous swelling with minimal tenderness , no other conspicuous deformities noted NEUROLOGIC : Coherent, no facial asymmetry, slightly hard of hearing, gait and stance not assessed Results & Data Results & Data ([facility]) Vital Signs (Past 12 Hours) Vital Signs Temp Pulse Pulse Resp BP BP Pulse Ox 03/05/22 00:21 116 H 125/73 03/05/22 00:05 37.0 C 110 H 20 125/73 97 03/05/22 00:00 97 05/06/22 23:30 22 97 03/04/22 23:00 18 97 03/04/22 22:30 26 H 96 03/04/22 22:22 116 H 22 146/83 H 97 03/04/22 22:00 26 H 96 03/04/22 21:33 26 H 97 03/04/22 21:18 36.7 C 120 H 20 125/77 97 03/04/22 21:03 98 03/04/22 20:30 87 L 03/04/22 20:19 37.4 C 138 H 22 145/82 H 90 Laboratory Results Laboratory Results WBC 10.18 K/uL (4.8-10.8) 03/04/22 20:39 RBC 4.44 M/uL (4.7-6.1) L 03/04/22 20:39 Hgb 13.4 g/dL (14.0-18.0) L 03/04/22 20:39 Hct 41.4 % (42-52) L 03/04/22 20:39 MCV 93.2 fL (80-100) 03/04/22 20:39 MCH 30.2 pg (25-34) 03/04/22 20:39 MCHC 32.4 g/dL (32-36) 03/04/22 20:39 RDW Std Deviation 49.7 fL (36.4-46.3) H 03/04/22 20:39 RDW Coeff of Cory 14.5 % (11.5-14.5) 03/04/22 20:39 Plt Count 152 K/uL (130-400) 03/04/22 20:39 MPV 12.3 fL (7.4-10.4) H 03/04/22 20:39 Immature Gran % (Auto) 0.2 % 03/04/22 20:39 Neut % (Auto) 71.3 % 03/04/22 20:39 Lymph % (Auto) 14.8 % 03/04/22 20:39 [place] % (Auto) 12.5 % 03/04/22 20:39 Eos % (Auto) 1.1 % 03/04/22 20:39 Baso % (Auto) 0.1 % 03/04/22 20:39 Neut # (Auto) 7.26 K/uL (1.4-6.5) H 03/04/22 20:39 Lymph # (Auto) 1.51 K/uL (1.2-3.4) 03/04/22 20:39 [place] # (Auto) 1.27 K/uL (0.11-0.59) H 03/04/22 20:39 Eos # (Auto) 0.11 K/uL (0-0.5) 03/04/22 20:39 Baso # (Auto) 0.01 K/uL (0-0.2) 03/04/22 20:39 Immature Gran # (Auto) 0.02 K/uL (0.00-0.02) 03/04/22 20:39 PT 28.3 Seconds (9.0-12.0) H 03/04/22 20:39 INR 2.8 (0.9-1.1) H 03/04/22 20:39 APTT 50.2 Seconds (21.0-31.0) H* 03/04/22 20:39 PTT Ratio 1.8 03/04/22 20:39 Sodium 142 mmol/L (136-145) 03/04/22 20:39 Potassium 3.4 mmol/L (3.5-5.1) L 03/04/22 20:39 Chloride 103 mmol/L (98-107) 03/04/22 20:39 Carbon Dioxide 29 mmol/L (21-32) 03/04/22 20:39 Anion Gap 10 (3-11) 03/04/22 20:39 BUN 15 mg/dl (6-23) 03/04/22 20:39 Creatinine 0.93 mg/dl (0.6-1.4) 03/04/22 20:39 Est Cr Clr Drug Dosing 63.9 ml/min 03/04/22 20:39 Est GFR ( Amer) 88.9 ml/min 03/04/22 20:39 Est GFR (Non-Af Amer) 76.7 ml/min 03/04/22 20:39 BUN/Creatinine Ratio 16.1 (10-20) 03/04/22 20:39 Glucose 138 mg/dl (70-99(Fasting)) H 03/04/22 20:39 Lactate 1.1 mmol/L (0.4-2.0) 03/04/22 20:39 Calcium 8.8 mg/dl (8.5-10.1) 03/04/22 20:39 Magnesium 1.9 mg/dl (1.7-2.4) 03/04/22 20:39 Total Bilirubin 0.8 mg/dl (0.2-1.0) 03/04/22 20:39 AST 24 U/L (13-39) 03/04/22 20:39 ALT 17 U/L (7-52) 03/04/22 20:39 Alkaline Phosphatase 126 U/L (34-104) H 03/04/22 20:39 Troponin I High Sens 45.0 pg/ml (0-20) H D 03/04/22 22:56 B-Natriuretic Peptide 686 pg/ml (0-100) H 03/04/22 22:56 Total Protein 6.7 gm/dl (6.0-8.3) 03/04/22 20:39 Albumin 3.9 gm/dl (3.4-5.0) 03/04/22 20:39 Globulin 2.8 gm/dl (2.5-4.0) 03/04/22 20:39 Albumin/Globulin Ratio 1.4 (0.9-2) 03/04/22 20:39 Urine Color Dark Yellow 03/04/22 21:23 Urine Appearance Clear (Clear) 03/04/22 21:23 Urine pH 5.0 (4.5-7.5) 03/04/22 21:23 Ur Specific [place] 1.028 (1.000-1.030) 03/04/22 21:23 Urine Protein 2+ (Negative) H 03/04/22 21:23 Urine Glucose (UA) Negative (Negative) 03/04/22 21:23 Urine Ketones Trace (Negative) H 03/04/22 21:23 Urine Blood Negative (Negative) 03/04/22 21:23 Urine Nitrite Negative (Negative) 03/04/22 21: Urine Bilirubin Negative (Negative) 03/04/22 21:23 Urine Urobilinogen Negative (Negative) 03/04/22 21:23 Ur Leukocyte Esterase Trace (Negative) H 03/04/22 21:23 Urine WBC (Auto) 1-5 /hpf (0-5) 03/04/22 21:23 Urine RBC (Auto) 0-4 /hpf (0-4) 03/04/22 21:23 U Hyaline Cast (Auto) 1-5 /lpf (0-5) 03/04/22 21:23 U Epithel Cells (Auto) >30 /lpf (0-5) H 03/04/22 21:23 Urine Bacteria (Auto) Negative (Negative) 03/04/22 21:23 SARS-CoV-2 (PCR) NEGATIVE (Negative) 03/04/22 Unknown Influenza Type A (PCR) Negative (Neg) 03/04/22 Unknown Influenza Type B (PCR) Negative (Neg) 03/04/22 Unknown RSV (RT-PCR) Negative (Neg) 03/04/22 Unknown Diagnostic Findings Chest x-ray per my interpretation congestion and pleural effusions CT right lower leg initial read: There is a right total knee in standard position and alignment. No periprostatic fracture is seen. The right tibia and fibula appear intact and normallyaligned. No acute fracture or dislocation is seen. Mild to moderate diffuse arterial calcification is present. Circumferential cutaneous and subcutaneous edema throughout the right lower leg. There is thin linear skin calcifications suggesting chronic venous insufficiency. No dilated veins are identified. No abscess collection or subcutaneous emphysema is seen. EKG as per my interpretation : Rate 140, sinus tachycardia, normal axis, T wave abnormalities inferior leads
[2022-03-05] MEDS ORDERED: XOPENEX/ATROVENT 1.25mg/0.5MG NEB COMBO NEB PRN ×2 (00:50→03:40)
[2022-03-05] MEDS ORDERED: IPRATROPIUM BROMIDE NEB SOLN 0.02% 2.5 ML VIAL INH PRN (01:00)
[2022-03-05] MEDS ORDERED: LEVALBUTEROL 1.25MG/0.5ML NEB INH PRN (01:00)
[2022-03-05] MEDS: MAGNESIUM SULFATE / D5W 1 GM/100 ML BAG IV SCH (02:10)
[2022-03-05] MEDS ORDERED: CARBOHYDRATES FOR HYPOGLYCEMIA PO PRN (03:40)
[2022-03-05] MEDS ORDERED: oxyCODONE HCL IR 5 MG TAB (IMMEDIATE RELEASE) PO PRN (03:40)
[2022-03-05] MEDS ORDERED: PROMETHAZINE HCL 12.5 MG in SODIUM CHLORIDE 0.9% 50 ML IV PRN (03:40)
[2022-03-05] MEDS ORDERED: GLUCAGON FOR INJ 1 MG VIAL SQ PRN (03:40)
[2022-03-05] MEDS ORDERED: GLUCOSE 10 TABS/TUBE PO PRN (03:40)
[2022-03-05] MEDS ORDERED: clonazePAM 0.5 MG TAB PO PRN (03:40)
[2022-03-05] MEDS ORDERED: IPRATROPIUM BROMIDE NEB SOLN 0.02% 2.5 ML VIAL INH SCH (03:40)
[2022-03-05] MEDS ORDERED: GLUCOSE 40% GEL 15 GM TUBE PO PRN (03:40)
[2022-03-05] MEDS ORDERED: DEXTROSE 50% 50 ML SYRINGE IV PRN (03:40)
[2022-03-05] MEDS ORDERED: LEVALBUTEROL 1.25MG/0.5ML NEB INH SCH (03:40)
[2022-03-05] MEDS ORDERED: ACETAMINOPHEN 325 MG TAB PO PRN ×2 (03:40)
[2022-03-05] MEDS ORDERED: FLUTICASONE PROPIONATE NA SPR 16 GM BTL PRN (03:40)
[2022-03-05] MEDS: INSULIN ASPART PER UNIT SC SCH ×5 (04:03→20:20)
[2022-03-05 06:00] LABS: INR 2.7 (0.9-1.1); Prothrombin Time 27.5 Seconds (9.0-12.0)
[2022-03-05] MEDS: LEVOTHYROXINE SODIUM 150 MCG TABLET PO SCH (06:17)
--- NOTE | 2022-03-05 07:48 | CT Scan Report ---
CT tib/fib RT wo con HISTORY: 81 years-old Male RLE swelling ro abscess acute pain and swelling of the right lower leg. C linical concern for possible abscess. COMPARISON: Fluoroscopic images of the left femur 07/15/2019 TECHNIQUE: Multiple axial CT images of the right tibia and fibula were obtained without use of IV con trast. A dose lowering technique was used consistent with the principals of MARCE. FINDINGS: Bilateral knee total joint arthroplasties. ORIF changes of the left femur. Demineralized appearance o f the bones. No acute fracture or dislocation identified. Partially imaged osteoarthritis of the ankl e. Arterial calcifications. Mild diffuse muscle atrophy. Mild diffuse subcutaneous edema with skin th ickening, most pronounced anteriorly with associated pretibial soft tissue calcifications. No focal f luid collection. The visualized tendons appear intact. No large joint effusion of the knee identified . IMPRESSION: 1. No acute fracture. 2. Nonspecific subcutaneous edema and skin thickening of the lower leg. Findings may be secondary to cellulitis, venous stasis or lymphedema. No fluid collection. 3. Bilateral total joint arthroplasties with left femoral ORIF changes. ACT 112: Negative or not required by law. The above report was generated using voice recognition software. It may contain grammatical, syntax o r spelling errors. Electronically signed by: Satish Andrews M.D. 03/05/2022 7:46 AM
[2022-03-05 07:59] LABS: BUN Creatinine Ratio 17.3 (10-20); Calcium 8.5 mg/dl (8.5-10.1); Creatinine Clr Calc Pharmacy 73.2 ml/min; Est GFR (African American) 96.6 ml/min; Est GFR (Non-African American) 83.4 ml/min; Potassium 3.6 mmol/L (3.5-5.1)
[2022-03-05] MEDS: POTASSIUM CHLORIDE CRTAB 20 MEQ TABCR PO SCH ×2 (08:37→17:27)
[2022-03-05] MEDS: lisinopril 5 MG TAB PO SCH (08:37)
[2022-03-05] MEDS: METOPROLOL SUCC 50MG EXT REL TAB PO SCH (08:37)
[2022-03-05] MEDS: ISOSORBIDE MONO EXTENDED REL 30 MG TABCR PO SCH (08:37)
--- NOTE | 2022-03-05 08:37 | XRay Report ---
XR chest 1V portable HISTORY: 81 years-old Male SEPSIS acute sepsis COMPARISON: Chest radiograph 01/06/2022 TECHNIQUE: Portable AP view of the chest FINDINGS: The cardiac silhouette is enlarged. Prior median sternotomy. Pulmonary vascular congestion with inter stitial coarsening. Mild right hemidiaphragmatic elevation. Trace pleural effusions suggested with mi ld bibasilar densities. No pneumothorax. Degenerative changes of the shoulders and spine. Left [place] l ORIF changes. IMPRESSION: Cardiomegaly with pulmonary edema and probable trace pleural effusions ACT 112: Negative or not required by law. The above report was generated using voice recognition software. It may contain grammatical, syntax o r spelling errors. Electronically signed by: Satish Andrews M.D. 03/05/2022 8:36 AM
[2022-03-05] MEDS: FLUTICASONE/VILANTEROL 100/25MCG 14 PUFFS/INHALER INH SCH (08:38)
[2022-03-05] MEDS: ROSUVASTATIN CALCIUM 20 MG TAB PO SCH (08:38)
[2022-03-05] MEDS: FUROSEMIDE 40 MG TAB PO SCH (08:38)
[2022-03-05] MEDS: DOXYCYCLINE HYCLATE 100 MG CAP PO SCH ×2 (08:39→20:21)
[2022-03-05] MEDS: ASPIRIN 81 MG ECTAB PO SCH (08:39)
[2022-03-05] MEDS: PANTOprazole 40 MG TAB PO SCH (08:39)
[2022-03-05] MEDS: CEROVITE ADV FORMULA TAB PO SCH (08:39)
[2022-03-05] MEDS ORDERED: traZODone HCL 50 MG TAB PO SCH (21:00)
[2022-03-05] MEDS ORDERED: SENNA 8.6 MG TAB PO SCH (21:00)
[2022-03-06] MEDS: LEVOTHYROXINE SODIUM 150 MCG TABLET PO SCH (06:14)
[2022-03-06] MEDS: CEROVITE ADV FORMULA TAB PO SCH (09:04)
[2022-03-06] MEDS: ASPIRIN 81 MG ECTAB PO SCH (09:04)
[2022-03-06] MEDS: ROSUVASTATIN CALCIUM 20 MG TAB PO SCH (09:04)
[2022-03-06] MEDS: DOXYCYCLINE HYCLATE 100 MG CAP PO SCH (09:04)
[2022-03-06] MEDS: PANTOprazole 40 MG TAB PO SCH (09:04)
[2022-03-06] MEDS: ISOSORBIDE MONO EXTENDED REL 30 MG TABCR PO SCH (09:05)
[2022-03-06] MEDS: lisinopril 5 MG TAB PO SCH (09:05)
[2022-03-06] MEDS: METOPROLOL SUCC 50MG EXT REL TAB PO SCH (09:05)
[2022-03-06] MEDS: POTASSIUM CHLORIDE CRTAB 20 MEQ TABCR PO SCH (09:05)
[2022-03-06] MEDS: FLUTICASONE/VILANTEROL 100/25MCG 14 PUFFS/INHALER INH SCH (09:06)
[2022-03-06] MEDS: FUROSEMIDE 40 MG TAB PO SCH (09:06)
[2022-03-06] MEDS: INSULIN ASPART PER UNIT SC SCH ×3 (09:20→16:56)
--- NOTE | 2022-03-06 13:28 | Hospitalist Progress Note ---
Date of Service March 06, 2022 Assessment & Plan (1) Troponin level elevated: Plan: Secondary to tachycardia/fever at home Minimally elevated at 31 on admission and subsequent test did not show any significant increase Doubt any ACS No cardiac symptoms DM2 diet-controlled, well-controlled as of recent hemoglobin A1c of 6.01 December 2021 Basal bolus insulin, ISS BG goal 1 10-1 40, carb count coverage PT OT eval-PT evaluation completed and recommended that the patient can go home Persistent tachycardia Has been noted to be tachycardic for a long time Likely secondary to use of bronchodilators Has been getting beta-lesli and will continue Cannot increase the beta-lesli due to low blood pressure (2) Cellulitis: Plan: Noted to have mild right lower leg cellulitis Has been on oral doxycycline No evidence of any redness and no cellulitis as of today Will finish 7 days course of doxycycline (3) History of coronary artery bypass graft: (4) Ischemic cardiomyopathy: Plan: With history of diastolic heart failure Seems to be chronic without any acute fluid overload (5) IRLANDA (obstructive sleep apnea): Plan: Uses CPAP machine at home (6) HTN (hypertension): Plan: Blood pressure is controlled (7) Dyslipidemia: Plan: Continue statin (8) COPD (chronic obstructive pulmonary disease): Plan: Has not been using any oxygen at home No exacerbation Saturating normally on room air (9) CKD (chronic kidney disease), stage III: Plan: We will monitor PRP DVT prophylaxis. Coumadin INR goal between 2 and 3 Full code Patient requests for her grandson to be updated of developments. Mr. Satish Wheat, contact #[phone]. Discussed with the grandson and the patient will be discharged this afternoon He will resume his home health assistance from tomorrow or day after Admission and Anticipated Discharge Date Admission Date: March 05, 2022 Subjective 03/06/2022 The patient was seen and examined in telemetry unit He has been sitting at the edge of the bed without any acute symptoms He has been feeling much better since admission and denies any significant symptoms Denies any problem with his legs from cellulitis Does not feel that his breathing is any worse than before Review of Systems Review of Systems: All systems reviewed and are unremarkable except as noted below Respiratory: Mild shortness of breath at rest-seems to be at his baseline Musculoskeletal: No increase in leg swelling, tenderness and redness Physical Exam Physical Exam: Sitting at the edge of the bed without any acute distress Constitutional: well developed, well nourished and + obese; not ill appearing Eyes: PERRL, conjunctivae normal, anicteric sclerae ENMT: external ear and nose normal, oropharynx normal Neck: trachea midline, no thyromegaly Respiratory: + respiratory distress (Minimal respiratory distress at rest) Auscultation: + diminished lung sounds and + crackles (Minimal bibasilar crackles) Cardiovascular: Rate/Rhythm: regular rate, regular rhythm and + tachycardic (Always been tachycardic rate around 110 likely 2nd to use of bronchodilator) Extremities: + edema (1+ edema bilaterally. No evidence of acute cellulitis) Gastrointestinal (Abdomen): Inspection/Auscultation: normal bowel sounds; abdomen not distended Percussion/Palpation: abdomen soft; abdomen nontender Musculoskeletal: No acute arthritis in any joint Neurologic: Alert, awake and oriented x3. No focal sensory or no motor deficit appreciated Lymphatic: no cervical or axillary lymphadenopathy Results & Data Results & Data ([facility]) Vital Signs (Past 12 Hours) Vital Signs Temp Pulse Pulse Resp BP Pulse Ox 03/06/22 10:54 36.5 C 110 H 19 107/70 93 03/06/22 07:28 36.9 C 100 H 19 106/67 95 03/06/22 06:11 104 H 03/06/22 03:00 36.6 C 120 H 20 133/85 97 Medications Administered Current Inpatient Medications Acetaminophen (Acetaminophen 325 Mg Tab) 650 mg PO Q6H PRN PRN Reason: Pain Stop: 04/04/22 03:39 Aspirin (Aspirin 81 Mg Ectab) 81 mg PO QAM [facility] Stop: 04/04/22 08:59 Last Admin: 03/06/22 09:04 Dose: 81 mg Documented by: Clonazepam (Clonazepam 0.5 Mg Tab) 0.5 mg PO BID PRN PRN Reason: Anxiety Stop: 04/04/22 03:39 Dextrose (Dextrose 50% 50 Ml Syringe) 25 - 50 ml IV UD PRN; Protocol PRN Reason: Hypoglycemia Protocol Stop: 04/04/22 03:39 Doxycycline Hyclate (Doxycycline Hyclate 100 Mg Cap) 100 mg PO BID [facility] Stop: 03/12/22 08:59 Last Admin: 03/06/22 09:04 Dose: 100 mg Documented by: Fluticasone Propionate (Fluticasone Propionate Na Spr 16 Gm Btl) 2 sprays NA DAILY PRN PRN Reason: Allergy Symptoms Stop: 04/04/22 03:39 Fluticasone/Vilanterol (Fluticasone/Vilanterol 100/25mcg 14 Puffs/Inhaler) 1 puffs INH DAILY [facility] Stop: 04/04/22 08:59 Last Admin: 03/06/22 09:06 Dose: 1 puffs Documented by: Furosemide (Furosemide 40 Mg Tab) 40 mg PO DAILY [facility] Stop: 04/04/22 08:59 Last Admin: 03/06/22 09:06 Dose: 40 mg Documented by: Glucagon (Glucagon For Inj 1 Mg Vial) 1 mg SQ UD PRN; Protocol PRN Reason: Hypoglycemia Protocol Stop: 04/04/22 03:39 Glucose (Glucose 10 Tabs/Tube) 4 - 8 tabs PO UD PRN; Protocol PRN Reason: Hypoglycemia Protocol Stop: 04/04/22 03:39 Glucose (Glucose 40% Gel 15 Gm Tube) 15 - 30 gm PO UD PRN; Protocol PRN Reason: Hypoglycemia Protocol Stop: 04/04/22 03:39 Promethazine HCl 12.5 mg/ (Sodium Chloride) 50.5 mls @ 202 mls/hr IV Q6H PRN PRN Reason: Nausea And Vomiting Stop: 04/04/22 03:39 Insulin Aspart (Insulin Aspart Per Unit) 0 units SC ACHS [facility] Stop: 04/04/22 03:39 Last Admin: 03/06/22 12:36 Dose: 1 units Documented by: Ipratropium Correll (Ipratropium [place]rell Neb Soln 0.02% 2.5 Ml Vial) 0.5 mg INH Q4H PRN PRN Reason: SOB/WHEEZING Stop: 04/04/22 00:59 Isosorbide Mononitrate (Isosorbide [place] Extended Rel 30 Mg Tabcr) 30 mg PO DAILY [facility] Stop: 04/04/22 08:59 Last Admin: 03/06/22 09:05 Dose: 30 mg Documented by: Levalbuterol HCl (Levalbuterol 1.25mg/0.5ml Neb) 1.25 mg INH Q4H PRN PRN Reason: SOB/WHEEZING Stop: 04/04/22 00:59 Levothyroxine Sodium (Levothyroxine Sodium 150 Mcg Tablet) 150 mcg PO DAILYBB [facility] Stop: 04/04/22 06:29 Last Admin: 03/06/22 06:14 Dose: 150 mcg Documented by: Lisinopril (Lisinopril 5 Mg Tab) 5 mg PO DAILY [facility] Stop: 04/04/22 08:59 Last Admin: 03/06/22 09:05 Dose: 5 mg Documented by: Metoprolol Succinate (Metoprolol Succ 50mg Ext Rel Tab) 100 mg PO DAILY [facility] Stop: 04/04/22 08:59 Last Admin: 03/06/22 09:05 Dose: 100 mg Documented by: Miscellaneous (Carbohydrates For Hypoglycemia ) 15 - 30 gm PO UD PRN PRN Reason: Hypoglycemia Protocol Stop: 04/04/22 03:39 Multivitamins/Minerals (Cerovite Adv Formula Tab) 1 tab PO QAM [facility] Stop: 04/04/22 08:59 Last Admin: 03/06/22 09:04 Dose: 1 tab Documented by: Oxycodone HCl (Oxycodone Hcl Ir 5 Mg Tab (Immediate Release)) 5 mg PO Q4H PRN PRN Reason: Pain Stop: 03/19/22 03:39 Pantoprazole Sodium (Pantoprazole 40 Mg Tab) 40 mg PO QAM [facility] Stop: 04/04/22 08:59 Last Admin: 03/06/22 09:04 Dose: 40 mg Documented by: Potassium Chloride (Potassium Chloride Crtab 20 Meq Tabcr) 20 meq PO BID17 [facility] Stop: 04/04/22 08:59 Last Admin: 03/06/22 09:05 Dose: 20 meq Documented by: Rosuvastatin Calcium (Rosuvastatin Calcium 20 Mg Tab) 40 mg PO DAILY [facility] Stop: 04/04/22 08:59 Last Admin: 03/06/22 09:04 Dose: 40 mg Documented by: Sennosides (Senna 8.6 Mg Tab) 17.2 mg PO HS [facility] Stop: 04/04/22 20:59 Last Admin: 03/05/22 20:21 Dose: 17.2 mg Documented by: Trazodone HCl (Trazodone Hcl 50 Mg Tab) 50 mg PO HS [facility] Stop: 04/04/22 20:59 Last Admin: 03/05/22 20:21 Dose: 50 mg Documented by: (1) Cellulitis Site of cellulitis: unspecified site Qualified Code(s): L03.90 - Cellulitis, unspecified
--- NOTE | 2022-03-06 17:03 | Discharge Summary ---
Date of Service March 06, 2022 Admission HPI Per Admitting Provider History obtained from patient and records. Medical history significant forMedical history significant for chronic diastolic heart failure with EF 55 to 59%, TTE 2018, CAD status post CABG, PVD, hypertension, hyperlipidemia, COPD as per records, obstructive sleep apnea recently on C-PAP, DM2 diet-controlled, hypothyroidism, chronic anemia (baseline hemoglobin of 10 from December 2021), chronic venous insufficiency on diuretic therapy, past history DVT on Coumadin, past tobacco abuse Last confinement December 2021 for left humeral fracture status post surgery. Patient has not been feeling well since yesterday. Fever of 101 at home. Patient denies chest pain. Usual cough, runny nose, usual shortness of breath on exertion. Usual leg swelling as per patient. Not sure how long he has had bump on his right lower leg. Patient admits to not taking water pill regularly as prescribed due to inconvenience of having to pee. Patient brought to ER for evaluation. Received Lasix for CHF and ceftriaxone for possible cellulitis. MEDICAL HISTORY: As above. SURGICAL HISTORY: CABG, Knee surgery, left shoulder surgery, cataract surgery, thoracotomy with biopsy FAMILY HISTORY: Diabetes, hypertension, and heart disease. PERSONAL SOCIAL HISTORY: Remote smoking history. No chronic intake of alcoholic beverages. 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 Lives with her grandson Admission Exam Per Admitting Provider Physical Exam: GENERAL: Comfortable, slightly hard of hearing, obese, no respiratory distress SKIN: Pallor, warm HEENT: Bespectacled, pale palpebral conjunctivae, no ptosis, dry buccal mucosa NECK : Supple, short neck, no tenderness CHEST : Decreased breath sounds, no tenderness HEART : Tachycardic, no obvious murmurs ABDOMEN: Marked distention, nontender EXTREMITIES : Focal right lower leg erythematous swelling with minimal tenderness , no other conspicuous deformities noted NEUROLOGIC : Coherent, no facial asymmetry, slightly hard of hearing, gait and stance not assessed Principal Diagnosis Cellulitis right leg, stable COPD, sleep apnea on home CPAP, persistent mild tachycardia, type 2 diabetes Discharge Exam Sitting at the edge of the bed without any acute distress Constitutional well developed, well nourished and + obese; not ill appearing Eyes PERRL, conjunctivae normal, anicteric sclerae ENMT external ear and nose normal, oropharynx normal Neck trachea midline, no thyromegaly Respiratory + respiratory distress (Minimal respiratory distress at rest) Auscultation: + diminished lung sounds and + crackles (Minimal bibasilar crackles) Cardiovascular Rate/Rhythm: regular rate, regular rhythm and + tachycardic (Always been tachycardic rate around 110 likely 2nd to use of bronchodilator) Extremities: + edema (1+ edema bilaterally. No evidence of acute cellulitis) Gastrointestinal (Abdomen) Inspection/Auscultation: normal bowel sounds; abdomen not distended Percussion/Palpation: abdomen soft; abdomen nontender Lymphatic no cervical or axillary lymphadenopathy Discharge Data Allergies Allergy/AdvReac Type Severity Reaction Status Date / Time adhesive Allergy Intermediate BLISTERS Verified 03/04/22 21:11 amoxicillin [From Augmentin] Allergy Intermediate BURNING Verified 03/04/22 21:11 SENSATION OF TONGUE clavulanic acid Allergy Intermediate BURNING Verified 03/04/22 21:11 [From Augmentin] SENSATION OF TONGUE fish oil Allergy Intermediate ITCHY Verified 03/04/22 21:11 HIVES--IODINE Iodinated Contrast Media Allergy Intermediate ITCHY HIVES Verified 03/04/22 21:11 iodine Allergy Intermediate ANYTHING Verified 03/04/22 21:11 WITH IODINE--ITCHY HIVES niacin Allergy Intermediate Hives Verified 03/04/22 21:11 cat dander Allergy Unknown ON [facility] MED Verified 03/04/22 21:11 LIST atorvastatin AdvReac Intermediate MUSCLE Verified 03/04/22 21:11 ACHES CAT GUT SUTURE AdvReac Intermediate INFLAMMATION Uncoded 03/04/22 21:12 OF AREA SUTURED Consultations 03/04/22 22:06 ED Decision to Admit Stat Ordered Studies 03/05/22 00:29 CT tib/fib RT wo con Urgent Hospital Course (1) Troponin level elevated: Secondary to tachycardia/fever at home Minimally elevated at 31 on admission and subsequent test did not show any significant increase Doubt any ACS No cardiac symptoms DM2 diet-controlled, well-controlled as of recent hemoglobin A1c of 6.01 December 2021 Basal bolus insulin, ISS BG goal 1 10-1 40, carb count coverage PT OT eval-PT evaluation completed and recommended that the patient can go home Persistent tachycardia Has been noted to be tachycardic for a long time Likely secondary to use of bronchodilators Has been getting beta-lesli and will continue Cannot increase the beta-lesli due to low blood pressure (2) Cellulitis: Noted to have mild right lower leg cellulitis Has been on oral doxycycline No evidence of any redness and no cellulitis as of today Will finish 7 days course of doxycycline (3) History of coronary artery bypass graft: (4) Ischemic cardiomyopathy: With history of diastolic heart failure Seems to be chronic without any acute fluid overload (5) IRLANDA (obstructive sleep apnea): Uses CPAP machine at home (6) HTN (hypertension): Blood pressure is controlled (7) Dyslipidemia: Continue statin (8) COPD (chronic obstructive pulmonary disease): Has not been using any oxygen at home No exacerbation Saturating normally on room air (9) CKD (chronic kidney disease), stage III: We will monitor PRP DVT prophylaxis. Coumadin INR goal between 2 and 3 Full code Patient requests for her grandson to be updated of developments. Mr. Satish Wheat, contact #[phone]. Discussed with the grandson and the patient will be discharged this afternoon He will resume his home health assistance from tomorrow or day after Total Time Total Time Spent Total Time Spent (In Minutes): 35 minutes Discharge Plan Discharge Items Patient Disposition: Home - Home Health Services Reason For Visit: TROP ELEV, RLE SWELLING Discharge Diagnosis: Cellulitis right leg, stable COPD, sleep apnea on home CPAP, persistent mild tachycardia, type 2 diabetes Condition on Discharge: Fair Activity: Resume your previous activity Non-emergency contact: Primary Care Provider Call non-emergency contact if: you have any medication questions and your symptoms worsen Follow-up/Referrals: Terrence Gtz, [Primary Care Provider] - (Your doctor's office will call you on Monday with an appointment within 7 days) Diet: Carb Consistent or DM2 and Heart Healthy Addtl Attending Provider Instructions: Please take precautions to avoid fall Use your CPAP machine regularly Finish the course of antibiotic Please give appointment with your healthcare providers Continue to use home oxygen as before Pending Studies at Discharge: No Stand-Alone Forms: My Schedulize, Smoking Cessation Medications and DC Order Prescriptions: New doxycycline hyclate 100 mg Capsule 100 mg PO BID Qty: 10 RF: 0 Continued aspirin 81 mg Tablet,Delayed Release (Dr/Ec) 81 mg PO QAM RF: 0 furosemide 40 mg tablet 40 mg PO Q2D RF: 0 fluticasone propion-salmeterol [Wixela Inhub] 250-50 mcg/dose blister with device 1 inh inhalation BID RF: 0 trazodone 50 mg tablet 50 mg PO HS RF: 0 isosorbide mononitrate 30 mg tablet extended release 24 hr 30 mg PO DAILY RF: 0 clonazepam 0.5 mg tablet 0.5 mg PO BID PRN (Reason: Anxiety) RF: 0 omeprazole 40 mg capsule,delayed release(DR/EC) 40 mg PO QAM RF: 0 levothyroxine 150 mcg tablet 150 mcg PO QAM RF: 0 nitroglycerin [Nitrostat] 0.4 mg Tablet, Sublingual 0.4 mg sublingual DIRECTED PRN (Reason: Chest Pain) RF: 0 Centrum Silver 0.4-300-250 mg-mcg-mcg Tablet 1 tab PO QAM RF: 0 fluticasone propionate [Flonase Allergy Relief] 50 mcg/actuation [employer],Suspension 2 spray INTRANASAL DAILY PRN (Reason: Allergy Symptoms) RF: 0 warfarin 2.5 mg tablet See Rx Instructions .ROUTE .COMPLEX RF: 0 metoprolol succinate 50 mg tablet extended release 24 hr 100 mg PO DAILY RF: 0 lisinopril 5 mg tablet 5 mg PO DAILY RF: 0 rosuvastatin 40 mg tablet 40 mg PO DAILY RF: 0 cholecalciferol (vitamin D3) 50 mcg (2,000 unit) Tablet 50 mcg PO DAILY RF: 0 (DME) Oxygen Home Liters Per Minute See Rx Instructions .Route Qty: 1 RF: 0 acetaminophen [Tylenol] 325 mg Tablet 650 mg PO Q6H PRN (Reason: Pain) RF: 0 betamethasone, augmented 0.05 % cream 1 applic TOPICAL BID PRN (Reason: Pain) RF: 0 albuterol sulfate [Ventolin HFA] 90 mcg/actuation Hfa Aerosol Inhaler 2 puff INHALATION Q4H PRN (Reason: Shortness Of Breath Or Wheezing) RF: 0 [id number] 3.5-10,000-10 mg-unit-mg/mL drops,suspension 1 drp OPL BID RF: 0 Combivent Respimat 20-100 mcg/actuation Mist 2 puff INHALATION QID PRN (Reason: COUGH/WHEEZE) RF: 0 hydrocodone-acetaminophen 5-325 mg tablet 1 tab PO Q8H PRN (Reason: pain) Qty: 10 RF: 0 sennosides [Senokot] 8.6 mg Tablet 17.2 mg PO HS Qty: 30 RF: 0 Discharge Orders: Discharge Order (Routine); Ordered 03/06/22 Ordered By: Ernie Foss Admission Data Admit Date/Time: 03/05/22 00:46 Attending Provider: Ernie Foss Admit Provider: Harjinder Pyle Primary Care Provider: Terrence Gtz Other Providers: Harjinder Pyle ; [facility] Other Interventions: Discharge Summary Assessment (RN) Last Done: 03/06/22 16:20
--- NOTE | 2022-03-06 21:49 | Electrocardiogram Report ---
Test Reason : Blood Pressure : / mmHG Vent. Rate : 138 BPM Atrial Rate : 138 BPM P-R Int : 118 ms QRS Dur : 102 ms QT Int : 298 ms P-R-T Axes : -02 062 -29 degrees QTc Int : 451 ms Sinus tachycardia with Premature atrial complexes Cannot rule out Inferior infarct (cited on or before 28-OCT-2011) Nonspecific ST and T wave abnormality Abnormal ECG When compared with ECG of 06-JAN-2022 23:53, Premature atrial complexes are now Present Questionable change in initial forces of Inferior leads T wave inversion more evident in Inferior leads T wave inversion no longer evident in Anterior leads Confirmed by Malachi Pimentel ([id number]) on 03/06/2022 9:48:25 PM Referred By: REFERRED SELF Confirmed By:Malachi Pimentel
== END 2022-03-06 17:42 | disposition home health service (06) ==
LOC: 2S 20:17 → ED 20:17 → 2S 03-05 02:35

== ENCOUNTER 2022-11-26 13:52 | Inpatient (IN) ==
[2022-11-26 14:50] LABS: Basophils # (auto) 0.02 K/uL (0-0.2); Basophils % (auto) 0.4 %; Eosinophils # (auto) 0.06 K/uL (0-0.50); Eosinophils % (auto) 1.1 %; Hematocrit (blood only) 34.4 % (42.0-52.0); Hemoglobin 10.6 g/dl (14.0-18.0); Immature Granulocytes # (auto) 0.02 K/uL (0.01-0.20); Immature Granulocytes % (auto) 0.4 %; Lymphocytes # (auto) 0.98 K/uL (1.2-3.4); Lymphocytes % (auto) 17.2 %; Mean Corpuscular Hemoglobin 27.3 pg (25.0-34.0); Mean Corpuscular Hgb Conc 30.8 g/dL (32.0-36.0); Mean Corpuscular Volume 88.7 fL (80.0-100.0); Mean Platelet Volume 11.3 fL (9.4-12.4); Neutrophils # (auto) 3.83 K/uL (1.40-6.50); Neutrophils % (auto) 66.9 %; Platelet Count 172 K/uL (130-400); RDW Standard Deviation 57.8 fL (36.4-46.3); Red Blood Count 3.88 M/uL (4.70-6.10); White Blood Count 5.71 K/ul (4.8-10.8)
[2022-11-26 15:15] LABS: Partial Thromboplastin Ratio 1.6; Partial Thromboplastin Time 44.4 Seconds (21.0-31.0); Prothrombin Time 30.2 Seconds (9.0-12.0); Troponin I High Sensitivity 17.5 pg/ml (0-20)
--- NOTE | 2022-11-26 15:16 | XRay Report ---
XR chest 1V portable HISTORY: Shortness of breath. COMPARISON: Chest 03/04/2022. FINDINGS: No pneumothorax. The heart remains enlarged. There are post sternotomy changes. There is a tortuous and calcified thoracic aorta. Postoperative changes again noted within the proximal left hum erus. Mild pulmonary edema and small bilateral pleural effusions. This is similar to the prior study. No new focal lung consolidations. Slightly rotated study. IMPRESSION: Mild cardiomegaly with mild interstitial pulmonary edema and small bilateral pleural effusions. ACT 112: Negative or not required by law. Electronically signed by: Donovan Kiran M.D. 11/26/2022 3:15 PM
--- NOTE | 2022-11-26 15:21 | Emergency Department Note ---
Impression & Plan Fluid overload, FPC current use of anticoagulant, CHF exacerbation, Elevated brain natriuretic peptide (BNP) level, GUADALUPE (dyspnea on exertion) ED Provider Note Provider: Oniel Infante MD DATE OF SERVICE: 11/26/2022 CHIEF COMPLAINT: Leg swelling, shortness of breath HISTORY OF PRESENT ILLNESS: Patient is a 82-year-old gentleman history of hypothyroidism, DVT on warfarin, CAD, and CKD presenting here today with grandson who he lives with. Evidently last 2 months that increased swelling of the lower legs. Now states he is having shortness of breath particularly moving around with occasional chest discomfort with exertion. Denies pain currently. States he is noted swelling of his legs now extending up into the thigh region. Patient states there is been weeping and some serous discharge from the legs of the last month or 2 and home nursing to start of this past week. No trauma reported. Rosalina did drain one of the stairs on the lower left leg which was described as very large with serous drainage. Some pain in the legs. PAST MEDICAL HISTORY: As noted above MEDICATIONS: Reviewed home medications includes lasix and warfarin SOCIAL HISTORY:lives with grandson at home PHYSICAL EXAM: GENERAL: alert and oriented in no acute distress on stretcher, somewhat hard of hearing Head: normocephalic and atraumatic EYES: No injection, discharge or icterus. NECK: Trachea midline. LUNGS: Airway patent. No retractions. Breath sounds clear with diminished bases HEART: Regular rate and rhythm. No chest wall tenderness ABDOMEN: Soft and non-tender, without guarding or rebound. SKIN: Acyanotic, warm EXTREMITIES: No significant swelling of the upper extremities noted. 2-3+ edema of the lower extremity extending to the inguinal region with some slight edema of the anterior abdominal wall. There are multiple areas of small blisters as well as 2 small areas of open wounds on the left lower lateral ankle and the right upper lateral lower leg with mild surrounding erythema but no gross purulence. NEUROLOGICAL: No focal deficits. No aphasia. No facial droop or slurred speech. EK bpm normal sinus rhythm. Some inferior lateral T wave flattening without acute ST segment elevation or depression with a QTC of 451. CONTINUOUS CARDIAC MONITORING: was ordered and showed a heart rate of 70s-80s bpm in normal sinus rhythm Patient's laboratory studies and imaging reviewed. Differential includes DVT, musculoskeletal, infection, trauma, lymphedema, idiopathic, CHF, CAD/ACS, pneumonia, fluid overload as well as other pathologies. IMPRESSION/MEDICAL DECISION MAKING: Patient appears grossly fluid overloaded. Has some blisters and open blistering areas of the lower extremities. Reports he did not miss any doses of his Lasix at home. Question with her some component of mild cellulitis here but he does not appear septic. We will give a dose of Ancef and soft tissue/skin culture from this area obtained. Worsening swelling over the last several months. Underlying cardiac history. Question possible CHF. Blood work without significant leukocytosis and again low suspicion for sepsis. INR therapeutic at 3.0 and doubt VTE/DVT. Not hypoxic at rest. Chest x-ray without evidence of focal consolidation for pneumonia. By my review of the x-ray as well as radiology report. There is however evidence of some pleural effusions and pulmonary edema. Troponin not significantly elevated at 17.5 and again not having active chest pain now. BNP almost 2000. Significantly fluid overload. Patient having difficult time getting around at home. Given his significant fluid overload and complaints discussed with him further care here at the hospital. Given IV Lasix. Given his symptoms discussed with the hospitalist for further care here. DIAGNOSIS: Acute CHF exacerbation, pulmonary edema, fluid overload, leg cellulitis, elevated BNP DISPOSITION: Hospitalist will evaluate Patient was agreeable with this plan. Past Med/Surg History Medical History CAD (coronary artery disease) 2005 - CABG Chronic anticoagulation CKD (chronic kidney disease), stage III COPD (chronic obstructive pulmonary disease) COVID-19 Dyslipidemia Frequent falls GERD (gastroesophageal reflux disease) History of DVT (deep vein thrombosis) HTN (hypertension) Hypothyroidism Ischemic cardiomyopathy Obesity IRLANDA (obstructive sleep apnea) Periprosthetic fracture of shaft of femur Prediabetes Surgical History History of coronary artery bypass graft History of total knee arthroplasty Family History (Updated 11/26/22 @ 16:12 by Kate Crum PA-C) Other Hypertension Social History Smoking Status: Former smoker Second Hand Exposure: No; Hx Alcohol Use: Yes Alcohol type: hard liquor Hx Substance Use: No Preferred Language: Libyan Communication Ability: Effective Upper And Bottom Lacer Hand Required: No Beliefs That Will Affect Care: None Current Living Situation: Family Current Living Situation Comment: Lives with grandson How many Children do You have: 2 Feels Safe at Home: Yes Assistive Devices: Cane, CPAP, Walker and Wheelchair Allergies Allergies Allergy/AdvReac Type Severity Reaction Status Date / Time adhesive Allergy Intermediate BLISTERS Verified 03/04/22 21:11 amoxicillin [From Augmentin] Allergy Intermediate BURNING Verified 03/04/22 21:11 SENSATION OF TONGUE clavulanic acid Allergy Intermediate BURNING Verified 03/04/22 21:11 [From Augmentin] SENSATION OF TONGUE fish oil Allergy Intermediate ITCHY Verified 03/04/22 21:11 HIVES--IODINE Iodinated Contrast Media Allergy Intermediate ITCHY HIVES Verified 03/04/22 21:11 iodine Allergy Intermediate ANYTHING Verified 03/04/22 21:11 WITH IODINE--ITCHY HIVES niacin Allergy Intermediate Hives Verified 03/04/22 21:11 cat dander Allergy Unknown ON [facility]G MED Verified 03/04/22 21:11 LIST atorvastatin AdvReac Intermediate MUSCLE Verified 03/04/22 21:11 ACHES CAT GUT SUTURE AdvReac Intermediate INFLAMMATION Uncoded 03/04/22 21:12 OF AREA SUTURED Home Meds Home Medications Medication Instructions Recorded Confirmed aspirin 81 mg tablet,delayed 81 mg PO QAM 07/12/19 11/26/22 release clonazepam 0.5 mg tablet 0.5 mg PO BID PRN Anxiety 07/12/19 11/26/22 fluticasone 250 mcg-salmeterol 50 1 inh inhalation BID 07/12/19 11/26/22 mcg/dose blistr powdr for inhalation (Wixela Inhub) fluticasone propionate 50 2 spray intranasal DAILY PRN 07/12/19 11/26/22 mcg/actuation nasal Allergy Symptoms spray,suspension (Flonase Allergy Relief) furosemide 40 mg tablet 40 mg PO Q2D 07/12/19 11/26/22 isosorbide mononitrate 30 mg 30 mg PO DAILY 07/12/19 11/26/22 tablet,extended release 24 hr levothyroxine 150 mcg tablet 150 mcg PO QAM 07/12/19 11/26/22 grjpectu-[id number]-[id number] acid 0.4 1 tab PO QAM 07/12/19 11/26/22 mg-lycopene 300 mcg-lutein 250 mcg tablet (Centrum Silver) nitroglycerin 0.4 mg sublingual 0.4 mg sublingual DIRECTED PRN 07/12/19 11/26/22 tablet (Nitrostat) Chest Pain omeprazole 40 mg capsule,delayed 40 mg PO QAM 07/12/19 11/26/22 release trazodone 50 mg tablet 50 mg PO HS 07/12/19 11/26/22 warfarin 2.5 mg tablet 2.5 mg PO SUMOTUTHFRSA@1600 07/12/19 11/26/22 cholecalciferol (vitamin D3) 50 50 mcg PO DAILY 07/14/21 11/26/22 mcg (2,000 unit) tablet lisinopril 5 mg tablet 5 mg PO DAILY 07/14/21 11/26/22 metoprolol succinate 50 mg 100 mg PO DAILY 07/14/21 11/26/22 tablet,extended release 24 hr rosuvastatin 40 mg tablet 40 mg PO DAILY 07/14/21 11/26/22 acetaminophen 325 mg tablet 650 mg PO Q6H PRN Pain 01/04/22 11/26/22 (Tylenol) albuterol sulfate 90 mcg/actuation 2 puff inhalation Q4H PRN 01/04/22 11/26/22 aerosol inhaler (Ventolin HFA) Shortness Of Breath Or Wheezing betamethasone, augmented 0.05 % 1 applic topical BID PRN Pain 01/04/22 11/26/22 topical cream ipratropium 20 mcg-albuterol 100 2 puff inhalation QID PRN 01/04/22 11/26/22 mcg/actuation mist for inhalation COUGH/WHEEZE (Combivent Respimat) neomycin 3.5 mg-polymyxin 10,000 1 drp OPL BID 01/04/22 11/26/22 unit-hydrocort 10 mg/mL eye drop,susp albuterol sulfate 90 mcg/actuation 1 inh inhalation Q6H PRN sob 11/26/22 11/26/22 aerosol inhaler warfarin 2.5 mg tablet 1.25 mg PO WE@1600 11/26/22 11/26/22 Previous Rx's Medication Instructions Recorded Oxygen Home #1 ea 07/20/21 sennosides 8.6 mg tablet (Senokot) 17.2 mg PO HS #30 tabs 01/09/22 Results & Data (ED) Vital Signs Vital Signs - 24 hr 11/26/22 13:53 11/26/22 15:17 Temperature 36.7 C Temperature Source Temporal Artery Scan Pulse Rate 83 Pulse Rate [Apical] 85 Pulse Rhythm [Apical] Regular Respiratory Rate 20 16 Respiratory Effort / Characteristics Non-Labored Spontaneous Non-Labored Respiratory Depth Normal Normal Blood Pressure 113/62 Blood Pressure [Right Arm] 104/67 Blood Pressure Mean 79 Blood Pressure Mean [Right Arm] 79 Pulse Oximetry 91 95 Oxygen Delivery Method Room Air Room Air Sepsis Recent Fever Within 48 Hours No Sepsis New/Unexplained Change in Mental Status No Sepsis Action Taken by Nursing No Action Required Laboratory Data 11/26/22 14:40 11/26/22 14:40 Lab Results 11/26/22 11/26/22 11/26/22 Range/Units 14:40 14:40 14:40 WBC 5.71 (4.8-10.8) K/ul RBC 3.88 L (4.70-6.10) M/uL Hgb 10.6 L (14.0-18.0) g/dl Hct 34.4 L (42.0-52.0) % MCV 88.7 (80.0-100.0) fL MCH 27.3 (25.0-34.0) pg MCHC 30.8 L (32.0-36.0) g/dL RDW Std Deviation 57.8 H (36.4-46.3) fL RDW Coeff of Cory 18.0 H (11.5-14.5) % Plt Count 172 (130-400) K/uL MPV 11.3 (9.4-12.4) fL Immature Gran % (Auto) 0.4 % Neut % (Auto) 66.9 % Lymph % (Auto) 17.2 % [place] % (Auto) 14.0 % Eos % (Auto) 1.1 % Baso % (Auto) 0.4 % Neut # (Auto) 3.83 (1.40-6.50) K/uL Lymph # (Auto) 0.98 L (1.2-3.4) K/uL [place] # (Auto) 0.80 H (0.11-0.59) K/uL Eos # (Auto) 0.06 (0-0.50) K/uL Baso # (Auto) 0.02 (0-0.2) K/uL Immature Gran # (Auto) 0.02 (0.01-0.20) K/uL PT 30.2 H (9.0-12.0) Seconds INR 3.0 H (0.9-1.1) APTT 44.4 H (21.0-31.0) Seconds PTT Ratio 1.6 Sodium 143 (136-145) mmol/L Potassium 3.6 (3.5-5.1) mmol/L Chloride 105 (98-107) mmol/L Carbon Dioxide 32 (21-32) mmol/L Anion Gap 6 (3-11) BUN 18 (6-23) mg/dl Creatinine 0.98 (0.6-1.4) mg/dl Est Cr Clr Drug Dosing Not Reportable Est GFR ( Amer) 82.9 ml/min Est GFR (Non-Af Amer) 71.5 ml/min BUN/Creatinine Ratio 18.4 (10-20) Glucose 96 (70-99(Fasting)) mg/dl Calcium 8.7 (8.5-10.1) mg/dl Magnesium 2.1 (1.7-2.4) mg/dl Total Bilirubin 0.8 (0.2-1.0) mg/dl AST 25 (13-39) U/L ALT 13 (7-52) U/L Alkaline Phosphatase 116 H (34-104) U/L Troponin I High Sens 17.5 (0-20) pg/ml B-Natriuretic Peptide (0-100) pg/ml Total Protein 6.0 (6.0-8.3) gm/dl Albumin 3.4 (3.4-5.0) gm/dl Globulin 2.6 (2.5-4.0) gm/dl Albumin/Globulin Ratio 1.3 (0.9-2) SARS-CoV-2, RNA, NAAT (NEGATIVE) 11/26/22 11/26/22 Range/Units 14:40 15:18 WBC (4.8-10.8) K/ul RBC (4.70-6.10) M/uL Hgb (14.0-18.0) g/dl Hct (42.0-52.0) % MCV (80.0-100.0) fL MCH (25.0-34.0) pg MCHC (32.0-36.0) g/dL RDW Std Deviation (36.4-46.3) fL RDW Coeff of Cory (11.5-14.5) % Plt Count (130-400) K/uL MPV (9.4-12.4) fL Immature Gran % (Auto) % Neut % (Auto) % Lymph % (Auto) % [place] % (Auto) % Eos % (Auto) % Baso % (Auto) % Neut # (Auto) (1.40-6.50) K/uL Lymph # (Auto) (1.2-3.4) K/uL [place] # (Auto) (0.11-0.59) K/uL Eos # (Auto) (0-0.50) K/uL Baso # (Auto) (0-0.2) K/uL Immature Gran # (Auto) (0.01-0.20) K/uL PT (9.0-12.0) Seconds INR (0.9-1.1) APTT (21.0-31.0) Seconds PTT Ratio Sodium (136-145) mmol/L Potassium (3.5-5.1) mmol/L Chloride (98-107) mmol/L Carbon Dioxide (21-32) mmol/L Anion Gap (3-11) BUN (6-23) mg/dl Creatinine (0.6-1.4) mg/dl Est Cr Clr Drug Dosing Est GFR ( Amer) ml/min Est GFR (Non-Af Amer) ml/min BUN/Creatinine Ratio (10-20) Glucose (70-99(Fasting)) mg/dl Calcium (8.5-10.1) mg/dl Magnesium (1.7-2.4) mg/dl Total Bilirubin (0.2-1.0) mg/dl AST (13-39) U/L ALT (7-52) U/L Alkaline Phosphatase (34-104) U/L Troponin I High Sens (0-20) pg/ml B-Natriuretic Peptide 1949 H (0-100) pg/ml Total Protein (6.0-8.3) gm/dl Albumin (3.4-5.0) gm/dl Globulin (2.5-4.0) gm/dl Albumin/Globulin Ratio (0.9-2) SARS-CoV-2, RNA, NAAT NEGATIVE (NEGATIVE) Administered Medications Discontinued Medications Furosemide (Furosemide 40 Mg/4 Ml Vial) 60 mg IV ONE ONE Stop: 11/26/22 15:43 Last Admin: 11/26/22 16:11 Dose: 60 mg Documented By: DOV Cefazolin Sodium (Ancef 2000mg) 2,000 mg in 15 mls @ 3.75 mls/min IV NOW STA Stop: 11/26/22 15:47 Last Admin: 11/26/22 16:11 Dose: 3.75 mls/min Documented By: DOV Imaging Data Radiologist's Impression: Chest X-Ray 11/26/22 14:04 XR chest 1V portable HISTORY: Shortness of breath. COMPARISON: Chest 03/04/2022. FINDINGS: No pneumothorax. The heart remains enlarged. There are post sternotomy changes. There is a tortuous and calcified thoracic aorta. Postoperative changes again noted within the proximal left humerus. Mild pulmonary edema and small bilateral pleural effusions. This is similar to the prior study. No new focal lung consolidations. Slightly rotated study. IMPRESSION: Mild cardiomegaly with mild interstitial pulmonary edema and small bilateral pleural effusions. ACT 112: Negative or not required by law. Electronically signed by: Donovan Kiran M.D. 11/26/2022 3:15 PM Discharge Plan Visit Data Chief Complaint: Swelling/Edema to Extremity Stated Complaint: SWOLLEN EXTREMITIES ED Provider: Oniel Infante Discharge Problem: Fluid overload, FPC current use of anticoagulant, CHF exacerbation, Elevated brain natriuretic peptide (BNP) level, GUADALUPE (dyspnea on exertion) Patient Disposition: Being Evaluated by Hospitalist Forms Stand Alone Forms: My [facility] [employer] Prescriptions Prescriptions: No Action aspirin 81 mg Tablet,Delayed Release (Dr/Ec) 81 mg PO QAM furosemide 40 mg tablet 40 mg PO Q2D fluticasone propion-salmeterol [Wixela Inhub] 250-50 mcg/dose blister with device 1 inh inhalation BID trazodone 50 mg tablet 50 mg PO HS isosorbide mononitrate 30 mg tablet extended release 24 hr 30 mg PO DAILY clonazepam 0.5 mg tablet 0.5 mg PO BID PRN (Reason: Anxiety) omeprazole 40 mg capsule,delayed release(DR/EC) 40 mg PO QAM Rx Instructions: Take 1 hour before the first meal of the day levothyroxine 150 mcg tablet 150 mcg PO QAM Rx Instructions: Take 30 minutes prior to breakfast or other meds nitroglycerin [Nitrostat] 0.4 mg Tablet, Sublingual 0.4 mg sublingual DIRECTED PRN (Reason: Chest Pain) Centrum Silver 0.4-300-250 mg-mcg-mcg Tablet 1 tab PO QAM fluticasone propionate [Flonase Allergy Relief] 50 mcg/actuation [place],Suspension 2 spray INTRANASAL DAILY PRN (Reason: Allergy Symptoms) warfarin 2.5 mg tablet 2.5 mg PO SUMOTUTHFRSA@1600 Rx Instructions: 2.5 mg orally; TAKES 2.5 MG EVERY DAY EXCEPT WEDNESDAYS, TAKES 1.25 MG ON WEDNESDAYS ONLY. metoprolol succinate 50 mg tablet extended release 24 hr 100 mg PO DAILY lisinopril 5 mg tablet 5 mg PO DAILY rosuvastatin 40 mg tablet 40 mg PO DAILY cholecalciferol (vitamin D3) 50 mcg (2,000 unit) Tablet 50 mcg PO DAILY (DME) Oxygen Home Liters Per Minute See Rx Instructions .Route Qty: 1 0RF Rx Instructions: 3LPM with activity acetaminophen [Tylenol] 325 mg Tablet 650 mg PO Q6H PRN (Reason: Pain) betamethasone, augmented 0.05 % cream 1 applic TOPICAL BID PRN (Reason: Pain) Rx Instructions: APPLY TO LEGS BILATERALLY NEEDED FOR PAIN albuterol sulfate [Ventolin HFA] 90 mcg/actuation Hfa Aerosol Inhaler 2 puff INHALATION Q4H PRN (Reason: Shortness Of Breath Or Wheezing) [id number] 3.5-10,000-10 mg-unit-mg/mL drops,suspension 1 drp OPL BID Combivent Respimat 20-100 mcg/actuation Mist 2 puff INHALATION QID PRN (Reason: COUGH/WHEEZE) sennosides [Senokot] 8.6 mg Tablet 17.2 mg PO HS Qty: 30 0RF Rx Instructions: hold for diarrhea albuterol sulfate 90 mcg/actuation HFA aerosol inhaler 1 inh INHALATION Q6H PRN (Reason: sob) warfarin 2.5 mg tablet 1.25 mg PO WE@1600 Referrals Referrals: Terrence Gtz DO [Primary Care Provider] - : Fluid overload Qualifiers: Hypervolemia type: other Qualified Code(s): E87.79 - Other fluid overload CHF exacerbation Qualifiers: Heart failure type: unspecified Qualified Code(s): I50.9 - Heart failure, unspecified
[2022-11-26 15:22] LABS: Albumin Level 3.4 gm/dl (3.4-5.0); Anion Gap 6 (3-11); Bilirubin,Total 0.8 mg/dl (0.2-1.0); Calcium 8.7 mg/dl (8.5-10.1); Carbon Dioxide 32 mmol/L (21-32); Chloride 105 mmol/L (98-107); Magnesium 2.1 mg/dl (1.7-2.4); Potassium 3.6 mmol/L (3.5-5.1); Sodium 143 mmol/L (136-145)
[2022-11-26 15:27] LABS: Alanine Aminotransferase 13 U/L (7-52); Albumin Globulin Ratio 1.3 (0.9-2); Alkaline Phosphatase 116 U/L (34-104); Aspartate Aminotransferase 25 U/L (13-39); BUN Creatinine Ratio 18.4 (10-20); Blood Urea Nitrogen 18 mg/dl (6-23); Est GFR (African American) 82.9 ml/min; Est GFR (Non-African American) 71.5 ml/min; Globulin 2.6 gm/dl (2.5-4.0); Glucose 96 mg/dl (70-99(Fasting))
[2022-11-26] MEDS ORDERED: FUROSEMIDE 40 MG/4 ML VIAL IV ONE (15:42)
[2022-11-26] MEDS ORDERED: ceFAZolin 2000MG 2,000 MG/15 ML SYR IV STA (15:44)
--- NOTE | 2022-11-26 16:13 | History & Physical Report ---
Date of Service November 26, 2022 Assessment & Plan (1) Acute on chronic heart failure with preserved ejection fraction (HFpEF): (2) Bilateral cellulitis of lower leg: (3) Open wound, lower leg: (4) History of DVT (deep vein thrombosis): (5) COPD (chronic obstructive pulmonary disease): (6) CAD (coronary artery disease): (7) CKD (chronic kidney disease), stage III: (8) IRLANDA (obstructive sleep apnea): Plan This is an 82-year-old male who has significant past medical history of CAD with remote history of CABG in 2004, chronic HFpEF, HTN, HLD, moderate to severe MR with partial flail leaflet diagnosed in 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 Acute on chronic HFpEF Moderate to severe mitral regurgitation with partial flail leaflet CAD with history of CABG in 2004 admit to med tele pt with significant edema extending to abdominal wall, bnp 1,949, cxr with mild pulm edema/pleural effusions, received lasix 60mg IV in ED, will monitor diuresis place on lasix 40mg IV daily starting 11/27 give 40meq KCL x 1 now, start daily potassium, monitor bmp and mag strict I and O, daily weights, guaman cath in place continue ASA, Imdur, lisinopril, metoprolol, Crestor Bilateral lower extremity cellulitis Bilateral lower extremity open wounds with intact bulla consult wound care surface culture obtained in ED daily rocephin, monitor sx likely to improve with effective diuresis no s/sx of sepsis History of DVT Long-term anticoagulation with warfarin INR 3.0 today, will hold warfarin today and resume home regimen tomorrow of 1.25mg on Mon and 2.5mg all other days COPD IRLANDA on CPAP, 3.5 L at at bedtime continue inhalers, no acute exac Chronic anemia H&H stable at 10.6 and 34.4 Monitor Diet-controlled T2DM A1c October 2022, 6.5 Monitor fasting glucose DVT prophylaxis: Warfarin Dispo: Med telemetry, will need IV diuresis, treatment for cellulitis, will need PT OT when appropriate, patient currently refusing rehab if necessary Full code PCP: Ulisses Patient was seen and examined in collaboration with Dr. Posada, please see addendum A total of 75 minutes were spent with greater than 50% of that time face to face with the patient, personally reviewing all current laboratories, imaging studies, past medication reconciliation, outpatient chart review, and discussion with specialists to collaborate care for the patient with attending. Please see attending documentation for corrections and/or additions. History of Present Illness Chief Complaint: Swelling of legs and sores to legs x several weeks. Primary Care Provider: Terrence Gtz DO This is an 82-year-old male who has significant past medical history of CAD with remote history of CABG in 2004, chronic HFpEF, HTN, HLD, moderate to severe MR with partial flail leaflet diagnosed in 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 Pts PCP is Dr. Terrence Gtz. He also follows closely with [facility] cardiology. His last echocardiogram was April 2022 which revealed LV EF 55 to 59%, mildly increased concentric LVH, moderate aortic valve sclerosis, severe mitral annular calcification with moderate mitral regurgitation present With partial flail kimo flet. He presents to ED due to worsened leg swelling, pain, worsening wounds and lumps to the groin. He says this all has been going on for close to a year, but has been getting worse. He complains of off an on chest pain, precordial and sob with exertion. He did take his lasix today and has been taking it every other day. He denies f/c/s, dizziness,lightheaded, cough, uri sx, n/v/d,abd pain. He does have difficulty with urination but denies hematuria and increased urgency. Pt is very hard of hearing and hearing aid battery which is making obtaining history difficult. At home patient does have difficulty with ambulation. Uses wheel chair and occasional walker/cane. His grandson/Son helps him with Iadls. Allergies Allergy/AdvReac Type Severity Reaction Status Date / Time adhesive Allergy Intermediate BLISTERS Verified 11/26/22 16:31 amoxicillin [From Augmentin] Allergy Intermediate BURNING Verified 11/26/22 16 :31 SENSATION OF TONGUE clavulanic acid Allergy Intermediate BURNING Verified 11/26/22 16:31 [From Augmentin] SENSATION OF TONGUE fish oil Allergy Intermediate ITCHY Verified 11/26/22 16:31 HIVES--IODINE Iodinated Contrast Media Allergy Intermediate ITCHY HIVES Verified 11/26/22 16:31 iodine Allergy Intermediate ANYTHING Verified 11/26/22 16:31 WITH IODINE--ITCHY HIVES niacin Allergy Intermediate Hives Verified 11/26/22 16:31 cat dander Allergy Unknown ON [facility] MED Verified 11/26/22 16:31 LIST atorvastatin AdvReac Intermediate MUSCLE Verified 11/26/22 16:31 ACHES CAT GUT SUTURE AdvReac Intermediate INFLAMMATION Uncoded 11/26/22 16:31 OF AREA SUTURED Home Medications Medication Instructions Recorded Confirmed Type aspirin 81 mg tablet,delayed 81 mg PO QAM 07/12/19 11/26/22 History release clonazepam 0.5 mg tablet 0.5 mg PO BID PRN Anxiety 07/12/19 11/26/22 History fluticasone 250 mcg-salmeterol 50 1 inh inhalation BID 07/12/19 11/26/22 History mcg/dose blistr powdr for inhalation (Wixela Inhub) fluticasone propionate 50 2 spray intranasal DAILY PRN 07/12/19 11/26/22 History mcg/actuation nasal Allergy Symptoms spray,suspension (Flonase Allergy Relief) furosemide 40 mg tablet 40 mg PO Q2D 07/12/19 11/26/22 History isosorbide mononitrate 30 mg 30 mg PO DAILY 07/12/19 11/26/22 History tablet,extended release 24 hr levothyroxine 150 mcg tablet 150 mcg PO QAM 07/12/19 11/26/22 History wjmykubc-chy-krvjo acid 0.4 1 tab PO QAM 07/12/19 11/26/22 History mg-lycopene 300 mcg-lutein 250 mcg tablet (Centrum Silver) nitroglycerin 0.4 mg sublingual 0.4 mg sublingual DIRECTED PRN 07/12/19 11/26/22 History tablet (Nitrostat) Chest Pain omeprazole 40 mg capsule,delayed 40 mg PO QAM 07/12/19 11/26/22 History release trazodone 50 mg tablet 50 mg PO HS 07/12/19 11/26/22 History warfarin 2.5 mg tablet 2.5 mg PO SUMOTUTHFRSA@1600 07/12/19 11/26/22 History cholecalciferol (vitamin D3) 50 50 mcg PO DAILY 07/14/21 11/26/22 History mcg (2,000 unit) tablet lisinopril 5 mg tablet 5 mg PO DAILY 07/14/21 11/26/22 History metoprolol succinate 50 mg 100 mg PO DAILY 07/14/21 11/26/22 History tablet,extended release 24 hr rosuvastatin 40 mg tablet 40 mg PO DAILY 07/14/21 11/26/22 History Oxygen Home #1 ea 07/20/21 11/26/22 Rx acetaminophen 325 mg tablet 650 mg PO Q6H PRN Pain 01/04/22 11/26/22 History (Tylenol) albuterol sulfate 90 mcg/actuation 2 puff inhalation Q4H PRN 01/04/22 11/26/22 History aerosol inhaler (Ventolin HFA) Shortness Of Breath Or Wheezing betamethasone, augmented 0.05 % 1 applic topical BID PRN Pain 01/04/22 11/26/22 History topical cream ipratropium 20 mcg-albuterol 100 2 puff inhalation QID PRN 01/04/22 11/26/22 History mcg/actuation mist for inhalation COUGH/WHEEZE (Combivent Respimat) neomycin 3.5 mg-polymyxin 10,000 1 drp OPL BID 01/04/22 11/26/22 History unit-hydrocort 10 mg/mL eye drop,susp sennosides 8.6 mg tablet (Senokot) 17.2 mg PO HS #30 tabs 01/09/22 11/26/22 Rx albuterol sulfate 90 mcg/actuation 1 inh inhalation Q6H PRN sob 11/26/22 11/26/22 History aerosol inhaler warfarin 2.5 mg tablet 1.25 mg PO WE@1600 11/26/22 11/26/22 History Past Med/Surg History Medical History CAD (coronary artery disease) 2004 - CABG Chronic anticoagulation CKD (chronic kidney disease), stage III COPD (chronic obstructive pulmonary disease) COVID-19 Dyslipidemia Frequent falls GERD (gastroesophageal reflux disease) History of DVT (deep vein thrombosis) HTN (hypertension) Hypothyroidism Ischemic cardiomyopathy Obesity IRLANDA (obstructive sleep apnea) Periprosthetic fracture of shaft of femur Prediabetes Surgical History History of coronary artery bypass graft History of total knee arthroplasty Family History (Updated 11/26/22 @ 16:12 by Kate Crum PA-C) Other Hypertension Social History Smoking Status: Former smoker Second Hand Exposure: No; Hx Alcohol Use: Yes Alcohol type: hard liquor Hx Substance Use: No Preferred Language: Senegalese Communication Ability: Effective Herb Digger Required: No Beliefs That Will Affect Care: None Current Living Situation: Family Current Living Situation Comment: Lives with grandson How many Children do You have: 2 Feels Safe at Home: Yes Assistive Devices: Cane, CPAP, Walker and Wheelchair Review of Systems Review of Systems: All systems reviewed & are unremarkable except as noted in HPI & below Physical Exam Physical Exam: please see Dr. Posada addendum for physical exam findings. Results & Data Results & Data ([facility]) Vital Signs (Past 12 Hours) Vital Signs Temp Pulse Pulse Resp BP BP Pulse Ox 11/26/22 15:17 85 16 104/67 95 11/26/22 13:53 36.7 C 83 20 113/62 91 O2 Del Method 11/26/22 15:17 Room Air 11/26/22 13:53 Room Air Diagnostic Findings Chest X-Ray 11/26/22 14:04 XR chest 1V portable HISTORY: Shortness of breath. COMPARISON: Chest 03/04/2022. FINDINGS: No pneumothorax. The heart remains enlarged. There are post sternotomy changes. There is a tortuous and calcified thoracic aorta. Postoperative changes again noted within the proximal left humerus. Mild pulmonary edema and small bilateral pleural effusions. This is similar to the prior study. No new focal lung consolidations. Slightly rotated study. IMPRESSION: Mild cardiomegaly with mild interstitial pulmonary edema and small bilateral pleural effusions. ACT 112: Negative or not required by law. Electronically signed by: Donovan Kiran M.D. 11/26/2022 3:15 PM Medications Administered Medication List Discontinued Medications Furosemide (Furosemide 40 Mg/4 Ml Vial) 60 mg IV ONE ONE Stop: 11/26/22 15:43 Last Admin: 11/26/22 16:11 Dose: 60 mg Documented By: DOV Cefazolin Sodium (Ancef 2000mg) 2,000 mg in 15 mls @ 3.75 mls/min IV NOW STA Stop: 11/26/22 15:47 Last Admin: 11/26/22 16:11 Dose: 3.75 mls/min Documented By: DOV ECG Rate (beats per minute): 84 Rhythm: normal sinus Additional Comments: reviewed by nj COVID-19 Results Results COVID-19 Adm Lab Results: RBC 3.88 M/uL (4.70-6.10) L 11/26/22 WBC 5.71 K/ul (4.8-10.8) 11/26/22 Hgb 10.6 g/dl (14.0-18.0) L 11/26/22 Hct 34.4 % (42.0-52.0) L 11/26/22 Plt Count 172 K/uL (130-400) 11/26/22 Neutrophils (%) (Auto) 66.9 % 11/26/22 Lymphocytes (%) (Auto) 17.2 % 11/26/22 Monocytes # (Auto) 0.80 K/uL (0.11-0.59) H 11/26/22 Eosinophils # (Auto) 0.06 K/uL (0-0.50) 11/26/22 Immature Granulocyte % (Auto) 0.4 % 11/26/22 Neutrophils # (Auto) 3.83 K/uL (1.40-6.50) 11/26/22 Lymphocytes # (Auto) 0.98 K/uL (1.2-3.4) L 11/26/22 Monocytes # (Auto) 0.80 K/uL (0.11-0.59) H 11/26/22 Eosinophils # (Auto) 0.06 K/uL (0-0.50) 11/26/22 Basophils # (Auto) 0.02 K/uL (0-0.2) 11/26/22 Immature Granulocyte # (Auto) 0.02 K/uL (0.01-0.20) 3 Na 143 mmol/L (136-145) 11/26/22 K 3.6 mmol/L (3.5-5.1) 11/26/22 Cl 105 mmol/L (98-107) 11/26/22 CO2 32 mmol/L (21-32) 11/26/22 Anion Gap 6 (3-11) 11/26/22 BUN 18 mg/dl (6-23) 11/26/22 Creatinine 0.98 mg/dl (0.6-1.4) 11/26/22 BUN/Creatinine Ratio 18.4 (10-20) 11/26/22 Glucose Level 96 mg/dl (70-99(Fasting)) 11/26/22 Ca 8.7 mg/dl (8.5-10.1) 11/26/22 Total Bilirubin 0.8 mg/dl (0.2-1.0) 11/26/22 AST/SGOT 25 U/L (13-39) 11/26/22 ALT/SGPT 13 U/L (7-52) 11/26/22 Alkaline Phosphatase 116 U/L (34-104) H 11/26/22 Total Protein 6.0 gm/dl (6.0-8.3) 11/26/22 Albumin 3.4 gm/dl (3.4-5.0) 11/26/22 Globulin 2.6 gm/dl (2.5-4.0) 11/26/22 Albumin/Globulin Ratio 1.3 (0.9-2) 11/26/22 PTT 44.4 Seconds (21.0-31.0) H 11/26/22 INR 3.0 (0.9-1.1) H 11/26/22 SARS-CoV-2, RNA, NAAT NEGATIVE (NEGATIVE) 11/26/22 Chest X-Ray 11/26/22 Code Status & VTE Plan Code Status FULL CODE VTE Prophylaxis Plan VTE Prophylaxis will be ordered: No Reason for no VTE drug order: Treatment not indicated Supervising Physician Co-Signing Physician Notes Pt is a 82 y/o M with hx of CAD s/p CABG, HFpEF, Moderate mitral regurgitation with ruptured chordae (currently on medical management), COPD, IRLANDA on CPAP, DMII, CKDIII with anemia, chronic hx of DVT on Coumadin with recurrent LE cellulitis admitted for acute on CHF with b/l leg cellulitis with open blisters. PE: NAD, well developed HEENT: presence of JVD Lungs: fair air entry b/l with b/l lower lobe crackles Cardiac: Normal S1/s2, systolic murmur on the mitral area Abd: obese abd, with lower abd wall pitting edema, NT MSk: severe b/l LE pitting edema with multiple blisters with some already open. Warmth to touch b/l (R>L) Psych: pt was angry, AAOx3 A/P: Acute on CHF: -pt was on Lasix 40mg every other day -Cr is wnl -due to his current significant edema will do Lasix 40mg IV daily -repeat echo to monitor mitral regurgitation with ruptured chordae -strict I/O and daily weights -admit to tele with cardiology consult B/L leg cellulitis with open blisters: -pt does have hx of recurrent cellulitis with LE DVT ---- on Coumadin with INR of 3 -will start pt on ceftriaxone - wound care nurse consultation - PT/OT consult Other chronic conditions: Plan as above Agree with A/P by Kate Crum PA-C
[2022-11-26] MEDS ORDERED: POTASSIUM CHLORIDE CRTAB 20 MEQ TABCR PO STA (16:28)
[2022-11-26] MEDS ORDERED: MAGNESIUM HYDROXIDE SUSP 30 ML UDC PO PRN (18:22)
[2022-11-26] MEDS ORDERED: ONDANSETRON INJ 2 MG/ML 2 ML VIAL IV PRN (18:22)
[2022-11-26] MEDS ORDERED: ALUMINUM/MAGNESIUM SUSP 30 ML UDC PO PRN (18:22)
[2022-11-26] MEDS ORDERED: POLYETHYLENE (MIRALAX) 17 GM PACK PO PRN (18:22)
[2022-11-26] MEDS ORDERED: ALBUTEROL HFA 8 GM INHALER INH PRN (18:22)
[2022-11-26] MEDS: ACETAMINOPHEN 325 MG TAB PO PRN (20:52)
[2022-11-26] MEDS: clonazePAM 0.5 MG TAB PO PRN (20:55)
[2022-11-26] MEDS ORDERED: FLUTICASONE/SALMETEROL 250/50 (ADVAIR) 14 PUFF/1 INHALER INH SCH (21:00)
[2022-11-26] MEDS: traZODone HCL 50 MG TAB PO SCH (21:34)
[2022-11-27] MEDS: PANTOprazole 40 MG TAB PO SCH (06:07)
--- NOTE | 2022-11-27 07:32 | Electrocardiogram Report ---
Test Reason : Blood Pressure : / mmHG Vent. Rate : 084 BPM Atrial Rate : 084 BPM P-R Int : 176 ms QRS Dur : 104 ms QT Int : 382 ms P-R-T Axes : 062 054 -30 degrees QTc Int : 451 ms Normal sinus rhythm Nonspecific T wave abnormality Abnormal ECG When compared with ECG of 14-OCT-2022 19:37, No significant change was found Confirmed by Neil Pendleton ([id number]) on 11/27/2022 7:32:33 AM Referred By: REFERRED SELF Confirmed By:Crow Pendleton
[2022-11-27 08:08] LABS: Basophils # (auto) 0.03 K/uL (0-0.2); Basophils % (auto) 0.5 %; Eosinophils # (auto) 0.08 K/uL (0-0.50); Eosinophils % (auto) 1.3 %; Hematocrit (blood only) 32.6 % (42.0-52.0); Hemoglobin 10.1 g/dl (14.0-18.0); Immature Granulocytes # (auto) 0.01 K/uL (0.01-0.20); Immature Granulocytes % (auto) 0.2 %; Lymphocytes # (auto) 0.84 K/uL (1.2-3.4); Mean Corpuscular Hemoglobin 26.9 pg (25.0-34.0); Mean Corpuscular Volume 86.9 fL (80.0-100.0); Mean Platelet Volume 11.8 fL (9.4-12.4); Monocytes # (auto) 0.98 K/uL (0.11-0.59); Monocytes % (auto) 16.3 %; Neutrophils # (auto) 4.06 K/uL (1.40-6.50); Neutrophils % (auto) 67.7 %; Platelet Count 173 K/uL (130-400); RDW Standard Deviation 56.3 fL (36.4-46.3); Red Blood Count 3.75 M/uL (4.70-6.10)
[2022-11-27] MEDS: ROSUVASTATIN CALCIUM 20 MG TAB PO SCH (08:08)
[2022-11-27] MEDS: CHOLECALCIFEROL 1,000 UNITS 25 MCG TAB PO SCH (08:08)
[2022-11-27] MEDS: ISOSORBIDE MONO EXTENDED REL 30 MG TABCR PO SCH (08:09)
[2022-11-27] MEDS: POTASSIUM CHLORIDE CRTAB 20 MEQ TABCR PO SCH (08:09)
[2022-11-27] MEDS: CEROVITE ADV FORMULA TAB PO SCH (08:10)
[2022-11-27] MEDS: cefTRIAXone SODIUM 2,000 MG in DEXTROSE 5% 50 ML IV SCH (08:10)
[2022-11-27] MEDS: ASPIRIN 81 MG ECTAB PO SCH (08:10)
[2022-11-27] MEDS: lisinopril 5 MG TAB PO SCH (08:10)
[2022-11-27] MEDS: FLUTICASONE/VILANTEROL 200/25MCG 14 PUFFS/INHALER INH SCH (08:11)
[2022-11-27] MEDS: FUROSEMIDE 40 MG/4 ML VIAL IV SCH (08:11)
[2022-11-27] MEDS: METOPROLOL SUCC 50MG EXT REL TAB PO SCH ×2 (08:12→08:29)
[2022-11-27 08:18] LABS: INR 2.9 (0.9-1.1); Prothrombin Time 29.3 Seconds (9.0-12.0)
[2022-11-27] MEDS ORDERED: LEVOTHYROXINE SODIUM 150 MCG TABLET PO SCH (09:00)
[2022-11-27] MEDS: ACETAMINOPHEN 325 MG TAB PO PRN (09:34)
[2022-11-27 11:17] LABS: BUN Creatinine Ratio 17.5 (10-20); Creatinine Clr Calc Pharmacy 56.5 ml/min; Est GFR (African American) 83.9 ml/min; Est GFR (Non-African American) 72.4 ml/min; Potassium 3.6 mmol/L (3.5-5.1)
--- NOTE | 2022-11-27 13:14 | Hospitalist Progress Note ---
Date of Service November 27, 2022 Assessment & Plan (1) Acute on chronic heart failure with preserved ejection fraction (HFpEF): (2) Bilateral cellulitis of lower leg: (3) Open wound, lower leg: (4) History of DVT (deep vein thrombosis): (5) COPD (chronic obstructive pulmonary disease): (6) CAD (coronary artery disease): (7) CKD (chronic kidney disease), stage III: (8) IRLANDA (obstructive sleep apnea): Plan per admitting service notes with addendum: This is an 82-year-old male who has significant past medical history of CAD with remote history of CABG in 2004, chronic HFpEF, HTN, HLD, moderate to severe MR with partial flail leaflet diagnosed in 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 Acute on chronic HFpEF Moderate to severe mitral regurgitation with partial flail leaflet CAD with history of CABG in 2004 admit to [facility] pt with significant edema extending to abdominal wall, bnp 1,949, cxr with mild pulm edema/pleural effusions, received lasix 60mg IV in ED, will monitor diuresis place on lasix 40mg IV daily starting 11/27 give 40meq KCL x 1 now, start daily potassium, monitor bmp and mag strict I and O, daily weights, guaman cath in place continue ASA, Imdur, lisinopril, metoprolol, Crestor 11/27 continue IV Lasix Cardiology consutled Bilateral lower extremity cellulitis Bilateral lower extremity open wounds with intact bulla consult wound care surface culture obtained in ED daily rocephin, monitor sx likely to improve with effective diuresis no s/sx of sepsis 11/27 improving wound culture: pending blood cultures: pending continue IV Ceftriaxone Day 2 History of DVT Long-term anticoagulation with warfarin INR 2.9 continue coumadin 1.25mg on Mon and 2.5mg all other days COPD IRLANDA on CPAP, 3.5 L at at bedtime continue inhalers, no acute exac Chronic anemia H&H stable at 10.6 and 34.4 Monitor Diet-controlled T2DM A1c October 2022, 6.5 Monitor fasting glucose DVT prophylaxis: Warfarin Dispo: PT/OT, patient currently refusing rehab if necessary Full code PCP: Ulisses plan of care discussed with patient in detail and at length all questions answered he is understanding, agreeable, comfortable with the plan of care Admission and Anticipated Discharge Date Admission Date: November 26, 2022 Subjective ff up for CHF exacerbation, Leg edema with infected wound, cellulitis, etc seen resting in bed, comfortable, not in distress breathing is improving no chest pain, palpitations, dizziness leg pain improving, reports swelling seems to be coming down no fever/chills no other symptoms Review of Systems Review of Systems: all noted and negative except for above Physical Exam Physical Exam: General- oriented x 3, not in distress, speaks in sentences with no effort or accessory muscle use Eyes- anicteric Neck- mild JVD Lungs- mild rales at the bases Heart- normal rate, regular rhythm; no murmurs Abdomen- normal bowel sounds, nondistended, soft, nontender Extremities- grade 2 lower ext edema RLE: (+) 2 open wounds, anterior area, yellow drainage (+) moderate erythema, mild warmth LLE: mild erythema, open wound, distal 1/2 no drainage Neuro- alert, oriented x 3; no gross focal neurologic deficits Skin- warm & dry Results & Data Results & Data ([facility]) Vital Signs (Past 12 Hours) Vital Signs Temp Pulse Pulse Pulse Resp BP Pulse Ox 11/27/22 11:16 36.7 C 80 20 96/61 L 97 11/27/22 08:00 36.6 C 90 20 100/63 99 11/27/22 07:18 86 11/27/22 07:10 11/27/22 03:39 36.6 C 92 H 16 97/60 L 97 O2 Del Method O2 Flow Rate 11/27/22 11:16 High Flow Nasal Cannula 7 11/27/22 08:00 High Flow Nasal Cannula 7 11/27/22 07:18 11/27/22 07:10 Nasal Cannula 7 11/27/22 03:39 Nasal Cannula 7 .all
--- NOTE | 2022-11-27 15:36 | Cardiology Consultation ---
Date of Consultation November 27, 2022 Assessment & Plan (1) Acute on chronic heart failure with preserved ejection fraction (HFpEF): - Patient with 3 L of urine output since Cotton catheter placed and receiving furosemide. Continue furosemide 40 mg IV daily for now. -Add low-dose spironolactone. -Patient is chronically anticoagulated with Coumadin due to his history of DVT. INR 2.9. Continue prior to hospital dose. (2) Cellulitis: - Wound cultures of the right leg performed on presentation last evening yielding gram-negative bacilli. Recommend checking blood cultures. -Continue Rocephin. History of Present Illness Attending Physician: Phillip Jefferson MD History of Present Illness Hiro Meng is an 82 year old male seen in cardiology consultation per the request of Kate Crum PA-C for evaluation of acute heart failure with preserved ejection fraction. The patient presents with complaint of progressive bilateral lower extremity edema. He notes several focal areas of tenderness of his medial thighs. At the time of his most recent cardiology follow-up visit on 10/14/2022 he had described concerns of "bumps on his leg ". With findings at that time suggestive of blistering and cellulitis. His weight was noted to be up 15 pounds prior to his previous cardiology visit. EKG performed 10/14/2022 revealed atrial flutter with rapid ventricular response versus sinus tachycardia, compared to sinus rhythm which had been noted in March,. Hospitalization was recommended at the time that cardiology visit. Patient presented to the emergency department but then declined admission. He was discharged on a course of oral doxycycline to complete a 7-day treatment. On 10/19/2022 he saw primary care and follow-up and was transitioned to Bactrim. Outpatient ultrasound of the lower extremities performed October, revealed no discernible fluid collections. He has remained on furosemide 40 mg p.o. daily. Outpatient problem list: 1. Coronary heart disease, cardiac catheterization in Feb, 2005 demonstrating 100% first diagonal stenosis, 90% mid LAD stenosis, 50% proximal circumflex stenosis, 100% mid RCA stenosis with patent BERNAL to LAD, patent radial graft, which sequentially touchdown of obtuse marginal 1 in the right posterolateral branch 2. Severe COPD 3. History of DVT 4. Type 2 diabetes mellitus 5. Chronic kidney disease 6. Obesity and sleep apnea 7. Moderate mitral regurgitation with history of a partially flail mitral valve leaflet, preserved ejection fraction Allergies Allergy/AdvReac Type Severity Reaction Status Date / Time adhesive Allergy Intermediate BLISTERS Verified 11/26/22 16:31 amoxicillin [From Augmentin] Allergy Intermediate BURNING Verified 11/26/22 16:31 SENSATION OF TONGUE clavulanic acid Allergy Intermediate BURNING Verified 11/26/22 16:31 [From Augmentin] SENSATION OF TONGUE fish oil Allergy Intermediate ITCHY Verified 11/26/22 16:31 HIVES--IODINE Iodinated Contrast Media Allergy Intermediate ITCHY HIVES Verified 11/26/22 16:31 iodine Allergy Intermediate ANYTHING Verified 11/26/22 16:31 WITH IODINE--ITCHY HIVES niacin Allergy Intermediate Hives Verified 11/26/22 16:31 cat dander Allergy Unknown ON [facility] MED Verified 11/26/22 16:31 LIST atorvastatin AdvReac Intermediate MUSCLE Verified 11/26/22 16:31 ACHES CAT GUT SUTURE AdvReac Intermediate INFLAMMATION Uncoded 11/26/22 16:31 OF AREA SUTURED Home Medications Medication Instructions Recorded Confirmed Type aspirin 81 mg tablet,delayed 81 mg PO QAM 07/12/19 11/26/22 History release clonazepam 0.5 mg tablet 0.5 mg PO BID PRN Anxiety 07/12/19 11/26/22 History fluticasone 250 mcg-salmeterol 50 1 inh inhalation BID 07/12/19 11/26/22 History mcg/dose blistr powdr for inhalation (Wixela Inhub) fluticasone propionate 50 2 spray intranasal DAILY PRN 07/12/19 11/26/22 History mcg/actuation nasal Allergy Symptoms spray,suspension (Flonase Allergy Relief) furosemide 40 mg tablet 40 mg PO Q2D 07/12/19 11/26/22 History isosorbide mononitrate 30 mg 30 mg PO DAILY 07/12/19 11/26/22 History tablet,extended release 24 hr levothyroxine 150 mcg tablet 150 mcg PO QAM 07/12/19 11/26/22 History [id number]-teg-ptdfa acid 0.4 1 tab PO QAM 07/12/19 11/26/22 History mg-lycopene 300 mcg-lutein 250 mcg tablet (Centrum Silver) nitroglycerin 0.4 mg sublingual 0.4 mg sublingual DIRECTED PRN 07/12/19 11/26/22 History tablet (Nitrostat) Chest Pain omeprazole 40 mg capsule,delayed 40 mg PO QAM 07/12/19 11/26/22 History release trazodone 50 mg tablet 50 mg PO HS 07/12/19 11/26/22 History warfarin 2.5 mg tablet 2.5 mg PO KARENTJACQUELINE@1600 07/12/19 11/26/22 History cholecalciferol (vitamin D3) 50 50 mcg PO DAILY 07/14/21 11/26/22 History mcg (2,000 unit) tablet lisinopril 5 mg tablet 5 mg PO DAILY 07/14/21 11/26/22 History metoprolol succinate 50 mg 100 mg PO DAILY 07/14/21 11/26/22 History tablet,extended release 24 hr rosuvastatin 40 mg tablet 40 mg PO DAILY 07/14/21 11/26/22 History Oxygen Home #1 ea 07/20/21 11/26/22 Rx acetaminophen 325 mg tablet 650 mg PO Q6H PRN Pain 01/04/22 11/26/22 History (Tylenol) albuterol sulfate 90 mcg/actuation 2 puff inhalation Q4H PRN 01/04/22 11/26/22 History aerosol inhaler (Ventolin HFA) Shortness Of Breath Or Wheezing betamethasone, augmented 0.05 % 1 applic topical BID PRN Pain 01/04/22 11/26/22 History topical cream ipratropium 20 mcg-albuterol 100 2 puff inhalation QID PRN 01/04/22 11/26/22 History mcg/actuation mist for inhalation COUGH/WHEEZE (Combivent Respimat) neomycin 3.5 mg-polymyxin 10,000 1 drp OPL BID 01/04/22 11/26/22 History unit-hydrocort 10 mg/mL eye drop,susp sennosides 8.6 mg tablet (Senokot) 17.2 mg PO HS #30 tabs 01/09/22 11/26/22 Rx albuterol sulfate 90 mcg/actuation 1 inh inhalation Q6H PRN sob 11/26/22 11/26/22 History aerosol inhaler warfarin 2.5 mg tablet 1.25 mg PO WE@1600 11/26/22 11/26/22 History Patient History Medical History CAD (coronary artery disease) 2005 - CABG Chronic anticoagulation CKD (chronic kidney disease), stage III COPD (chronic obstructive pulmonary disease) COVID-19 Dyslipidemia Frequent falls GERD (gastroesophageal reflux disease) History of DVT (deep vein thrombosis) HTN (hypertension) Hypothyroidism Ischemic cardiomyopathy Obesity IRLANDA (obstructive sleep apnea) Periprosthetic fracture of shaft of femur Prediabetes Surgical History History of coronary artery bypass graft History of total knee arthroplasty Family History Other Hypertension Social History Smoking Status: Never smoker Second Hand Exposure: No; Do You Dip or Chew Tobacco: No; Tobacco Cessation Education Requested by Patient: No Hx Alcohol Use: No Hx Substance Use: No Preferred Language: Azeri Communication Ability: Effective Cutter Grinder Required: No Beliefs That Will Affect Care: None Current Living Situation: Alone Current Living Situation Comment: Lives alone? but states grandson lives there also? How many Children do You have: 2 Other Information That Helps Us Care for You: No Feels Safe at Home: Yes Safety Concerns: Feels Safe At This Time Assistive Devices: Cane and Walker Review of Systems Review of Systems: All systems reviewed & are unremarkable except as noted in HPI & below Physical Exam Constitutional: WD/WN, vitals as above Respiratory: Auscultation: + diminished lung sounds (Decreased breath sounds bilaterally at the bases); no crackles and no rales Cardiovascular: Rate/Rhythm: regular rate Heart Sounds: + murmur (I-II/6 systolic murmur) Extremities: + edema (2+ bilateral lower extremity edema, firmness noted at the medial aspect of ) Gastrointestinal (Abdomen): normal bowel sounds, soft, nontender, no hepatosplenomegaly Neurologic: PERRL, EOMI, accommodation nl, no face palsy, no dysarthria Genitourinary: Cotton catheter in place draining clear yellow urine Results & Data ([facility]) Vital Signs (Past 12 Hours) Vital Signs Temp Pulse Pulse Pulse Resp BP Pulse Ox 11/27/22 15:12 36.9 C 79 20 97/57 L 100 11/27/22 11:16 36.7 C 80 20 96/61 L 97 11/27/22 08:00 36.6 C 90 20 100/63 99 11/27/22 07:18 86 11/27/22 07:10 11/27/22 03:39 36.6 C 92 H 16 97/60 L 97 O2 Del Method O2 Flow Rate 11/27/22 15:12 High Flow Nasal Cannula 7 11/27/22 11:16 High Flow Nasal Cannula 7 11/27/22 08:00 High Flow Nasal Cannula 7 11/27/22 07:18 11/27/22 07:10 Nasal Cannula 7 11/27/22 03:39 Nasal Cannula 7 Laboratory Results Cardiac Enzymes 11/26/22 11/26/22 Range/Units 14:40 14:40 AST 25 (13-39) U/L B-Natriuretic Peptide 1949 H (0-100) pg/ml Coagulation 11/26/22 11/27/22 Range/Units 14:40 07:14 PT 29.3 H (9.0-12.0) Seconds B-Natriuretic Peptide 1949 H (0-100) pg/ml CBC 11/27/22 Range/Units 07:14 WBC 6.00 (4.8-10.8) K/ul RBC 3.75 L (4.70-6.10) M/uL Hgb 10.1 L (14.0-18.0) g/dl Hct 32.6 L (42.0-52.0) % Plt Count 173 (130-400) K/uL Neut # (Auto) 4.06 (1.40-6.50) K/uL Lymph # (Auto) 0.84 L (1.2-3.4) K/uL [place] # (Auto) 0.98 H (0.11-0.59) K/uL Eos # (Auto) 0.08 (0-0.50) K/uL Baso # (Auto) 0.03 (0-0.2) K/uL Comprehensive Metabolic Panel 11/26/22 11/27/22 Range/Units 14:40 07:14 Sodium 145 (136-145) mmol/L Potassium 3.6 (3.5-5.1) mmol/L Chloride 105 (98-107) mmol/L Carbon Dioxide 33 H (21-32) mmol/L BUN 18 17 (6-23) mg/dl Creatinine 0.98 0.97 (0.6-1.4) mg/dl Glucose 96 96 (70-99(Fasting)) mg/dl Calcium 9.0 (8.5-10.1) mg/dl AST 25 (13-39) U/L ALT 13 (7-52) U/L Alkaline Phosphatase 116 H (34-104) U/L Total Protein 6.0 (6.0-8.3) gm/dl Diagnostic Findings EKG performed 11/26/2022 and interpreted independently: Normal sinus rhythm 84 bpm, mild nonspecific T wave flattening. Compared to 10/14/2022, no significant change found. Summary transthoracic echocardiogram performed As an outpatient on 05/19/2022, with images having been interpreted by the undersigned at that time. The LV wall thickness is mildly increased (concentric). The qualitative LV ejection fraction is 55-59% (normal). Moderate aortic valve sclerosis is present. Aortic stenosis is absent. There is severe mitral annular calcification. There is calcification of the sub mitral valve apparatus. Mitral stenosis is absent. Moderate mitral regurgitation is present. There is a 0.4 cm x 0.4 cm, mobile echodensity on the atrial aspect of the mitral valve that appears to be consistent with a ruptured chordae, or less likely vegetation. Mild to moderate tricuspid regurgitation is present. Moderate pulmonary hypertension is present. The estimated pulmonary artery systolic pressure is 58m m Hg. The aortic root is moderately enlarged, 4.5 cm. The proximal ascending thoracic aorta is moderately enlarged, 4.5 cm. Compared to the images obtained at the time of the prior study dated 02/22/2019, the aortic root/ascending aorta diameters are relatively unchanged. There has been interval development of a mobile density on the left atrial aspect of the mitral valve. At least moderate mitral regurgitation is present, which is a new finding with no significant mitral regurgitation present at the time of the 2019 study. The mitral regurgitation jet is somewhat eccentric, and perhaps underestimates the severity of the mitral regurgitation. Grade II diastolic dysfunction is noted, this may be related to the development of mitral regurgitation. Moderate pulmonary hypertension present, new compared to 2019. (1) Cellulitis Site of cellulitis: unspecified site Qualified Code(s): L03.90 - Cellulitis, unspecified
[2022-11-27] MEDS: WARFARIN SOD 2.5 MG TAB PO SCH (16:37)
[2022-11-27] MEDS: traZODone HCL 50 MG TAB PO SCH (21:11)
[2022-11-27] MEDS ORDERED: DOCUSATE SODIUM 100 MG CAP PO STA (22:04)
[2022-11-27] MEDS ORDERED: DOCUSATE SODIUM 100 MG CAP PO SCH (22:05)
[2022-11-27] MEDS: CALCIUM CARBONATE 500 MG CHEWABLE TAB PO PRN (22:10)
[2022-11-28] MEDS: PANTOprazole 40 MG TAB PO SCH (06:35)
[2022-11-28] MEDS: LEVOTHYROXINE SODIUM 150 MCG TABLET PO SCH (06:36)
[2022-11-28 07:19] LABS: Basophils # (auto) 0.03 K/uL (0-0.2); Basophils % (auto) 0.4 %; Eosinophils # (auto) 0.11 K/uL (0-0.50); Eosinophils % (auto) 1.6 %; Hematocrit (blood only) 34.1 % (42.0-52.0); Hemoglobin 10.3 g/dl (14.0-18.0); Immature Granulocytes # (auto) 0.03 K/uL (0.01-0.20); Immature Granulocytes % (auto) 0.4 %; Lymphocytes # (auto) 0.85 K/uL (1.2-3.4); Lymphocytes % (auto) 12.5 %; Mean Corpuscular Hemoglobin 26.9 pg (25.0-34.0); Mean Corpuscular Hgb Conc 30.2 g/dL (32.0-36.0); Mean Platelet Volume 11.7 fL (9.4-12.4); Monocytes # (auto) 1.04 K/uL (0.11-0.59); Monocytes % (auto) 15.3 %; Neutrophils # (auto) 4.73 K/uL (1.40-6.50); Neutrophils % (auto) 69.8 %; Platelet Count 156 K/uL (130-400); RDW Coefficient of Variation 17.9 % (11.5-14.5); RDW Standard Deviation 57.4 fL (36.4-46.3); Red Blood Count 3.83 M/uL (4.70-6.10); White Blood Count 6.79 K/ul (4.8-10.8)
[2022-11-28 07:34] LABS: INR 2.8 (0.9-1.1); Prothrombin Time 27.9 Seconds (9.0-12.0)
[2022-11-28 07:46] LABS: Calcium 8.9 mg/dl (8.5-10.1); Magnesium 1.9 mg/dl (1.7-2.4); Potassium 3.9 mmol/L (3.5-5.1)
[2022-11-28 07:52] LABS: BUN Creatinine Ratio 16.3 (10-20); Creatinine Clr Calc Pharmacy 54.2 ml/min; Est GFR (African American) 89.5 ml/min; Est GFR (Non-African American) 77.2 ml/min
[2022-11-28] MEDS: CEROVITE ADV FORMULA TAB PO SCH (07:59)
[2022-11-28] MEDS: POTASSIUM CHLORIDE CRTAB 20 MEQ TABCR PO SCH (07:59)
[2022-11-28] MEDS: ISOSORBIDE MONO EXTENDED REL 30 MG TABCR PO SCH (07:59)
[2022-11-28] MEDS: METOPROLOL SUCC 50MG EXT REL TAB PO SCH (08:00)
[2022-11-28] MEDS: CHOLECALCIFEROL 1,000 UNITS 25 MCG TAB PO SCH (08:00)
[2022-11-28] MEDS: ROSUVASTATIN CALCIUM 20 MG TAB PO SCH (08:00)
[2022-11-28] MEDS: FLUTICASONE/VILANTEROL 200/25MCG 14 PUFFS/INHALER INH SCH (08:01)
[2022-11-28] MEDS: ASPIRIN 81 MG ECTAB PO SCH (08:01)
[2022-11-28] MEDS: FUROSEMIDE 40 MG/4 ML VIAL IV SCH (08:01)
[2022-11-28] MEDS: lisinopril 5 MG TAB PO SCH (08:01)
[2022-11-28] MEDS: cefTRIAXone SODIUM 2,000 MG in DEXTROSE 5% 50 ML IV SCH (08:01)
[2022-11-28] MEDS: SPIRONOLACTONE 12.5 MG TAB PO SCH (08:02)
--- NOTE | 2022-11-28 11:16 | Cardiology Progress Note ---
Date of Service November 28, 2022 Assessment & Plan (1) Acute on chronic heart failure with preserved ejection fraction (HFpEF): Plan: - Patient with 3 L of urine output since Cotton catheter placed and receiving furosemide. -Change lasix to 20 mg Q6h- hold lasix dosage for a sbp less than 90 mm Hg. (Home dose of Lasix is 40 mg every other day) -Continue Aldactone 12.5 mg daily -Trend BMP, replace potassium for a goal of 4.0. Magnesium goal of 2.0 -2g sodium diet. Daily standing weights. -Patient is chronically anticoagulated with Coumadin due to his history of DVT. INR 2.8. Continue prior to hospital dose. (2) Cellulitis: Plan: - Wound cultures of the right leg performed on presentation last evening yielding Serratia marcescens Blood cultures pending. -Continue Rocephin. Treatment per primary team. Plan Case discussed with Dr. Trujillo. Will follow. Admission and Anticipated Discharge Date Admission Date: November 26, 2022 Supervising Physician Co-Signing Physician Notes Cardiology Attending: I personally performed a history and physical examination on Mr Meng. Agree with A Jessica's, BRANDEN's findings and plan with additions as noted below. S: Still with edema . No acute complaint. Telemetry reveals SR and PVCs with rate in the 80s to 90s. Exam: CV: reg rhythm, 1/6 SM, 2+ LE edema DATA: INR 2.8 Assessment: As noted above Plan: Keep Cotton catheter in place. Given volume overload, but low BP ,change furosemide to 20 mg IV q 6 hrs. Continue coumadin. Subjective 82-year-old male with acute on chronic diastolic CHF and cellulitis of the right lower leg. Cotton catheter placed. Patient diuresed with 40 mg of IV Lasix and spironolactone 12.5 mg daily was added. Patient was continued on Rocephin due to cellulitis. Blood cultures pending. Echocardiogram completed today showed a normal LVEF of 55 to 60% with mild concentric LVH and no wall motion abnormalities. Moderate MR. Moderate TR with mild pulmonary hypertension noted. Upon entrance into the room patient resting in bed. Notes ongoing shortness of breath. No chest pain. Ongoing leg pain and swelling- wounds re-wrapped by nursing today. Tele: SR with PVCs, 80-90s I&O: -2.5L Weight: 95kg >>79.8 kg Review of Systems Review of Systems: All systems reviewed & are unremarkable except as noted in HPI & below Physical Exam Constitutional: WD/WN, vitals as above Respiratory: Auscultation: + diminished lung sounds (Decreased breath sounds bilaterally at the bases) and + rales (BL bases); no rhonchi and no wheezes Cardiovascular: Rate/Rhythm: regular rate and regular rhythm Heart Sounds: + murmur (I-II/6 systolic murmur) Extremities: + edema (2+ bilateral lower extremity edema) Gastrointestinal (Abdomen): normal bowel sounds, soft, nontender, no hepatosplenomegaly Neurologic: PERRL, EOMI, accommodation nl, no face palsy, no dysarthria Psychiatric: A+Ox3, euthymic affect Results & Data ([facility]) Vital Signs (Past 12 Hours) Vital Signs Temp Pulse Pulse Resp BP Pulse Ox O2 Del Method 11/28/22 11:00 36.7 C 83 18 90/48 L 95 Nasal Cannula 11/28/22 08:48 High Flow Nasal Cannula 11/28/22 07:45 37.0 C 92 H 18 126/72 95 Nasal Cannula 11/28/22 07:17 89 11/28/22 03:08 36.6 C 102 H 18 120/69 98 Nasal Cannula O2 Flow Rate 11/28/22 11:00 5 11/28/22 08:48 7 11/28/22 07:45 5 11/28/22 07:17 11/28/22 03:08 7 Laboratory Results Coagulation 11/28/22 Range/Units 06:30 PT 27.9 H (9.0-12.0) Seconds CBC 11/28/22 Range/Units 06:30 WBC 6.79 (4.8-10.8) K/ul RBC 3.83 L (4.70-6.10) M/uL Hgb 10.3 L (14.0-18.0) g/dl Hct 34.1 L (42.0-52.0) % Plt Count 156 (130-400) K/uL Neut # (Auto) 4.73 (1.40-6.50) K/uL Lymph # (Auto) 0.85 L (1.2-3.4) K/uL [place] # (Auto) 1.04 H (0.11-0.59) K/uL Eos # (Auto) 0.11 (0-0.50) K/uL Baso # (Auto) 0.03 (0-0.2) K/uL Comprehensive Metabolic Panel 11/27/22 11/28/22 Range/Units 07:14 06:30 Sodium 145 141 (136-145) mmol/L Potassium 3.6 3.9 (3.5-5.1) mmol/L Chloride 105 101 (98-107) mmol/L Carbon Dioxide 33 H 38 H (21-32) mmol/L BUN 17 15 (6-23) mg/dl Creatinine 0.97 0.92 (0.6-1.4) mg/dl Glucose 96 105 H (70-99(Fasting)) mg/dl Calcium 9.0 8.9 (8.5-10.1) mg/dl Intake and Output 11/27/22 11/28/22 11/28/22 22:59 06:59 14:59 Intake Total 360 / 955 70 / 70 Output Total 300 / 901 200 / 901 Balance 60 / 54 -200 / 54 70 / 70 Intake: IV 70 / 70 cefTRIAXone SODIUM 2,000 mg In 70 / 70 Dextrose 5% 50 ml @ 100 mls/hr IV Q24H [facility] Rx#:[id number] Oral 360 / 885 Output: Urine Amount (Catheter) 300 / 900 200 / 900 Cotton/Indwelling 300 / 900 200 / 900 Other: Other Intake Source sips Weight 79.8 kg (1) Cellulitis Site of cellulitis: unspecified site Qualified Code(s): L03.90 - Cellulitis, unspecified
[2022-11-28] MEDS: FUROSEMIDE INJ 20 MG/2 ML VIAL IV SCH ×2 (11:44→16:11)
--- NOTE | 2022-11-28 15:21 | Hospitalist Progress Note ---
Date of Service November 28, 2022 Assessment & Plan (1) Acute on chronic heart failure with preserved ejection fraction (HFpEF): (2) Bilateral cellulitis of lower leg: (3) Open wound, lower leg: (4) History of DVT (deep vein thrombosis): (5) COPD (chronic obstructive pulmonary disease): (6) CAD (coronary artery disease): (7) CKD (chronic kidney disease), stage III: (8) IRLANDA (obstructive sleep apnea): Plan per admitting service notes with addendum: This is an 82-year-old male who has significant past medical history of CAD with remote history of CABG in 2004, chronic HFpEF, HTN, HLD, moderate to severe MR with partial flail leaflet diagnosed in 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 Acute on chronic HFpEF Moderate to severe mitral regurgitation with partial flail leaflet CAD with history of CABG in 2004 admit to [facility] tele pt with significant edema extending to abdominal wall, bnp 1,949, cxr with mild pulm edema/pleural effusions, received lasix 60mg IV in ED, will monitor diuresis place on lasix 40mg IV daily starting 11/27 give 40meq KCL x 1 now, start daily potassium, monitor bmp and mag strict I and O, daily weights, guaman cath in place continue ASA, Imdur, lisinopril, metoprolol, Crestor 11/28 continue IV Lasix 20mg q6h Cardiology consulted Bilateral lower extremity cellulitis Bilateral lower extremity open wounds with intact bulla consult wound care surface culture obtained in ED daily rocephin, monitor sx likely to improve with effective diuresis no s/sx of sepsis 11/28 improving wound culture: Serratia marescens blood cultures: pending continue IV Ceftriaxone Day 3 History of DVT Long-term anticoagulation with warfarin INR 2.8 continue coumadin 1.25mg on Mon and 2.5mg all other days COPD IRLANDA on CPAP, 3.5 L at at bedtime continue inhalers, no acute exac Chronic anemia H&H stable at 10.6 and 34.4 Monitor Diet-controlled T2DM A1c October 2022, 6.5 Monitor fasting glucose DVT prophylaxis: Warfarin Dispo: PT/OT, patient currently refusing rehab if necessary Full code PCP: Ulisses plan of care discussed with patient in detail and at length all questions answered he is understanding, agreeable, comfortable with the plan of care Admission and Anticipated Discharge Date Admission Date: November 26, 2022 Subjective Follow-up for acute CHF exacerbation, right lower extremity cellulitis with wound infection, etc. Seen resting in bed, sitting up, on 2 L of oxygen, not in distress Comfortable States he feels okay overall Breathing is improving Right lower extremity discomfort about the same No fevers or chills No other symptom Review of Systems Review of Systems: all noted and negative except for above Physical Exam Physical Exam: General- oriented x 3, not in distress, speaks in sentences with no effort or accessory muscle use Eyes- anicteric Neck- no JVD Lungs-mild rales at bases Heart- normal rate, regular rhythm; no murmurs Abdomen- normal bowel sounds, nondistended, soft, nontender Extremities- Right lower extremity-dressing in place, edema seems to be improving Left lower extremity-dressing in place over the distal region, edema improving as well Neuro- alert, oriented x 3; no gross focal neurologic deficits Skin- warm & dry Results & Data Results & Data ([facility]) Vital Signs (Past 12 Hours) Vital Signs Temp Pulse Pulse Resp BP Pulse Ox O2 Del Method 11/28/22 14:57 36.3 C L 86 20 92/63 L 95 Nasal Cannula 11/28/22 11:00 36.7 C 83 18 90/48 L 95 Nasal Cannula 11/28/22 08:48 High Flow Nasal Cannula 11/28/22 07:45 37.0 C 92 H 18 126/72 95 Nasal Cannula 11/28/22 07:17 89 O2 Flow Rate 11/28/22 14:57 5 11/28/22 11:00 5 11/28/22 08:48 7 11/28/22 07:45 5 11/28/22 07:17 all noted and reviewed including below
[2022-11-28] MEDS: WARFARIN SOD 2.5 MG TAB PO SCH (16:00)
[2022-11-28] MEDS: ACETAMINOPHEN 325 MG TAB PO PRN (16:10)
[2022-11-28] MEDS: traZODone HCL 50 MG TAB PO SCH (19:55)
[2022-11-28] MEDS ORDERED: DOCUSATE SODIUM 100 MG CAP PO SCH (21:00)
[2022-11-29] MEDS: CALCIUM CARBONATE 500 MG CHEWABLE TAB PO PRN (01:05)
[2022-11-29] MEDS: FUROSEMIDE INJ 20 MG/2 ML VIAL IV SCH ×5 (01:06→23:19)
[2022-11-29] MEDS: clonazePAM 0.5 MG TAB PO PRN (03:26)
[2022-11-29] MEDS: PANTOprazole 40 MG TAB PO SCH (05:57)
[2022-11-29] MEDS: LEVOTHYROXINE SODIUM 150 MCG TABLET PO SCH (05:57)
[2022-11-29 06:48] LABS: Basophils # (auto) 0.02 K/uL (0-0.2); Basophils % (auto) 0.3 %; Eosinophils # (auto) 0.24 K/uL (0-0.50); Eosinophils % (auto) 3.9 %; Hematocrit (blood only) 31.8 % (42.0-52.0); Hemoglobin 9.7 g/dl (14.0-18.0); Immature Granulocytes # (auto) 0.01 K/uL (0.01-0.20); Immature Granulocytes % (auto) 0.2 %; Lymphocytes # (auto) 0.68 K/uL (1.2-3.4); Mean Corpuscular Hemoglobin 26.9 pg (25.0-34.0); Mean Corpuscular Hgb Conc 30.5 g/dL (32.0-36.0); Mean Corpuscular Volume 88.3 fL (80.0-100.0); Mean Platelet Volume 11.9 fL (9.4-12.4); Monocytes # (auto) 0.96 K/uL (0.11-0.59); Monocytes % (auto) 15.5 %; Neutrophils # (auto) 4.28 K/uL (1.40-6.50); Neutrophils % (auto) 69.1 %; Platelet Count 146 K/uL (130-400); RDW Coefficient of Variation 17.7 % (11.5-14.5); RDW Standard Deviation 57.4 fL (36.4-46.3); White Blood Count 6.19 K/ul (4.8-10.8)
[2022-11-29 07:05] LABS: BUN Creatinine Ratio 20.5 (10-20); Calcium 8.8 mg/dl (8.5-10.1); Creatinine Clr Calc Pharmacy 56.9 ml/min; Est GFR (African American) 92.7 ml/min; Magnesium 1.9 mg/dl (1.7-2.4); Potassium 3.7 mmol/L (3.5-5.1)
[2022-11-29 07:17] LABS: INR 3.5 (0.9-1.1); Prothrombin Time 34.7 Seconds (9.0-12.0)
--- NOTE | 2022-11-29 07:43 | Cardiology Progress Note ---
Date of Service November 29, 2022 Assessment & Plan (1) Acute on chronic heart failure with preserved ejection fraction (HFpEF): Plan: -Patient with 5 L of urine output since Cotton catheter placed and receiving furosemide. -Volume status improving but patient remains hypervolemic on exam. Continue Lasix to 20 mg Q6h- hold Lasix dosage for a sbp less than 90 mm Hg. (Home dose of Lasix is 40 mg every other day) -Continue Aldactone 12.5 mg daily -Trend BMP, replace potassium for a goal of 4.0. Magnesium goal of 2.0 -2g sodium diet. Daily standing weights. -Tele showing atrial tach vs atrial flutter (asymptomatic), HR generally well controlled and patient is maintained on Coumadin due to history of DVT- continue. Given lack of symptoms will continue to monitor on tele. Continue metoprolol as ordered. -Patient is chronically anticoagulated with Coumadin due to his history of DVT. INR 3.5. -Agree with obtaining a CXR to reassess pulmonary status- orders placed by hospitalist team. (2) Cellulitis: Plan: - Wound cultures of the right leg performed on presentation last evening yielding Serratia marcescens Blood cultures showing no growth to date. -Continue Rocephin. Treatment per primary team. Plan Case discussed with Dr. Trujillo. Will follow. Admission and Anticipated Discharge Date Admission Date: November 26, 2022 Supervising Physician Co-Signing Physician Notes Supervising Physician Attestation: I have personally performed a history and physical examination on the patient. I agree with the physician medical assistant prn's findings and plan as documented with the following additions. Subjective: Patient seen in cardiology follow-up. He is frustrated and would prefer not to be in the hospital. Cotton catheter remains in place. Urine output 3.7 L in the last 24 hours noted. Exam: 2+ lower extremity edema up to the thighs Data: 11/29/2022 INR: 3.5 up from 2.8 For the most part telemetry reveals sinus rhythm in the 80s. He has had several brief runs of narrow complex tachycardia consistent with atrial tachycardia or atrial flutter in upwards of the 100 3250 bpm range, without associated symptoms. Assessment and Plan: Volume overload Paroxysmal atrial tachycardia versus atrial flutter -Continue furosemide 20 mg IV every 6 hours, Cotton catheter. -Continue metoprolol succinate 100 mg by mouth daily -Patient on chronic anticoagulation due to history of DVT, Coumadin on hold for INR of 3.5 today. Repeat tomorrow 11/30/2022 Jerrod Trujillo, DO Subjective 82-year-old male with acute on chronic diastolic CHF and cellulitis of the right lower leg. Cotton catheter placed. Patient diuresed with IV Lasix and spironolactone 12.5 mg daily was added. Patient was continued on Rocephin due to cellulitis. Blood cultures so far negative. Echocardiogram completed today showed a normal LVEF of 55 to 60% with mild concentric LVH and no wall motion abnormalities. Moderate MR. Moderate TR with mild pulmonary hypertension noted. Chart and telemetry reviewed. Patient seen and examined at bedside. Upon entrance into the room patient resting in the bed. Ongoing shortness of breath- mildly improved. Able to get up and walk to the restroom with assistance. Swelling in the legs improving-however they continue to drain. Dressings intact. Legs tender. Tele: SR with PVCs, 80s. Atach vs aflutter on telemetry ~130 bpm asymptomatic lasting about 10 min. I&O: -5.7L, renal function stable. Weight: 95kg >>80.3 kg (11/29) INR: 3.5 (11/29) Review of Systems Review of Systems: All systems reviewed & are unremarkable except as noted in HPI & below Physical Exam Constitutional: WD/WN, vitals as above Respiratory: Auscultation: + diminished lung sounds (Decreased breath sounds bilaterally at the bases) and + rales (BL bases); no crackles, no rhonchi and no wheezes Cardiovascular: Rate/Rhythm: regular rate and regular rhythm Heart Sounds: + murmur (I-II/6 systolic murmur) Extremities: + edema (2+ bilateral lower extremity edema) Gastrointestinal (Abdomen): normal bowel sounds, soft, nontender, no hepatosplenomegaly Neurologic: PERRL, EOMI, accommodation nl, no face palsy, no dysarthria Psychiatric: A+Ox3, euthymic affect Results & Data ([facility]) Vital Signs (Past 12 Hours) Vital Signs Temp Pulse Pulse Resp BP BP Pulse Ox 11/29/22 07:26 87 11/28/22 22:10 89 11/29/22 03:34 36.6 C 90 20 112/62 97 11/28/22 23:45 36.8 C 96 H 20 120/64 97 11/28/22 19:59 11/28/22 19:58 36.8 C 86 20 106/62 98 O2 Del Method O2 Flow Rate 11/29/22 07:26 11/28/22 22:10 11/29/22 03:34 Nasal Cannula 2 11/28/22 23:45 Nasal Cannula 2 11/28/22 19:59 Free Flow/Blow-by 3 11/28/22 19:58 High Flow Nasal Cannula 3 Laboratory Results Coagulation 11/29/22 Range/Units 06:31 PT 34.7 H (9.0-12.0) Seconds CBC 11/29/22 Range/Units 06:31 WBC 6.19 (4.8-10.8) K/ul RBC 3.60 L (4.70-6.10) M/uL Hgb 9.7 L (14.0-18.0) g/dl Hct 31.8 L (42.0-52.0) % Plt Count 146 (130-400) K/uL Neut # (Auto) 4.28 (1.40-6.50) K/uL Lymph # (Auto) 0.68 L (1.2-3.4) K/uL [place] # (Auto) 0.96 H (0.11-0.59) K/uL Eos # (Auto) 0.24 (0-0.50) K/uL Baso # (Auto) 0.02 (0-0.2) K/uL Comprehensive Metabolic Panel 11/29/22 Range/Units 06:31 Sodium 140 (136-145) mmol/L Potassium 3.7 (3.5-5.1) mmol/L Chloride 97 L (98-107) mmol/L Carbon Dioxide 39 H (21-32) mmol/L BUN 18 (6-23) mg/dl Creatinine 0.88 (0.6-1.4) mg/dl Glucose 105 H (70-99(Fasting)) mg/dl Calcium 8.8 (8.5-10.1) mg/dl Intake and Output 11/28/22 11/29/22 11/29/22 22:59 06:59 14:59 Intake Total 240 / 625 120 / 625 Output Total 1550 / 3750 1200 / 3750 Balance -1310 / -3125 -1079 / -9155 Intake: Oral 240 / 555 120 / 555 Output: Urine Amount (Catheter) 1550 / 2750 1200 / 2750 Cotton/Indwelling 1550 / 2750 1200 / 2750 Other: Weight 80.3 kg Weight Measurement Method Standing Scale (1) Cellulitis Site of cellulitis: unspecified site Qualified Code(s): L03.90 - Cellulitis, unspecified
[2022-11-29] MEDS: ISOSORBIDE MONO EXTENDED REL 30 MG TABCR PO SCH (09:53)
[2022-11-29] MEDS: ASPIRIN 81 MG ECTAB PO SCH (09:53)
[2022-11-29] MEDS ORDERED: LACTULOSE SYRUP 20 GM/30 ML UDC PO ONE (09:55)
[2022-11-29] MEDS: POTASSIUM CHLORIDE CRTAB 20 MEQ TABCR PO SCH (09:56)
[2022-11-29] MEDS: SPIRONOLACTONE 12.5 MG TAB PO SCH (09:56)
[2022-11-29] MEDS: ROSUVASTATIN CALCIUM 20 MG TAB PO SCH (09:56)
[2022-11-29] MEDS: lisinopril 5 MG TAB PO SCH (09:56)
[2022-11-29] MEDS: METOPROLOL SUCC 50MG EXT REL TAB PO SCH (09:57)
[2022-11-29] MEDS: CEROVITE ADV FORMULA TAB PO SCH (09:57)
[2022-11-29] MEDS: FLUTICASONE/VILANTEROL 200/25MCG 14 PUFFS/INHALER INH SCH (09:57)
[2022-11-29] MEDS: CHOLECALCIFEROL 1,000 UNITS 25 MCG TAB PO SCH (09:57)
[2022-11-29] MEDS: cefTRIAXone SODIUM 2,000 MG in DEXTROSE 5% 50 ML IV SCH (10:10)
[2022-11-29] MEDS: ACETAMINOPHEN 325 MG TAB PO PRN ×2 (10:58→20:58)
--- NOTE | 2022-11-29 13:27 | XRay Report ---
XR chest 1V portable CLINICAL HISTORY: ff up chf, r/o Pneumonia COMPARISON STUDY: Chest radiograph November 26, 2022. FINDINGS: Left humeral proximal internal fixation median sternotomy wires are incidentally noted. The patient is rotated. Cardiomegaly is unchanged. There are small bilateral pleural effusions. There is no pneumothorax. Pulmonary edema persists. There are suspected fluid along the minor fissure. Mild b ibasilar opacities. IMPRESSION: 1. Cardiomegaly. Stable mild interstitial pulmonary edema. 2. Mild bibasilar opacities. Atelectasis is favored over an infectious process. ACT 112: Negative or not required by law. Electronically signed by: Teddy Ly M.D. 11/29/2022 1:26 PM
--- NOTE | 2022-11-29 15:42 | Hospitalist Progress Note ---
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 Acute on chronic HFpEF Moderate to severe mitral regurgitation with partial flail leaflet CAD with history of CABG in 2004 [facility] pt with significant edema extending to abdominal wall, bnp 1,949, cxr with mild pulm edema/pleural effusions, received lasix 60mg IV in ED, will monitor diuresis place on lasix 40mg IV daily starting 11/27 give 40meq KCL x 1 now, start daily potassium, monitor bmp and mag strict I and O, daily weights, guaman cath in place continue ASA, Imdur, lisinopril, metoprolol, Crestor 11/29 diuresing gradually continue IV Lasix 20mg q6h, Spironolactone as per Cardiology monitor Bilateral lower extremity cellulitis Bilateral lower extremity open wounds with intact bulla consult wound care surface culture obtained in ED daily rocephin, monitor sx likely to improve with effective diuresis no s/sx of sepsis 11/29 not much improvement after 4 days of IV Ceftri wound culture: Serratia marescens blood cultures: Negative continue IV Ceftriaxone Day 4 add Daptomycin IV Day 1 History of DVT Long-term anticoagulation with warfarin INR 3.5 hold coumadin (usually on coumadin 1.25mg on Mon and 2.5mg all other days) COPD IRLANDA on CPAP, 3.5 L at at bedtime continue inhalers, no acute exac Chronic anemia H&H stable at 10.6 and 34.4 Monitor Diet-controlled T2DM A1c October 2022, 6.5 Monitor fasting glucose DVT prophylaxis: Warfarin on hold Dispo: PT/OT, patient will need Acute Rehab/SNF Full code PCP: Ulisses plan of care discussed with patient in detail and at length all questions answered he is understanding, agreeable, comfortable with the plan of care Admission and Anticipated Discharge Date Admission Date: November 26, 2022 Subjective ff up for acute CHF exacerbation, BL lower ext wounds, etc seen resting in bed, comfortable, sitting up states his breathing is ok, about the same as yesterday reports cough, with yellow sputum reports discomfort over BL Lower Ext, worse with ambulating no fever/chills no BM since Monday no other symptoms Review of Systems Review of Systems: all noted and negative except for above Physical Exam Physical Exam: General- oriented x 3, not in distress, speaks in sentences with no effort or accessory muscle use Eyes- anicteric Neck- no JVD Lungs- mild rales at the bases, no wheezing Heart- normal rate, regular rhythm; no murmurs Abdomen- normal bowel sounds, nondistended, soft, nontender Extremities- RLE: (+) grade 2 edema, moderate erythema, 2 open wounds proximal lower leg- not much improvement LLE: (+) grade 2 edema, moderate erythema, open wound distal lower leg- not much improvement Neuro- alert, oriented x 3; no gross focal neurologic deficits Skin- warm & dry Results & Data Results & Data ([facility]) Vital Signs (Past 12 Hours) Vital Signs Temp Pulse Pulse Resp BP BP Pulse Ox 11/29/22 15:18 36.7 C 82 18 104/68 98 11/29/22 10:00 11/29/22 11:14 36.5 C 91 H 20 100/57 L 93 11/29/22 07:52 36.5 C 88 20 102/64 95 11/29/22 07:26 87 O2 Del Method O2 Flow Rate 11/29/22 15:18 Nasal Cannula 2 11/29/22 10:00 Room Air 2 11/29/22 11:14 Nasal Cannula 2 11/29/22 07:52 Nasal Cannula 2 11/29/22 07:26 all noted and reviewed including below
[2022-11-29] MEDS ORDERED: DAPTOmycin 250 MG in SYRINGE 0 ML IV SCH (20:00)
[2022-11-29] MEDS: traZODone HCL 50 MG TAB PO SCH (20:58)
[2022-11-30] MEDS: ACETAMINOPHEN 325 MG TAB PO PRN ×3 (02:13→21:26)
[2022-11-30] MEDS: LEVOTHYROXINE SODIUM 150 MCG TABLET PO SCH (06:02)
[2022-11-30] MEDS: FUROSEMIDE INJ 20 MG/2 ML VIAL IV SCH (06:02)
[2022-11-30] MEDS: PANTOprazole 40 MG TAB PO SCH (06:02)
--- NOTE | 2022-11-30 07:29 | Cardiology Progress Note ---
Date of Service November 30, 2022 Assessment & Plan (1) Acute on chronic heart failure with preserved ejection fraction (HFpEF): Plan: -Patient with 5 L of urine output since Cotton catheter placed and receiving furosemide. -Patient approaching euvolemia- Hold IV lasix today, transition to PO lasix 40 mg daily tomorrow (Home dose of Lasix is 40 mg every other day) -Continue Aldactone 12.5 mg daily -Trend BMP, replace potassium for a goal of 4.0. Magnesium goal of 2.0 -2g sodium diet. Daily standing weights. -Tele showing atrial tach vs atrial flutter (asymptomatic), HR generally well controlled and patient is maintained on Coumadin due to history of DVT- continue. Given lack of symptoms will continue to monitor on tele. Continue metoprolol as ordered. -Patient is chronically anticoagulated with Coumadin due to his history of DVT. INR 3.7- Coumadin currently on hold per primary service. (2) Cellulitis: Plan: - Wound cultures of the right leg performed on presentation last evening yielding Serratia marcescens Blood cultures showing no growth to date. -Treatment per primary team. Plan Case discussed with Dr. Trujillo. Will follow. Admission and Anticipated Discharge Date Admission Date: November 26, 2022 Supervising Physician Co-Signing Physician Notes Cardiology attending: I personally performed a history and physical exam. Agree with findings and plan as outlined by BRANDEN Torres with additions as noted below. Subjective: Patient improving. Cotton catheter remains in place. Exam: Regular rhythm, 2/6 systolic murmur, 1+ edema, improving Data: Telemetry reveals sinus rhythm in the 80s INR 3.7 Carbon dioxide on chemistry panel 41 Impression: Acute on chronic heart failure with preserved ejection fraction -Based on physical exam and chemistry panel with increasing CO2 level, will back off on diuretic therapy and transition him to oral furosemide. -Coumadin on hold due to high INR. -Continue Cotton catheter for now, as I feel some of his problem is functional urinary outflow tract issues. Jerrod Trujillo, DO Subjective 82-year-old male with acute on chronic diastolic CHF and cellulitis of the right lower leg. Cotton catheter placed. Patient diuresed with IV Lasix and spironolactone 12.5 mg daily was added. Patient was continued on Rocephin due to cellulitis. Blood cultures so far negative. Echocardiogram showed a normal LVEF of 55 to 60% with mild concentric LVH and no wall motion abnormalities. Moderate MR. Moderate TR with mild pulmonary hypertension noted. Chart and telemetry reviewed. Patient seen and examined at bedside. Upon entrance into the room patient resting in the chair- notes improvement in his breathing from yesterday. Swelling in the legs improved. Dressings intact. Legs tender. Tele: SR with PVCs, 80s. Atach vs aflutter on telemetry ~130 bpm asymptomatic lasting about 10 mins. I&O: -7.1L, renal function stable Weight: 95kg >>91.4 kg (11/30) ? increase from yesterday INR: 3.7 (11/30)- Coumadin held. Review of Systems Review of Systems: All systems reviewed & are unremarkable except as noted in HPI & below Physical Exam Constitutional: WD/WN, vitals as above Respiratory: Auscultation: + diminished lung sounds (Decreased breath sounds bilaterally at the bases) and + rales (BL bases); no crackles, no rhonchi and no wheezes Cardiovascular: Rate/Rhythm: regular rate and regular rhythm Heart Sounds: + murmur (I-II/6 systolic murmur) Extremities: + edema (2+ bilateral lower extremity edema) Gastrointestinal (Abdomen): normal bowel sounds, soft, nontender, no hepatosplenomegaly Neurologic: PERRL, EOMI, accommodation nl, no face palsy, no dysarthria Psychiatric: A+Ox3, euthymic affect Results & Data ([facility]) Vital Signs (Past 12 Hours) Vital Signs Temp Pulse Pulse Pulse Resp BP Pulse Ox 11/30/22 07:26 84 11/29/22 22:00 87 11/30/22 02:33 36.3 C L 92 H 18 104/62 96 11/29/22 23:39 36.6 C 81 18 100/56 L 94 11/29/22 20:38 11/29/22 19:53 36.7 C 91 H 20 110/67 96 O2 Del Method O2 Flow Rate 11/30/22 07:26 11/29/22 22:00 11/30/22 02:33 Nasal Cannula 2 11/29/22 23:39 Nasal Cannula 11/29/22 20:38 Nasal Cannula 2 11/29/22 19:53 Nasal Cannula 2 Laboratory Results Coagulation 11/30/22 Range/Units 07:40 PT 37.0 H (9.0-12.0) Seconds CBC 11/30/22 Range/Units 07:40 WBC 5.32 (4.8-10.8) K/ul RBC 3.65 L (4.70-6.10) M/uL Hgb 9.8 L (14.0-18.0) g/dl Hct 31.6 L (42.0-52.0) % Plt Count 135 (130-400) K/uL Neut # (Auto) 3.52 (1.40-6.50) K/uL Lymph # (Auto) 0.70 L (1.2-3.4) K/uL [place] # (Auto) 0.86 H (0.11-0.59) K/uL Eos # (Auto) 0.19 (0-0.50) K/uL Baso # (Auto) 0.03 (0-0.2) K/uL Comprehensive Metabolic Panel 11/30/22 Range/Units 07:40 Sodium 138 (136-145) mmol/L Potassium 4.0 (3.5-5.1) mmol/L Chloride 95 L (98-107) mmol/L Carbon Dioxide 41 H* (21-32) mmol/L BUN 20 (6-23) mg/dl Creatinine 1.06 (0.6-1.4) mg/dl Glucose 95 (70-99(Fasting)) mg/dl Calcium 8.8 (8.5-10.1) mg/dl Intake and Output 11/29/22 11/30/22 11/30/22 22:59 06:59 14:59 Intake Total 200 / 1035 250 / 1035 70 / 70 Output Total 1000 / 2400 600 / 2400 Balance -800 / -1365 -350 / -1365 70 / 70 Intake: IV 70 / 70 cefTRIAXone SODIUM 2,000 mg In 70 / 70 Dextrose 5% 50 ml @ 100 mls/hr IV Q24H [facility] Rx#:[id number] Oral 200 / 965 250 / 965 Output: Urine Amount (Catheter) 1000 / 2400 600 / 2400 Cotton/Indwelling 1000 / 2400 600 / 2400 Other: Weight 91.4 kg Weight Measurement Method Standing Scale (1) Cellulitis Site of cellulitis: unspecified site Qualified Code(s): L03.90 - Cellulitis, unspecified
[2022-11-30 08:07] LABS: Hematocrit (blood only) 31.6 % (42.0-52.0); Hemoglobin 9.8 g/dl (14.0-18.0); Mean Corpuscular Hemoglobin 26.8 pg (25.0-34.0); Mean Corpuscular Volume 86.6 fL (80.0-100.0); Mean Platelet Volume 11.4 fL (9.4-12.4); Platelet Count 135 K/uL (130-400); RDW Coefficient of Variation 17.6 % (11.5-14.5); RDW Standard Deviation 55.7 fL (36.4-46.3); Red Blood Count 3.65 M/uL (4.70-6.10); White Blood Count 5.32 K/ul (4.8-10.8)
[2022-11-30] MEDS: FLUTICASONE/VILANTEROL 200/25MCG 14 PUFFS/INHALER INH SCH (08:26)
[2022-11-30] MEDS: CEROVITE ADV FORMULA TAB PO SCH (08:27)
[2022-11-30] MEDS: METOPROLOL SUCC 50MG EXT REL TAB PO SCH (08:27)
[2022-11-30] MEDS: lisinopril 5 MG TAB PO SCH (08:28)
[2022-11-30] MEDS: ASPIRIN 81 MG ECTAB PO SCH (08:28)
[2022-11-30] MEDS: CHOLECALCIFEROL 1,000 UNITS 25 MCG TAB PO SCH (08:28)
[2022-11-30] MEDS: SPIRONOLACTONE 12.5 MG TAB PO SCH (08:28)
[2022-11-30] MEDS: ISOSORBIDE MONO EXTENDED REL 30 MG TABCR PO SCH (08:28)
[2022-11-30] MEDS: POTASSIUM CHLORIDE CRTAB 20 MEQ TABCR PO SCH (08:29)
[2022-11-30 08:31] LABS: Basophils # (auto) 0.03 K/uL (0-0.2); Basophils % (auto) 0.6 %; Eosinophils # (auto) 0.19 K/uL (0-0.50); Eosinophils % (auto) 3.6 %; Immature Granulocytes # (auto) 0.02 K/uL (0.01-0.20); Immature Granulocytes % (auto) 0.4 %; Lymphocytes % (auto) 13.2 %; Monocytes # (auto) 0.86 K/uL (0.11-0.59); Monocytes % (auto) 16.2 %; Neutrophils # (auto) 3.52 K/uL (1.40-6.50)
[2022-11-30 08:34] LABS: BUN Creatinine Ratio 18.9 (10-20); Calcium 8.8 mg/dl (8.5-10.1); Creatinine Clr Calc Pharmacy 50.6 ml/min; Est GFR (African American) 75.4 ml/min; Magnesium 1.9 mg/dl (1.7-2.4)
[2022-11-30] MEDS: POLYETHYLENE (MIRALAX) 17 GM PACK PO SCH (08:36)
[2022-11-30 08:39] LABS: INR 3.7 (0.9-1.1)
[2022-11-30] MEDS: cefTRIAXone SODIUM 2,000 MG in DEXTROSE 5% 50 ML IV SCH (08:40)
[2022-11-30] MEDS ORDERED: WARFARIN SOD 1.25 MG TAB PO SCH (16:00)
--- NOTE | 2022-11-30 16:09 | Hospitalist Progress Note ---
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 Acute on chronic HFpEF Moderate to severe mitral regurgitation with partial flail leaflet CAD with history of CABG in 2004 pt with significant edema extending to abdominal wall, bnp 1,949, cxr with mild pulm edema/pleural effusions, received lasix 60mg IV in ED, will monitor diuresis Has been on lasix 40mg IV daily starting 11/27 give 40meq KCL x 1 now, start daily potassium, monitor bmp and mag strict I and O, daily weights, guaman cath in place continue ASA, Imdur, lisinopril, metoprolol, Crestor Clinically much improved Has been getting IV Lasix 20 mg every 6 hourly and spironolactone orally as per supervisor inspecting Will monitor kidney function and electrolytes Bilateral lower extremity cellulitis Bilateral lower extremity open wounds with intact bulla Appreciate wound care input and recommendation surface culture obtained in ED-Serratia marcescens which is pansensitive Blood culture negative We will continue intravenous ceftriaxone for now We will stop IV daptomycin History of DVT Long-term anticoagulation with warfarin INR 3.5 hold coumadin (usually on coumadin 1.25mg on Mon and 2.5mg all other days) INR is 3.7 today and will hold Coumadin for now COPD IRLANDA on CPAP, 3.5 L at at bedtime continue inhalers, no acute exac Chronic anemia H&H stable at 10.6 and 34.4 Monitor Diet-controlled T2DM A1c October 2022, 6.5 Monitor fasting glucose DVT prophylaxis: Warfarin on hold Dispo: PT/OT, patient will need Acute Rehab/SNF Full code PCP: Ulisses Admission and Anticipated Discharge Date Admission Date: November 26, 2022 Subjective 11/30/2022 The patient was seen and examined in medical telemetry unit He has been feeling much better and sitting on a chair outside the bed His legs are getting better with improvement of the swelling and improvement of the cellulitis Denies any fever and or chills Review of Systems Review of Systems: All systems reviewed and are unremarkable except as noted below Musculoskeletal: Bilateral leg swelling without any arthritis Physical Exam Physical Exam: Sitting on a chair without any acute distress Constitutional: well developed, well nourished, + ill appearing and + obese Eyes: PERRL, conjunctivae normal, anicteric sclerae ENMT: external ear and nose normal, oropharynx normal Neck: trachea midline, no thyromegaly Respiratory: no respiratory distress Auscultation: + diminished lung sounds and + crackles (Minimal crackles at the bases) Cardiovascular: Rate/Rhythm: regular rate and regular rhythm; not tachycardic Heart Sounds: normal S1 and normal S2; no murmur Extremities: + edema (1+ edema bilaterally with chronic skin changes and cellulitis) Gastrointestinal (Abdomen): Inspection/Auscultation: normal bowel sounds; abdomen not distended Percussion/Palpation: abdomen soft; abdomen nontender Musculoskeletal: No acute arthritis involving any joint. Superficial wound right mid leg Neurologic: normal touch/pain/proprioception and moves all extremities Psychiatric: A+Ox3, euthymic affect Lymphatic: no cervical or axillary lymphadenopathy Results & Data Results & Data ([facility]) Vital Signs (Past 12 Hours) Vital Signs Temp Pulse Pulse Resp BP Pulse Ox O2 Del Method 11/30/22 14:49 36.5 C 80 20 100/65 97 Nasal Cannula 11/30/22 11:08 37 C 84 18 92/52 L 96 Nasal Cannula 11/30/22 10:06 Nasal Cannula 11/30/22 07:26 84 O2 Flow Rate FiO2 11/30/22 14:49 2 11/30/22 11:08 2 11/30/22 10:06 2 11/30/22 07:26 Laboratory Results Short CBC 11/30/22 Range/Units 07:40 WBC 5.32 (4.8-10.8) K/ul Hgb 9.8 L (14.0-18.0) g/dl Hct 31.6 L (42.0-52.0) % Plt Count 135 (130-400) K/uL BMP 11/30/22 07:40 Sodium 138 Potassium 4.0 Chloride 95 L Carbon Dioxide 41 H* BUN 20 Creatinine 1.06 Glucose 95 Calcium 8.8 Medications Administered Current Inpatient Medications Acetaminophen (Acetaminophen 325 Mg Tab) 650 mg PO Q4H PRN PRN Reason: Pain or Fever Stop: 12/26/22 18:21 Last Admin: 11/30/22 08:37 Dose: 650 mg Albuterol (Albuterol Hfa 8 Gm Inhaler) 1 puffs INH Q6H PRN PRN Reason: sob Stop: 12/26/22 18:21 Aspirin (Aspirin 81 Mg Ectab) 81 mg PO QAM [facility] Stop: 12/27/22 08:59 Last Admin: 11/30/22 08:28 Dose: 81 mg Calcium Carbonate (Calcium Carbonate 500 Mg Chewable Tab) 500 mg PO Q6H PRN PRN Reason: Heartburn Stop: 12/27/22 21:49 Last Admin: 11/29/22 01:05 Dose: 500 mg Clonazepam (Clonazepam 0.5 Mg Tab) 0.5 mg PO BID PRN PRN Reason: Anxiety Stop: 12/26/22 18:21 Last Admin: 11/29/22 03:26 Dose: 0.5 mg Fluticasone/Vilanterol (Fluticasone/Vilanterol 200/25mcg 14 Puffs/Inhaler) 1 puffs INH DAILY [facility] Stop: 12/27/22 08:59 Last Admin: 11/30/22 08:26 Dose: 1 puffs Furosemide (Furosemide Inj 20 Mg/2 Ml Vial) 20 mg IV Q6H [facility] Stop: 12/28/22 11:44 Last Admin: 11/30/22 06:02 Dose: 20 mg Furosemide (Furosemide 40 Mg Tab) 40 mg PO QAM [facility] Stop: 12/31/22 08:59 Ceftriaxone Sodium 2,000 mg/ (Dextrose) 70 mls @ 100 mls/hr IV Q24H [facility]; Protocol Stop: 12/04/22 08:59 Last Infusion: 11/30/22 10:02 Dose: Infused Daptomycin 250 mg/ Syringe 5 mls @ 2.5 mls/min IV Q24H [facility]; Protocol Stop: 12/06/22 19:59 Last Admin: 11/29/22 20:58 Dose: 2.5 mls/min Isosorbide Mononitrate (Isosorbide [place] Extended Rel 30 Mg Tabcr) 30 mg PO DAILY [facility] Stop: 12/27/22 08:59 Last Admin: 11/30/22 08:28 Dose: 30 mg Levothyroxine Sodium (Levothyroxine Sodium 150 Mcg Tablet) 150 mcg PO DAILYBB [facility] Stop: 12/28/22 06:29 Last Admin: 11/30/22 06:02 Dose: 150 mcg Lisinopril (Lisinopril 5 Mg Tab) 5 mg PO DAILY [facility] Stop: 12/27/22 08:59 Last Admin: 11/30/22 08:28 Dose: 5 mg Magnesium Hydroxide (Magnesium Hydroxide Susp 30 Ml Udc) 30 ml PO Q12H PRN PRN Reason: Constipation Stop: 12/26/22 18:21 Metoprolol Succinate (Metoprolol Succ 50mg Ext Rel Tab) 100 mg PO DAILY [facility] Stop: 12/27/22 08:59 Last Admin: 11/30/22 08:27 Dose: 100 mg Multivitamins/Minerals (Cerovite Adv Formula Tab) 1 tab PO QAM [facility] Stop: 12/27/22 08:59 Last Admin: 11/30/22 08:27 Dose: 1 tab Ondansetron HCl (Ondansetron Inj 2 Mg/Ml 2 Ml Vial) 4 mg IV Q6H PRN PRN Reason: Nausea Stop: 12/26/22 18:21 Pantoprazole Sodium (Pantoprazole 40 Mg Tab) 40 mg PO DAILYBB [facility] Stop: 12/27/22 06:29 Last Admin: 11/30/22 06:02 Dose: 40 mg Polyethylene Glycol (Polyethylene (Miralax) 17 Gm Pack) 17 gm PO DAILY PRN PRN Reason: Constipation Stop: 12/26/22 18:21 Polyethylene Glycol (Polyethylene (Miralax) 17 Gm Pack) 17 gm PO DAILY [facility] Stop: 12/30/22 08:59 Last Admin: 11/30/22 08:36 Dose: 17 gm Potassium Chloride (Potassium Chloride Crtab 20 Meq Tabcr) 40 meq PO QAM [facility] Stop: 12/27/22 08:59 Last Admin: 11/30/22 08:29 Dose: 40 meq Rosuvastatin Calcium (Rosuvastatin Calcium 20 Mg Tab) 40 mg PO DAILY [facility] Stop: 12/27/22 08:59 Last Admin: 11/29/22 09:56 Dose: 40 mg Spironolactone (Spironolactone 12.5 Mg Tab) 12.5 mg PO DAILY [facility] Stop: 12/28/22 08:59 Last Admin: 11/30/22 08:28 Dose: 12.5 mg Trazodone HCl (Trazodone Hcl 50 Mg Tab) 50 mg PO HS [facility] Stop: 12/26/22 20:59 Last Admin: 11/29/22 20:58 Dose: 50 mg Vitamin D (Cholecalciferol 1,000 Units 25 Mcg Tab) 2,000 units PO DAILY [facility] Stop: 12/27/22 08:59 Last Admin: 11/30/22 08:28 Dose: 2,000 units Warfarin Sodium (Warfarin Sod 2.5 Mg Tab) 2.5 mg PO SUMOTUTHFRSA@1600 [facility] Stop: 12/27/22 15:59 Last Admin: 11/28/22 16:00 Dose: 2.5 mg
[2022-11-30] MEDS: traZODone HCL 50 MG TAB PO SCH (21:22)
[2022-12-01] MEDS: clonazePAM 0.5 MG TAB PO PRN (00:16)
[2022-12-01] MEDS: ACETAMINOPHEN 325 MG TAB PO PRN ×2 (03:42→10:26)
[2022-12-01] MEDS: PANTOprazole 40 MG TAB PO SCH (03:42)
[2022-12-01] MEDS: LEVOTHYROXINE SODIUM 150 MCG TABLET PO SCH (03:42)
[2022-12-01] MEDS ORDERED: OXYMETAZOLINE 0.05% 30 ML BTL ONE (03:43)
[2022-12-01 06:50] LABS: Basophils # (auto) 0.04 K/uL (0-0.2); Basophils % (auto) 0.7 %; Eosinophils # (auto) 0.25 K/uL (0-0.50); Eosinophils % (auto) 4.5 %; Hematocrit (blood only) 31.2 % (42.0-52.0); Hemoglobin 9.7 g/dl (14.0-18.0); Immature Granulocytes # (auto) 0.01 K/uL (0.01-0.20); Immature Granulocytes % (auto) 0.2 %; Lymphocytes # (auto) 0.81 K/uL (1.2-3.4); Lymphocytes % (auto) 14.5 %; Mean Corpuscular Hemoglobin 27.6 pg (25.0-34.0); Mean Corpuscular Hgb Conc 31.1 g/dL (32.0-36.0); Mean Corpuscular Volume 88.6 fL (80.0-100.0); Mean Platelet Volume 11.8 fL (9.4-12.4); Monocytes # (auto) 0.85 K/uL (0.11-0.59); Monocytes % (auto) 15.2 %; Neutrophils # (auto) 3.64 K/uL (1.40-6.50); Neutrophils % (auto) 64.9 %; Platelet Count 151 K/uL (130-400); RDW Coefficient of Variation 17.7 % (11.5-14.5); RDW Standard Deviation 57.5 fL (36.4-46.3); Red Blood Count 3.52 M/uL (4.70-6.10)
[2022-12-01 07:02] LABS: INR 2.7 (0.9-1.1); Prothrombin Time 27.3 Seconds (9.0-12.0)
[2022-12-01] MEDS: CEROVITE ADV FORMULA TAB PO SCH (07:30)
[2022-12-01] MEDS: CHOLECALCIFEROL 1,000 UNITS 25 MCG TAB PO SCH (07:30)
[2022-12-01] MEDS: METOPROLOL SUCC 50MG EXT REL TAB PO SCH (07:31)
[2022-12-01] MEDS: SPIRONOLACTONE 12.5 MG TAB PO SCH (07:31)
[2022-12-01] MEDS: ASPIRIN 81 MG ECTAB PO SCH (07:31)
[2022-12-01] MEDS: ISOSORBIDE MONO EXTENDED REL 30 MG TABCR PO SCH (07:31)
[2022-12-01] MEDS: lisinopril 5 MG TAB PO SCH (07:32)
[2022-12-01] MEDS: FUROSEMIDE 40 MG TAB PO SCH (07:32)
[2022-12-01] MEDS: POTASSIUM CHLORIDE CRTAB 20 MEQ TABCR PO SCH (07:32)
[2022-12-01] MEDS: FLUTICASONE/VILANTEROL 200/25MCG 14 PUFFS/INHALER INH SCH (07:32)
[2022-12-01] MEDS: POLYETHYLENE (MIRALAX) 17 GM PACK PO SCH (07:33)
[2022-12-01] MEDS: cefTRIAXone SODIUM 2,000 MG in DEXTROSE 5% 50 ML IV SCH (07:53)
--- NOTE | 2022-12-01 07:54 | Cardiology Progress Note ---
Date of Service December 01, 2022 Assessment & Plan (1) Acute on chronic heart failure with preserved ejection fraction (HFpEF): Plan: -Patient with 8 L of urine output since Cotton catheter placed and receiving furosemide. -Euvolemic on exam. IV Lasix held 11/30, PO lasix 40 mg daily restarted today. (Home dose of Lasix is 40 mg every other day)- Swelling in legs likely multifactorial given venous insufficiency and ongoing cellulitis. -Continue Aldactone 12.5 mg daily -Trend BMP, replace potassium for a goal of 4.0. Magnesium goal of 2.0 -2g sodium diet. Daily standing weights. -Tele showing atrial tach vs atrial flutter (asymptomatic), HR generally well co ntrolled and patient is maintained on Coumadin due to history of DVT- continue. Given lack of symptoms will continue to monitor on tele. Continue metoprolol as ordered. -Patient is chronically anticoagulated with Coumadin due to his history of DVT. INR 2.7- Continue Coumadin dosing per hospitalist service. (2) Cellulitis: Plan: -Wound cultures of the right leg performed on presentation last evening yielding Serratia marcescens Blood cultures showing no growth to date. -Treatment per primary team. Plan Case discussed with Dr. Trujillo. Will follow. Admission and Anticipated Discharge Date Admission Date: November 26, 2022 Supervising Physician Co-Signing Physician Notes Cardiology attending: I personally performed a history and physical exam. Agree with findings and plan as outlined by BRANDEN Torres with additions as noted below. Subjective: Patient without acute complaint. Eager for discharge, but obviously not medically stable. Cotton catheter remains in place. Edema and volume status trending toward improvement. Predominantly sinus rhythm in the 80s to 90s noted on telemetry with brief episodes of atrial tachycardia. Exam: Cardiovascular: Regular rhythm, 1/6 systolic murmur, extremities, 1+ edema likely due to venous insufficiency Impression: As noted above, with added note to have brief episodes of paroxysmal supraventricular tachycardia or atrial flutter. Plan: Continue oral furosemide. INR 2.7 today, having been supratherapeutic. Most recent dose of 2.5 mg was on 11/28/22. We will resume Coumadin today, 2.5 mg x 1 12/01/22. Continue Rocephin. Subjective 82-year-old male with acute on chronic diastolic CHF and cellulitis of the right lower leg. Cotton catheter placed. Patient diuresed with IV Lasix and spironolactone 12.5 mg daily was added. Patient was continued on antibiotics due to cellulitis. Blood cultures so far negative. Echocardiogram showed a normal LVEF of 55 to 60% with mild concentric LVH and no wall motion abnormalities. Moderate MR. Moderate TR with mild pulmonary hypertension noted. Chart and telemetry reviewed. Patient seen and examined at bedside. Upon entrance into the room patient resting in the chair- denies sob unless "the room is too warm". Remains on supplemental o2. Swelling in the legs improved but remain tender. Dressings intact. Tele: SR with PVCs, 80s. Ongoing episodes of atach vs aflutter on telemetry ~130 bpm I&O: -8.2L, renal function stable Weight: 95kg >>90.8kg INR: 2.7 (12/01) Review of Systems Review of Systems: All systems reviewed & are unremarkable except as noted in HPI & below Physical Exam Constitutional: WD/WN, vitals as above Respiratory: Auscultation: + diminished lung sounds (Decreased breath sounds bilaterally at the bases); no crackles, no rales, no rhonchi and no wheezes Cardiovascular: Rate/Rhythm: regular rate and regular rhythm Heart Sounds: + murmur (I-II/6 systolic murmur) Extremities: + edema (1+ bilateral lower extremity edema) Gastrointestinal (Abdomen): normal bowel sounds, soft, nontender, no hepatosplenomegaly Neurologic: PERRL, EOMI, accommodation nl, no face palsy, no dysarthria Psychiatric: A+Ox3, euthymic affect Results & Data ([facility]) Vital Signs (Past 12 Hours) Vital Signs Temp Pulse Pulse Resp BP Pulse Ox O2 Del Method 12/01/22 07:24 87 12/01/22 04:00 93 Nasal Cannula 12/01/22 03:43 82 L Nasal Cannula 12/01/22 04:54 36.7 C 107 H 24 127/76 94 Oxymask 11/30/22 23:07 94 H 11/30/22 23:48 36.8 C 91 H 20 100/54 L 94 Nasal Cannula 11/30/22 21:15 Nasal Cannula 11/30/22 20:05 36.8 C 90 20 111/66 96 Nasal Cannula O2 Flow Rate 12/01/22 07:24 12/01/22 04:00 4 12/01/22 03:43 2 12/01/22 04:54 4 11/30/22 23:07 11/30/22 23:48 2 11/30/22 21:15 2 11/30/22 20:05 2 Laboratory Results Coagulation 12/01/22 Range/Units 06:17 PT 27.3 H (9.0-12.0) Seconds CBC 12/01/22 Range/Units 06:17 WBC 5.60 (4.8-10.8) K/ul RBC 3.52 L (4.70-6.10) M/uL Hgb 9.7 L (14.0-18.0) g/dl Hct 31.2 L (42.0-52.0) % Plt Count 151 (130-400) K/uL Neut # (Auto) 3.64 (1.40-6.50) K/uL Lymph # (Auto) 0.81 L (1.2-3.4) K/uL [place] # (Auto) 0.85 H (0.11-0.59) K/uL Eos # (Auto) 0.25 (0-0.50) K/uL Baso # (Auto) 0.04 (0-0.2) K/uL Comprehensive Metabolic Panel 12/01/22 Range/Units 06:17 Sodium 137 (136-145) mmol/L Potassium 4.3 (3.5-5.1) mmol/L Chloride 94 L (98-107) mmol/L Carbon Dioxide 39 H (21-32) mmol/L BUN 19 (6-23) mg/dl Creatinine 0.89 (0.6-1.4) mg/dl Glucose 100 H (70-99(Fasting)) mg/dl Calcium 8.9 (8.5-10.1) mg/dl Intake and Output 11/30/22 12/01/22 12/01/22 22:59 06:59 14:59 Intake Total 240 / 745 160 / 745 70 / 70 Output Total 650 / 1850 400 / 1850 Balance -410 / -1105 -240 / -1105 70 / 70 Intake: IV 70 / 70 cefTRIAXone SODIUM 2,000 mg In 70 / 70 Dextrose 5% 50 ml @ 100 mls/hr IV Q24H [facility] Rx#:[id number] Oral 240 / 675 160 / 675 Output: Urine Amount (Catheter) 650 / 1850 400 / 1850 Cotton/Indwelling 650 / 1850 400 / 1850 Other: Weight 90.8 kg Weight Measurement Method Built in [facility] (1) Cellulitis Site of cellulitis: unspecified site Qualified Code(s): L03.90 - Cellulitis, unspecified
[2022-12-01 08:15] LABS: BUN Creatinine Ratio 21.3 (10-20); Calcium 8.9 mg/dl (8.5-10.1); Est GFR (African American) 92.3 ml/min; Est GFR (Non-African American) 79.6 ml/min; Potassium 4.3 mmol/L (3.5-5.1)
--- NOTE | 2022-12-01 14:48 | Hospitalist Progress Note ---
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 Acute on chronic HFpEF Moderate to severe mitral regurgitation with partial flail leaflet CAD with history of CABG in 2004 pt with significant edema extending to abdominal wall, bnp 1,949, cxr with mild pulm edema/pleural effusions, received lasix 60mg IV in ED, will monitor diuresis Has been on lasix 40mg IV daily starting 11/27 give 40meq KCL x 1 now, start daily potassium, monitor bmp and mag strict I and O, daily weights, guaman cath in place continue ASA, Imdur, lisinopril, metoprolol, Crestor Clinically much improved Has been getting IV Lasix 20 mg every 6 hourly and spironolactone orally as per industrial automation engineer Lasix has been changed to oral 40 mg in the morning PRP remains stable Bilateral lower extremity cellulitis Bilateral lower extremity open wounds with intact bulla Appreciate wound care input and recommendation surface culture obtained in ED-Serratia marcescens which is pansensitive Blood culture negative We will continue intravenous ceftriaxone for now We will stop IV daptomycin Will give oral Keflex to continue continue for a total of 14 days Will get PT and OT evaluation prior to discharge History of DVT Long-term anticoagulation with warfarin INR 3.5 hold coumadin (usually on coumadin 1.25mg on Mon and 2.5mg all other days) INR is 3.7 today and will hold Coumadin for now INR is 2.7 today and will restart Coumadin COPD IRLANDA on CPAP, 3.5 L at at bedtime continue inhalers, no acute exac Chronic anemia H&H stable at 10.6 and 34.4 Monitor Diet-controlled T2DM A1c October 2022, 6.5 Monitor fasting glucose DVT prophylaxis: Warfarin on hold Dispo: PT/OT, patient will need Acute Rehab/SNF Full code PCP: Ulisses Admission and Anticipated Discharge Date Admission Date: November 26, 2022 Subjective 11/30/2022 The patient was seen and examined in medical telemetry unit He has been feeling much better and sitting on a chair outside the bed His legs are getting better with improvement of the swelling and improvement of the cellulitis Denies any fever and or chills 12/01/2022 The patient was seen and examined in medical telemetry unit He has been sitting on a chair out of bed without any symptoms Has not had any physical therapy yet Denies any fever and or chills Review of Systems Review of Systems: All systems reviewed and are unremarkable except as noted below Musculoskeletal: Bilateral leg swelling without any arthritis Physical Exam Physical Exam: Sitting on a chair without any acute distress Constitutional: well developed, well nourished, + ill appearing and + obese Eyes: PERRL, conjunctivae normal, anicteric sclerae ENMT: external ear and nose normal, oropharynx normal Neck: trachea midline, no thyromegaly Respiratory: no respiratory distress Auscultation: + diminished lung sounds and + crackles (Minimal crackles at the bases) Cardiovascular: Rate/Rhythm: regular rate and regular rhythm; not tachycardic Heart Sounds: normal S1 and normal S2; no murmur Extremities: + edema (1+ edema bilaterally with chronic skin changes and cellulitis) Gastrointestinal (Abdomen): Inspection/Auscultation: normal bowel sounds; abdomen not distended Percussion/Palpation: abdomen soft; abdomen nontender Musculoskeletal: No acute arthritis involving any joint Neurologic: normal touch/pain/proprioception and moves all extremities Psychiatric: A+Ox3, euthymic affect Lymphatic: no cervical or axillary lymphadenopathy Results & Data Results & Data ([facility]) Vital Signs (Past 12 Hours) Vital Signs Temp Pulse Pulse Resp BP BP Pulse Ox 12/01/22 11:29 36.8 C 85 18 92/52 L 99 12/01/22 08:07 12/01/22 08:07 36.5 C 135 H 18 110/72 94 12/01/22 07:24 87 12/01/22 04:00 93 12/01/22 03:43 82 L 12/01/22 04:54 36.7 C 107 H 24 127/76 94 O2 Del Method O2 Flow Rate 12/01/22 11:29 Nasal Cannula 12/01/22 08:07 Nasal Cannula 4 12/01/22 08:07 Nasal Cannula 4 12/01/22 07:24 12/01/22 04:00 Nasal Cannula 4 12/01/22 03:43 Nasal Cannula 2 12/01/22 04:54 Oxymask 4 Laboratory Results Short CBC 12/01/22 Range/Units 06:17 WBC 5.60 (4.8-10.8) K/ul Hgb 9.7 L (14.0-18.0) g/dl Hct 31.2 L (42.0-52.0) % Plt Count 151 (130-400) K/uL BMP 12/01/22 06:17 Sodium 137 Potassium 4.3 Chloride 94 L Carbon Dioxide 39 H BUN 19 Creatinine 0.89 Glucose 100 H Calcium 8.9 Medications Administered Current Inpatient Medications Acetaminophen (Acetaminophen 325 Mg Tab) 650 mg PO Q4H PRN PRN Reason: Pain or Fever Stop: 12/26/22 18:21 Last Admin: 12/01/22 10:26 Dose: 650 mg Albuterol (Albuterol Hfa 8 Gm Inhaler) 1 puffs INH Q6H PRN PRN Reason: sob Stop: 12/26/22 18:21 Aspirin (Aspirin 81 Mg Ectab) 81 mg PO QAM [facility] Stop: 12/27/22 08:59 Last Admin: 12/01/22 07:31 Dose: 81 mg Calcium Carbonate (Calcium Carbonate 500 Mg Chewable Tab) 500 mg PO Q6H PRN PRN Reason: Heartburn Stop: 12/27/22 21:49 Last Admin: 11/29/22 01:05 Dose: 500 mg Clonazepam (Clonazepam 0.5 Mg Tab) 0.5 mg PO BID PRN PRN Reason: Anxiety Stop: 12/26/22 18:21 Last Admin: 12/01/22 00:16 Dose: 0.5 mg Fluticasone/Vilanterol (Fluticasone/Vilanterol 200/25mcg 14 Puffs/Inhaler) 1 puffs INH DAILY [facility] Stop: 12/27/22 08:59 Last Admin: 12/01/22 07:32 Dose: 1 puffs Furosemide (Furosemide Inj 20 Mg/2 Ml Vial) 20 mg IV Q6H [facility] Stop: 12/28/22 11:44 Last Admin: 11/30/22 06:02 Dose: 20 mg Furosemide (Furosemide 40 Mg Tab) 40 mg PO QAM [facility] Stop: 12/31/22 08:59 Last Admin: 12/01/22 07:32 Dose: 40 mg Ceftriaxone Sodium 2,000 mg/ (Dextrose) 70 mls @ 100 mls/hr IV Q24H [facility]; Protocol Stop: 12/04/22 08:59 Last Infusion: 12/01/22 08:37 Dose: Infused Isosorbide Mononitrate (Isosorbide [place] Extended Rel 30 Mg Tabcr) 30 mg PO DAILY [facility] Stop: 12/27/22 08:59 Last Admin: 12/01/22 07:31 Dose: 30 mg Levothyroxine Sodium (Levothyroxine Sodium 150 Mcg Tablet) 150 mcg PO DAILYBB [facility] Stop: 12/28/22 06:29 Last Admin: 12/01/22 03:42 Dose: 150 mcg Lisinopril (Lisinopril 5 Mg Tab) 5 mg PO DAILY [facility] Stop: 12/27/22 08:59 Last Admin: 12/01/22 07:32 Dose: 5 mg Magnesium Hydroxide (Magnesium Hydroxide Susp 30 Ml Udc) 30 ml PO Q12H PRN PRN Reason: Constipation Stop: 12/26/22 18:21 Metoprolol Succinate (Metoprolol Succ 50mg Ext Rel Tab) 100 mg PO DAILY [facility] Stop: 12/27/22 08:59 Last Admin: 12/01/22 07:31 Dose: 100 mg Multivitamins/Minerals (Cerovite Adv Formula Tab) [facility]: 12/27/22 08:59 Last Admin: 12/01/22 07:30 Dose: 1 tab Ondansetron HCl (Ondansetron Inj 2 Mg/Ml 2 Ml Vial) 4 mg IV Q6H PRN PRN Reason: Nausea Stop: 12/26/22 18:21 Pantoprazole Sodium (Pantoprazole 40 Mg Tab) 40 mg PO DAILYBB [facility] Stop: 12/27/22 06:29 Last Admin: 12/01/22 03:42 Dose: 40 mg Polyethylene Glycol (Polyethylene (Miralax) 17 Gm Pack) 17 gm PO DAILY PRN PRN Reason: Constipation Stop: 12/26/22 18:21 Polyethylene Glycol (Polyethylene (Miralax) 17 Gm Pack) 17 gm PO DAILY [facility] Stop: 12/30/22 08:59 Last Admin: 12/01/22 07:33 Dose: 17 gm Potassium Chloride (Potassium Chloride Crtab 20 Meq Tabcr) 40 meq PO QAM [facility] Stop: 12/27/22 08:59 Last Admin: 12/01/22 07:32 Dose: 40 meq Rosuvastatin Calcium (Rosuvastatin Calcium 20 Mg Tab) 40 mg PO DAILY [facility] Stop: 12/27/22 08:59 Last Admin: 11/29/22 09:56 Dose: 40 mg Spironolactone (Spironolactone 12.5 Mg Tab) 12.5 mg PO DAILY [facility] Stop: 12/28/22 08:59 Last Admin: 12/01/22 07:31 Dose: 12.5 mg Trazodone HCl (Trazodone Hcl 50 Mg Tab) 50 mg PO HS [facility] Stop: 12/26/22 20:59 Last Admin: 11/30/22 21:22 Dose: 50 mg Vitamin D (Cholecalciferol 1,000 Units 25 Mcg Tab) 2,000 units PO DAILY [facility] Stop: 12/27/22 08:59 Last Admin: 12/01/22 07:30 Dose: 2,000 units Warfarin Sodium (Warfarin Sod 2.5 Mg Tab) 2.5 mg PO SUMOTUTHFRSA@1600 [facility] Stop: 12/27/22 15:59 Last Admin: 11/28/22 16:00 Dose: 2.5 mg
[2022-12-01] MEDS ORDERED: WARFARIN SOD 2.5 MG TAB PO ONE (18:30)
[2022-12-01] MEDS: traZODone HCL 50 MG TAB PO SCH (20:53)
[2022-12-02] MEDS: PANTOprazole 40 MG TAB PO SCH (05:27)
[2022-12-02] MEDS: LEVOTHYROXINE SODIUM 150 MCG TABLET PO SCH (05:27)
[2022-12-02 07:11] LABS: BUN Creatinine Ratio 23.5 (10-20); Calcium 8.7 mg/dl (8.5-10.1); Creatinine Clr Calc Pharmacy 54.8 ml/min; Est GFR (African American) 82.9 ml/min; Est GFR (Non-African American) 71.5 ml/min; Potassium 4.3 mmol/L (3.5-5.1)
[2022-12-02] MEDS: FLUTICASONE/VILANTEROL 200/25MCG 14 PUFFS/INHALER INH SCH (07:58)
[2022-12-02] MEDS: lisinopril 5 MG TAB PO SCH (07:58)
[2022-12-02] MEDS: CEROVITE ADV FORMULA TAB PO SCH (07:58)
[2022-12-02] MEDS: POLYETHYLENE (MIRALAX) 17 GM PACK PO SCH (07:59)
[2022-12-02] MEDS: CHOLECALCIFEROL 1,000 UNITS 25 MCG TAB PO SCH (07:59)
[2022-12-02] MEDS: cefTRIAXone SODIUM 2,000 MG in DEXTROSE 5% 50 ML IV SCH (07:59)
[2022-12-02] MEDS: FUROSEMIDE 40 MG TAB PO SCH (08:00)
[2022-12-02] MEDS: ASPIRIN 81 MG ECTAB PO SCH (08:00)
[2022-12-02] MEDS: METOPROLOL SUCC 50MG EXT REL TAB PO SCH (08:00)
[2022-12-02] MEDS: POTASSIUM CHLORIDE CRTAB 20 MEQ TABCR PO SCH (08:00)
[2022-12-02] MEDS: ISOSORBIDE MONO EXTENDED REL 30 MG TABCR PO SCH (08:00)
[2022-12-02] MEDS: SPIRONOLACTONE 12.5 MG TAB PO SCH (08:00)
[2022-12-02] MEDS: ACETAMINOPHEN 325 MG TAB PO PRN (13:21)
--- NOTE | 2022-12-02 13:59 | Cardiology Progress Note ---
Date of Service December 02, 2022 Assessment & Plan (1) Acute on chronic heart failure with preserved ejection fraction (HFpEF): (2) Cellulitis: Plan -Symptoms improved with guaman and IV diuretics. -Guaman removed this morning. He has not yet urinated at the time of evaluation. -Furosemide 40 mg PO resumed. Prior home dose was every other day, but would recommend 40 mg daily on discharge with spironolactone. -2g sodium diet. Daily standing weights. -Tele showing atrial tach vs atrial flutter (asymptomatic), HR generally well controlled and patient is maintained on Coumadin due to history of DVT- continue. Given lack of symptoms will continue to monitor on tele. Continue me toprolol as ordered. -Given borderline low BP, would not increase metoprolol at this time. -Patient is chronically anticoagulated with Coumadin due to his history of DVT. Continue Coumadin dosing per hospitalist service. -Recommend ongoing treatment for cellulitis. -He continues to require supplemental O2, would recommend 2 step prior to discharge as well. Case discussed with Dr. Trujillo. Admission and Anticipated Discharge Date Admission Date: November 26, 2022 Supervising Physician Co-Signing Physician Notes Supervising Physician Attestation: I have personally performed a history and physical examination on the patient. I agree with the physician trust manager assistant's findings and plan as documented with the following additions. Subjective: Patient subjectively improved Exam: Cardiovascular: Regular rhythm, no murmurs, 1+ bilateral lower extremity edema, legs wrapped due to ulcerations Data: Telemetry predominantly reveals sinus rhythm with brief runs of atrial tachycardia versus atrial flutter Assessment and Plan: As noted above -Tentative discharge. Jerrod Trujillo, DO Subjective Patient resting in bed comfortably. Reports SOB with minimal exertion, but comfortable at rest. Still requiring supplemental O2. reports he has O2 at home but only for sleep. Denies chest pain. No dizziness. No sense of palpitations or tachypalpitations. Review of Systems Review of Systems: All systems reviewed & are unremarkable except as noted in HPI & below Physical Exam Constitutional: WD/WN, vitals as above Respiratory: Auscultation: + diminished lung sounds (Decreased breath sounds bilaterally at the bases); no crackles, no rales, no rhonchi and no wheezes Cardiovascular: Rate/Rhythm: regular rate and regular rhythm Heart Sounds: + murmur (I-II/6 systolic murmur) Extremities: + edema (1+ bilateral lower extremity edema; b/l legs wrapped) Gastrointestinal (Abdomen): normal bowel sounds, soft, nontender, no hepatosplenomegaly Neurologic: PERRL, EOMI, accommodation nl, no face palsy, no dysarthria Psychiatric: A+Ox3, euthymic affect Results & Data ([facility]) Vital Signs (Past 12 Hours) Vital Signs Temp Pulse Pulse Resp BP Pulse Ox O2 Del Method 12/02/22 11:50 37.0 C 88 20 110/58 L 93 Nasal Cannula 12/02/22 07:45 107/59 L 12/02/22 09:35 Nasal Cannula 12/02/22 08:26 36.9 C 88 18 95/62 L 96 Nasal Cannula 12/02/22 07:13 86 12/02/22 04:01 94 H 16 115/54 L 96 Nasal Cannula 12/02/22 02:47 37.3 C 127 H 18 119/69 96 Nasal Cannula O2 Flow Rate 12/02/22 11:50 2 12/02/22 07:45 12/02/22 09:35 4 12/02/22 08:26 3 12/02/22 07:13 12/02/22 04:01 4 12/02/22 02:47 3 Laboratory Results Comprehensive Metabolic Panel 12/02/22 Range/Units 06:08 Sodium 136 (136-145) mmol/L Potassium 4.3 (3.5-5.1) mmol/L Chloride 94 L (98-107) mmol/L Carbon Dioxide 39 H (21-32) mmol/L BUN 23 (6-23) mg/dl Creatinine 0.98 (0.6-1.4) mg/dl Glucose 129 H (70-99(Fasting)) mg/dl Calcium 8.7 (8.5-10.1) mg/dl Intake and Output 12/01/22 12/02/22 12/02/22 22:59 06:59 14:59 Intake Total 350 / 540 120 / 540 70 / 70 Output Total 1050 / 1426 376 / 1426 Balance -700 / -886 -256 / -886 70 / 70 Intake: IV 70 / 70 cefTRIAXone SODIUM 2,000 mg In 70 / 70 Dextrose 5% 50 ml @ 100 mls/hr IV Q24H [facility] Rx#:[id number] Oral 350 / 470 120 / 470 Output: Urine Amount (Catheter) 1050 / 1425 375 / 1425 Guaman/Indwelling 1050 / 1425 375 / 1425 # Bowel Movements Other: Weight 91.6 kg Weight Measurement Method Standing Scale Diagnostic Findings Telemetry reviewed: NSR with frequent PAC's and short runs of non sustained atrial tach. He had one episode of atrial tach this morning around 8:23 that lasted until 8:37. No symptoms. Chest X-Ray 11/29/22 09:54 XR chest 1V portable CLINICAL HISTORY: ff up chf, r/o Pneumonia COMPARISON STUDY: Chest radiograph November 26, 2022. FINDINGS: Left humeral proximal internal fixation median sternotomy wires are incidentally noted. The patient is rotated. Cardiomegaly is unchanged. There are small bilateral pleural effusions. There is no pneumothorax. Pulmonary edema persists. There are suspected fluid along the minor fissure. Mild bibasilar opacities. IMPRESSION: 1. Cardiomegaly. Stable mild interstitial pulmonary edema. 2. Mild bibasilar opacities. Atelectasis is favored over an infectious process. ACT 112: Negative or not required by law. Electronically signed by: Teddy Ly M.D. 11/29/2022 1:26 PM Medications Administered Current Inpatient Medications Acetaminophen (Acetaminophen 325 Mg Tab) 650 mg PO Q4H PRN PRN Reason: Pain or Fever Stop: 12/26/22 18:21 Last Admin: 12/02/22 13:21 Dose: 650 mg Albuterol (Albuterol Hfa 8 Gm Inhaler) 1 puffs INH Q6H PRN PRN Reason: sob Stop: 12/26/22 18:21 Aspirin (Aspirin 81 Mg Ectab) 81 mg PO QAM [facility] Stop: 12/27/22 08:59 Last Admin: 12/02/22 08:00 Dose: 81 mg Calcium Carbonate (Calcium Carbonate 500 Mg Chewable Tab) 500 mg PO Q6H PRN PRN Reason: Heartburn Stop: 12/27/22 21:49 Last Admin: 11/29/22 01:05 Dose: 500 mg Clonazepam (Clonazepam 0.5 Mg Tab) 0.5 mg PO BID PRN PRN Reason: Anxiety Stop: 12/26/22 18:21 Last Admin: 12/01/22 00:16 Dose: 0.5 mg Fluticasone/Vilanterol (Fluticasone/Vilanterol 200/25mcg 14 Puffs/Inhaler) 1 puffs INH DAILY [facility] Stop: 12/27/22 08:59 Last Admin: 12/02/22 07:58 Dose: 1 puffs Furosemide (Furosemide 40 Mg Tab) 40 mg PO QAM [facility] Stop: 12/31/22 08:59 Last Admin: 12/02/22 08:00 Dose: 40 mg Ceftriaxone Sodium 2,000 mg/ (Dextrose) 70 mls @ 100 mls/hr IV Q24H [facility]; Protocol Stop: 12/04/22 08:59 Last Infusion: 12/02/22 09:22 Dose: Infused Isosorbide Mononitrate (Isosorbide [place] Extended Rel 30 Mg Tabcr) 30 mg PO DAILY [facility] Stop: 12/27/22 08:59 Last Admin: 12/02/22 08:00 Dose: 30 mg Levothyroxine Sodium (Levothyroxine Sodium 150 Mcg Tablet) 150 mcg PO DAILYBB [facility] Stop: 12/28/22 06:29 Last Admin: 12/02/22 05:27 Dose: 150 mcg Lisinopril (Lisinopril 5 Mg Tab) 5 mg PO DAILY [facility] Stop: 12/27/22 08:59 Last Admin: 12/02/22 07:58 Dose: 5 mg Magnesium Hydroxide (Magnesium Hydroxide Susp 30 Ml Udc) 30 ml PO Q12H PRN PRN Reason: Constipation Stop: 12/26/22 18:21 Metoprolol Succinate (Metoprolol Succ 50mg Ext Rel Tab) 100 mg PO DAILY [facility] Stop: 12/27/22 08:59 Last Admin: 12/02/22 08:00 Dose: 100 mg Multivitamins/Minerals (Cerovite Adv Formula Tab) [facility] [place] Stop: 12/27/22 08:59 Last Admin: 12/02/22 07:58 Dose: 1 tab Ondansetron HCl (Ondansetron Inj 2 Mg/Ml 2 Ml Vial) 4 mg IV Q6H PRN PRN Reason: Nausea Stop: 12/26/22 18:21 Pantoprazole Sodium (Pantoprazole 40 Mg Tab) 40 mg PO DAILYBB [facility] Stop: 12/27/22 06:29 Last Admin: 12/02/22 05:27 Dose: 40 mg Polyethylene Glycol (Polyethylene (Miralax) 17 Gm Pack) 17 gm PO DAILY PRN PRN Reason: Constipation Stop: 12/26/22 18:21 Polyethylene Glycol (Polyethylene (Miralax) 17 Gm Pack) 17 gm PO DAILY [facility] Stop: 12/30/22 08:59 Last Admin: 12/02/22 07:59 Dose: 17 gm Potassium Chloride (Potassium Chloride Crtab 20 Meq Tabcr) 40 meq PO QAM [facility] Stop: 12/27/22 08:59 Last Admin: 12/02/22 08:00 Dose: 40 meq Rosuvastatin Calcium (Rosuvastatin Calcium 20 Mg Tab) 40 mg PO DAILY [facility] Stop: 12/27/22 08:59 Last Admin: 11/29/22 09:56 Dose: 40 mg Spironolactone (Spironolactone 12.5 Mg Tab) 12.5 mg PO DAILY [facility] Stop: 12/28/22 08:59 Last Admin: 12/02/22 08:00 Dose: 12.5 mg Trazodone HCl (Trazodone Hcl 50 Mg Tab) 50 mg PO HS [facility] Stop: 12/26/22 20:59 Last Admin: 12/01/22 20:53 Dose: 50 mg Vitamin D (Cholecalciferol 1,000 Units 25 Mcg Tab) 2,000 units PO DAILY [facility] Stop: 12/27/22 08:59 Last Admin: 12/02/22 07:59 Dose: 2,000 units (1) Cellulitis Site of cellulitis: unspecified site Qualified Code(s): L03.90 - Cellulitis, unspecified
--- NOTE | 2022-12-02 15:16 | Hospitalist Progress Note ---
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 Acute on chronic HFpEF Moderate to severe mitral regurgitation with partial flail leaflet CAD with history of CABG in 2004 pt with significant edema extending to abdominal wall, bnp 1,949, cxr with mild pulm edema/pleural effusions, received lasix 60mg IV in ED, will monitor diuresis Has been on lasix 40mg IV daily starting 11/27 give 40meq KCL x 1 now, start daily potassium, monitor bmp and mag strict I and O, daily weights, guaman cath in place continue ASA, Imdur, lisinopril, metoprolol, Crestor Clinically much improved Has been getting IV Lasix 20 mg every 6 hourly and spironolactone orally 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 Lasix has been changed to oral 40 mg in the morning No signs of hypervolemia and the patient remained stable Bilateral lower extremity cellulitis Bilateral lower extremity open wounds with intact bulla Appreciate wound care input and recommendation surface culture obtained in ED-Serratia marcescens which is pansensitive Blood culture negative We will continue intravenous ceftriaxone for now We will stop IV daptomycin Will give oral Keflex to continue continue for a total of 14 days PT recommended rehab but the patient refused Discussed with the family members and the patient will be going home this afternoon History of DVT Long-term anticoagulation with warfarin INR 3.5 hold coumadin (usually on coumadin 1.25mg on Mon and 2.5mg all other days) INR is 3.7 today and will hold Coumadin for now INR is 2.7 today and will restart Coumadin Continue Coumadin as an outpatient with a follow-up in the Coumadin clinic COPD IRLANDA on CPAP, 3.5 L at at bedtime continue inhalers, no acute exac Will check 2 step O2 saturation before discharge today Chronic anemia H&H stable at 10.6 and 34.4 Monitor Diet-controlled T2DM A1c October 2022, 6.5 Monitor fasting glucose DVT prophylaxis: Warfarin on hold Dispo: PT/OT, patient will need Acute Rehab/SNF Full code PCP: Ulisses Admission and Anticipated Discharge Date Admission Date: November 26, 2022 Subjective 11/30/2022 The patient was seen and examined in medical telemetry unit He has been feeling much better and sitting on a chair outside the bed His legs are getting better with improvement of the swelling and improvement of the cellulitis Denies any fever and or chills 12/01/2022 The patient was seen and examined in medical telemetry unit He has been sitting on a chair out of bed without any symptoms Has not had any physical therapy yet Denies any fever and or chills 12/02/2022 The patient was seen and examined in medical telemetry unit He has been stable and sitting on a chair without any acute distress He wants to go home Review of Systems Review of Systems: All systems reviewed and are unremarkable except as noted below Musculoskeletal: Bilateral leg swelling without any arthritis Physical Exam Physical Exam: Sitting on a chair without any acute distress Constitutional: well developed, well nourished, + ill appearing and + obese Eyes: PERRL, conjunctivae normal, anicteric sclerae ENMT: external ear and nose normal, oropharynx normal Neck: trachea midline, no thyromegaly Respiratory: no respiratory distress Auscultation: + diminished lung sounds and + crackles (Minimal crackles at the bases) Cardiovascular: Rate/Rhythm: regular rate and regular rhythm; not tachycardic Heart Sounds: normal S1 and normal S2; no murmur Extremities: + edema (1+ edema bilaterally with chronic skin changes and cellulitis) Gastrointestinal (Abdomen): Inspection/Auscultation: normal bowel sounds; abdomen not distended Percussion/Palpation: abdomen soft; abdomen nontender Neurologic: normal touch/pain/proprioception and moves all extremities Psychiatric: A+Ox3, euthymic affect Lymphatic: no cervical or axillary lymphadenopathy Results & Data Results & Data ([facility]) Vital Signs (Past 12 Hours) Vital Signs Temp Pulse Pulse Resp BP Pulse Ox O2 Del Method 12/02/22 11:50 37.0 C 88 20 110/58 L 93 Nasal Cannula 12/02/22 07:45 107/59 L 12/02/22 09:35 Nasal Cannula 12/02/22 08:26 36.9 C 88 18 95/62 L 96 Nasal Cannula 12/02/22 07:13 86 12/02/22 04:01 94 H 16 115/54 L 96 Nasal Cannula O2 Flow Rate 12/02/22 11:50 2 12/02/22 07:45 12/02/22 09:35 4 12/02/22 08:26 3 12/02/22 07:13 12/02/22 04:01 4 Laboratory Results [facility] 12/02/22 06:08 Sodium 136 Potassium 4.3 Chloride 94 L Carbon Dioxide 39 H BUN 23 Creatinine 0.98 Glucose 129 H Calcium 8.7 Medications Administered Current Inpatient Medications Acetaminophen (Acetaminophen 325 Mg Tab) 650 mg PO Q4H PRN PRN Reason: Pain or Fever Stop: 12/26/22 18:21 Last Admin: 12/02/22 13:21 Dose: 650 mg Albuterol (Albuterol Hfa 8 Gm Inhaler) 1 puffs INH Q6H PRN PRN Reason: sob Stop: 12/26/22 18:21 Aspirin (Aspirin 81 Mg Ectab) 81 mg PO QAM [facility] Stop: 12/27/22 08:59 Last Admin: 12/02/22 08:00 Dose: 81 mg Calcium Carbonate (Calcium Carbonate 500 Mg Chewable Tab) 500 mg PO Q6H PRN PRN Reason: Heartburn Stop: 12/27/22 21:49 Last Admin: 11/29/22 01:05 Dose: 500 mg Clonazepam (Clonazepam 0.5 Mg Tab) 0.5 mg PO BID PRN PRN Reason: Anxiety Stop: 12/26/22 18:21 Last Admin: 12/01/22 00:16 Dose: 0.5 mg Fluticasone/Vilanterol (Fluticasone/Vilanterol 200/25mcg 14 Puffs/Inhaler) 1 puffs INH DAILY [facility] Stop: 12/27/22 08:59 Last Admin: 12/02/22 07:58 Dose: 1 puffs Furosemide (Furosemide 40 Mg Tab) 40 mg PO QAM [facility] Stop: 12/31/22 08:59 Last Admin: 12/02/22 08:00 Dose: 40 mg Ceftriaxone Sodium 2,000 mg/ (Dextrose) 70 mls @ 100 mls/hr IV Q24H [facility]; Protoc ol Stop: 12/04/22 08:59 Last Infusion: 12/02/22 09:22 Dose: Infused Isosorbide Mononitrate (Isosorbide [place] Extended Rel 30 Mg Tabcr) 30 mg PO DAILY [facility] Stop: 12/27/22 08:59 Last Admin: 12/02/22 08:00 Dose: 30 mg Levothyroxine Sodium (Levothyroxine Sodium 150 Mcg Tablet) 150 mcg PO DAILYBB [facility] Stop: 12/28/22 06:29 Last Admin: 12/02/22 05:27 Dose: 150 mcg Lisinopril (Lisinopril 5 Mg Tab) 5 mg PO DAILY [facility] Stop: 12/27/22 08:59 Last Admin: 12/02/22 07:58 Dose: 5 mg Magnesium Hydroxide (Magnesium Hydroxide Susp 30 Ml Udc) 30 ml PO Q12H PRN PRN Reason: Constipation Stop: 12/26/22 18:21 Metoprolol Succinate (Metoprolol Succ 50mg Ext Rel Tab) 100 mg PO DAILY [facility] Stop: 12/27/22 08:59 Last Admin: 12/02/22 08:00 Dose: 100 mg Multivitamins/Minerals (Cerovite Adv Formula Tab) 1 tab PO QAM [facility] Stop: 12/27/22 08:59 Last Admin: 12/02/22 07:58 Dose: 1 tab Ondansetron HCl (Ondansetron Inj 2 Mg/Ml 2 Ml Vial) 4 mg IV Q6H PRN PRN Reason: Nausea Stop: 12/26/22 18:21 Pantoprazole Sodium (Pantoprazole 40 Mg Tab) 40 mg PO DAILYBB [facility] Stop: 12/27/22 06:29 Last Admin: 12/02/22 05:27 Dose: 40 mg Polyethylene Glycol (Polyethylene (Miralax) 17 Gm Pack) 17 gm PO DAILY PRN PRN Reason: Constipation Stop: 12/26/22 18:21 Polyethylene Glycol (Polyethylene (Miralax) 17 Gm Pack) 17 gm PO DAILY [facility] Stop: 12/30/22 08:59 Last Admin: 12/02/22 07:59 Dose: 17 gm Potassium Chloride (Potassium Chloride Crtab 20 Meq Tabcr) 40 meq PO QAM [facility] Stop: 12/27/22 08:59 Last Admin: 12/02/22 08:00 Dose: 40 meq Rosuvastatin Calcium (Rosuvastatin Calcium 20 Mg Tab) 40 mg PO DAILY [facility] Stop: 12/27/22 08:59 Last Admin: 11/29/22 09:56 Dose: 40 mg Spironolactone (Spironolactone 12.5 Mg Tab) 12.5 mg PO DAILY [facility] Stop: 12/28/22 08:59 Last Admin: 12/02/22 08:00 Dose: 12.5 mg Trazodone HCl (Trazodone Hcl 50 Mg Tab) 50 mg PO HS [facility] Stop: 12/26/22 20:59 Last Admin: 12/01/22 20:53 Dose: 50 mg Vitamin D (Cholecalciferol 1,000 Units 25 Mcg Tab) 2,000 units PO DAILY [facility] Stop: 12/27/22 08:59 Last Admin: 12/02/22 07:59 Dose: 2,000 units
[2022-12-02] MEDS ORDERED: cephALEXin 500 MG CAP PO SCH (17:00)
--- NOTE | 2022-12-02 17:09 | Discharge Summary ---
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 Pts PCP is Dr. Terrence Gtz. He also follows closely with [facility] cardiology. His last echocardiogram was April 2022 which revealed LV EF 55 to 59%, mildly increased concentric LVH, moderate aortic valve sclerosis, severe mitral annular calcification with moderate mitral regurgitation present With partial flail leaflet. He presents to ED due to worsened leg swelling, pain, worsening wounds and lumps to the groin. He says this all has been going on for close to a year, but has been getting worse. He complains of off an on chest pain, precordial and sob with exertion. He did take his lasix today and has been taking it every other day. He denies f/c/s, dizziness,lightheaded, cough, uri sx, n/v/d,abd pain. He does have difficulty with urination but denies hematuria and increased urgency. Pt is very hard of hearing and hearing aid battery which is making obtaining history difficult. At home patient does have difficulty with ambulation. Uses wheel chair and occasional walker/cane. His grandson/Son helps him with Iadls. Admission Exam Per Admitting Provider NAD, well developed HEENT: presence of JVD Lungs: fair air entry b/l with b/l lower lobe crackles Cardiac: Normal S1/s2, systolic murmur on the mitral area Abd: obese abd, with lower abd wall pitting edema, NT MSk: severe b/l LE pitting edema with multiple blisters with some already open. Warmth to touch b/l (R>L) Psych: pt was angry, AAOx3 Principal Diagnosis Acute on chronic heart failure with preserved EF, bilateral cellulitis of lower leg, history of DVT, COPD, IRLANDA Discharge Exam Sitting on a chair without any acute distress Constitutional well developed, well nourished, + ill appearing and + obese Eyes PERRL, conjunctivae normal, anicteric sclerae ENMT external ear and nose normal, oropharynx normal Neck trachea midline, no thyromegaly Respiratory no respiratory distress Auscultation: + diminished lung sounds and + crackles (Minimal crackles at the bases) Cardiovascular Rate/Rhythm: regular rate and regular rhythm; not tachycardic Heart Sounds: normal S1 and normal S2; no murmur Extremities: + edema (1+ edema bilaterally with chronic skin changes and cellulitis) Gastrointestinal (Abdomen) Inspection/Auscultation: normal bowel sounds; abdomen not distended Percussion/Palpation: abdomen soft; abdomen nontender Neurologic normal touch/pain/proprioception and moves all extremities Psychiatric A+Ox3, euthymic affect Lymphatic no cervical or axillary lymphadenopathy Discharge Data Allergies Allergy/AdvReac Type Severity Reaction Status Date / Time adhesive Allergy Intermediate BLISTERS Verified 11/26/22 16:31 amoxicillin [From Augmentin] Allergy Intermediate BURNING Verified 11/26/22 16: 31 SENSATION OF TONGUE clavulanic acid Allergy Intermediate BURNING Verified 11/26/22 16:31 [From Augmentin] SENSATION OF TONGUE fish oil Allergy Intermediate ITCHY Verified 11/26/22 16:31 HIVES--IODINE Iodinated Contrast Media Allergy Intermediate ITCHY HIVES Verified 11/26/22 16:31 iodine Allergy Intermediate ANYTHING Verified 11/26/22 16:31 WITH IODINE--ITCHY HIVES niacin Allergy Intermediate Hives Verified 11/26/22 16:31 cat dander Allergy Unknown ON GMG MED Verified 11/26/22 16:31 LIST atorvastatin AdvReac Intermediate MUSCLE Verified 11/26/22 16:31 ACHES CAT GUT SUTURE AdvReac Intermediate INFLAMMATION Uncoded 11/26/22 16:31 OF AREA SUTURED Consultations 11/26/22 15:53 ED Decision to Admit Stat 11/26/22 16:26 Consult Cardiology Routine Hospital Course (1) Acute on chronic heart failure with preserved ejection fraction (HFpEF): (2) Bilateral cellulitis of lower leg: (3) Open wound, lower leg: (4) History of DVT (deep vein thrombosis): (5) COPD (chronic obstructive pulmonary disease): (6) CAD (coronary artery disease): (7) CKD (chronic kidney disease), stage III: (8) IRLANDA (obstructive sleep apnea): Plan This is an 82-year-old male who has significant past medical history of CAD with remote history of CABG in 2004, chronic HFpEF, HTN, HLD, moderate to severe MR with partial flail leaflet diagnosed in 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 Acute on chronic HFpEF Moderate to severe mitral regurgitation with partial flail leaflet CAD with history of CABG in 2004 pt with significant edema extending to abdominal wall, bnp 1,949, cxr with mild pulm edema/pleural effusions, received lasix 60mg IV in ED, will monitor diuresis Has been on lasix 40mg IV daily starting 11/27 give 40meq KCL x 1 now, start daily potassium, monitor bmp and mag strict I and O, daily weights, guaman cath in place continue ASA, Imdur, lisinopril, metoprolol, Crestor Clinically much improved Has been getting IV Lasix 20 mg every 6 hourly and spironolactone orally as per booking prizer Lasix has been changed to oral 40 mg in the morning No signs of hypervolemia and the patient remained stable Bilateral lower extremity cellulitis Bilateral lower extremity open wounds with intact bulla Appreciate wound care input and recommendation surface culture obtained in ED-Serratia marcescens which is pansensitive Blood culture negative We will continue intravenous ceftriaxone for now We will stop IV daptomycin Will give oral Keflex to continue continue for a total of 14 days PT recommended rehab but the patient refused Discussed with the family members and the patient will be going home this afternoon History of DVT Long-term anticoagulation with warfarin INR 3.5 hold coumadin (usually on coumadin 1.25mg on Mon and 2.5mg all other days) INR is 3.7 today and will hold Coumadin for now INR is 2.7 today and will restart Coumadin Continue Coumadin as an outpatient with a follow-up in the Coumadin clinic COPD IRLANDA on CPAP, 3.5 L at at bedtime continue inhalers, no acute exac Will check 2 step O2 saturation before discharge today Chronic anemia H&H stable at 10.6 and 34.4 Monitor Diet-controlled T2DM A1c October 2022, 6.5 Monitor fasting glucose DVT prophylaxis: Warfarin on hold Dispo: PT/OT, patient will need Acute Rehab/SNF Full code PCP: Ulisses Total Time Total Time Spent Total Time Spent (In Minutes): 40 minutes Discharge Plan Discharge Items Patient Disposition: Home - Home Health Services Reason For Visit: ACUTE HFPEF Discharge Diagnosis: Acute on chronic heart failure with preserved EF, bilateral cellulitis of lower leg, history of DVT, COPD, IRLANDA Condition on Discharge: Fair Activity: Resume your previous activity Non-emergency contact: Primary Care Provider Call non-emergency contact if: you have any medication questions and your symptoms worsen Follow-up/Referrals: Terrence Gtz DO [Primary Care Provider] - (Date & Time 12/08/2022 2:20 PM Provider Terrence Gtz DO Department [facility] ) Diet: Heart Healthy and Low Sodium (2gm) Fluids: 1500ml (6 cups) Addtl Attending Provider Instructions: Please take precautions to avoid falls Take your medications as advised Your furosemide dose has been increased to 40 mg once a day Keep appointments with your healthcare provider Continue dressing as per recommendation from the wound care Finish the course of antibiotic Please have regular follow-up with the coagulation clinic Pending Studies at Discharge: No Stand-Alone Forms: My [facility] X-1, Smoking Cessation Medications and DC Order Prescriptions: New spironolactone 25 mg Tablet 12.5 mg PO DAILY 30 Days Qty: 15 0RF potassium chloride 20 mEq Tablet,Er Particles/Crystals 20 meq PO QAM 30 Days Qty: 30 0RF cephalexin 500 mg Capsule 500 mg PO QID 4 Days Qty: 16 0RF Continued aspirin 81 mg Tablet,Delayed Release (Dr/Ec) 81 mg PO QAM fluticasone propion-salmeterol [Wixela Inhub] 250-50 mcg/dose blister with device 1 inh inhalation BID trazodone 50 mg tablet 50 mg PO HS isosorbide mononitrate 30 mg tablet extended release 24 hr 30 mg PO DAILY clonazepam 0.5 mg tablet 0.5 mg PO BID PRN (Reason: Anxiety) omeprazole 40 mg capsule,delayed release(DR/EC) 40 mg PO QAM Rx Instructions: Take 1 hour before the first meal of the day levothyroxine 150 mcg tablet 150 mcg PO QAM Rx Instructions: Take 30 minutes prior to breakfast or other meds nitroglycerin [Nitrostat] 0.4 mg Tablet, Sublingual 0.4 mg sublingual DIRECTED PRN (Reason: Chest Pain) Centrum Silver 0.4-300-250 mg-mcg-mcg Tablet 1 tab PO QAM fluticasone propionate [Flonase Allergy Relief] 50 mcg/actuation Lutz,Suspension 2 spray INTRANASAL DAILY PRN (Reason: Allergy Symptoms) warfarin 2.5 mg tablet 2.5 mg PO SUMOTUTHFRSA@1600 Rx Instructions: 2.5 mg orally; TAKES 2.5 MG EVERY DAY EXCEPT WEDNESDAYS, TAKES 1.25 MG ON WEDNESDAYS ONLY. metoprolol succinate 50 mg tablet extended release 24 hr 100 mg PO DAILY lisinopril 5 mg tablet 5 mg PO DAILY rosuvastatin 40 mg tablet 40 mg PO DAILY cholecalciferol (vitamin D3) 50 mcg (2,000 unit) Tablet 50 mcg PO DAILY (DME) Oxygen Home Liters Per Minute See Rx Instructions .Route Qty: 1 0RF Rx Instructions: 3LPM with activity acetaminophen [Tylenol] 325 mg Tablet 650 mg PO Q6H PRN (Reason: Pain) betamethasone, augmented 0.05 % cream 1 applic TOPICAL BID PRN (Reason: Pain) Rx Instructions: APPLY TO LEGS BILATERALLY NEEDED FOR PAIN albuterol sulfate [Ventolin HFA] 90 mcg/actuation Hfa Aerosol Inhaler 2 puff INHALATION Q4H PRN (Reason: Shortness Of Breath Or Wheezing) [id number] 3.5-10,000-10 mg-unit-mg/mL drops,suspension 1 drp OPL BID Combivent Respimat 20-100 mcg/actuation Mist 2 puff INHALATION QID PRN (Reason: COUGH/WHEEZE) sennosides [Senokot] 8.6 mg Tablet 17.2 mg PO HS Qty: 30 0RF Rx Instructions: hold for diarrhea albuterol sulfate 90 mcg/actuation HFA aerosol inhaler 1 inh INHALATION Q6H PRN (Reason: sob) warfarin 2.5 mg tablet 1.25 mg PO WE@1600 Changed furosemide 40 mg tablet 40 mg PO DAILY Qty: 30 0RF Discharge Orders: Discharge Order (Routine); Ordered 12/02/22 Ordered By: Ernie Foss Discharge Order- CHF (Routine); Ordered 12/02/22 Ordered By: Ernie Foss Admission Data Admit Date/Time: 11/26/22 16:08 Attending Provider: Pipo,Manabendra Admit Provider: Shelley Posada Primary Care Provider: Terrence Gtz Other Providers: Jerrod Trujillo ; Shelley Posada ; [facility] ; Phillip Jefferson Other Interventions: Discharge Summary Assessment (RN) Last Done: 12/02/22 16:11
== END 2022-12-02 18:00 | disposition home health service (06) | DRG 291 ==
LOC: ED 13:52 → 2N 16:08 → SUATTDRO 16:08 → 2N 18:17